=== PATIENT | female | born 1945 | race Caucasian/White ===

== ENCOUNTER 2020-12-06 11:07 | Inpatient (IN) | payer MEDICARE, MEDICAID, SELFPAY ==
--- NOTE | ~2020-12-06 | XR_ITS ---
EXAMINATION: XR ABDOMEN KUB CLINICAL INDICATION: Constipation. Abdominal pain. COMPARISON: None TECHNIQUE: AP view of the abdomen. FINDINGS: There is stool throughout the colon suggestive of constipation. There are no dilated loops of bowel to suggest obstruction. There is no evidence of free air. No calcifications are seen. There are degenerative changes of the lumbar spine and curvature to the left. There are degenerative changes at the hip joints. XR/XR KUB IMPRESSION: Constipation.
--- NOTE | 2020-12-06 11:47 | ECG_ITS ---
Test Reason : MEDCLEARANCE Blood Pressure : / mmHG Vent. Rate : 067 BPM Atrial Rate : 067 BPM P-R Int : 232 ms QRS Dur : 094 ms QT Int : 404 ms P-R-T Axes : 069 -62 048 degrees QTc Int : 426 ms Sinus rhythm with 1st degree A-V block Left anterior fascicular block RSR' or QR pattern in V1 suggests right ventricular conduction delay Abnormal ECG QRS axis has changed slightly Referred By: Kathi Diaz Electronically Signed By:NAT FISCHER MD
[2020-12-06 11:59] VITALS: BP 142/78; BP 145/76; PULSE 81; PULSE 85; RESP 18; TEMP 37.1; O2SAT 96; O2SAT 97; BMI 32.1
[2020-12-06 12:24] VITALS: BP 148/60; PULSE 65; RESP 18; TEMP 36.3; O2SAT 95
--- NOTE | 2020-12-06 12:33 | ED.PSYCH ---
HPI - Psych General Chief Complaint: Psychiatric Symptoms <MARY Martinez - Last Filed: 12/06/20 16:12> Stated Complaint: ANXIETY W/SI <MARY Martinez - Last Filed: 12/06/20 16:12> Time Seen by Provider: 12/06/20 11:46 <MARY Martinez - Last Filed: 12/06/20 16:12> Source: patient and EMS <MARY Martinez Last Filed: 12/06/20 16:12> Mode of arrival: EMS <MARY Martinez Last Filed: 12/06/20 16:12> Limitations: no limitations <MARY Martinez Last Filed: 12/06/20 16:12> History of Present Illness HPI Narrative: 75 y/o female history of schizophrenic, diabetes, chronic constipation, hyperlipidemia who [facility] with increased anxiety and obsession over her bowel movements. She ?wants to get rid of all the stuff inside of me. She does not remember the last time she had a bowel movement. She thinks that has been a week. Staff at the facility reports abnormal large bowel movement yesterday. She has been getting her normal bowel regimen. She denies any abdominal pain, nausea, vomiting, diarrhea, fever, chills, urinary symptoms. She is tearful and anxious when asked about her bowel movements and does not answer the questions. EMS reported some vague SI with no plan but patient denies on arrival. <MARY Martinez - Last Filed: 12/06/20 16:12> MD complaint: anxiety and other (obesession with bowels and constipation) <MARY Martinez - Last Filed: 12/06/20 16:12> Onset (ago): unknown <MARY Martinez - Last Filed: 12/06/20 16:12> Duration: constant <MARY Martinez Last Filed: 12/06/20 16:12> History of same: Yes <MARY Martinez Last Filed: 12/06/20 16:12> Relieving factors: none <MARY Martinez Last Filed: 12/06/20 16:12> Exacerbating factors: none <MARY Martinez - Last Filed: 12/06/20 16:12> Associated psychiatric symptoms: depression and delusions <MARY Martinez - Last Filed: 12/06/20 16:12> Associated symptoms: denies other symptoms <MARY Martinez - Last Filed: 12/06/20 16:12> Treatments prior to arrival: none <MARY Martinez - Last Filed: 12/06/20 16:12> Related Data Home Medications: Home Medications Medication Instructions Recorded Confirmed aripiprazole 30 mg tablet 1 tab PO BEDTIME 12/06/20 12/06/20 aripiprazole 5 mg tablet 0.5 tab PO DAILY PRN 12/06/20 12/06/20 ascorbic acid (vitamin C) 500 mg 500 mg PO BID 12/06/20 12/06/20 tablet (Vitamin C) atorvastatin 40 mg tablet 1 tab PO DAILY 12/06/20 12/06/20 benztropine 0.5 mg tablet 1 tab PO BID 12/06/20 12/06/20 calcium carbonate 600 mg (1,500 1 tab PO DAILY 12/06/20 12/06/20 mg)-vitamin D3 400 unit tablet (Calcium 600 + D(3)) carbidopa 25 mg-levodopa 100 mg 1 tab PO TID 12/06/20 12/06/20 tablet citalopram 10 mg tablet 10 mg PO DAILY 12/06/20 12/06/20 diltiazem HCl 360 mg capsule,24 360 mg PO DAILY 12/06/20 12/06/20 hr,extended release divalproex 500 mg tablet,delayed 1 tab PO BEDTIME 12/06/20 12/06/20 release docusate sodium 100 mg capsule 100 mg PO BID 12/06/20 12/06/20 (DOK) ferrous sulfate 325 mg (65 mg 325 mg PO DAILY 12/06/20 12/06/20 iron) tablet furosemide 20 mg tablet 20 mg PO Q OTHER DAY 12/06/20 12/06/20 furosemide 40 mg tablet 1 tab PO Q OTHER DAY 12/06/20 12/06/20 metformin 1,000 mg tablet 1 tab PO BID 12/06/20 12/06/20 polyethylene glycol 3350 18 g PO DAILY 12/06/20 12/06/20 trazodone 150 mg tablet 1 tab PO BEDTIME 12/06/20 12/06/20 <MARY Martinez - Last Filed: 12/06/20 16:12> Allergies/Adverse Reactions: Allergies Allergy/AdvReac Type Severity Reaction Status Date / Time No Known Allergies Allergy Unknown UNKNOWN Unverified 10/28/19 16:25 [NO KNOWN ALLERGIES] <MARY Martinez - Last Filed: 12/06/20 16:12> Review of Systems Review of Systems: Constitutional: No Fever, No Chills ENT/Mouth: No sore throat, No Rhinorrhea, No Swallowing Difficulty Cardiovascular: No Chest Pain, No SOB, No Orthopnea, No Edema Respiratory: No Cough, No Sputum, No Wheezing, No dyspnea Gastrointestinal: No Nausea, No Vomiting, No Diarrhea, No abdominal Pain, No Hematochezia, No Melena, +constipation Genitourinary: No Dysuria, No Urinary Frequency, No Hematuria Musculoskeletal: No joint pain, No Myalgias Skin: No Skin Lesions, No rash Neuro: No Weakness, No Numbness, No Dizziness, No Headache Psych: + Anxiety/Panic, +Depression, No SI, No HI, No AH, No VH Heme/Lymph: No Bruising, No Lymphadenopathy Endocrine: No Polyuria, No Polydipsia <MARY Martinez - Last Filed: 12/06/20 16:12> [facility] Social History Social History: Social History Advance Directives: No Advance Directives Information Provided: No <MARY Martinez - Last Filed: 12/06/20 16:12> Physical Exam Vital Signs: Vital Signs: Last Vital Signs Temp 98.7 F 12/06/20 11:59 Pulse 81 12/06/20 11:59 Resp 18 12/06/20 11:59 BP 145/76 H 12/06/20 11:59 Pulse Ox 96 12/06/20 11:59 Body Mass Index 32.1 <MARY Martinez - Last Filed: 12/06/20 16:12> Vital Signs: Last Vital Signs Temp 98.7 F 12/06/20 11:59 Pulse 81 12/06/20 11:59 Resp 18 12/06/20 11:59 BP 145/76 H 12/06/20 11:59 Pulse Ox 96 12/06/20 11:59 Body Mass Index 32.1 <MARY Strong - Last Filed: 12/06/20 17:44> Appearance: Alert elderly female sitting at the edge of the bed tearful. Oriented X2. Eyes: Pupils equal, round and reactive to light. ENT: Pharynx normal. Neck: Normal inspection. Neck supple. CVS: Normal heart rate and rhythm. Pulses normal. Respiratory: No respiratory distress. Breath sounds normal. Abdomen: Soft with mild generalized tenderness, no rebound no guarding. Normal+BS x4 Skin: Skin warm and dry. Normal skin color. Normal skin turgor. No rashes. Extremities: No lower extremity edema. Neuro: Oriented X 3. No motor deficit. No sensory deficit. Cranial nerves 2-12 intact <MARY Martinez Last Filed: 12/06/20 16:12> Course Course Course Narrative: 75-year-old female with history schizophrenia coming in from [facility] with anxiety and obsession over her bowels. She wants to ?get everything out of me .? prison staff confirmed normal good size bowel movement yesterday. She has no nausea or vomiting. No fever or chills. Will plan to check basic lab workup, UA, COVID. Will check KUB to rule out obstruction although his left less likely without nausea or vomiting and having regular BM's. Her abdomen is soft. She is getting a bowel regimen currently. <MARY Martinez - Last Filed: 12/06/20 16:12> Reevaluation(s) Reevaluation #1: Lab workup is unremarkable. KUB showing constipation. Will add lactulose and senna. At this time patient is medically cleared. Physician observation started at 4pm. Patient placed in physician observation because patient is awaiting [facility] evaluation for the possible need of inpatient psych admission. At the time observation was started patient's vital signs were stable. Patient is alert and oriented, agitated and tearful at times. Neuro exam is non-focal. CV: RRR and lungs are clear. Will continue to monitor. <MARY Martinez Last Filed: 12/06/20 16:12> MDM - Psych Lab Data Result diagrams: : 12/06/20 13:23 12/06/20 13:23 <MARY Martinez Last Filed: 12/06/20 16:12> Labs: Lab Results 12/06/20 12/06/20 12/06/20 Range/Units 13:22 13:23 13:23 WBC 10.5 (4.8-10.8) X10*3/uL RBC 4.79 (4.20-5.50) X10*6/uL Hgb 15.0 (12.0-16.0) g/dl Hct 44.8 (37-47) % MCV 93.5 (80-98) fL MCH 31.3 (27.0-33.0) pg MCHC 33.5 (31.0-35.0) g/dl RDW 11.2 (11.0-16.0) % Plt Count TNP MPV Not Reportable Immature Gran % (Auto) 0.4 (0.0-0.4) % Neut % (Auto) 77.6 H (45-73) % Lymph % (Auto) 14.7 L (20-40) % Ramsey % (Auto) 5.8 (2-11) % Eos % (Auto) 1.1 (0-4) % Baso % (Auto) 0.4 (0-2) % Lymph # (Auto) 1.5 (1.2-4.9) X10*3/uL Ramsey # (Auto) 0.6 (0.1-1.2) X10*3/uL Eos # (Auto) 0.1 (0.0-0.4) X10*3/uL Baso # (Auto) 0.0 (0.0-0.2) X10*3/uL Abs Immat Gran (auto) 0.04 H (0.00-0.03) X10*3/uL Absolute Neuts (auto) 8.1 (2.0-8.3) X10*3/uL Absolute Nucleated RBC 0.000 (0.0-0.012) X10*3/uL Nucleated RBC % (auto) 0.0 (0.0-0.2) /100WBC Smear Tech's Comments VERIFIED Sodium 135 (135-145) mmol/L Potassium 4.6 (3.3-5.1) mmol/L Chloride 95 L (96-108) mmol/L Carbon Dioxide 25 (22-29) mmol/L Anion Gap 20 (12-20) BUN 15 (9-16) mg/dL Creatinine 0.84 (0.5-1.4) mg/dL Estim Creat Clear Calc 59.2 Estimated GFR > 60 Random Glucose 179 H (60-115) mg/dL Calcium 9.7 (8.4-10.2) mg/dL Magnesium 1.9 (1.6-2.6) mg/dL Total Bilirubin 0.5 (0.0-1.0) mg/dL Direct Bilirubin 0.2 (0.0-0.5) mg/dL AST 9 (5-31) U/L ALT 6 (0-31) U/L Alkaline Phosphatase 82 (39-117) U/L Total Protein 7.7 (6.5-8.0) g/dL Albumin 4.4 (3.5-5.0) g/dL Urine Color Urine Appearance Urine pH (5.0-8.0) Ur Specific [place] (1.005-1.025) Urine Protein (NEG-TRACE) MG/DL Urine Glucose (UA) (NEG) MG/DL Urine Ketones (NEG) MG/DL Urine Blood (NEG) Urine Nitrite (NEG) Ur Leukocyte Esterase (NEG) Urine RBC (0) /HPF Urine WBC (0-4) /HPF Ur Squamous Epith Cells /LPF Urine Bacteria /LPF Urine Opiates Screen (Not Detect) Urine Fentanyl Screen (Not Detect) Ur Barbiturates Screen (Not Detect) Ur Phencyclidine Scrn (Not Detect) Ur Amphetamines Screen (Not Detect) U Benzodiazepines Scrn (Not Detect) Urine Cocaine Screen (Not Detect) U Marijuana (THC) Screen (Not Detect) Ethyl Alcohol < 10 mg/dL COVID-19 (NEGRA) (Negative) COVID-19 Clin Com 12/06/20 12/06/20 12/06/20 Range/Units 13:23 13:23 13:23 WBC (4.8-10.8) X10*3/uL RBC (4.20-5.50) X10*6/uL Hgb (12.0-16.0) g/dl Hct (37-47) % MCV (80-98) fL MCH (27.0-33.0) pg MCHC (31.0-35.0) g/dl RDW (11.0-16.0) % Plt Count MPV Immature Gran % (Auto) (0.0-0.4) % Neut % (Auto) (45-73) % Lymph % (Auto) (20-40) % Ramsey % (Auto) (2-11) % Eos % (Auto) (0-4) % Baso % (Auto) (0-2) % Lymph # (Auto) (1.2-4.9) X10*3/uL Ramsey # (Auto) (0.1-1.2) X10*3/uL Eos # (Auto) (0.0-0.4) X10*3/uL Baso # (Auto) (0.0-0.2) X10*3/uL Abs Immat Gran (auto) (0.00-0.03) X10*3/uL Absolute Neuts (auto) (2.0-8.3) X10*3/uL Absolute Nucleated RBC (0.0-0.012) X10*3/uL Nucleated RBC % (auto) (0.0-0.2) /100WBC Smear Tech's Comments Sodium (135-145) mmol/L Potassium (3.3-5.1) mmol/L Chloride (96-108) mmol/L Carbon Dioxide (22-29) mmol/L Anion Gap (12-20) BUN (9-16) mg/dL Creatinine (0.5-1.4) mg/dL Estim Creat Clear Calc Estimated GFR Random Glucose (60-115) mg/dL Calcium (8.4-10.2) mg/dL Magnesium (1.6-2.6) mg/dL Total Bilirubin (0.0-1.0) mg/dL Direct Bilirubin (0.0-0.5) mg/dL AST (5-31) U/L ALT (0-31) U/L Alkaline Phosphatase (39-117) U/L Total Protein (6.5-8.0) g/dL Albumin (3.5-5.0) g/dL Urine Color YELLOW Urine Appearance CLEAR Urine pH 6.0 (5.0-8.0) Ur Specific [place] 1.010 (1.005-1.025) Urine Protein NEG (NEG-TRACE) MG/DL Urine Glucose (UA) 100 H (NEG) MG/DL Urine Ketones 5 (NEG) MG/DL Urine Blood NEG (NEG) Urine Nitrite NEG (NEG) Ur Leukocyte Esterase 1+ H (NEG) Urine RBC 0 (0) /HPF Urine WBC 10-14 H (0-4) /HPF Ur Squamous Epith Cells 2+ /LPF Urine Bacteria 4+ /LPF Urine Opiates Screen Not Detected (Not Detect) Urine Fentanyl Screen POSITIVE H (Not Detect) Ur Barbiturates Screen Not Detected (Not Detect) Ur Phencyclidine Scrn Not Detected (Not Detect) Ur Amphetamines Screen Not Detected (Not Detect) U Benzodiazepines Scrn Not Detected (Not Detect) Urine Cocaine Screen Not Detected (Not Detect) U Marijuana (THC) Screen Not Detected (Not Detect) Ethyl Alcohol mg/dL COVID-19 (NEGRA) Negative (Negative) COVID-19 Clin Com See Note <MARY Martinez - Last Filed: 12/06/20 16:12> Lab Results 12/06/20 12/06/20 12/06/20 Range/Units 13:22 13:23 13:23 WBC 10.5 (4.8-10.8) X10*3/uL RBC 4.79 (4.20-5.50) X10*6/uL Hgb 15.0 (12.0-16.0) g/dl Hct 44.8 (37-47) % MCV 93.5 (80-98) fL MCH 31.3 (27.0-33.0) pg MCHC 33.5 (31.0-35.0) g/dl RDW 11.2 (11.0-16.0) % Plt Count TNP MPV Not Reportable Immature Gran % (Auto) 0.4 (0.0-0.4) % Neut % (Auto) 77.6 H (45-73) % Lymph % (Auto) 14.7 L (20-40) % Ramsey % (Auto) 5.8 (2-11) % Eos % (Auto) 1.1 (0-4) % Baso % (Auto) 0.4 (0-2) % Lymph # (Auto) 1.5 (1.2-4.9) X10*3/uL Ramsey # (Auto) 0.6 (0.1-1.2) X10*3/uL Eos # (Auto) 0.1 (0.0-0.4) X10*3/uL Baso # (Auto) 0.0 (0.0-0.2) X10*3/uL Abs Immat Gran (auto) 0.04 H (0.00-0.03) X10*3/uL Absolute Neuts (auto) 8.1 (2.0-8.3) X10*3/uL Absolute Nucleated RBC 0.000 (0.0-0.012) X10*3/uL Nucleated RBC % (auto) 0.0 (0.0-0.2) /100WBC Smear Tech's Comments VERIFIED Sodium 135 (135-145) mmol/L Potassium 4.6 (3.3-5.1) mmol/L Chloride 95 L (96-108) mmol/L Carbon Dioxide 25 (22-29) mmol/L Anion Gap 20 (12-20) BUN 15 (9-16) mg/dL Creatinine 0.84 (0.5-1.4) mg/dL Estim Creat Clear Calc 59.2 Estimated GFR > 60 Random Glucose 179 H (60-115) mg/dL Calcium 9.7 (8.4-10.2) mg/dL Magnesium 1.9 (1.6-2.6) mg/dL Total Bilirubin 0.5 (0.0-1.0) mg/dL Direct Bilirubin 0.2 (0.0-0.5) mg/dL AST 9 (5-31) U/L ALT 6 (0-31) U/L Alkaline Phosphatase 82 (39-117) U/L Total Protein 7.7 (6.5-8.0) g/dL Albumin 4.4 (3.5-5.0) g/dL Urine Color Urine Appearance Urine pH (5.0-8.0) Ur Specific [place] (1.005-1.025) Urine Protein (NEG-TRACE) MG/DL Urine Glucose (UA) (NEG) MG/DL Urine Ketones (NEG) MG/DL Urine Blood (NEG) Urine Nitrite (NEG) Ur Leukocyte Esterase (NEG) Urine RBC (0) /HPF Urine WBC (0-4) /HPF Ur Squamous Epith Cells /LPF Urine Bacteria /LPF Urine Opiates Screen (Not Detect) Urine Fentanyl Screen (Not Detect) Ur Barbiturates Screen (Not Detect) Ur Phencyclidine Scrn (Not Detect) Ur Amphetamines Screen (Not Detect) U Benzodiazepines Scrn (Not Detect) Urine Cocaine Screen (Not Detect) U Marijuana (THC) Screen (Not Detect) Ethyl Alcohol < 10 mg/dL COVID-19 (NEGRA) (Negative) COVID-19 Clin Com 12/06/20 12/06/20 12/06/20 Range/Units 13:23 13:23 13:23 WBC (4.8-10.8) X10*3/uL RBC (4.20-5.50) X10*6/uL Hgb (12.0-16.0) g/dl Hct (37-47) % MCV (80-98) fL MCH (27.0-33.0) pg MCHC (31.0-35.0) g/dl RDW (11.0-16.0) % Plt Count MPV Immature Gran % (Auto) (0.0-0.4) % Neut % (Auto) (45-73) % Lymph % (Auto) (20-40) % Ramsey % (Auto) (2-11) % Eos % (Auto) (0-4) % Baso % (Auto) (0-2) % Lymph # (Auto) (1.2-4.9) X10*3/uL Ramsey # (Auto) (0.1-1.2) X10*3/uL Eos # (Auto) (0.0-0.4) X10*3/uL Baso # (Auto) (0.0-0.2) X10*3/uL Abs Immat Gran (auto) (0.00-0.03) X10*3/uL Absolute Neuts (auto) (2.0-8.3) X10*3/uL Absolute Nucleated RBC (0.0-0.012) X10*3/uL Nucleated RBC % (auto) (0.0-0.2) /100WBC Smear Tech's Comments Sodium (135-145) mmol/L Potassium (3.3-5.1) mmol/L Chloride (96-108) mmol/L Carbon Dioxide (22-29) mmol/L Anion Gap (12-20) BUN (9-16) mg/dL Creatinine (0.5-1.4) mg/dL Estim Creat Clear Calc Estimated GFR Random Glucose (60-115) mg/dL Calcium (8.4-10.2) mg/dL Magnesium (1.6-2.6) mg/dL Total Bilirubin (0.0-1.0) mg/dL Direct Bilirubin (0.0-0.5) mg/dL AST (5-31) U/L ALT (0-31) U/L Alkaline Phosphatase (39-117) U/L Total Protein (6.5-8.0) g/dL Albumin (3.5-5.0) g/dL Urine Color YELLOW Urine Appearance CLEAR Urine pH 6.0 (5.0-8.0) Ur Specific [place] 1.010 (1.005-1.025) Urine Protein NEG (NEG-TRACE) MG/DL Urine Glucose (UA) 100 H (NEG) MG/DL Urine Ketones 5 (NEG) MG/DL Urine Blood NEG (NEG) Urine Nitrite NEG (NEG) Ur Leukocyte Esterase 1+ H (NEG) Urine RBC 0 (0) /HPF Urine WBC 10-14 H (0-4) /HPF Ur Squamous Epith Cells 2+ /LPF Urine Bacteria 4+ /LPF Urine Opiates Screen Not Detected (Not Detect) Urine Fentanyl Screen POSITIVE H (Not Detect) Ur Barbiturates Screen Not Detected (Not Detect) Ur Phencyclidine Scrn Not Detected (Not Detect) Ur Amphetamines Screen Not Detected (Not Detect) U Benzodiazepines Scrn Not Detected (Not Detect) Urine Cocaine Screen Not Detected (Not Detect) U Marijuana (THC) Screen Not Detected (Not Detect) Ethyl Alcohol mg/dL COVID-19 (NEGRA) Negative (Negative) COVID-19 Clin Com See Note <MARY Strong - Last Filed: 12/06/20 17:44> ECG Data Attestation: I personally reviewed and interpreted this ECG as follows: <MARY Martinez - Last Filed: 12/06/20 16:12> ECG interpretation date: 12/06/20 <MARY Martinez - Last Filed: 12/06/20 16:12> ECG interpretation time: 16:11 <MARY Martinez - Last Filed: 12/06/20 16:12> Interpretation: Normal sinus rhythm with first-degree AV block. LA interval prolonged 232 MS, normal QTC. No ST segment elevations or depressions. Left axis deviation. <MARY Martinez - Last Filed: 12/06/20 16:12> Discharge Plan Discharge Clinical Impression: Chronic schizophrenia, Acute anxiety Constipation Qualifiers: Constipation type: other constipation type Qualified Code(s): K59.09 - Other constipation <MARY Martinez - Last Filed: 12/06/20 16:12> Prescriptions: No Action citalopram 10 mg Tablet 10 mg PO DAILY RF: 0 diltiazem HCl 360 mg Capsule,Extended Release 24 Hr 360 mg PO DAILY RF: 0 polyethylene glycol 3350 18 g PO DAILY RF: 0 furosemide 40 mg tablet 1 tab PO Q OTHER DAY RF: 0 atorvastatin 40 mg tablet 1 tab PO DAILY RF: 0 benztropine 0.5 mg tablet 1 tab PO BID RF: 0 divalproex 500 mg tablet,delayed release (DR/EC) 1 tab PO BEDTIME RF: 0 ascorbic acid (vitamin C) [Vitamin C] 500 mg Tablet 500 mg PO BID RF: 0 trazodone 150 mg tablet 1 tab PO BEDTIME RF: 0 ferrous sulfate 325 mg (65 mg iron) Tablet 325 mg PO DAILY RF: 0 metformin 1,000 mg tablet 1 tab PO BID RF: 0 docusate sodium [DOK] 100 mg Capsule 100 mg PO BID RF: 0 furosemide 20 mg tablet 20 mg PO Q OTHER DAY RF: 0 carbidopa-levodopa 25-100 mg tablet 1 tab PO TID RF: 0 aripiprazole 30 mg tablet 1 tab PO BEDTIME RF: 0 aripiprazole 5 mg tablet 0.5 tab PO DAILY PRN (Reason: Anxiety) RF: 0 calcium carbonate-vitamin D3 [Calcium 600 + D(3)] 600 mg(1,500mg) -400 unit Tablet 1 tab PO DAILY RF: 0 <MARY Martinez - Last Filed: 12/06/20 16:12>
[2020-12-06 13:33] LABS: Appearance Urine CLEAR; Color Urine YELLOW; Glucose Urine UA 100 MG/DL (NEG); Leukocyte Esterase Urine 1+ (NEG); Nitrite Urine NEG (NEG); UACC Culture Trigger YES; Urine Blood NEG (NEG); Urine Ketones 5 MG/DL (NEG); Urine Protein NEG (NEG-TRACE)
[2020-12-06 13:36] LABS: Basophils Percent Auto 0.4 % (0-2); Eosinophils Absolute Auto 0.1 X10*3/uL (0.0-0.4); Eosinophils Percent Auto 1.1 % (0-4); Hematocrit 44.8 % (37-47); Imm Gran Abs Auto 0.04 X10*3/uL (0.00-0.03); Imm Gran Pct Auto 0.4 % (0.0-0.4); Lymphocytes Absolute Auto 1.5 X10*3/uL (1.2-4.9); Lymphocytes Percent Auto 14.7 % (20-40); MANUAL DIFF FLAG SCAN; Mean Corpuscular HGB Conc 33.5 g/dl (31.0-35.0); Mean Corpuscular Hemoglobin 31.3 pg (27.0-33.0); Mean Corpuscular Volume 93.5 fL (80-98); Monocytes Absolute Auto 0.6 X10*3/uL (0.1-1.2); Monocytes Percent Auto 5.8 % (2-11); Neutrophils Absolute Auto 8.1 X10*3/uL (2.0-8.3); Neutrophils Percent Auto 77.6 % (45-73); PLT CLUMP 1; Red Blood Count 4.79 X10*6/uL (4.20-5.50); Red Cell Distribution Width 11.2 % (11.0-16.0); SCAN SMEAR FLAG 1
[2020-12-06 13:43] LABS: Bacteria Urine 4+ /LPF; RBC Urine 0 /HPF (0); Squamous Epithelial Cell Urine 2+ /LPF
[2020-12-06 13:45] LABS: Ethanol < 10 mg/dL
[2020-12-06 13:48] LABS: Amphetamine Screen Urine Not Detected (Not Detect); Barbiturates, Urine Not Detected (Not Detect); Benzodiazepines Screen Urine Not Detected (Not Detect); Cannabinoid Screen Urine Not Detected (Not Detect); Cocaine Screen Urine Not Detected (Not Detect); Fentanyl, urine POSITIVE (Not Detect); Opiate Screen Urine Not Detected (Not Detect); Phencyclidine Screen Urine Not Detected (Not Detect)
[2020-12-06 13:50] LABS: Alanine Aminotransferase 6 U/L (0-31); Albumin Level 4.4 g/dL (3.5-5.0); Alkaline Phosphatase 82 U/L (39-117); Anion Gap 20 (12-20); Aspartate Amino Transferase 9 U/L (5-31); Bilirubin Direct 0.2 mg/dL (0.0-0.5); Bilirubin Total 0.5 mg/dL (0.0-1.0); Blood Urea Nitrogen 15 mg/dL (9-16); Calcium 9.7 mg/dL (8.4-10.2); Carbon Dioxide 25 mmol/L (22-29); Chloride 95 mmol/L (96-108); Creatinine Clr Calc Pharmacy 59.2; Estimated Glomerular Filt Rate > 60; Glucose Random 179 mg/dL (60-115); Magnesium 1.9 mg/dL (1.6-2.6); Potassium 4.6 mmol/L (3.3-5.1); Sodium 135 mmol/L (135-145); Total Protein 7.7 g/dL (6.5-8.0)
[2020-12-06 13:51] LABS: COVID-19 Test Negative (Negative)
[2020-12-06 14:01] LABS: SLIDE REVIEW VERIFIED; White Blood Count 10.5 X10*3/uL (4.8-10.8)
[2020-12-06] MEDS: Lactulose 20 GM/30 ML SOLUTION PO (16:53)
[2020-12-06] MEDS: ARIPiprazole 5 MG TABLET 2.5 MG PO (18:19)
[2020-12-06] MEDS: Ascorbic Acid 500 MG TABLET PO (20:27)
[2020-12-06] MEDS: metFORMIN HCl 1,000 MG TABLET 1000 MG PO (20:27)
[2020-12-06] MEDS: Divalproex Sodium 500 MG TABLET.DR PO (20:27)
[2020-12-06] MEDS: Carbidopa/Levodopa 25/100 TABLET 1 TAB PO (20:27)
[2020-12-06] MEDS: traZODone HCL 50 MG TABLET 150 MG PO (20:27)
[2020-12-06] MEDS: Benztropine Mesylate 0.5 MG TABLET PO (20:28)
[2020-12-06 20:32] LABS: Valproate 37.6 mcg/mL (50.0-100.0)
[2020-12-06] MEDS: ARIPiprazole 30 MG TABLET PO (20:54)
--- NOTE | 2020-12-06 21:16 | PC.NURSE ---
Patient is currently in bed resting quietly, compliant with HS medication, patient had positive effect from lactulose, had extra large loose bowel movement, POC 260, VSS, alert and oriented x 4, thpought process coherent, unsteady gait use walker for ambulation, will continue to monitor.
[2020-12-06 21:22] LABS: Glucose, Whole Blood 260 mg/dL (60-115)
[2020-12-06 22:40] VITALS: BP 192/84; PULSE 77; RESP 18; TEMP 36.4; O2SAT 95
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
[2020-12-07 08:35] VITALS: BP 142/60; PULSE 71
[2020-12-07] MEDS: Benztropine Mesylate 0.5 MG TABLET PO ×2 (08:35→21:00)
[2020-12-07] MEDS: dilTIAZem HCL CD 180 MG CAP.ER.24H 360 MG PO (08:35)
[2020-12-07] MEDS: Carbidopa/Levodopa 25/100 TABLET 1 TAB PO ×3 (08:35→21:00)
[2020-12-07] MEDS: Docusate Sodium 100 MG CAPSULE PO ×2 (08:35→20:57)
[2020-12-07] MEDS: metFORMIN HCl 1,000 MG TABLET 1000 MG PO ×2 (08:36→20:56)
[2020-12-07] MEDS: Escitalopram Oxalate 5 MG TABLET PO (08:36)
[2020-12-07] MEDS: Calcium + Vitamin D 250 MG TABLET PO (08:36)
[2020-12-07] MEDS: Ferrous Sulfate 324 MG TABLET.DR PO (08:36)
[2020-12-07] MEDS: Ascorbic Acid 500 MG TABLET PO ×2 (08:36→21:00)
[2020-12-07] MEDS: Furosemide 40 MG TABLET PO (10:37)
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
[2020-12-07] MEDS: traZODone HCL 50 MG TABLET 150 MG PO (20:57)
[2020-12-07] MEDS: Divalproex Sodium 500 MG TABLET.DR PO (20:57)
[2020-12-07] MEDS: ARIPiprazole 30 MG TABLET PO (21:00)
[2020-12-07] MEDS: Atorvastatin Calcium 40 MG TABLET PO (21:01)
[2020-12-07 21:18] VITALS: BP 151/68; PULSE 98; RESP 17; TEMP 36.9; O2SAT 96
[2020-12-07 22:00] VITALS: BMI 31.7
[2020-12-08 06:00] VITALS: BP 160/78; PULSE 88; RESP 16; TEMP 37; O2SAT 98
[2020-12-08] MEDS: dilTIAZem HCL CD 180 MG CAP.ER.24H 360 MG PO (09:41)
[2020-12-08] MEDS: Benztropine Mesylate 0.5 MG TABLET PO ×2 (09:41→21:00)
[2020-12-08] MEDS: Calcium + Vitamin D 250 MG TABLET PO (09:42)
[2020-12-08] MEDS: Carbidopa/Levodopa 25/100 TABLET 1 TAB PO ×3 (09:42→20:59)
[2020-12-08] MEDS: Furosemide 20 MG TABLET PO (09:42)
[2020-12-08] MEDS: metFORMIN HCl 1,000 MG TABLET 1000 MG PO ×2 (09:42→21:00)
[2020-12-08] MEDS: Ascorbic Acid 500 MG TABLET PO ×2 (09:42→21:01)
[2020-12-08] MEDS: Docusate Sodium 100 MG CAPSULE PO ×2 (09:42→21:01)
[2020-12-08] MEDS: Escitalopram Oxalate 5 MG TABLET PO (09:42)
[2020-12-08] MEDS: polyethylene glycoL 3350 17 GM POWD.PACK PO (09:42)
[2020-12-08] MEDS: Ferrous Sulfate 324 MG TABLET.DR PO (09:42)
--- NOTE | 2020-12-08 14:26 | P.PNPSI_ITS ---
Subjective Subjective Date of Service: 12/08/20 Reason For Visit: SI Subjective Notes: Conditional Voluntary Interim History: The nursing staff reports that she remains on her room most of the time she looks pleasantly confused. On interview, the patient reported that she feels much better after she was constipated and in her facility she ?tensions was not been taking care? and she got agitated. When she arrived she received bowel treatment she has 3 bowel movements and now she feels much better. She requested medications for her constipation. We will gather collateral information but it seems that she is at her baseline. Medication Compliance: Yes Side effects from medications: Yes (constipation) Attending Groups: Yes Review of Systems Acute medical concerns: No Medical Review of Systems: unchanged Mental Status Exam Mental Status Exam Patient Appearance: Well Grooomed Patient Orientation: Person and Situation Level of Consciousness: Awake Patient Behavior: Cooperative Mood Description: Constricted Affect Description: Constricted Patient Cognition Impaired: Yes Ability to Follow Directions: Good Speech Pattern: Clear Hallucinations: None Delusions: Not Present Thought Process: Linear Thought Content: positive for Linear and positive for Poverty of Content Judgement: Fair Diagnostics Vital Signs (24Hr): Vital Signs - 24 hr 12/07/20 21:18 Temperature 98.5 F Pulse Rate 98 Respiratory Rate 17 Blood Pressure 151/68 H Pulse Oximetry 96 Body Mass Index 31.7 Labs Results: 12/06/20 13:23 12/06/20 13:23 Labs: Laboratory Results - last 48 hr 12/06/20 12/06/20 13:23 21:18 POC Glucose 260 H Valproic Acid 37.6 L Imaging Radiology Impressions: ITS Impressions [facility] X-Ray 12/06/20 15:36 IMPRESSION: Constipation. Medications Medications Current Medications Acetaminophen (Acetaminophen 325 Mg Tablet) 650 mg PO Q6H PRN PRN Reason: Headache/Pain Mild Scale (1-3) Al Hydroxide/Mg Hydroxide (Magnesium Hydrox/Alum Hydrox 30 Ml Oral.Susp) 30 ml PO Q6H PRN PRN Reason: Heartburn/Nausea Aripiprazole (Aripiprazole 5 Mg Tablet) 2.5 mg PO DAILY PRN PRN Reason: Anxiety Last Admin: 12/06/20 18:19 Dose: 2.5 mg Documented by: Aripiprazole (Aripiprazole 30 Mg Tablet) 30 mg PO BEDTIME [facility] Last Admin: 12/07/20 21:00 Dose: 30 mg Documented by: Ascorbic Acid (Ascorbic Acid 500 Mg Tablet) 500 mg PO BID [facility] Last Admin: 12/08/20 09:42 Dose: 500 mg Documented by: Atorvastatin Calcium (Atorvastatin Calcium 40 Mg Tablet) 40 mg PO BEDTIME [facility] Last Admin: 12/07/20 21:01 Dose: 40 mg Documented by: Benztropine Mesylate (Benztropine Mesylate 0.5 Mg Tablet) 0.5 mg PO BID [facility] Last Admin: 12/08/20 09:41 Dose: 0.5 mg Documented by: Calcium Carbonate/Cholecalciferol (Calcium + Vitamin D 250 Mg Tablet) 250 mg PO DAILY [facility] Last Admin: 12/08/20 09:42 Dose: 250 mg Documented by: Carbidopa/Levodopa (Carbidopa/Levodopa 25/100 Tablet) 1 tab PO TID [facility] Last Admin: 12/08/20 09:42 Dose: 1 tab Documented by: Diltiazem HCl (Diltiazem Hcl Cd 180 Mg Cap.Er.24h) 360 mg PO DAILY [facility]; Protocol Last Admin: 12/08/20 09:41 Dose: 360 mg Documented by: Divalproex Sodium (Divalproex Sodium 500 Mg Tablet.) 500 mg PO BEDTIME [facility] Last Admin: 12/07/20 20:57 Dose: 500 mg Documented by: Docusate Sodium (Docusate Sodium 100 Mg Capsule) 100 mg PO BID [facility] Last Admin: 12/08/20 09:42 Dose: 100 mg Documented by: Escitalopram Oxalate (Escitalopram Oxalate 5 Mg Tablet) 5 mg PO DAILY [facility] Last Admin: 12/08/20 09:42 Dose: 5 mg Documented by: Ferrous Sulfate (Ferrous Sulfate 324 Mg Tablet.) 324 mg PO DAILY [facility] Last Admin: 12/08/20 09:42 Dose: 324 mg Documented by: Furosemide (Furosemide 40 Mg Tablet) 40 mg PO Q2D [facility]; Protocol Last Admin: 12/07/20 10:37 Dose: 40 mg Documented by: Furosemide (Furosemide 20 Mg Tablet) 20 mg PO Q2D@0900 [facility]; Protocol Last Admin: 12/08/20 09:42 Dose: 20 mg Documented by: Hydroxyzine HCl (Hydroxyzine Hcl 25 Mg Tablet) 25 mg PO BEDTIME PRN PRN Reason: Anxiety Magnesium Hydroxide (Milk Of Magnesia 30 Ml Oral.Susp) 30 ml PO DAILY PRN PRN Reason: Constipation Metformin HCl (Metformin Hcl 1,000 Mg Tablet) 1,000 mg PO BID [facility] Last Admin: 12/08/20 09:42 Dose: 1,000 mg Documented by: Polyethylene Glycol (Polyethylene Glycol 3350 17 Gm Powd.Pack) 17 gm PO DAILY [facility] Last Admin: 12/08/20 09:42 Dose: 17 gm Documented by: Trazodone HCl (Trazodone Hcl 50 Mg Tablet) 150 mg PO BEDTIME [facility] Last Admin: 12/07/20 20:57 Dose: 150 mg Documented by: Trazodone HCl (Trazodone Hcl 50 Mg Tablet) 50 mg PO BEDTIME PRN PRN Reason: Insomnia Allergies Allergies Allergy/AdvReac Type Severity Reaction Status Date / Time No Known Allergies Allergy Unknown UNKNOWN Unverified 10/28/19 16:25 [NO KNOWN ALLERGIES] Assessment & Plan Assessment & Plan (1) Chronic schizophrenia: Status: Acute Code(s): F20.9 - Schizophrenia, unspecified (2) Constipation: Qualifiers: Constipation type: other constipation type Qualified Code(s): K59.09 - Other constipation Status: Acute Code(s): K59.00 - Constipation, unspecified Assessment and Plan: The patient is an elderly female with a long history of schizophrenia who was referred to the facility after she was agitated. On interview, the patient reported that she was constipated and she reported that several times to the staff but since she felt that they were not paying attention she got agitated. Plan 1. Continue same medications and antipsychotics 2. Gather collateral information. 3. At Colace 100 mg p.o. b.i.d. and senna for constipation I spent minutes with the patient and/or on the patient floor today, greater than?50% of which was spent counseling/coordinating care. Reason for contiued inpatient stay Substantial Risk for: inability to function, rapid decompensation and med/psych decompensation
[2020-12-08 18:00] VITALS: BP 144/63; PULSE 65; RESP 17; TEMP 37.1; O2SAT 93
[2020-12-08] MEDS: traZODone HCL 50 MG TABLET 150 MG PO (20:59)
[2020-12-08] MEDS: Atorvastatin Calcium 40 MG TABLET PO (21:00)
[2020-12-08] MEDS: Divalproex Sodium 500 MG TABLET.DR PO (21:00)
[2020-12-08] MEDS: ARIPiprazole 30 MG TABLET PO (21:00)
[2020-12-08] MEDS: Sennosides 8.6 MG TABLET PO (22:07)
[2020-12-09 08:09] VITALS: BP 176/75; PULSE 66
[2020-12-09] MEDS: Docusate Sodium 100 MG CAPSULE PO ×2 (08:09→20:55)
[2020-12-09] MEDS: dilTIAZem HCL CD 180 MG CAP.ER.24H 360 MG PO (08:09)
[2020-12-09] MEDS: Calcium + Vitamin D 250 MG TABLET PO (08:10)
[2020-12-09] MEDS: Ascorbic Acid 500 MG TABLET PO ×2 (08:10→20:57)
[2020-12-09] MEDS: Benztropine Mesylate 0.5 MG TABLET PO ×2 (08:10→20:55)
[2020-12-09] MEDS: Ferrous Sulfate 324 MG TABLET.DR PO (08:10)
[2020-12-09] MEDS: Escitalopram Oxalate 5 MG TABLET PO (08:10)
[2020-12-09] MEDS: metFORMIN HCl 1,000 MG TABLET 1000 MG PO ×2 (08:10→20:56)
[2020-12-09] MEDS: Carbidopa/Levodopa 25/100 TABLET 1 TAB PO ×3 (08:10→20:56)
[2020-12-09 09:06] VITALS: BP 176/75; PULSE 66; TEMP 35.1; O2SAT 95
[2020-12-09] MEDS: Furosemide 40 MG TABLET PO (09:11)
[2020-12-09] MEDS: Acetaminophen 325 MG TABLET 650 MG PO (09:37)
--- NOTE | 2020-12-09 09:46 | PC.NURSE ---
Patient was complaining of headache around 9:46 Am. BP 149/65 and Pls :79 . Tylenol given. Will continue to monitor.
--- NOTE | 2020-12-09 17:41 | HO.PSYCHPN ---
Subjective Subjective Date of Service: 12/09/20 Reason For Visit: SI Interim History: pt states that last night she received a little brown pill for constipation and it worked very well and she would like to have that medication scheduled. MD informed pt he would investigate what medication she received last night and if it made sense would prescribe the relevant medication daily. no other questions or complaints. per staff, pt is pleasant, med-compliant, had a large BM this morning. Mental Status Exam Mental Status Exam Patient Appearance: Well Grooomed Patient Orientation: Person and Situation Level of Consciousness: Awake Patient Behavior: Cooperative Mood Description: Constricted Affect Description: Constricted Patient Cognition Impaired: Yes Ability to Follow Directions: Good Speech Pattern: Clear Hallucinations: None Delusions: Not Present Thought Process: Linear Thought Content: positive for Linear and positive for Poverty of Content Judgement: Fair Diagnostics Vital Signs (24Hr): Vital Signs - 24 hr 12/08/20 18:00 12/09/20 08:09 12/09/20 09:06 Temperature 98.7 F 95.2 F L Pulse Rate 65 66 66 Respiratory Rate 17 Blood Pressure 144/63 H 176/75 H 176/75 H Pulse Oximetry 93 95 Body Mass Index 31.7 Labs Results: 12/06/20 13:23 12/06/20 13:23 Imaging Radiology Impressions: ITS Impressions [facility] X-Ray 12/06/20 15:36 IMPRESSION: Constipation. Medications Medications Current Medications Acetaminophen (Acetaminophen 325 Mg Tablet) 650 mg PO Q6H PRN PRN Reason: Headache/Pain Mild Scale (1-3) Last Admin: 12/09/20 09:37 Dose: 650 mg Documented by: Al Hydroxide/Mg Hydroxide (Magnesium Hydrox/Alum Hydrox 30 Ml Oral.Susp) 30 ml PO Q6H PRN PRN Reason: Heartburn/Nausea Aripiprazole (Aripiprazole 5 Mg Tablet) 2.5 mg PO DAILY PRN PRN Reason: Anxiety Last Admin: 12/06/20 18:19 Dose: 2.5 mg Documented by: Aripiprazole (Aripiprazole 30 Mg Tablet) 30 mg PO BEDTIME [facility] Last Admin: 12/08/20 21:00 Dose: 30 mg Documented by: Ascorbic Acid (Ascorbic Acid 500 Mg Tablet) 500 mg PO BID [facility] Last Admin: 12/09/20 08:10 Dose: 500 mg Documented by: Atorvastatin Calcium (Atorvastatin Calcium 40 Mg Tablet) 40 mg PO BEDTIME [facility] Last Admin: 12/08/20 21:00 Dose: 40 mg Documented by: Benztropine Mesylate (Benztropine Mesylate 0.5 Mg Tablet) 0.5 mg PO BID [facility] Last Admin: 12/09/20 08:10 Dose: 0.5 mg Documented by: Calcium Carbonate/Cholecalciferol (Calcium + Vitamin D 250 Mg Tablet) 250 mg PO DAILY [facility] Last Admin: 12/09/20 08:10 Dose: 250 mg Documented by: Carbidopa/Levodopa (Carbidopa/Levodopa 25/100 Tablet) 1 tab PO TID [facility] Last Admin: 12/09/20 14:34 Dose: 1 tab Documented by: Diltiazem HCl (Diltiazem Hcl Cd 180 Mg Cap.Er.24h) 360 mg PO DAILY [facility]; Protocol Last Admin: 12/09/20 08:09 Dose: 360 mg Documented by: Divalproex Sodium (Divalproex Sodium 500 Mg Tablet.) 500 mg PO BEDTIME [facility] Last Admin: 12/08/20 21:00 Dose: 500 mg Documented by: Docusate Sodium (Docusate Sodium 100 Mg Capsule) 100 mg PO BID [facility] Last Admin: 12/09/20 08:09 Dose: 100 mg Documented by: Escitalopram Oxalate (Escitalopram Oxalate 5 Mg Tablet) 5 mg PO DAILY [facility] Last Admin: 12/09/20 08:10 Dose: 5 mg Documented by: Ferrous Sulfate (Ferrous Sulfate 324 Mg Tablet.) 324 mg PO DAILY [facility] Last Admin: 12/09/20 08:10 Dose: 324 mg Documented by: Furosemide (Furosemide 40 Mg Tablet) 40 mg PO Q2D [facility]; Protocol Last Admin: 12/09/20 09:11 Dose: 40 mg Documented by: Furosemide (Furosemide 20 Mg Tablet) 20 mg PO Q2D@0900 [facility]; Protocol Last Admin: 12/08/20 09:42 Dose: 20 mg Documented by: Hydroxyzine HCl (Hydroxyzine Hcl 25 Mg Tablet) 25 mg PO BEDTIME PRN PRN Reason: Anxiety Magnesium Hydroxide (Milk Of Magnesia 30 Ml Oral.Susp) 30 ml PO DAILY PRN PRN Reason: Constipation Metformin HCl (Metformin Hcl 1,000 Mg Tablet) 1,000 mg PO BID [facility] Last Admin: 12/09/20 08:10 Dose: 1,000 mg Documented by: Polyethylene Glycol (Polyethylene Glycol 3350 17 Gm Powd.Pack) 17 gm PO DAILY [facility] Last Admin: 12/09/20 08:19 Dose: Not Given Documented by: Senna (Sennosides 8.6 Mg Tablet) 8.6 mg PO DAILY [facility] Trazodone HCl (Trazodone Hcl 50 Mg Tablet) 150 mg PO BEDTIME [facility] Last Admin: 12/08/20 20:59 Dose: 150 mg Documented by: Trazodone HCl (Trazodone Hcl 50 Mg Tablet) 50 mg PO BEDTIME PRN PRN Reason: Insomnia Allergies Allergies Allergy/AdvReac Type Severity Reaction Status Date / Time No Known Allergies Allergy Unknown UNKNOWN Unverified 10/28/19 16:25 [NO KNOWN ALLERGIES] Assessment & Plan Assessment & Plan (1) Chronic schizophrenia: Status: Acute Code(s): F20.9 - Schizophrenia, unspecified (2) Constipation: Qualifiers: Constipation type: other constipation type Qualified Code(s): K59.09 - Other constipation Status: Acute Code(s): K59.00 - Constipation, unspecified Assessment and Plan: The patient is an elderly female with a long history of schizophrenia who was referred to the facility after she was agitated. On interview, the patient reported that she was constipated and she reported that several times to the staff but since she felt that they were not paying attention she got agitated. Plan 1. Continue same medications and antipsychotics 2. Gather collateral information. 3. At Colace 100 mg p.o. b.i.d. and senna for constipation. senna scheduled daily as of 12/09 at pt's request. I spent minutes with the patient and/or on the patient floor today, greater than?50% of which was spent counseling/coordinating care. Reason for contiued inpatient stay Substantial Risk for: harm to others, inability to function and rapid decompensation
[2020-12-09] MEDS: Divalproex Sodium 500 MG TABLET.DR PO (20:55)
[2020-12-09] MEDS: ARIPiprazole 30 MG TABLET PO (20:55)
[2020-12-09] MEDS: traZODone HCL 50 MG TABLET 150 MG PO (20:57)
[2020-12-09] MEDS: hydrOXYzine HCL 25 MG TABLET PO (20:57)
[2020-12-09] MEDS: Atorvastatin Calcium 40 MG TABLET PO (20:57)
[2020-12-09 21:31] VITALS: BP 152/78; PULSE 68; RESP 17; TEMP 36.3; O2SAT 96
[2020-12-10 06:00] VITALS: BP 164/67; PULSE 62; TEMP 35.3; O2SAT 95
[2020-12-10] MEDS: Escitalopram Oxalate 5 MG TABLET PO (08:10)
[2020-12-10] MEDS: Ferrous Sulfate 324 MG TABLET.DR PO (08:10)
[2020-12-10] MEDS: Docusate Sodium 100 MG CAPSULE PO ×2 (08:10→20:18)
[2020-12-10] MEDS: Furosemide 20 MG TABLET PO (08:10)
[2020-12-10] MEDS: Carbidopa/Levodopa 25/100 TABLET 1 TAB PO ×3 (08:10→20:17)
[2020-12-10 08:11] VITALS: BP 164/67; PULSE 62
[2020-12-10] MEDS: Sennosides 8.6 MG TABLET PO (08:11)
[2020-12-10] MEDS: Ascorbic Acid 500 MG TABLET PO ×2 (08:11→20:18)
[2020-12-10] MEDS: Calcium + Vitamin D 250 MG TABLET PO (08:11)
[2020-12-10] MEDS: metFORMIN HCl 1,000 MG TABLET 1000 MG PO ×2 (08:11→20:18)
[2020-12-10] MEDS: dilTIAZem HCL CD 180 MG CAP.ER.24H 360 MG PO (08:11)
[2020-12-10] MEDS: Benztropine Mesylate 0.5 MG TABLET PO ×2 (08:11→20:18)
[2020-12-10] MEDS: Milk of Magnesia 30 ML ORAL.SUSP PO (10:09)
--- NOTE | 2020-12-10 15:16 | HO.PSYCHPN ---
Subjective Subjective Date of Service: 12/10/20 Reason For Visit: SI Interim History: pt states she would like to talk to a back up scan coordinator about foods she might eat which would decrease constipation. she feels things are going well here for her otherwise. she mentions a constant humming sound in her ears as well, doesn't know where it is coming from. she has no other complaints or requests, other thatn this information be communicated to her treatment team. per staff, c/o constipation. had large BM yesterday. eating and sleeping well. Mental Status Exam Mental Status Exam Patient Appearance: Well Grooomed Patient Orientation: Person and Situation Level of Consciousness: Awake Patient Behavior: Cooperative Mood Description: Constricted Affect Description: Constricted Patient Cognition Impaired: Yes Ability to Follow Directions: Good Speech Pattern: Clear Hallucinations: None Delusions: Not Present Thought Process: Linear Thought Content: positive for Linear and positive for Poverty of Content Judgement: Fair Diagnostics Vital Signs (24Hr): Vital Signs - 24 hr 12/09/20 21:31 12/10/20 06:00 12/10/20 08:11 Temperature 97.4 F 95.5 F L Pulse Rate 68 62 62 Respiratory Rate 17 Blood Pressure 152/78 H 164/67 H 164/67 H Pulse Oximetry 96 95 Body Mass Index 31.7 Labs Results: 12/06/20 13:23 12/06/20 13:23 Imaging Radiology Impressions: ITS Impressions KUB X-Ray 12/06/20 15:36 IMPRESSION: Constipation. Medications Medications Current Medications Acetaminophen (Acetaminophen 325 Mg Tablet) 650 mg PO Q6H PRN PRN Reason: Headache/Pain Mild Scale (1-3) Last Admin: 12/09/20 09:37 Dose: 650 mg Documented by: Al Hydroxide/Mg Hydroxide (Magnesium Hydrox/Alum Hydrox 30 Ml Oral.Susp) 30 ml PO Q6H PRN PRN Reason: Heartburn/Nausea Aripiprazole (Aripiprazole 5 Mg Tablet) 2.5 mg PO DAILY PRN PRN Reason: Anxiety Last Admin: 12/06/20 18:19 Dose: 2.5 mg Documented by: Aripiprazole (Aripiprazole 30 Mg Tablet) 30 mg PO BEDTIME ARCELIA Last Admin: 12/09/20 20:55 Dose: 30 mg Documented by: Ascorbic Acid (Ascorbic Acid 500 Mg Tablet) 500 mg PO BID ARCELIA Last Admin: 12/10/20 08:11 Dose: 500 mg Documented by: Atorvastatin Calcium (Atorvastatin Calcium 40 Mg Tablet) 40 mg PO BEDTIME [facility] Last Admin: 12/09/20 20:57 Dose: 40 mg Documented by: Benztropine Mesylate (Benztropine Mesylate 0.5 Mg Tablet) 0.5 mg PO BID [facility] Last Admin: 12/10/20 08:11 Dose: 0.5 mg Documented by: Calcium Carbonate/Cholecalciferol (Calcium + Vitamin D 250 Mg Tablet) 250 mg PO DAILY [facility] Last Admin: 12/10/20 08:11 Dose: 250 mg Documented by: Carbidopa/Levodopa (Carbidopa/Levodopa 25/100 Tablet) 1 tab PO TID [facility] Last Admin: 12/10/20 15:01 Dose: 1 tab Documented by: Diltiazem HCl (Diltiazem Hcl Cd 180 Mg Cap.Er.24h) 360 mg PO DAILY [facility]; Protocol Last Admin: 12/10/20 08:11 Dose: 360 mg Documented by: Divalproex Sodium (Divalproex Sodium 500 Mg Tablet.) 500 mg PO BEDTIME [facility] Last Admin: 12/09/20 20:55 Dose: 500 mg Documented by: Docusate Sodium (Docusate Sodium 100 Mg Capsule) 100 mg PO BID [facility] Last Admin: 12/10/20 08:10 Dose: 100 mg Documented by: Escitalopram Oxalate (Escitalopram Oxalate 5 Mg Tablet) 5 mg PO DAILY [facility] Last Admin: 12/10/20 08:10 Dose: 5 mg Documented by: Ferrous Sulfate (Ferrous Sulfate 324 Mg Tablet.) 324 mg PO DAILY [facility] Last Admin: 12/10/20 08:10 Dose: 324 mg Documented by: Furosemide (Furosemide 40 Mg Tablet) 40 mg PO Q2D [facility]; Protocol Last Admin: 12/09/20 09:11 Dose: 40 mg Documented by: Furosemide (Furosemide 20 Mg Tablet) 20 mg PO Q2D@0900 [facility]; Protocol Last Admin: 12/10/20 08:10 Dose: 20 mg Documented by: Hydroxyzine HCl (Hydroxyzine Hcl 25 Mg Tablet) 25 mg PO BEDTIME PRN PRN Reason: Anxiety Last Admin: 12/09/20 20:57 Dose: 25 mg Documented by: Magnesium Hydroxide (Milk Of Magnesia 30 Ml Oral.Susp) 30 ml PO DAILY PRN PRN Reason: Constipation Last Admin: 12/10/20 10:09 Dose: 15 ml Documented by: Metformin HCl (Metformin Hcl 1,000 Mg Tablet) 1,000 mg PO BID [facility] Last Admin: 12/10/20 08:11 Dose: 1,000 mg Documented by: Polyethylene Glycol (Polyethylene Glycol 3350 17 Gm Powd.Pack) 17 gm PO DAILY [facility] Last Admin: 12/10/20 08:20 Dose: Not Given Documented by: Senna (Sennosides 8.6 Mg Tablet) 8.6 mg PO DAILY [facility] Last Admin: 12/10/20 08:11 Dose: 8.6 mg Documented by: Trazodone HCl (Trazodone Hcl 50 Mg Tablet) 150 mg PO BEDTIME [facility] Last Admin: 12/09/20 20:57 Dose: 150 mg Documented by: Trazodone HCl (Trazodone Hcl 50 Mg Tablet) 50 mg PO BEDTIME PRN PRN Reason: Insomnia Allergies Allergies Allergy/AdvReac Type Severity Reaction Status Date / Time No Known Allergies Allergy Unknown UNKNOWN Unverified 10/28/19 16:25 [NO KNOWN ALLERGIES] Assessment & Plan Assessment & Plan (1) Chronic schizophrenia: Status: Acute Code(s): F20.9 - Schizophrenia, unspecified (2) Constipation: Qualifiers: Constipation type: other constipation type Qualified Code(s): K59.09 - Other constipation Status: Acute Code(s): K59.00 - Constipation, unspecified Assessment and Plan: The patient is an elderly female with a long history of schizophrenia who was referred to the facility after she was agitated. On interview, the patient reported that she was constipated and she reported that several times to the staff but since she felt that they were not paying attention she got agitated. Plan 1. Continue same medications and antipsychotics 2. Gather collateral information. 3. Added Colace 100 mg p.o. b.i.d. and senna for constipation. senna scheduled daily as of 12/09 at pt's request. I spent minutes with the patient and/or on the patient floor today, greater than?50% of which was spent counseling/coordinating care. Reason for contiued inpatient stay Substantial Risk for: inability to function and rapid decompensation
[2020-12-10 18:00] VITALS: BP 159/68; PULSE 74; TEMP 30; O2SAT 94
[2020-12-10] MEDS: ARIPiprazole 30 MG TABLET PO (20:18)
[2020-12-10] MEDS: traZODone HCL 50 MG TABLET 150 MG PO (20:18)
[2020-12-10] MEDS: Divalproex Sodium 500 MG TABLET.DR PO (20:18)
[2020-12-10] MEDS: Atorvastatin Calcium 40 MG TABLET PO (20:18)
[2020-12-10 21:30] VITALS: BP 137/63; PULSE 63; RESP 18; TEMP 36.4; O2SAT 94
[2020-12-11 08:45] VITALS: BP 130/59; PULSE 85
[2020-12-11] MEDS: Escitalopram Oxalate 5 MG TABLET PO (08:45)
[2020-12-11] MEDS: dilTIAZem HCL CD 180 MG CAP.ER.24H 360 MG PO (08:45)
[2020-12-11] MEDS: Sennosides 8.6 MG TABLET PO (08:45)
[2020-12-11] MEDS: Calcium + Vitamin D 250 MG TABLET PO (08:45)
[2020-12-11] MEDS: Benztropine Mesylate 0.5 MG TABLET PO (08:45)
[2020-12-11] MEDS: Ascorbic Acid 500 MG TABLET PO (08:45)
[2020-12-11] MEDS: Docusate Sodium 100 MG CAPSULE PO (08:46)
[2020-12-11] MEDS: Carbidopa/Levodopa 25/100 TABLET 1 TAB PO (08:46)
[2020-12-11] MEDS: metFORMIN HCl 1,000 MG TABLET 1000 MG PO (08:46)
[2020-12-11] MEDS: Ferrous Sulfate 324 MG TABLET.DR PO (08:46)
[2020-12-11] MEDS: Furosemide 40 MG TABLET PO (09:29)
[2020-12-11 09:48] VITALS: BP 130/59; PULSE 85; TEMP 29.5; O2SAT 95
--- NOTE | 2020-12-11 12:04 | P.DS_ITS ---
DS: Providers Provider Date of Service: 12/11/20 Date of admission: 12/06/20 22:24 Date of discharge: 12/11/20 Primary care physician: Carlos Hansen MD Attending physician on discharge: Cordell Funes DS: Diagnosis Discharge Diagnosis (1) Chronic schizophrenia: Status: Acute (2) Constipation: Status: Acute DS: Medications Discharge Medications Home Medications: Home Medications Medication Instructions Recorded Confirmed aripiprazole 30 mg tablet 1 tab PO BEDTIME 12/06/20 12/06/20 aripiprazole 5 mg tablet 0.5 tab PO DAILY PRN 12/06/20 12/06/20 ascorbic acid (vitamin C) 500 mg 500 mg PO BID 12/06/20 12/06/20 tablet (Vitamin C) atorvastatin 40 mg tablet 1 tab PO DAILY 12/06/20 12/06/20 benztropine 0.5 mg tablet 1 tab PO BID 12/06/20 12/06/20 calcium carbonate 600 mg (1,500 1 tab PO DAILY 12/06/20 12/06/20 mg)-vitamin D3 400 unit tablet (Calcium 600 + D(3)) carbidopa 25 mg-levodopa 100 mg 1 tab PO TID 12/06/20 12/06/20 tablet citalopram 10 mg tablet 10 mg PO DAILY 12/06/20 12/06/20 diltiazem HCl 360 mg capsule,24 360 mg PO DAILY 12/06/20 12/06/20 hr,extended release divalproex 500 mg tablet,delayed 1 tab PO BEDTIME 12/06/20 12/06/20 release docusate sodium 100 mg capsule 100 mg PO BID 12/06/20 12/06/20 (DOK) ferrous sulfate 325 mg (65 mg 325 mg PO DAILY 12/06/20 12/06/20 iron) tablet furosemide 20 mg tablet 20 mg PO Q OTHER DAY 12/06/20 12/06/20 furosemide 40 mg tablet 1 tab PO Q OTHER DAY 12/06/20 12/06/20 metformin 1,000 mg tablet 1 tab PO BID 12/06/20 12/06/20 polyethylene glycol 3350 18 g PO DAILY 12/06/20 12/06/20 trazodone 150 mg tablet 1 tab PO BEDTIME 12/06/20 12/06/20 Mental Status Exam Mental Status Exam Patient Appearance: Well Grooomed Patient Orientation: Person and Situation Level of Consciousness: Awake and Appropriate Patient Behavior: Cooperative Mood Description: Calm Affect Description: Constricted Ability to Follow Directions: Good Speech Pattern: Clear Hallucinations: None Delusions: Not Present Thought Process: Intact Thought Content: positive for Circumstantial Judgement: Fair Data Data Completed and Pending Completed studies during hospitalization [Text1]: 12/06/20 12/06/20 12/06/20 13:22 13:23 13:23 WBC 10.5 RBC 4.79 Hgb 15.0 Hct 44.8 MCV 93.5 MCH 31.3 MCHC 33.5 RDW 11.2 Plt Count TNP MPV Not Reportable Immature Gran % (Auto) 0.4 Neut % (Auto) 77.6 H Lymph % (Auto) 14.7 L Blaine % (Auto) 5.8 Eos % (Auto) 1.1 Baso % (Auto) 0.4 Lymph # (Auto) 1.5 Blaine # (Auto) 0.6 Eos # (Auto) 0.1 Baso # (Auto) 0.0 Abs Immat Gran (auto) 0.04 H Absolute Neuts (auto) 8.1 Absolute Nucleated RBC 0.000 Nucleated RBC % (auto) 0.0 Smear Tech's Comments VERIFIED Sodium 135 Potassium 4.6 Chloride 95 L Carbon Dioxide 25 Anion Gap 20 BUN 15 Creatinine 0.84 Estim Creat Clear Calc 59.2 Estimated GFR > 60 POC Glucose Random Glucose 179 H Calcium 9.7 Magnesium 1.9 Total Bilirubin 0.5 Direct Bilirubin 0.2 AST 9 ALT 6 Alkaline Phosphatase 82 Total Protein 7.7 Albumin 4.4 Urine Color Urine Appearance Urine pH Ur Specific [place] Urine Protein Urine Glucose (UA) Urine Ketones Urine Blood Urine Nitrite Ur Leukocyte Esterase Urine RBC Urine WBC Ur Squamous Epith Cells Urine Bacteria Urine Opiates Screen Urine Fentanyl Screen Ur Barbiturates Screen Valproic Acid 37.6 L Ur Phencyclidine Scrn Ur Amphetamines Screen U Benzodiazepines Scrn Urine Cocaine Screen U Marijuana (THC) Screen Ethyl Alcohol < 10 COVID-19 (NEGRA) COVID-19 Clin Com 12/06/20 12/06/20 12/06/20 13:23 13:23 13:23 WBC RBC Hgb Hct MCV MCH MCHC RDW Plt Count MPV Immature Gran % (Auto) Neut % (Auto) Lymph % (Auto) Blaine % (Auto) Eos % (Auto) Baso % (Auto) Lymph # (Auto) Blaine # (Auto) Eos # (Auto) Baso # (Auto) Abs Immat Gran (auto) Absolute Neuts (auto) Absolute Nucleated RBC Nucleated RBC % (auto) Smear Tech's Comments Sodium Potassium Chloride Carbon Dioxide Anion Gap BUN Creatinine Estim Creat Clear Calc Estimated GFR POC Glucose Random Glucose Calcium Magnesium Total Bilirubin Direct Bilirubin AST ALT Alkaline Phosphatase Total Protein Albumin Urine Color YELLOW Urine Appearance CLEAR Urine pH 6.0 Ur Specific [place] 1.010 Urine Protein NEG Urine Glucose (UA) 100 H Urine Ketones 5 Urine Blood NEG Urine Nitrite NEG Ur Leukocyte Esterase 1+ H Urine RBC 0 Urine WBC 10-14 H Ur Squamous Epith Cells 2+ Urine Bacteria 4+ Urine Opiates Screen Not Detected Urine Fentanyl Screen POSITIVE H Ur Barbiturates Screen Not Detected Valproic Acid Ur Phencyclidine Scrn Not Detected Ur Amphetamines Screen Not Detected U Benzodiazepines Scrn Not Detected Urine Cocaine Screen Not Detected U Marijuana (THC) Screen Not Detected Ethyl Alcohol COVID-19 (NEGRA) Negative COVID-19 [employer] Com See Note 12/06/20 21:18 WBC RBC Hgb Hct MCV MCH MCHC RDW Plt Count MPV Immature Gran % (Auto) Neut % (Auto) Lymph % (Auto) Blaine % (Auto) Eos % (Auto) Baso % (Auto) Lymph # (Auto) Blaine # (Auto) Eos # (Auto) Baso # (Auto) Abs Immat Gran (auto) Absolute Neuts (auto) Absolute Nucleated RBC Nucleated RBC % (auto) Smear Tech's Comments Sodium Potassium Chloride Carbon Dioxide Anion Gap BUN Creatinine Estim Creat Clear Calc Estimated GFR POC Glucose 260 H Random Glucose Calcium Magnesium Total Bilirubin Direct Bilirubin AST ALT Alkaline Phosphatase Total Protein Albumin Urine Color Urine Appearance Urine pH Ur Specific [place] Urine Protein Urine Glucose (UA) Urine Ketones Urine Blood Urine Nitrite Ur Leukocyte Esterase Urine RBC Urine WBC Ur Squamous Epith Cells Urine Bacteria Urine Opiates Screen Urine Fentanyl Screen Ur Barbiturates Screen Valproic Acid Ur Phencyclidine Scrn Ur Amphetamines Screen U Benzodiazepines Scrn Urine Cocaine Screen U Marijuana (THC) Screen Ethyl Alcohol COVID-19 (NEGRA) COVID-19 [employer] Com 12/06/20 Unknown Urine clean catch - Urine parra top Urine Culture - Final Imaging Diagnostic Imaging Impressions KUB X-Ray 12/06/20 15:36 IMPRESSION: Constipation. DS: Summary Hospital Course Hospital Course: The patient was admitted from her facility says they complained that she was agitated and disorganized. On admission the patient reported that she was angry and agitated to the staff of the facility since she was constipated and ?nobody was paying attention to me?. She was assessed on the emergency room and transferred to this facility for psychiatric stabilization. Please see more details on the HPI from the admission note. The patient was continued on her regular medications. While she was in the unit the patient at that 1st night, had 3 bowel movements and she felt more relieved. The patient was at baseline, internally preoccupied but compliant, pleasant and cooperative with care. Since there were no safety concerns discharge planning was discussed. No changes on her medication management were done Time spent discussing smoking cessation with patient: 3 to 10 minutes Status at Discharge Cognitive/behavioral status at discharge: At baseline Functional status at discharge: independent ambulation Overall status at discharge: patient is back to baseline Time Spent with Patient Time attestation: Total time spent providing and/or coordinating discharge services: Time spent: Less than 30 minutes Discharge Plan Discharge Patient Disposition: er [facility] Discharge Diagnosis: Schizophrenia Referrals: Carlos Hansen MD [Primary Care Provider] - 1 Week (Patient doesn't need to set up a PCP appointment for now. She is going back to [facility]. They are already been contacted and well aware that the patient is coming back today,. The PCP of the facility going to see her in House.) Discharge Medications: Continued citalopram 10 mg Tablet 10 mg PO DAILY RF: 0 diltiazem HCl 360 mg Capsule,Extended Release 24 Hr 360 mg PO DAILY RF: 0 polyethylene glycol 3350 18 g PO DAILY RF: 0 furosemide 40 mg tablet 1 tab PO Q OTHER DAY RF: 0 atorvastatin 40 mg tablet 1 tab PO DAILY RF: 0 benztropine 0.5 mg tablet 1 tab PO BID RF: 0 divalproex 500 mg tablet,delayed release (DR/EC) 1 tab PO BEDTIME RF: 0 ascorbic acid (vitamin C) [Vitamin C] 500 mg Tablet 500 mg PO BID RF: 0 trazodone 150 mg tablet 1 tab PO BEDTIME RF: 0 ferrous sulfate 325 mg (65 mg iron) Tablet 325 mg PO DAILY RF: 0 metformin 1,000 mg tablet 1 tab PO BID RF: 0 docusate sodium [DOK] 100 mg Capsule 100 mg PO BID RF: 0 furosemide 20 mg tablet 20 mg PO Q OTHER DAY RF: 0 carbidopa-levodopa 25-100 mg tablet 1 tab PO TID RF: 0 aripiprazole 30 mg tablet 1 tab PO BEDTIME RF: 0 aripiprazole 5 mg tablet 0.5 tab PO DAILY PRN (Reason: Anxiety) RF: 0 calcium carbonate-vitamin D3 [Calcium 600 + D(3)] 600 mg(1,500mg) -400 unit Tablet 1 tab PO DAILY RF: 0 Discharge Orders: Discharge Order (Routine); Ordered 12/11/20 Ordered By: Cordell Funes Diet: advance to usual diet Activity on Discharge: As tolerated Stand Alone Forms: Patient Portal Discharge page, Community Support Care Plan Goals: Care plan goals achieved Health Concerns: Continue with PCP Plan of Treatment: Continue medication management Assessment: The patient is an elderly female with a long history of schizophrenia, institutionalized resident of a facility admitted for agitation in the context of constipation that was resolved the 1st day. Since there were no changes in her mental status discharge was discussed
== END 2020-12-11 13:20 | DRG 885 ==
LOC: HO.ED 20:50 → HO.PGERI 22:53
PROVIDERS: Internal Medicine; Physician Assistant; Admitting Provider Psychiatry & Neurology Psychiatry; Emergency Provider Emergency Medicine Emergency Medical Services; PCP Internal Medicine; Visit Provider Psychiatry & Neurology Psychiatry
DX: F20.9 Schizophrenia, unspecified (principal); R45.851 Suicidal ideations; Z20.822 Contact with and (suspected) exposure to COVID-19; E11.9 Type 2 diabetes mellitus without complications; K59.09 Other constipation; Z79.84 Long term (current) use of oral hypoglycemic drugs; Z79.899 Other long term (current) drug therapy
CPT/HCPCS: 36415; 74018; 80048; 80076; 80164; 80307; 81001; 82077; 82947; 83735; 85025; 87086; 87635; 93005; 99285

== ENCOUNTER 2021-06-06 20:16 | Emergency (ER) | payer MEDICARE, MEDICAID, SELFPAY ==
[2021-06-06 20:23] VITALS: BP 154/49; PULSE 83; RESP 15; TEMP 36.8; O2SAT 95; BMI 32.1
[2021-06-06 20:30] VITALS: O2SAT 96
--- NOTE | 2021-06-06 20:33 | ED.AMS ---
HPI - Altered Mental Status General Chief Complaint: Altered Mental Status Stated Complaint: ams Time Seen by Provider: 06/06/21 20:32 Source: EMS Mode of arrival: EMS Limitations: altered mental status History of Present Illness HPI narrative: Patient comes to emergency room from a correction. Patient has history of slurred speech, bizarre behavior, schizophrenia, all this at baseline. However, 1 hour prior to arrival, the staff reports that the patient was acting more bizarre than usual and also her speech was at baseline but it was in a different tone, therefore EMS was called. Patient has no complaints. At baseline, patient has episodes that she is awake, then goes to sleep, still wakes up and is able to answer questions. Overall, patient is at baseline. Related Data Home Medications Medication Instructions Recorded Confirmed aripiprazole 30 mg tablet 1 tab PO BEDTIME 12/06/20 12/06/20 aripiprazole 5 mg tablet 0.5 tab PO DAILY PRN 12/06/20 12/06/20 ascorbic acid (vitamin C) 500 mg 500 mg PO BID 12/06/20 12/06/20 tablet (Vitamin C) atorvastatin 40 mg tablet 1 tab PO DAILY 12/06/20 12/06/20 benztropine 0.5 mg tablet 1 tab PO BID 12/06/20 12/06/20 calcium carbonate 600 mg-vitamin 1 tab PO DAILY 12/06/20 12/06/20 D3 10 mcg (400 unit) tablet (Calcium 600 + D(3)) carbidopa 25 mg-levodopa 100 mg 1 tab PO TID 12/06/20 12/06/20 tablet citalopram 10 mg tablet 10 mg PO DAILY 12/06/20 12/06/20 diltiazem HCl 360 mg capsule,24 360 mg PO DAILY 12/06/20 12/06/20 hr,extended release divalproex 500 mg tablet,delayed 1 tab PO BEDTIME 12/06/20 12/06/20 release docusate sodium 100 mg capsule 100 mg PO BID 12/06/20 12/06/20 (DOK) ferrous sulfate 325 mg (65 mg 325 mg PO DAILY 12/06/20 12/06/20 iron) tablet furosemide 20 mg tablet 20 mg PO Q OTHER DAY 12/06/20 12/06/20 furosemide 40 mg tablet 1 tab PO Q OTHER DAY 12/06/20 12/06/20 metformin 1,000 mg tablet 1 tab PO BID 12/06/20 12/06/20 polyethylene glycol 3350 18 g PO DAILY 12/06/20 12/06/20 trazodone 150 mg tablet 1 tab PO BEDTIME 12/06/20 12/06/20 Allergies Allergy/AdvReac Type Severity Reaction Status Date / Time No Known Allergies Allergy Unknown UNKNOWN Unverified 10/28/19 16:25 [NO KNOWN ALLERGIES] Review of Systems Review of Systems: Patient has no complaints Yes Unobtainable due to mental condition [facility] Past Medical History Medical History (Updated 06/06/21 @ 22:30 by Kelsie Albarran MD) CHF (congestive heart failure) Chronic schizophrenia Diabetes mellitus type 2 in obese Hypertension Parkinsons Social History Social History Household Members: Other Household Members Other:: correction Housing: [facility] Do you presently have visiting nurse or other home services: No (correction) Alcohol intake: never Patient Tobacco Use Status: Former Tobacco user Tobacco use type: Cigarette e-Cigarette/Vaping Use: Never Used Second Hand Smoke Exposure: No Use of substances other than those prescribed or required for medical reasons: No Advance Directives: No Advance Directives Information Provided: Yes service: No Sexual orientation: Straight/Heterosexual Physical Exam ED Vital Signs: Vital Signs - 24 hr 06/06/21 20:23 06/06/21 20:30 Temperature 98.2 F Pulse Rate 83 Respiratory Rate 15 Blood Pressure 154/49 H Pulse Oximetry 95 96 BMI result Body Mass Index 32.1 Const Other: Appearance: Alert. Oriented X3. No acute distress. Somnolent, easily arousable Eyes: Pupils equal, round and reactive to light. ENT: Pharynx normal. Neck: Normal inspection. Neck supple. No lymph nodes noted. No crepitus CVS: Normal heart rate and rhythm. Pulses normal. Normal S1 and S2 Respiratory: No respiratory distress. Breath sounds normal. No Wheezing. No rales Abdomen: Soft and nontender. No rigidity. No distention. Skin: Skin warm and dry. Normal skin color. Normal skin turgor. Extremities: No lower extremity edema. No Lacerations. No Rash Neuro: Oriented X 3. No motor deficit. No sensory deficit. Moving all extremities. No slurred speech. CN 2 through 12 grossly intact, intermittently follows commands Psych: calm, cooperative Course Course Course Narrative: From what EMS told us, since the patient is at baseline at this time, behavioral santiago and physically. Patient voices no complaint. Labs and urine pending. At this time, patient is not displaying new neurological deficits or stroke-like symptoms Patient was straight cath to obtain a urine sample, I was informed by the patient's nurse that patient had an output of 1200 cc of urine. I asked them to insert a Bridges catheter, additional 500 cc were obtained. Patient was likely very uncomfortable from urinary retention. Patient's urinalysis is negative for UTI Of note, patient's urine tox came back positive for fentanyl. This is likely a false positive, patient takes several psych meds that could cause a false positive result MDM - Altered Mental Status Lab Data Result diagrams: 06/06/21 20:55 06/06/21 20:55 Labs: Lab Results 06/06/21 06/06/21 06/06/21 Range/Units 20:55 20:55 21:36 WBC 7.3 (4.8-10.8) X10*3/uL RBC 4.16 L (4.20-5.50) X10*6/uL Hgb 12.7 (12.0-16.0) g/dl Hct 38.5 (37.0-47.0) % MCV 92.5 (80.0-98.0) fL MCH 30.5 (27.0-33.0) pg MCHC 33.0 (31.0-35.0) g/dl RDW 11.2 (11.0-16.0) % Plt Count 189 (160-400) X10*3/uL MPV 12.9 H (9.4-12.3) fL Immature Gran % (Auto) 0.4 (0.0-0.4) % Neut % (Auto) 77.1 H (45-73) % Lymph % (Auto) 15.3 L (20-40) % Schleicher % (Auto) 6.5 (2-11) % Eos % (Auto) 0.6 (0-4) % Baso % (Auto) 0.1 (0-2) % Lymph # (Auto) 1.1 L (1.2-4.9) X10*3/uL Schleicher # (Auto) 0.5 (0.1-1.2) X10*3/uL Eos # (Auto) 0.0 (0.0-0.4) X10*3/uL Baso # (Auto) 0.0 (0.0-0.2) X10*3/uL Abs Immat Gran (auto) 0.03 (0.00-0.03) X10*3/uL Absolute Neuts (auto) 5.6 (2.0-8.3) x10*3/uL Absolute Nucleated RBC 0.000 (0.0-0.012) X10*3/uL Nucleated RBC % (auto) 0.0 (0.0-0.2) /100WBC Sodium 135 (135-145) mmol/L Potassium 3.9 (3.3-5.1) mmol/L Chloride 97 (96-108) mmol/L Carbon Dioxide 26 (22-29) mmol/L Anion Gap 16 (12-20) BUN 22 H (9-16) mg/dL Creatinine 0.82 (0.5-1.4) mg/dL Estim Creat Clear Calc 59.6 Estimated GFR > 60 Random Glucose 282 H (60-115) mg/dL Calcium 9.7 (8.4-10.2) mg/dL Total Bilirubin 0.3 (0.0-1.0) mg/dL Direct Bilirubin 0.2 (0.0-0.5) mg/dL AST 11 (5-31) U/L ALT < 6 (0-31) U/L Alkaline Phosphatase 105 D (39-117) U/L Total Protein 7.0 (6.5-8.0) g/dL Albumin 3.8 (3.5-5.0) g/dL Urine Color YELLOW Urine Appearance CLEAR Urine pH 6.5 (5.0-8.0) Ur Specific [place] 1.015 (1.005-1.025) Urine Protein NEG (NEG-TRACE) MG/DL Urine Glucose (UA) 500 H (NEG) MG/DL Urine Ketones 15 (NEG) MG/DL Urine Blood NEG (NEG) Urine Nitrite NEG (NEG) Ur Leukocyte Esterase NEG (NEG) Urine Opiates Screen (Not Detect) Urine Fentanyl Screen (Not Detect) Ur Barbiturates Screen (Not Detect) Ur Phencyclidine Scrn (Not Detect) Ur Amphetamines Screen (Not Detect) U Benzodiazepines Scrn (Not Detect) Urine Cocaine Screen (Not Detect) U Marijuana (THC) Screen (Not Detect) 06/06/21 Range/Units 21:36 WBC (4.8-10.8) X10*3/uL RBC (4.20-5.50) X10*6/uL Hgb (12.0-16.0) g/dl Hct (37.0-47.0) % MCV (80.0-98.0) fL MCH (27.0-33.0) pg MCHC (31.0-35.0) g/dl RDW (11.0-16.0) % Plt Count (160-400) X10*3/uL MPV (9.4-12.3) fL Immature Gran % (Auto) (0.0-0.4) % Neut % (Auto) (45-73) % Lymph % (Auto) (20-40) % Schleicher % (Auto) (2-11) % Eos % (Auto) (0-4) % Baso % (Auto) (0-2) % Lymph # (Auto) (1.2-4.9) X10*3/uL Schleicher # (Auto) (0.1-1.2) X10*3/uL Eos # (Auto) (0.0-0.4) X10*3/uL Baso # (Auto) (0.0-0.2) X10*3/uL Abs Immat Gran (auto) (0.00-0.03) X10*3/uL Absolute Neuts (auto) (2.0-8.3) x10*3/uL Absolute Nucleated RBC (0.0-0.012) X10*3/uL Nucleated RBC % (auto) (0.0-0.2) /100WBC Sodium (135-145) mmol/L Potassium (3.3-5.1) mmol/L Chloride (96-108) mmol/L Carbon Dioxide (22-29) mmol/L Anion Gap (12-20) BUN (9-16) mg/dL Creatinine (0.5-1.4) mg/dL Estim Creat Clear Calc Estimated GFR Random Glucose (60-115) mg/dL Calcium (8.4-10.2) mg/dL Total Bilirubin (0.0-1.0) mg/dL Direct Bilirubin (0.0-0.5) mg/dL AST (5-31) U/L ALT (0-31) U/L Alkaline Phosphatase (39-117) U/L Total Protein (6.5-8.0) g/dL Albumin (3.5-5.0) g/dL Urine Color Urine Appearance Urine pH (5.0-8.0) Ur Specific [place] (1.005-1.025) Urine Protein (NEG-TRACE) MG/DL Urine Glucose (UA) (NEG) MG/DL Urine Ketones (NEG) MG/DL Urine Blood (NEG) Urine Nitrite (NEG) Ur Leukocyte Esterase (NEG) Urine Opiates Screen Not Detected (Not Detect) Urine Fentanyl Screen POSITIVE H (Not Detect) Ur Barbiturates Screen Not Detected (Not Detect) Ur Phencyclidine Scrn Not Detected (Not Detect) Ur Amphetamines Screen Not Detected (Not Detect) U Benzodiazepines Scrn Not Detected (Not Detect) Urine Cocaine Screen Not Detected (Not Detect) U Marijuana (THC) Screen Not Detected (Not Detect) Discharge Plan Discharge Clinical Impression: Altered mental status, Acute urinary retention Patient Disposition: Home, Self-Care Instructions: Acute Urinary Retention in Women (ED) Additional Instructions: Please follow-up with your primary care physician tomorrow. If you have any worsening or new symptoms, please return to the emergency room or call 911 Prescriptions: No Action citalopram 10 mg Tablet 10 mg PO DAILY 0RF diltiazem HCl 360 mg Capsule,Extended Release 24 Hr 360 mg PO DAILY 0RF polyethylene glycol 3350 18 g PO DAILY 0RF furosemide 40 mg tablet 1 tab PO Q OTHER DAY 0RF atorvastatin 40 mg tablet 1 tab PO DAILY 0RF benztropine 0.5 mg tablet 1 tab PO BID 0RF divalproex 500 mg tablet,delayed release (DR/EC) 1 tab PO BEDTIME 0RF ascorbic acid (vitamin C) [Vitamin C] 500 mg Tablet 500 mg PO BID 0RF trazodone 150 mg tablet 1 tab PO BEDTIME 0RF ferrous sulfate 325 mg (65 mg iron) Tablet 325 mg PO DAILY 0RF metformin 1,000 mg tablet 1 tab PO BID 0RF docusate sodium [DOK] 100 mg Capsule 100 mg PO BID 0RF furosemide 20 mg tablet 20 mg PO Q OTHER DAY 0RF carbidopa-levodopa 25-100 mg tablet 1 tab PO TID 0RF aripiprazole 30 mg tablet 1 tab PO BEDTIME 0RF aripiprazole 5 mg tablet 0.5 tab PO DAILY PRN (Reason: Anxiety) 0RF calcium carbonate-vitamin D3 [Calcium 600 + D(3)] 600 mg(1,500mg) -400 unit Tablet 1 tab PO DAILY 0RF Referrals: Devan Lakhani MD [Physician] - 2 days
[2021-06-06 21:04] LABS: MANUAL DIFF FLAG NO
[2021-06-06 21:25] LABS: Basophils Percent Auto 0.1 % (0-2); Eosinophils Percent Auto 0.6 % (0-4); Hematocrit 38.5 % (37.0-47.0); Hemoglobin 12.7 g/dl (12.0-16.0); Imm Gran Abs Auto 0.03 X10*3/uL (0.00-0.03); Imm Gran Pct Auto 0.4 % (0.0-0.4); Lymphocytes Absolute Auto 1.1 X10*3/uL (1.2-4.9); Lymphocytes Percent Auto 15.3 % (20-40); Mean Corpuscular Hemoglobin 30.5 pg (27.0-33.0); Mean Corpuscular Volume 92.5 fL (80.0-98.0); Mean Platelet Volume 12.9 fL (9.4-12.3); Monocytes Absolute Auto 0.5 X10*3/uL (0.1-1.2); Monocytes Percent Auto 6.5 % (2-11); Neutrophils Absolute Auto 5.6 x10*3/uL (2.0-8.3); Neutrophils Percent Auto 77.1 % (45-73); Platelet Count 189 X10*3/uL (160-400); Red Blood Count 4.16 X10*6/uL (4.20-5.50); Red Cell Distribution Width 11.2 % (11.0-16.0); White Blood Count 7.3 X10*3/uL (4.8-10.8)
[2021-06-06 21:38] LABS: Alanine Aminotransferase < 6 U/L (0-31); Albumin Level 3.8 g/dL (3.5-5.0); Alkaline Phosphatase 105 U/L (39-117); Anion Gap 16 (12-20); Aspartate Amino Transferase 11 U/L (5-31); Bilirubin Direct 0.2 mg/dL (0.0-0.5); Bilirubin Total 0.3 mg/dL (0.0-1.0); Blood Urea Nitrogen 22 mg/dL (9-16); Calcium 9.7 mg/dL (8.4-10.2); Carbon Dioxide 26 mmol/L (22-29); Chloride 97 mmol/L (96-108); Creatinine Clr Calc Pharmacy 59.6; Estimated Glomerular Filt Rate > 60; Glucose Random 282 mg/dL (60-115); Potassium 3.9 mmol/L (3.3-5.1); Sodium 135 mmol/L (135-145)
[2021-06-06 21:47] LABS: Appearance Urine CLEAR; Color Urine YELLOW; Glucose Urine UA 500 MG/DL (NEG); Leukocyte Esterase Urine NEG (NEG); Nitrite Urine NEG (NEG); PH 6.5 (5.0-8.0); Specific Gravity - Urine 1.015 (1.005-1.025); Urine Blood NEG (NEG); Urine Ketones 15 MG/DL (NEG); Urine Protein NEG (NEG-TRACE)
--- NOTE | 2021-06-06 21:51 | PC.NURSE ---
Addendum entered by Carrie Noble 06/06/21 23:26: report given to EMS. pt to be transported back to the facility. report given to Denise from [facility] Original Note: Pt straight cath, tolerated it well. 1200ml of urine drained. Dr. Trejo made aware. order to place a santoro
[2021-06-06 22:04] LABS: Amphetamine Screen Urine Not Detected (Not Detect); Barbiturates, Urine Not Detected (Not Detect); Benzodiazepines Screen Urine Not Detected (Not Detect); Cannabinoid Screen Urine Not Detected (Not Detect); Cocaine Screen Urine Not Detected (Not Detect); Fentanyl, urine POSITIVE (Not Detect); Opiate Screen Urine Not Detected (Not Detect); Phencyclidine Screen Urine Not Detected (Not Detect)
--- NOTE | 2021-06-06 23:22 | PC.NURSE ---
EMS at bedside for transport.
== END 2021-06-06 23:22 | disposition home or self-care (01) ==
PROVIDERS: Emergency Provider Emergency Medicine
DX: R41.82 Altered mental status, unspecified (principal); R33.9 Retention of urine, unspecified; F20.9 Schizophrenia, unspecified; E11.9 Type 2 diabetes mellitus without complications; I11.0 Hypertensive heart disease with heart failure; I50.9 Heart failure, unspecified; G20 Parkinson's disease; Z79.899 Other long term (current) drug therapy
CPT/HCPCS: 36415; 51702; 80048; 80076; 80307; 81003; 85025; 99284

== ENCOUNTER 2021-06-09 13:23 | Inpatient (IN) | payer MEDICARE, MEDICAID, SELFPAY ==
[2021-06-09] VITALS (7 sets, daily range): BP systolic 132–146; BP diastolic 50–66; PULSE 63–68; RESP 14–18; TEMP 36.6–37.1; O2SAT 91–98; BMI 29.2
--- NOTE | ~2021-06-09 | CT_ITS ---
EXAMINATION: CT ABDOMEN AND PELVIS WITH CONTRAST CLINICAL INFORMATION: generalized ABD pain, distended ABD, vomiting COMPARISON: None. TECHNIQUE: Multidetector volumetric imaging was performed from the superior aspect of the liver through the pubic symphysis following administration of 85 mL Omnipaque 300 intravenous contrast. Sagittal and coronal reformatted images were obtained on the technologist workstation.. This CT examination was performed using dose optimization techniques as appropriate, variously including the following: *Automated exposure control *Adjustment of mA and/or kV according to patient size (this includes techniques or standardized protocols for targeted exams where dose is matched to indication/reason for exam; i.e. extremities or head) *Use of iterative reconstruction technique DLP: 659 mGy-cm FINDINGS: LUNG BASES: Linear scarring or atelectasis. Coronary artery calcification noted. LIVER, GALLBLADDER, AND BILIARY TREE: The liver is normal in size, shape, and attenuation. No focal hepatic lesion or biliary ductal dilatation is present. Gallstones within the contracted gallbladder. No pericholecystic inflammatory changes PANCREAS: Atrophic no peripancreatic inflammatory change or fluid. SPLEEN: Unremarkable. ADRENAL GLANDS: Unremarkable. KIDNEYS AND URETERS: Thin septated 5.2 cm cyst in the midpole of the right kidney difficult to see due to motion artifact but otherwise the kidneys are normal in size, shape, and attenuation. No hydronephrosis, hydroureter, or calculi seen. No perinephric stranding. BLADDER: Decompressed with Bridges catheter. GASTROINTESTINAL TRACT: Scattered colonic diverticulosis but no evidence for diverticulitis. Normal-appearing appendix in the right lower quadrant. Dilated loops of small bowel in the mid to upper abdomen. There is a relative transition to more normal caliber distal small bowel but I do not appreciate a discrete cutoff. ABDOMINAL WALL: No significant hernia is appreciated. LYMPHOVASCULAR STRUCTURES: Vascular calcification within the aorta iliac system. No bulky retroperitoneal or mesenteric adenopathy PELVIC VISCERA: Surgically absent OSSEOUS STRUCTURES: Unremarkable. CT/CT abdomen pelvis w con IMPRESSION: Fluid and gas-filled loops of proximal to mid small bowel with relatively decompressed distal most small bowel however I do not appreciate a discrete transition point. Ileus would be more favored with this appearance. Stool and air seen throughout the colon to the rectum as well. No free air. Chronic appearing changes otherwise as described. .
--- NOTE | ~2021-06-09 | XR_ITS ---
EXAMINATION: XR CHEST CLINICAL INFORMATION: Hypoxia. COMPARISON: 07/17/2009 chest radiographs. TECHNIQUE: 2 views of the chest were obtained. FINDINGS: Mild linear markings are seen at the lung bases and lingula. There are no pleural effusions. The heart and mediastinal structures are unremarkable. XR/XR chest 2V IMPRESSION: Mild bibasilar linear atelectasis versus scarring. No acute cardiopulmonary process.
--- NOTE | 2021-06-09 13:33 | ED_ITS ---
HPI - Abdominal Pain General Chief Complaint: Abdominal Pain Stated Complaint: ?bowel obstruction Time Seen by Provider: 06/09/21 13:33 Source: patient and EMS Mode of arrival: EMS Limitations: no limitations History of Present Illness HPI narrative: patient presents to the emergency department via EMS coming from his assisted living facility[facility]. report received was that patient's Bridges catheter that was previously inserted a few days ago had fallen out, but it is unclear when, and there was concern about abdominal distension. When asked, patient is unclear on when or how the Bridges catheter had come out. When asked why she is here she states that earlier today she was drinking cranberry juice and felt some pain in her throat, staff member had provided her with a straw and she continue to drink cranberry juice without any pain. She does have a vague report of an episode of vomiting sometime thereafter, with the color of the emesis being unknown. When asked whether she is experiencing abdominal pain she reports no. Related Data Home Medications Medication Instructions Recorded Confirmed aripiprazole 30 mg tablet 1 tab PO BEDTIME 12/06/20 06/09/21 aripiprazole 5 mg tablet 0.5 tab PO DAILY PRN 12/06/20 06/09/21 ascorbic acid (vitamin C) 500 mg 500 mg PO BID 12/06/20 06/09/21 tablet (Vitamin C) atorvastatin 40 mg tablet 1 tab PO DAILY 12/06/20 06/09/21 benztropine 0.5 mg tablet 1 tab PO BID 12/06/20 06/09/21 calcium carbonate 600 mg-vitamin 1 tab PO DAILY 12/06/20 06/09/21 D3 10 mcg (400 unit) tablet (Calcium 600 + D(3)) carbidopa 25 mg-levodopa 100 mg 1 tab PO TID 12/06/20 06/09/21 tablet citalopram 10 mg tablet 20 mg PO DAILY 12/06/20 06/09/21 diltiazem HCl 360 mg capsule,24 360 mg PO DAILY 12/06/20 06/09/21 hr,extended release divalproex 500 mg tablet,delayed 1 tab PO BEDTIME 12/06/20 06/09/21 release docusate sodium 100 mg capsule 100 mg PO BID 12/06/20 06/09/21 (DOK) furosemide 20 mg tablet 20 mg PO Q OTHER DAY 12/06/20 06/09/21 furosemide 40 mg tablet 1 tab PO Q OTHER DAY 12/06/20 06/09/21 metformin 1,000 mg tablet 1 tab PO BID 12/06/20 06/09/21 polyethylene glycol 3350 18 g PO DAILY PRN 12/06/20 06/09/21 trazodone 150 mg tablet 1 tab PO BEDTIME 12/06/20 06/09/21 aspirin 81 mg chewable tablet 1 tab PO DAILY 06/09/21 06/09/21 cholecalciferol (vitamin D3) 1,250 1 cap PO QWEEK 06/09/21 06/09/21 mcg (50,000 unit) capsule hydroxyzine HCl 25 mg tablet 1 tab PO TID PRN 06/09/21 06/09/21 hydroxyzine HCl 25 mg tablet 25 mg PO DAILY 06/09/21 06/09/21 magnesium oxide 400 mg (241.3 mg 400 mg PO DAILY 06/09/21 06/09/21 magnesium) tablet sitagliptin 100 mg tablet (Januvia) 1 tab PO DAILY 06/09/21 06/09/21 Allergies Allergy/AdvReac Type Severity Reaction Status Date / Time No Known Allergies Allergy Unknown UNKNOWN Unverified 10/28/19 16:25 [NO KNOWN ALLERGIES] Review of Systems Review of Systems Constitutional : No Fever, No Chills ENT/Mouth :? No sore throat, No Rhinorrhea Eyes: No Swelling, No Redness Cardiovascular : No Chest Pain, No SOB, No Edema Respiratory : No Cough, No Sputum, No Wheezing Gastrointestinal : no Nausea, Positive Vomiting, no Diarrhea, no abdominal pain, Genitourinary : No Dysuria, No Urinary Frequency, Musculoskeletal : No joint pain, No Myalgias, Skin : No Skin Lesions, No rash Neuro : No Numbness, No Dizziness, No Headache Psych : No Anxiety/Panic, No Depression Yes all other systems are reviewed and are negative and Other ( patient is a vague historian, somewhat difficult to obtain a full ROS) [facility] Past Medical History Attestation statement: The following information was validated with the patient. Source: old records reviewed Medical History (Updated 06/09/21 @ 17:40 by Amrit Laws MD) CHF (congestive heart failure) Chronic schizophrenia Diabetes mellitus type 2 in obese Hypertension Parkinsons Family History Family History (Updated 06/09/21 @ 17:39 by Amrit Laws MD) Mother HLD (hyperlipidemia) Social History Social History Household Members: Other Household Members Other:: intermediate Housing: [facility] Do you presently have visiting nurse or other home services: No (intermediate) Alcohol intake: former Patient Tobacco Use Status: Former Tobacco user Tobacco use type: Cigarette Smoked in Last 30 Days: No e-Cigarette/Vaping Use: Never Used Second Hand Smoke Exposure: No Use of substances other than those prescribed or required for medical reasons: No Advance Directives: No Advance Directives Information Provided: No service: No Sexual orientation: Straight/Heterosexual Physical Exam ED Vital Signs: Vital Signs - 24 hr 06/09/21 13:29 06/09/21 13:58 06/09/21 15:54 Temperature 98.4 F 98.8 F Pulse Rate 68 68 Respiratory Rate 14 16 Blood Pressure 138/66 146/64 H Pulse Oximetry 91 L 95 98 BMI result Body Mass Index 29.2 Vital signs have been reviewed as normal and appeared to be correct. Blood pressure normal.? Heart rate normal.? Respiration rate normal. Temperature normal.? Oxygen saturation initially 90% on room air, placed on 2 L via nasal cannula and improved to 95%.. Appearance: Alert.?Oriented to person, place and time. No acute distress.?Normal affect. Eyes: Pupils equal, round and reactive to light.? ENT: Pharynx normal.?? Neck: Normal inspection.? Neck supple.?? CVS: Heart sounds normal. Normal heart rate and rhythm.? Pulses normal.?? Respiratory: No respiratory distress.? Lung sounds clear to auscultation bilaterally?? Abdomen: Distended, Reports it hurts a little with palpation. hypoactive bowel sounds. No pulsatile mass.?? Skin: Skin warm and dry.? skin appears pale? Extremities: No lower extremity edema.? No calf ttp? Neuro: Moves all extremities spontaneously. Sensation intact bilaterally. CN II- XII intact. No focal neuro deficits. Course Course Course Narrative: patient is a 76-year-old female with a past medical history of CHF, schizophrenia, type 2 diabetes, hypertension, Parkinson's. She presents to the emergency department today from her shelter facility for concern from staff about abdominal distension and recent removal of Bridges catheter. Patient was evaluated in the emergency department 3 days ago with history of slurred speech, are behavior are and schizophrenia at baseline, but had seemed worse to staff at her assisted living facility. On exam at that time she appeared to be at baseline with no neurological deficits or stroke-like symptoms. She was straight catheterized to obtain a urine sample and had initial output of 1200 mL of urine 6, given concern for urinary retention a Bridges catheter was placed, no sign of urinary infection. On arrival she is alert and answering questions, responses seemingly appropriate, however she is a vague historian. Initial room air hypoxia at 90% which improved to 95% on 2 L. abdomen is distended, no significant tenderness to palpation however. She is afebrile and has no tachycardia. Bladder scanned which reveals 70 mL. Reevaluation(s) Reevaluation #1: COVID- 19 and influenza testing are negative. Chest x-ray reveals mild bibasilar linear atelectasis versus scarring no acute cardiopulmonary process. CMP reveals hyponatremia, 129 chloride 88, with potassium normal at 4.7 and elevated BUN, 21. Will obtain acetone to exclude DKA though low suspicion anion gap is 22 carbon dioxide 24. Patient received 1 L normal saline IV fluid and will repeat BMP afterwards. Time: 15:36 Reevaluation #2: Acetone is negative. CT of the abdomen reveals fluid and gas-filled loops of proximal to mid small bowel with relatively decompressed distal most small bowel however, no discrete transition point. Ileus may be more favored. Spoke with hospitalist Dr. Laws, for admission to medicine service and patient was accepted. I updated patient and her sister who is at bedside currently on the plan of care. Time: 16:57 MDM - Abdominal Pain Medical Records Attestation: I reviewed the patient's medical records. Lab Data Attestation: I reviewed the patient's lab results. Result diagrams: 06/09/21 14:06 06/09/21 17:51 Labs: Lab Results 06/09/21 06/09/21 06/09/21 Range/Units 13:54 13:54 14:06 WBC 8.6 (4.8-10.8) X10*3/uL RBC 4.59 (4.20-5.50) X10*6/uL Hgb 14.0 (12.0-16.0) g/dl Hct 41.3 (37.0-47.0) % MCV 90.0 (80.0-98.0) fL MCH 30.5 (27.0-33.0) pg MCHC 33.9 (31.0-35.0) g/dl RDW 11.1 (11.0-16.0) % Plt Count TNP MPV 12.2 (9.4-12.3) fL Immature Gran % (Auto) 0.3 (0.0-0.4) % Neut % (Auto) 66.8 (45-73) % Lymph % (Auto) 18.8 L (20-40) % S[place] % (Auto) 12.4 H (2-11) % Eos % (Auto) 1.5 (0-4) % Baso % (Auto) 0.2 (0-2) % Lymph # (Auto) 1.6 (1.2-4.9) X10*3/uL [place] # (Auto) 1.1 (0.1-1.2) X10*3/uL Eos # (Auto) 0.1 (0.0-0.4) X10*3/uL Baso # (Auto) 0.0 (0.0-0.2) X10*3/uL Abs Immat Gran (auto) 0.03 (0.00-0.03) X10*3/uL Absolute Neuts (auto) 5.7 (2.0-8.3) x10*3/uL Absolute Nucleated RBC 0.000 (0.0-0.012) X10*3/uL Nucleated RBC % (auto) 0.0 (0.0-0.2) /100WBC Smear Tech's Comments VERIFIED Sodium Potassium Chloride Carbon Dioxide Anion Gap BUN Creatinine Estim Creat Clear Calc Estimated GFR Random Glucose Calcium Magnesium (1.6-2.6) mg/dL Total Bilirubin AST ALT Alkaline Phosphatase Total Protein Albumin Lipase (8-78) U/L Urine Color Urine Appearance Urine pH (5.0-8.0) Ur Specific [place] (1.005-1.025) Urine Protein (NEG-TRACE) MG/DL Urine Glucose (UA) (NEG) MG/DL Urine Ketones (NEG) MG/DL Urine Blood (NEG) Urine Nitrite (NEG) Ur Leukocyte Esterase (NEG) Urine RBC (0) /HPF Urine WBC (0-4) /HPF Ur Squamous Epith Cells /LPF Urine Bacteria /LPF Acetone, Qual (Negative) COVID-19 (NEGRA) Negative (Negative) COVID-19 Clin Com SEE NOTE Influenza Type A (DESIRE) Negative (Negative) Influenza Type B (DESIRE) Negative (Negative) Influenza A & B Note See Note 06/09/21 06/09/21 06/09/21 Range/Units 14:06 14:34 14:34 WBC (4.8-10.8) X10*3/uL RBC (4.20-5.50) X10*6/uL Hgb (12.0-16.0) g/dl Hct (37.0-47.0) % MCV (80.0-98.0) fL MCH (27.0-33.0) pg MCHC (31.0-35.0) g/dl RDW (11.0-16.0) % Plt Count MPV (9.4-12.3) fL Immature Gran % (Auto) (0.0-0.4) % Neut % (Auto) (45-73) % Lymph % (Auto) (20-40) % [place] % (Auto) (2-11) % Eos % (Auto) (0-4) % Baso % (Auto) (0-2) % Lymph # (Auto) (1.2-4.9) X10*3/uL [place] # (Auto) (0.1-1.2) X10*3/uL Eos # (Auto) (0.0-0.4) X10*3/uL Baso # (Auto) (0.0-0.2) X10*3/uL Abs Immat Gran (auto) (0.00-0.03) X10*3/uL Absolute Neuts (auto) (2.0-8.3) x10*3/uL Absolute Nucleated RBC (0.0-0.012) X10*3/uL Nucleated RBC % (auto) (0.0-0.2) /100WBC Smear Tech's Comments Sodium Cancelled 129 L Potassium Cancelled 4.7 D Chloride Cancelled 88 L Carbon Dioxide Cancelled 24 Anion Gap Cancelled 22 H BUN Cancelled 21 H Creatinine Cancelled 0.84 Estim Creat Clear Calc Cancelled 55.4 Estimated GFR Cancelled > 60 Random Glucose Cancelled 255 H Calcium Cancelled 9.7 Magnesium 2.0 (1.6-2.6) mg/dL Total Bilirubin Cancelled 1.0 AST Cancelled 10 ALT Cancelled 8 Alkaline Phosphatase Cancelled 89 Total Protein Cancelled 7.2 Albumin Cancelled 3.9 Lipase 18 (8-78) U/L Urine Color Urine Appearance Urine pH (5.0-8.0) Ur Specific [place] (1.005-1.025) Urine Protein (NEG-TRACE) MG/DL Urine Glucose (UA) (NEG) MG/DL Urine Ketones (NEG) MG/DL Urine Blood (NEG) Urine Nitrite (NEG) Ur Leukocyte Esterase (NEG) Urine RBC (0) /HPF Urine WBC (0-4) /HPF Ur Squamous Epith Cells /LPF Urine Bacteria /LPF Acetone, Qual Negative (Negative) COVID-19 (NEGRA) (Negative) COVID-19 Clin Com Influenza Type A (DESIRE) (Negative) Influenza Type B (DESIRE) (Negative) Influenza A & B Note 06/09/21 Range/Units 15:47 WBC (4.8-10.8) X10*3/uL RBC (4.20-5.50) X10*6/uL Hgb (12.0-16.0) g/dl Hct (37.0-47.0) % MCV (80.0-98.0) fL MCH (27.0-33.0) pg MCHC (31.0-35.0) g/dl RDW (11.0-16.0) % Plt Count MPV (9.4-12.3) fL Immature Gran % (Auto) (0.0-0.4) % Neut % (Auto) (45-73) % Lymph % (Auto) (20-40) % [place] % (Auto) (2-11) % Eos % (Auto) (0-4) % Baso % (Auto) (0-2) % Lymph # (Auto) (1.2-4.9) X10*3/uL [place] # (Auto) (0.1-1.2) X10*3/uL Eos # (Auto) (0.0-0.4) X10*3/uL Baso # (Auto) (0.0-0.2) X10*3/uL Abs Immat Gran (auto) (0.00-0.03) X10*3/uL Absolute Neuts (auto) (2.0-8.3) x10*3/uL Absolute Nucleated RBC (0.0-0.012) X10*3/uL Nucleated RBC % (auto) (0.0-0.2) /100WBC Smear Tech's Comments Sodium Potassium Chloride Carbon Dioxide Anion Gap BUN Creatinine Estim Creat Clear Calc Estimated GFR Random Glucose Calcium Magnesium (1.6-2.6) mg/dL Total Bilirubin AST ALT Alkaline Phosphatase Total Protein Albumin Lipase (8-78) U/L Urine Color YELLOW Urine Appearance CLEAR Urine pH 5.5 (5.0-8.0) Ur Specific [place] 1.010 (1.005-1.025) Urine Protein TRACE (NEG-TRACE) MG/DL Urine Glucose (UA) 100 H (NEG) MG/DL Urine Ketones 5 (NEG) MG/DL Urine Blood 3+ H (NEG) Urine Nitrite NEG (NEG) Ur Leukocyte Esterase NEG (NEG) Urine RBC 5-9 H (0) /HPF Urine WBC 0-2 (0-4) /HPF Ur Squamous Epith Cells TRACE /LPF Urine Bacteria NONE /LPF Acetone, Qual (Negative) COVID-19 (NEGRA) (Negative) COVID-19 Clin Com Influenza Type A (DESIRE) (Negative) Influenza Type B (DESIRE) (Negative) Influenza A & B Note Imaging Data Chest x-ray: Radiologist's impression: XR/XR chest 2V IMPRESSION: Mild bibasilar linear atelectasis versus scarring. No acute cardiopulmonary process. Discharge Plan Discharge Clinical Impression: Ileus, Urinary retention, Hyponatremia Patient Disposition: Admitted As Inpatient
[2021-06-09 14:12] LABS: Basophils Percent Auto 0.2 % (0-2); Eosinophils Percent Auto 1.5 % (0-4); MANUAL DIFF FLAG SCAN; Neutrophils Percent Auto 66.8 % (45-73); PLT CLUMP 1; SCAN SMEAR FLAG 1
[2021-06-09 14:14] LABS: Eosinophils Absolute Auto 0.1 X10*3/uL (0.0-0.4); Hematocrit 41.3 % (37.0-47.0); Imm Gran Abs Auto 0.03 X10*3/uL (0.00-0.03); Imm Gran Pct Auto 0.3 % (0.0-0.4); Lymphocytes Absolute Auto 1.6 X10*3/uL (1.2-4.9); Lymphocytes Percent Auto 18.8 % (20-40); Mean Corpuscular HGB Conc 33.9 g/dl (31.0-35.0); Mean Corpuscular Hemoglobin 30.5 pg (27.0-33.0); Mean Platelet Volume 12.2 fL (9.4-12.3); Monocytes Absolute Auto 1.1 X10*3/uL (0.1-1.2); Monocytes Percent Auto 12.4 % (2-11); Neutrophils Absolute Auto 5.7 x10*3/uL (2.0-8.3); Red Blood Count 4.59 X10*6/uL (4.20-5.50); Red Cell Distribution Width 11.1 % (11.0-16.0)
[2021-06-09 14:34] LABS: SLIDE REVIEW VERIFIED; White Blood Count 8.6 X10*3/uL (4.8-10.8)
[2021-06-09] MEDS: ondansetron HCL 4 MG/2 ML VIAL IVPUSH (14:36)
[2021-06-09 14:39] LABS: COVID-19 Test Negative (Negative); IDNOW Serial# 16C4AD1C; Influenza A Negative (Negative); Influenza B2 Negative (Negative)
[2021-06-09 15:06] LABS: Alanine Aminotransferase 8 U/L (0-31); Albumin Level 3.9 g/dL (3.5-5.0); Alkaline Phosphatase 89 U/L (39-117); Anion Gap 22 (12-20); Aspartate Amino Transferase 10 U/L (5-31); Blood Urea Nitrogen 21 mg/dL (9-16); Calcium 9.7 mg/dL (8.4-10.2); Carbon Dioxide 24 mmol/L (22-29); Chloride 88 mmol/L (96-108); Creatinine Clr Calc Pharmacy 55.4; Estimated Glomerular Filt Rate > 60; Glucose Random 255 mg/dL (60-115); Lipase 18 U/L (8-78); Potassium 4.7 mmol/L (3.3-5.1); Sodium 129 mmol/L (135-145); Total Protein 7.2 g/dL (6.5-8.0)
[2021-06-09 16:02] LABS: Appearance Urine CLEAR; Color Urine YELLOW; Glucose Urine UA 100 MG/DL (NEG); Leukocyte Esterase Urine NEG (NEG); Nitrite Urine NEG (NEG); PH 5.5 (5.0-8.0); UACC Culture Trigger NO; Urine Blood 3+ (NEG); Urine Ketones 5 MG/DL (NEG); Urine Protein TRACE MG/DL (NEG-TRACE)
[2021-06-09] MEDS: iohexoL 350 MG/ML 100 ML INFUS..BTL IV (16:11)
[2021-06-09 16:13] LABS: Squamous Epithelial Cell Urine TRACE /LPF; WBC Urine 0-2 /HPF (0-4)
[2021-06-09 16:30] LABS: Acetone, serum QL Negative (Negative)
[2021-06-09] MEDS: 0.9 % Sodium Chloride 1,000 ML 999 ML IV (16:45)
--- NOTE | 2021-06-09 17:35 | P.HPHOSP_ITS ---
History of Present Illness Date of Service: 06/09/21 Chief Complaint: santoro came out, abd distension 76F from assisted living, presented to ED on 06/06/21 with urinary retention was discharged with santoro after 500cc PVR with plan for follow up with on 07/06/21. pateint was discharged home. she was sent back on day of presenteatoin as santoro had become dislodged and abdomen is distended, patient feeling bloated, does not remember last BM, denies pain or vomitting. in ED CT c/w ileus. labs significant for hyponatremia 129. santoro reinserted with significant PVR. Review of Systems Review of Systems: Constitutional: Denies fever, denies Chills Eyes: denies blurry vision ENT: denies sore throat CVS: denies chest pain Respiratory: Denies dyspnea GI: distension : denies dysuria MSK: denies neck pain Skin: denies rash Neuro: denies specific motor weakness Psych: denies suicidal ideation Endocrine: denies heat/cold intolerance Hematologic: denies easy bleeding Allergy: denies hives [facility] Medical History (Updated 06/09/21 @ 17:40 by Amrit Laws MD) CHF (congestive heart failure) Chronic schizophrenia Diabetes mellitus type 2 in obese Hypertension Parkinsons Family History (Updated 06/09/21 @ 17:39 by Amrit Laws MD) Mother HLD (hyperlipidemia) Social History Household Members: Other Household Members Other:: [facility]dc Housing: Half-Way Do you presently have visiting nurse or other home services: No (fdc) Alcohol intake: former Patient Tobacco Use Status: Former Tobacco user Tobacco use type: Cigarette Smoked in Last 30 Days: No e-Cigarette/Vaping Use: Never Used Second Hand Smoke Exposure: No Use of substances other than those prescribed or required for medical reasons: No Advance Directives: No Advance Directives Information Provided: No service: No Sexual orientation: Straight/Heterosexual Meds Allergies Allergy/AdvReac Type Severity Reaction Status Date / Time No Known Allergies Allergy Unknown UNKNOWN Unverified 10/28/19 16:25 [NO KNOWN ALLERGIES] Active Medications: Current Medications Dextrose (Dextrose 50 % 25 Gm/50 Ml Syringe) 25 gm IVPUSH Q15M PRN; Protocol PRN Reason: per Hypoglycemia Standing Ord. Glucose (Glucose Gel 15 Gm Gel..Gram.) 15 gm PO Q15M PRN; Protocol PRN Reason: per Hypoglycemia Standing Ord. Sodium Chloride (Ns) 1,000 mls @ 100 mls/hr IVCONT .Q10H [facility] Insulin Human Lispro (Insulin Lispro 100 Unit/Ml 3 Ml Vial) 0 unit SUBCUT QIDACHS [place]CELIA; Protocol Pharmacy Consult (Consult Rx Perform Med Rec) 1 each MISCELLANE ONCE PRN PRN Reason: Consult order Pharmacy Consult (Consult Rx Perform Med Rec) 1 each MISCELLANE ONCE PRN PRN Reason: Consult order Home Medications Medication Instructions Recorded Confirmed Last Taken Type aripiprazole 30 mg tablet 1 tab PO BEDTIME 12/06/20 12/06/20 12/05/20 History aripiprazole 5 mg tablet 0.5 tab PO DAILY PRN 12/06/20 12/06/20 Unknown History ascorbic acid (vitamin C) 500 mg 500 mg PO BID 12/06/20 12/06/20 12/06/20 History tablet (Vitamin C) atorvastatin 40 mg tablet 1 tab PO DAILY 12/06/20 12/06/20 12/05/20 History benztropine 0.5 mg tablet 1 tab PO BID 12/06/20 12/06/20 12/06/20 History calcium carbonate 600 mg-vitamin 1 tab PO DAILY 12/06/20 12/06/20 12/05/20 History D3 10 mcg (400 unit) tablet (Calcium 600 + D(3)) carbidopa 25 mg-levodopa 100 mg 1 tab PO TID 12/06/20 12/06/20 12/06/20 History tablet citalopram 10 mg tablet 10 mg PO DAILY 12/06/20 12/06/20 12/06/20 08:00 History diltiazem HCl 360 mg capsule,24 360 mg PO DAILY 12/06/20 12/06/20 12/06/20 08:00 History hr,extended release divalproex 500 mg tablet,delayed 1 tab PO BEDTIME 12/06/20 12/06/20 12/05/20 History release docusate sodium 100 mg capsule 100 mg PO BID 12/06/20 12/06/20 12/06/20 History (DOK) ferrous sulfate 325 mg (65 mg 325 mg PO DAILY 12/06/20 12/06/2021 History iron) tablet furosemide 20 mg tablet 20 mg PO Q OTHER DAY 12/06/20 12/06/20 Unknown History furosemide 40 mg tablet 1 tab PO Q OTHER DAY 12/06/20 12/06/20 Unknown History metformin 1,000 mg tablet 1 tab PO BID 12/06/20 12/06/20 12/06/20 History polyethylene glycol 3350 18 g PO DAILY 12/06/20 12/06/20 12/06/20 09:00 History trazodone 150 mg tablet 1 tab PO BEDTIME 12/06/20 12/06/20 12/05/20 History Physical Exam Vital Signs and Narrative: Vital Signs: Last Vital Signs Temp 98.8 F 06/09/21 15:54 Pulse 68 06/09/21 15:54 Resp 16 06/09/21 15:54 BP 146/64 H 06/09/21 15:54 Pulse Ox 98 06/09/21 15:54 BMI result Body Mass Index 29.2 General: no acute distress HEENT: atraumatic Neck: normal to visual inspection CVS: S1, S2, RRR Resp: CTA bilateral Chest: non tender GI: soft, non tender, distended, +bs : no CVA tenderness Skin: no rashes Extremities: no edema Neuro: Oriented X3, grossly intact Psych: cooperative Results Labs CBC and Chem 7: 06/09/21 14:06 06/09/21 14:34 Labs: Laboratory Results - last 24 hr 06/09/21 06/09/21 06/09/21 13:54 13:54 14:06 MCV 90.0 MCH 30.5 MCHC 33.9 RDW 11.1 Plt Count TNP MPV 12.2 Immature Gran % (Auto) 0.3 Neut % (Auto) 66.8 Lymph % (Auto) 18.8 L [place] % (Auto) 12.4 H Eos % (Auto) 1.5 Baso % (Auto) 0.2 Lymph # (Auto) 1.6 [place] # (Auto) 1.1 Eos # (Auto) 0.1 Baso # (Auto) 0.0 Abs Immat Gran (auto) 0.03 Absolute Neuts (auto) 5.7 Absolute Nucleated RBC 0.000 Nucleated RBC % (auto) 0.0 Smear Tech's Comments VERIFIED Anion Gap Estim Creat Clear Calc Estimated GFR Random Glucose Calcium Magnesium Total Bilirubin AST ALT Alkaline Phosphatase Total Protein Albumin Lipase Urine Color Urine Appearance Urine pH Ur Specific [place] Urine Protein Urine Glucose (UA) Urine Ketones Urine Blood Urine Nitrite Ur Leukocyte Esterase Urine RBC Urine WBC Ur Squamous Epith Cells Urine Bacteria Acetone, Qual COVID-19 (NEGRA) Negative COVID-19 Clin Com SEE NOTE Influenza Type A (DESIRE) Negative Influenza Type B (DESIRE) Negative Influenza A & B Note See Note 06/09/21 06/09/21 06/09/21 14:06 14:34 14:34 MCV MCH MCHC RDW Plt Count MPV Immature Gran % (Auto) Neut % (Auto) Lymph % (Auto) [place] % (Auto) Eos % (Auto) Baso % (Auto) Lymph # (Auto) [place] # (Auto) Eos # (Auto) Baso # (Auto) Abs Immat Gran (auto) Absolute Neuts (auto) Absolute Nucleated RBC Nucleated RBC % (auto) Smear Tech's Comments Anion Gap Cancelled 22 H Estim Creat Clear Calc Cancelled 55.4 Estimated GFR Cancelled > 60 Random Glucose Cancelled 255 H Calcium Cancelled 9.7 Magnesium 2.0 Total Bilirubin Cancelled 1.0 AST Cancelled 10 ALT Cancelled 8 Alkaline Phosphatase Cancelled 89 Total Protein Cancelled 7.2 Albumin Cancelled 3.9 Lipase 18 Urine Color Urine Appearance Urine pH Ur Specific [place] Urine Protein Urine Glucose (UA) Urine Ketones Urine Blood Urine Nitrite Ur Leukocyte Esterase Urine RBC Urine WBC Ur Squamous Epith Cells Urine Bacteria Acetone, Qual Negative COVID-19 (NEGRA) COVID-19 Clin Com Influenza Type A (DESIRE) Influenza Type B (DESIRE) Influenza A & B Note 06/09/21 15:47 MCV MCH MCHC RDW Plt Count MPV Immature Gran % (Auto) Neut % (Auto) Lymph % (Auto) [place] % (Auto) Eos % (Auto) Baso % (Auto) Lymph # (Auto) [place] # (Auto) Eos # (Auto) Baso # (Auto) Abs Immat Gran (auto) Absolute Neuts (auto) Absolute Nucleated RBC Nucleated RBC % (auto) Smear Tech's Comments Anion Gap Estim Creat Clear Calc Estimated GFR Random Glucose Calcium Magnesium Total Bilirubin AST ALT Alkaline Phosphatase Total Protein Albumin Lipase Urine Color YELLOW Urine Appearance CLEAR Urine pH 5.5 Ur Specific [place] 1.010 Urine Protein TRACE Urine Glucose (UA) 100 H Urine Ketones 5 Urine Blood 3+ H Urine Nitrite NEG Ur Leukocyte Esterase NEG Urine RBC 5-9 H Urine WBC 0-2 Ur Squamous Epith Cells TRACE Urine Bacteria NONE Acetone, Qual COVID-19 (NEGRA) COVID-19 Clin Com Influenza Type A (DESIRE) Influenza Type B (DESIRE) Influenza A & B Note Imaging Radiologist's Impressions: Impressions Chest X-Ray 06/09/21 14:21 IMPRESSION: Mild bibasilar linear atelectasis versus scarring. No acute cardiopulmonary process. Abdomen/Pelvis CT 06/09/21 16:14 IMPRESSION: Fluid and gas-filled loops of proximal to mid small bowel with relatively decompressed distal most small bowel however I do not appreciate a discrete transition point. Ileus would be more favored with this appearance. Stool and air seen throughout the colon to the rectum as well. No free air. Chronic appearing changes otherwise as described. . Assessment and Plan (1) Ileus: Status: Acute (2) Hyponatremia: Status: Acute Plan 76F presented with urinary retention, ileus, hyponatremia hyponatremia likely dehydratoin and lasix use ivf, hold lasix, monitor bmp ileus clear liquid diet, hold cardizem ambulate as tolerated urinary retention santoro replaced outpatient HTN holding cardizem, use other class if bp persistently high schizophrenia continue psych meds parkinsons sinemet chronic diastolic chf holding lasix, giving ivf, monitor closely DM insulin, monitor poc dvt prophylaxis - lovenox full code patient with ileus, unlikely to resolve in next 24 hours, hyponatremia requiting frequent blood tests and close monitoring, high risk paitent due to parkisons, chronic diastolic chf, DM, advanced age, therefore, likely to require atleast 2 midnights in hospital. Quality Stroke Does the patient have a stroke diagnosis?: No VTE Prior VTE?: No VTE Risk Level:: Medical - moderate - high VTE Device Contraindication: Treatment Not Indicated VTE Drug Contraindication: N/A - Med Ordered
--- NOTE | 2021-06-09 17:48 | PHA.MEDREC ---
Pharmacy Consult ? Medication Reconciliation Pharmacy has completed the medication reconciliation. Spoke with patient and caregiver at bedside. Patient took her morning medications at [facility] before coming to the ED.
[2021-06-09] MEDS: 0.9 % Sodium Chloride 1,000 ML 100 ML IVCONT (17:59)
[2021-06-09] MEDS: Enoxaparin Sodium 40 MG/0.4 ML SYRINGE SUBCUT (17:59)
[2021-06-09 18:16] LABS: Anion Gap 15 (12-20); Blood Urea Nitrogen 18 mg/dL (9-16); Calcium 8.8 mg/dL (8.4-10.2); Carbon Dioxide 28 mmol/L (22-29); Chloride 95 mmol/L (96-108); Creatinine Clr Calc Pharmacy 58.9; Estimated Glomerular Filt Rate > 60; Glucose Random 194 mg/dL (60-115); Potassium 5.2 mmol/L (3.3-5.1); Sodium 133 mmol/L (135-145)
[2021-06-09 19:08] LABS: Glucose, Whole Blood 178 mg/dL (60-115)
[2021-06-09] MEDS: Insulin Lispro 100 UNIT/ML 3 ML VIAL SUBCUT (20:00)
[2021-06-09] MEDS: Docusate Sodium 100 MG CAPSULE PO (20:44)
[2021-06-09] MEDS: Ascorbic Acid 500 MG TABLET PO (20:44)
[2021-06-09] MEDS: traZODone HCL 50 MG TABLET 150 MG PO (20:44)
[2021-06-09] MEDS: Divalproex Sodium 500 MG TABLET.DR PO (20:44)
[2021-06-09] MEDS: Carbidopa/Levodopa 25/100 TABLET 1 TAB PO (20:52)
[2021-06-09] MEDS: Benztropine Mesylate 0.5 MG TABLET PO (22:15)
[2021-06-09] MEDS: ARIPiprazole 30 MG TABLET PO (22:15)
[2021-06-09 22:43] LABS: Glucose, Whole Blood 136 mg/dL (60-115)
[2021-06-09] MEDS: 0.9 % Sodium Chloride Flush 3 ML SYRINGE IVFLUSH (23:08)
[2021-06-10] VITALS (8 sets, daily range): BP systolic 134–176; BP diastolic 47–78; PULSE 64–79; RESP 12–18; TEMP 36.6–37.3; O2SAT 92–98
[2021-06-10] MEDS: 0.9 % Sodium Chloride 1,000 ML 100 ML IVCONT ×3 (03:30→23:19)
[2021-06-10 06:59] LABS: PLT CLUMP 1
[2021-06-10 07:00] LABS: Hematocrit 35.4 % (37.0-47.0); Hemoglobin 11.9 g/dl (12.0-16.0); Mean Corpuscular HGB Conc 33.6 g/dl (31.0-35.0); Mean Corpuscular Hemoglobin 30.5 pg (27.0-33.0); Mean Corpuscular Volume 90.8 fL (80.0-98.0); Mean Platelet Volume 11.4 fL (9.4-12.3); Red Cell Distribution Width 11.2 % (11.0-16.0)
[2021-06-10 07:14] LABS: Anion Gap 13 (12-20); Blood Urea Nitrogen 15 mg/dL (9-16); Calcium 8.4 mg/dL (8.4-10.2); Carbon Dioxide 25 mmol/L (22-29); Chloride 99 mmol/L (96-108); Creatinine Clr Calc Pharmacy 65.6; Estimated Glomerular Filt Rate > 60; Glucose Fasting 162 mg/dL (60-99); Potassium 4.4 mmol/L (3.3-5.1); Sodium 133 mmol/L (135-145)
[2021-06-10 07:16] LABS: Glucose, Whole Blood 167 mg/dL (60-115)
[2021-06-10 07:16] LABS: White Blood Count 6.6 X10*3/uL (4.8-10.8)
[2021-06-10] MEDS: Insulin Lispro 100 UNIT/ML 3 ML VIAL SUBCUT ×3 (07:46→15:29)
[2021-06-10] MEDS: hydrOXYzine HCL 25 MG TABLET PO ×2 (09:37→19:48)
[2021-06-10] MEDS: Docusate Sodium 100 MG CAPSULE PO ×2 (09:37→19:49)
[2021-06-10] MEDS: Magnesium Oxide 400 MG TABLET PO (09:37)
[2021-06-10] MEDS: Aspirin 81 MG TAB.CHEW PO (09:37)
[2021-06-10] MEDS: Calcium + Vitamin D 250 MG TABLET 500 MG PO (09:37)
[2021-06-10] MEDS: Benztropine Mesylate 0.5 MG TABLET PO ×2 (09:38→19:48)
[2021-06-10] MEDS: 0.9 % Sodium Chloride Flush 3 ML SYRINGE IVFLUSH ×2 (09:38→15:28)
--- NOTE | 2021-06-10 10:30 | PC.NURSE ---
pt ate 25% of breakfast.
--- NOTE | 2021-06-10 10:30 | PC.NURSE ---
pt is sitting up in recliner chair, sister is at bedside.
[2021-06-10] MEDS: Escitalopram Oxalate 10 MG TABLET PO (10:41)
[2021-06-10] MEDS: Carbidopa/Levodopa 25/100 TABLET 1 TAB PO ×3 (10:41→19:48)
[2021-06-10] MEDS: SITagliptin Phosphate 100 MG TABLET PO (10:41)
[2021-06-10] MEDS: Ascorbic Acid 500 MG TABLET PO ×2 (10:41→19:49)
--- NOTE | 2021-06-10 11:33 | P.PNIM_ITS ---
Subjective Subjective Date of Service: 06/10/21 Interval History: cc: santoro dislodged interval history:no bm Cardiovascular Cardiovascular: Reports no additional cardiovascular complaints Respiratory Respiratory: Reports no additional respiratory complaints Physical Exam Vital Signs: Vital Signs: Last Vital Signs Temp 98.6 F 06/10/21 09:28 Pulse 76 06/10/21 09:28 Resp 16 06/10/21 09:28 BP 140/62 H 06/10/21 09:28 Pulse Ox 94 06/10/21 09:28 BMI result Body Mass Index 29.2 General: AO X 3, no acute distress Resp: CTA bilateral, no accessory muscles used CVS: S1,S2,RRR GI: soft, non tender, distended Neuro: motor grossly intact, alert Psych: appropriate affect, appropriate insight Objective Data Active Medications Acetaminophen (Acetaminophen 325 Mg Tablet) 650 mg PO Q6H PRN PRN Reason: Pain, Mild (Pain Scale 1-3) Aripiprazole (Aripiprazole 5 Mg Tablet) 2.5 mg PO DAILY PRN PRN Reason: Anxiety Aripiprazole (Aripiprazole 30 Mg Tablet) 30 mg PO BEDTIME [facility] Last Admin: 06/09/21 22:15 Dose: 30 mg Documented by: VINCENZO Ascorbic Acid (Ascorbic Acid 500 Mg Tablet) 500 mg PO BID [facility] Last Admin: 06/10/21 10:41 Dose: 500 mg Documented by: MARQUIS Aspirin (Aspirin 81 Mg Tab.Chew) 81 mg PO DAILY [facility] Last Admin: 06/10/21 09:37 Dose: 81 mg Documented by: MARQUIS Atorvastatin Calcium (Atorvastatin Calcium 40 Mg Tablet) 40 mg PO BEDTIME [facility] Benztropine Mesylate (Benztropine Mesylate 0.5 Mg Tablet) 0.5 mg PO BID [facility] Last Admin: 06/10/21 09:38 Dose: 0.5 mg Documented by: MARQUIS Calcium Carbonate/Cholecalciferol (Calcium + Vitamin D 250 Mg Tablet) 500 mg PO DAILY [facility] Last Admin: 06/10/21 09:37 Dose: 500 mg Documented by: MARQUIS Carbidopa/Levodopa (Carbidopa/Levodopa 25/100 Tablet) 1 tab PO TID [facility] Last Admin: 06/10/21 10:41 Dose: 1 tab Documented by: MARQUIS Dextrose (Dextrose 50 % 25 Gm/50 Ml Syringe) 25 gm IVPUSH Q15M PRN; Protocol PRN Reason: per Hypoglycemia Standing Ord. Divalproex Sodium (Divalproex Sodium 500 Mg Tablet.Dr) 500 mg PO BEDTIME [facility] Last Admin: 06/09/21 20:44 Dose: 500 mg Documented by: VINCENZO Docusate Sodium (Docusate Sodium 100 Mg Capsule) 100 mg PO BID [facility] Last Admin: 06/10/21 09:37 Dose: 100 mg Documented by: MARQUIS Enoxaparin Sodium (Enoxaparin Sodium 40 Mg/0.4 Ml Syringe) 40 mg SUBCUT Q24H [facility] Last Admin: 06/09/21 17:59 Dose: 40 mg Documented by: FELTON Escitalopram Oxalate (Escitalopram Oxalate 10 Mg Tablet) 10 mg PO DAILY [facility] Last Admin: 06/10/21 10:41 Dose: 10 mg Documented by: MARQUIS Glucose (Glucose Gel 15 Gm Gel..Gram.) 15 gm PO Q15M PRN; Protocol PRN Reason: per Hypoglycemia Standing Ord. Hydroxyzine HCl (Hydroxyzine Hcl 25 Mg Tablet) 25 mg PO TID PRN PRN Reason: Anxiety Hydroxyzine HCl (Hydroxyzine Hcl 25 Mg Tablet) 25 mg PO DAILY [facility] Last Admin: 06/10/21 09:37 Dose: 25 mg Documented by: MARQUIS Sodium Chloride (Ns) 1,000 mls @ 100 mls/hr IVCONT .Q10H [facility] Last Admin: 06/10/21 03:30 Dose: 100 mls/hr Documented by: VINCENZO Insulin Human Lispro (Insulin Lispro 100 Unit/Ml 3 Ml Vial) 0 unit SUBCUT QIDACHS [facility]; Protocol Last Admin: 06/10/21 07:46 Dose: 2 unit Documented by: MEL Magnesium Oxide (Magnesium Oxide 400 Mg Tablet) 400 mg PO DAILY [facility] Last Admin: 06/10/21 09:37 Dose: 400 mg Documented by: MARQUIS Pharmacy Consult (Consult Rx Perform Med Rec) 1 each MISCELLANE ONCE PRN PRN Reason: Consult order Pharmacy Consult (Consult Rx Perform Med Rec) 1 each MISCELLANE ONCE PRN PRN Reason: Consult order Polyethylene Glycol (Polyethylene Glycol 3350 17 Gm Powd.Pack) 17 gm PO DAILY PRN PRN Reason: Constipation Sitagliptin Phosphate (Sitagliptin Phosphate 100 Mg Tablet) 100 mg PO DAILY [facility] Last Admin: 06/10/21 10:41 Dose: 100 mg Documented by: MARQUIS Sodium Chloride (0.9 % Sodium Chloride Flush 3 Ml Syringe) 3 ml IVFLUSH QSHIFT [facility] Last Admin: 06/10/21 09:38 Dose: 3 ml Documented by: MARQUIS Trazodone HCl (Trazodone Hcl 50 Mg Tablet) 150 mg PO BEDTIME [facility] Last Admin: 06/09/21 20:44 Dose: 150 mg Documented by: ROSSYJ Labs CBC & Chem 7: 06/10/21 06:23 06/10/21 06:23 Labs: Laboratory Results - last 24 hr 06/09/21 06/09/21 06/09/21 13:54 13:54 14:06 MCV 90.0 MCH 30.5 MCHC 33.9 RDW 11.1 Plt Count TNP MPV 12.2 Immature Gran % (Auto) 0.3 Neut % (Auto) 66.8 Lymph % (Auto) 18.8 L [place] % (Auto) 12.4 H Eos % (Auto) 1.5 Baso % (Auto) 0.2 Lymph # (Auto) 1.6 [place] # (Auto) 1.1 Eos # (Auto) 0.1 Baso # (Auto) 0.0 Abs Immat Gran (auto) 0.03 Absolute Neuts (auto) 5.7 Absolute Nucleated RBC 0.000 Nucleated RBC % (auto) 0.0 Smear Tech's Comments VERIFIED Anion Gap Estim Creat Clear Calc Estimated GFR POC Glucose Random Glucose Fasting Glucose Calcium Magnesium Total Bilirubin AST ALT Alkaline Phosphatase Total Protein Albumin Lipase Urine Color Urine Appearance Urine pH Ur Specific [place] Urine Protein Urine Glucose (UA) Urine Ketones Urine Blood Urine Nitrite Ur Leukocyte Esterase Urine RBC Urine WBC Ur Squamous Epith Cells Urine Bacteria Acetone, Qual COVID-19 (NEGRA) Negative COVID-19 Clin Com SEE NOTE Influenza Type A (DESIRE) Negative Influenza Type B (DESIRE) Negative Influenza A & B Note See Note 06/09/21 06/09/21 06/09/21 14:06 14:34 14:34 MCV MCH MCHC RDW Plt Count MPV Immature Gran % (Auto) Neut % (Auto) Lymph % (Auto) [place] % (Auto) Eos % (Auto) Baso % (Auto) Lymph # (Auto) [place] # (Auto) Eos # (Auto) Baso # (Auto) Abs Immat Gran (auto) Absolute Neuts (auto) Absolute Nucleated RBC Nucleated RBC % (auto) Smear Tech's Comments Anion Gap Cancelled 22 H Estim Creat Clear Calc Cancelled 55.4 Estimated GFR Cancelled > 60 POC Glucose Random Glucose Cancelled 255 H Fasting Glucose Calcium Cancelled 9.7 Magnesium 2.0 Total Bilirubin Cancelled 1.0 AST Cancelled 10 ALT Cancelled 8 Alkaline Phosphatase Cancelled 89 Total Protein Cancelled 7.2 Albumin Cancelled 3.9 Lipase 18 Urine Color Urine Appearance Urine pH Ur Specific [place] Urine Protein Urine Glucose (UA) Urine Ketones Urine Blood Urine Nitrite Ur Leukocyte Esterase Urine RBC Urine WBC Ur Squamous Epith Cells Urine Bacteria Acetone, Qual Negative COVID-19 (NEGRA) COVID-19 Clin Com Influenza Type A (DESIRE) Influenza Type B (DESIRE) Influenza A & B Note 06/09/21 06/09/21 06/09/21 15:47 17:51 19:03 MCV MCH MCHC RDW Plt Count MPV Immature Gran % (Auto) Neut % (Auto) Lymph % (Auto) [place] % (Auto) Eos % (Auto) Baso % (Auto) Lymph # (Auto) [place] # (Auto) Eos # (Auto) Baso # (Auto) Abs Immat Gran (auto) Absolute Neuts (auto) Absolute Nucleated RBC Nucleated RBC % (auto) Smear Tech's Comments Anion Gap 15 Estim Creat Clear Calc 58.9 Estimated GFR > 60 POC Glucose 178 H Random Glucose 194 H Fasting Glucose Calcium 8.8 D Magnesium Total Bilirubin AST ALT Alkaline Phosphatase Total Protein Albumin Lipase Urine Color YELLOW Urine Appearance CLEAR Urine pH 5.5 Ur Specific [place] 1.010 Urine Protein TRACE Urine Glucose (UA) 100 H Urine Ketones 5 Urine Blood 3+ H Urine Nitrite NEG Ur Leukocyte Esterase NEG Urine RBC 5-9 H Urine WBC 0-2 Ur Squamous Epith Cells TRACE Urine Bacteria NONE Acetone, Qual COVID-19 (NEGRA) COVID-19 Clin Com Influenza Type A (DESIRE) Influenza Type B (DESIRE) Influenza A & B Note 06/09/21 06/10/21 06/10/21 22:39 06:23 06:23 MCV 90.8 MCH 30.5 MCHC 33.6 RDW 11.2 Plt Count TNP MPV 11.4 Immature Gran % (Auto) Neut % (Auto) Lymph % (Auto) [place] % (Auto) Eos % (Auto) Baso % (Auto) Lymph # (Auto) [place] # (Auto) Eos # (Auto) Baso # (Auto) Abs Immat Gran (auto) Absolute Neuts (auto) Absolute Nucleated RBC 0.000 Nucleated RBC % (auto) 0.0 Smear Tech's Comments Anion Gap 13 Estim Creat Clear Calc 65.6 Estimated GFR > 60 POC Glucose 136 H Random Glucose Fasting Glucose 162 H Calcium 8.4 Magnesium Total Bilirubin AST ALT Alkaline Phosphatase Total Protein Albumin Lipase Urine Color Urine Appearance Urine pH Ur Specific [place] Urine Protein Urine Glucose (UA) Urine Ketones Urine Blood Urine Nitrite Ur Leukocyte Esterase Urine RBC Urine WBC Ur Squamous Epith Cells Urine Bacteria Acetone, Qual COVID-19 (NEGRA) COVID-19 Clin Com Influenza Type A (DESIRE) Influenza Type B (DESIRE) Influenza A & B Note 06/10/21 07:10 MCV MCH MCHC RDW Plt Count MPV Immature Gran % (Auto) Neut % (Auto) Lymph % (Auto) [place] % (Auto) Eos % (Auto) Baso % (Auto) Lymph # (Auto) [place] # (Auto) Eos # (Auto) Baso # (Auto) Abs Immat Gran (auto) Absolute Neuts (auto) Absolute Nucleated RBC Nucleated RBC % (auto) Smear Tech's Comments Anion Gap Estim Creat Clear Calc Estimated GFR POC Glucose 167 H Random Glucose Fasting Glucose Calcium Magnesium Total Bilirubin AST ALT Alkaline Phosphatase Total Protein Albumin Lipase Urine Color Urine Appearance Urine pH Ur Specific [place] Urine Protein Urine Glucose (UA) Urine Ketones Urine Blood Urine Nitrite Ur Leukocyte Esterase Urine RBC Urine WBC Ur Squamous Epith Cells Urine Bacteria Acetone, Qual COVID-19 (NEGRA) COVID-19 Clin Com Influenza Type A (DESIRE) Influenza Type B (DESIRE) Influenza A & B Note Assessment and Plan (1) Chronic schizophrenia: Status: Acute Plan 76F presented with urinary retention, ileus, hyponatremia hyponatremia likely dehydratoin and lasix use improved to 133 ivf, holding lasix, monitor bmp ileus clear liquid diet, holding cardizem ambulate as tolerated urinary retention santoro replaced outpatient HTN holding cardizem, use other class if bp persistently high schizophrenia continue psych meds parkinsons sinemet chronic diastolic chf holding lasix, giving ivf, monitor closely DM insulin, monitor poc dvt prophylaxis - lovenox full code reason for continued hospitalization: awaiting reutrn of gi function, requriing ivf, close monitoring of labs Quality Stroke Does the patient have a stroke diagnosis?: No VTE Prior VTE?: No VTE Risk Level:: Medical - moderate - high VTE Device Contraindication: Treatment Not Indicated VTE Drug Contraindication: N/A - Med Ordered
--- NOTE | 2021-06-10 11:37 | PC.NURSE ---
pt sister is at bedside. pt/sister aware of plan of care.
[2021-06-10 12:40] LABS: Glucose, Whole Blood 231 mg/dL (60-115)
--- NOTE | 2021-06-10 13:23 | PC.NURSE ---
pt appears a/o x 3, pt is eating lunch up in recliner chair.
--- NOTE | 2021-06-10 14:15 | PC.NURSE ---
rn to rn report given to kisha
--- NOTE | 2021-06-10 14:36 | PC.NURSE ---
pt ate 75% of lunch, pt put btb.
[2021-06-10] MEDS: ARIPiprazole 5 MG TABLET 2.5 MG PO (15:27)
[2021-06-10 16:42] LABS: Glucose, Whole Blood 241 mg/dL (60-115)
[2021-06-10] MEDS: Enoxaparin Sodium 40 MG/0.4 ML SYRINGE SUBCUT (18:11)
[2021-06-10] MEDS: polyethylene glycoL 3350 17 GM POWD.PACK PO (18:11)
[2021-06-10] MEDS: traZODone HCL 50 MG TABLET 150 MG PO (19:47)
[2021-06-10] MEDS: Atorvastatin Calcium 40 MG TABLET PO (19:48)
[2021-06-10] MEDS: Divalproex Sodium 500 MG TABLET.DR PO (19:48)
[2021-06-10] MEDS: ARIPiprazole 30 MG TABLET PO (19:48)
[2021-06-10 20:44] LABS: Glucose, Whole Blood 111 mg/dL (60-115)
[2021-06-11 03:28] VITALS: BP 167/75; PULSE 74; RESP 14; TEMP 37.1; O2SAT 91
[2021-06-11] MEDS: hydrOXYzine HCL 25 MG TABLET PO ×2 (04:13→08:04)
[2021-06-11 06:09] LABS: PLT CLUMP 1; Red Blood Count 3.73 X10*6/uL (4.20-5.50)
[2021-06-11 06:11] LABS: Hematocrit 35.2 % (37.0-47.0); Hemoglobin 11.5 g/dl (12.0-16.0); Mean Corpuscular HGB Conc 32.7 g/dl (31.0-35.0); Mean Corpuscular Hemoglobin 30.8 pg (27.0-33.0); Mean Corpuscular Volume 94.4 fL (80.0-98.0); Mean Platelet Volume 10.6 fL (9.4-12.3); Red Cell Distribution Width 11.2 % (11.0-16.0)
[2021-06-11 06:14] LABS: White Blood Count 6.5 X10*3/uL (4.8-10.8)
[2021-06-11 06:53] LABS: Anion Gap 12 (12-20); Blood Urea Nitrogen 8 mg/dL (9-16); Calcium 8.2 mg/dL (8.4-10.2); Carbon Dioxide 26 mmol/L (22-29); Chloride 104 mmol/L (96-108); Estimated Glomerular Filt Rate > 60; Glucose Fasting 156 mg/dL (60-99); Potassium 4.5 mmol/L (3.3-5.1); Sodium 137 mmol/L (135-145)
[2021-06-11 07:08] VITALS: BP 169/74; PULSE 82; RESP 18; TEMP 36.8; O2SAT 93
[2021-06-11 07:38] LABS: Glucose, Whole Blood 151 mg/dL (60-115)
[2021-06-11] MEDS: Carbidopa/Levodopa 25/100 TABLET 1 TAB PO ×2 (08:04→15:21)
[2021-06-11] MEDS: SITagliptin Phosphate 100 MG TABLET PO (08:05)
[2021-06-11] MEDS: Escitalopram Oxalate 10 MG TABLET PO (08:05)
[2021-06-11] MEDS: Ascorbic Acid 500 MG TABLET PO (08:05)
[2021-06-11] MEDS: Docusate Sodium 100 MG CAPSULE PO (08:05)
[2021-06-11] MEDS: Calcium + Vitamin D 250 MG TABLET 500 MG PO (08:05)
[2021-06-11] MEDS: Magnesium Oxide 400 MG TABLET PO (08:05)
[2021-06-11] MEDS: Benztropine Mesylate 0.5 MG TABLET PO (08:05)
[2021-06-11] MEDS: Insulin Lispro 100 UNIT/ML 3 ML VIAL SUBCUT ×2 (08:06→12:14)
[2021-06-11] MEDS: Aspirin 81 MG TAB.CHEW PO (08:06)
[2021-06-11] MEDS: 0.9 % Sodium Chloride Flush 3 ML SYRINGE IVFLUSH (08:06)
--- NOTE | 2021-06-11 09:56 | P.CDIC_ITS ---
CDI Concurrent Query Documentation Clarification: PHYSICIAN'S DOCUMENTATION REQUEST Date of Query: 06/11/21 0956 Patient Name: Francoise Ponce Admit Date: 06/09/21 Dear Doctor, A review of the medical record indicates additional documentation may be needed. Please review below and update the documentation accordingly. Clinical Indicators: Risk Factors/Clinical Indicators/Treatments PMH - Diabetes Mellitus Type 2 in Obese POC glucose on 06/10 - 241 H Insulin Please clarify the following regarding Diabetes Mellitus (DM): Hyperglycemia * Poorly controlled * Uncontrolled * Gastroparesis * No complications of DM * Other complication ? please specify * Unable to determine Use of terms such as suspected, likely, concern for, or probable (associated with a specific diagnosis that is being evaluated, monitored, or treated as if it exists) are acceptable and can be coded in the inpatient setting, when documented at the time of discharge. Thank you, Angella Barry [facility], CDIS Extension: [phone] Please use your independent medical judgment in providing your response. THIS QUERY IS PART OF THE PERMANENT MEDICAL RECORD
[2021-06-11 11:39] LABS: Glucose, Whole Blood 201 mg/dL (60-115)
[2021-06-11 11:48] VITALS: BP 180/76; PULSE 73; RESP 20; TEMP 36.6; O2SAT 93
--- NOTE | 2021-06-11 13:52 | PM.DS ---
DS: Providers Provider Date of Service: 06/11/21 Date of admission: 06/09/21 17:33 Primary care physician: Unknown Physician DS: Diagnosis Discharge Diagnosis (1) Chronic schizophrenia: Status: Acute DS: Summary Hospital Course Hospital Course: from initial hpi Chief Complaint: santoro came out, abd distension 76F from assisted living, presented to ED on 06/06/21 with urinary retention was discharged with santoro after 500cc PVR with plan for follow up with on 07/06/21. pateint was discharged home. she was sent back on day of presenteatoin as santoro had become dislodged and abdomen is distended, patient feeling bloated, does not remember last BM, denies pain or vomitting. in ED CT c/w ileus. labs significant for hyponatremia 129. santoro reinserted with significant PVR. hospital course: Patient was admitted for urinary retention with dislodged catheter, ileus, hyponatremia. Her hyponatremia is likely dehydration and Lasix use, improved with IV fluids. For ileus her diltiazem was discontinued. She was ambulated and had successful bowel movements. For her urinary retention Santoro was replaced, patient will follow up with Urology as outpatient. For hypertension diltiazem was discontinued, will add losartan for better blood pressure control, patient should get labs in about 1 week. For schizophrenia she will continue on her aripiprazole and divalproex. For her Parkinson's she will continue Sinemet. For chronic diastolic CHF she can restart her Lasix. For her diabetes with hyperglycemia she will continue her metformin, Januvia. Patient will be discharged back to assisted living facility. Time Spent with Patient Time attestation: Total time spent providing and/or coordinating discharge services: Discharge coordination time: Greater than 30 minutes Quality: Safe Use of Opioids Does Pt have an Active Cancer Diagnosis on the Problem List?: No Quality: Stroke Does the patient have a stroke diagnosis?: No Physical Exam Vital Signs: Vital Signs: Last Vital Signs Temp 97.9 F 06/11/21 11:48 Pulse 73 06/11/21 11:48 Resp 20 06/11/21 11:48 BP 180/76 H 06/11/21 11:48 Pulse Ox 93 06/11/21 11:48 BMI result Body Mass Index 29.2 General: AO X 3, no acute distress Resp: CTA bilateral, no accessory muscles used CVS: S1,S2,RRR GI: soft, non tender, non distended Neuro: motor grossly intact, alert Psych: appropriate affect, appropriate insight DS: Data Data Completed and Pending Labs on day of discharge: Laboratory Results - last 24 hr 06/10/21 06/10/21 06/11/21 15:05 20:30 05:47 WBC 6.5 RBC 3.73 L Hgb 11.5 L Hct 35.2 L MCV 94.4 MCH 30.8 MCHC 32.7 RDW 11.2 Plt Count TNP MPV 10.6 Absolute Nucleated RBC 0.000 Nucleated RBC % (auto) 0.0 Sodium Potassium Chloride Carbon Dioxide Anion Gap BUN Creatinine Estim Creat Clear Calc Estimated GFR POC Glucose 241 H 111 Fasting Glucose Calcium 06/11/21 06/11/21 06/11/21 05:47 07:06 11:18 WBC RBC Hgb Hct MCV MCH MCHC RDW Plt Count MPV Absolute Nucleated RBC Nucleated RBC % (auto) Sodium 137 Potassium 4.5 Chloride 104 Carbon Dioxide 26 Anion Gap 12 BUN 8 L Creatinine 0.63 Estim Creat Clear Calc 74.0 Estimated GFR > 60 POC Glucose 151 H 201 H Fasting Glucose 156 H Calcium 8.2 L Discharge Plan Discharge Patient Disposition: Home, Self-Care Discharge Diagnosis: ileus Referrals: Physician,Unknown J [Primary Care Provider] - 1 Week Discharge Medications: New losartan 25 mg tablet 25 mg PO DAILY Qty: 30 0RF Continued citalopram 10 mg Tablet 20 mg PO DAILY 0RF polyethylene glycol 3350 18 g PO DAILY PRN (Reason: Constipation) 0RF furosemide 40 mg tablet 1 tab PO Q OTHER DAY 0RF atorvastatin 40 mg tablet 1 tab PO DAILY 0RF benztropine 0.5 mg tablet 1 tab PO BID 0RF divalproex 500 mg tablet,delayed release (DR/EC) 1 tab PO BEDTIME 0RF ascorbic acid (vitamin C) [Vitamin C] 500 mg Tablet 500 mg PO BID 0RF trazodone 150 mg tablet 1 tab PO BEDTIME 0RF metformin 1,000 mg tablet 1 tab PO BID 0RF docusate sodium [DOK] 100 mg Capsule 100 mg PO BID 0RF furosemide 20 mg tablet 20 mg PO Q OTHER DAY 0RF carbidopa-levodopa 25-100 mg tablet 1 tab PO TID 0RF aripiprazole 30 mg tablet 1 tab PO BEDTIME 0RF aripiprazole 5 mg tablet 0.5 tab PO DAILY PRN (Reason: Anxiety) 0RF calcium carbonate-vitamin D3 [Calcium 600 + D(3)] 600 mg(1,500mg) -400 unit Tablet 1 tab PO DAILY 0RF magnesium oxide 400 mg (241.3 mg magnesium) Tablet 400 mg PO DAILY 0RF aspirin 81 mg tablet,chewable 1 tab PO DAILY 0RF hydroxyzine HCl 25 mg tablet 1 tab PO TID PRN (Reason: Anxiety) 0RF hydroxyzine HCl 25 mg Tablet 25 mg PO DAILY 0RF Januvia 100 mg tablet 1 tab PO DAILY 0RF cholecalciferol (vitamin D3) 1,250 mcg (50,000 unit) capsule 1 cap PO QWEEK 0RF Discontinued diltiazem HCl 360 mg Capsule,Extended Release 24 Hr 360 mg PO DAILY 0RF Discharge Orders: Discharge Order (Routine); Ordered 06/11/21 Ordered By: Amrit Laws Diet: advance to usual diet Activity on Discharge: As tolerated Stand Alone Forms: Patient Portal Discharge page Care Plan Goals: avoid ileus, manage urinary retention Health Concerns: ileus, urinary retention, htn Plan of Treatment: continue santoro, follow upGU, cardizem stopped as may be contributing to ileus, losartan started instead for htn. check labs in about 1 week Assessment: see above
--- NOTE | 2021-06-11 14:59 | MHC.CM.PN ---
PT REPORTS SHE RESIDES AT [facility] AND IS INDEPENDENT WITH SELF CARE PT REPORTS SHE USES A WALKER PT REPORTS SHE DOES NOT KNOW THE NAME OF HER PCP BUT HE COVERS [facility] RESIDENTS SHE REPORTS SHE DOES NOT HAVE A HCP BUT HER SISTER, SHAHZAD, IS HER LEGAL GUARDIAN CM SPOKE TO PTS SISTER/GUARDIAN, SHAHZAD WHO CAME IN FOR PTS DC. SHE REPORTS SHE IS CONCERNED THAT THE PT WILL DC WITH A [facility] AND WILL NOT HAVE FOLLOW UP WITH UROLOGY UNTIL 07/06. CM AGREED TO CALL UROLOGY OFFICE TO DETERMINE IF SHE CAN BE SEEN SOONER. CM CALLED SHANNAN SHAYLA ([phone]) AND SPOKE TO TIA WHO REPORTED PT WAS SCHEDULED TO SEE MORGAN JOSEPH ON 07/06 AT [facility]. SHE ALSO REPORTS PTS PCP IS LESLIE CONTEH. CM INFORMED HER PT WOULD BE DISCHARGING SOON AND HER SISTER WOULD BE PROVIDING TRANSPORT
== END 2021-06-11 15:29 | disposition home or self-care (01) | DRG 641 ==
LOC: HO.ED 17:15 → HO.EDOVER 17:37 → HO.S3 06-10 13:57
PROVIDERS: Nurse Practitioner Family; Admitting Provider Internal Medicine; Emergency Provider Emergency Medicine; Visit Provider Internal Medicine
DX: E87.1 Hypo-osmolality and hyponatremia (principal); K56.7 Ileus, unspecified; I50.32 Chronic diastolic (congestive) heart failure; E86.0 Dehydration; E11.65 Type 2 diabetes mellitus with hyperglycemia; R33.9 Retention of urine, unspecified; T83.028A Displacement of other urinary catheter, initial encounter; F20.9 Schizophrenia, unspecified; G20 Parkinson's disease; Z20.822 Contact with and (suspected) exposure to COVID-19; Z87.891 Personal history of nicotine dependence; Z79.82 Long term (current) use of aspirin; Z79.84 Long term (current) use of oral hypoglycemic drugs; Z79.899 Other long term (current) drug therapy
CPT/HCPCS: 36415; 51702; 51798; 71046; 74177; 80048; 80053; 80076; 80307; 81001; 81003; 82009; 82947; 83690; 83735; 85025; 85027; 87502; 87635; 96361; 96374; 97161; 99284; 99285; C1758; J1650; J2405; Q9967

== ENCOUNTER 2021-06-14 14:20 | Inpatient (IN) | payer MEDICARE, MEDICAID, SELFPAY ==
[2021-06-14] VITALS (7 sets, daily range): BP systolic 128–165; BP diastolic 43–81; PULSE 71–104; RESP 16–20; TEMP 36.3–39.4; O2SAT 92–95; BMI 27.1
--- NOTE | ~2021-06-14 | XR_ITS ---
EXAMINATION: XR CHEST CLINICAL INFORMATION: Fall. Altered mental status. COMPARISON: 06/09/2021 TECHNIQUE: Frontal view of the chest was obtained. FINDINGS: Cardiac leads overlie the chest. The lungs are well expanded. There is no focal consolidation, edema, or effusion. Linear left basilar atelectasis noted. No pneumothorax. The cardiomediastinal silhouette is within normal limits. No acute osseous abnormality. XR/XR chest 1V IMPRESSION: Linear left basilar atelectasis. Otherwise clear lungs. No displaced fractures are seen.
--- NOTE | ~2021-06-14 | CT_ITS ---
EXAMINATION: CT ABDOMEN AND PELVIS WITHOUT CONTRAST CLINICAL INFORMATION: Fevers. Falls. COMPARISON: 06/09/2021 TECHNIQUE: Multidetector volumetric imaging was performed from the superior aspect of the liver through the pubic symphysis. Sagittal and coronal reformatted images were obtained on the technologist's workstation. This CT examination was performed using dose optimization techniques as appropriate, variously including the following: *Automated exposure control *Adjustment of mA and/or kV according to patient size (this includes techniques or standardized protocols for targeted exams where dose is matched to indication/reason for exam; i.e. extremities or head) *Use of iterative reconstruction technique DLP: 985 mGy-cm FINDINGS: LUNG BASES: Bibasilar atelectasis. Coronary artery calcifications. LIVER, GALLBLADDER, AND BILIARY TREE: The liver is normal in size, shape, and attenuation. No focal hepatic lesion or biliary ductal dilatation is present. Stones in the gallbladder lumen. No inflammatory changes. PANCREAS: Unremarkable. SPLEEN: Unremarkable. ADRENAL GLANDS: Unremarkable. KIDNEYS AND URETERS: The kidneys are normal in size, shape, and attenuation. No hydronephrosis, hydroureter, or calculi seen. Symmetric bilateral perinephric stranding. Cyst likely present at the midpole of the right kidney measuring 3.8 cm. There may be thin peripheral calcification. Motion limits the evaluation. BLADDER: Decompressed with Bridges catheter in place. GASTROINTESTINAL TRACT: The stomach is unremarkable. Normal caliber small bowel. No obstruction. No colonic wall thickening or inflammatory change. Scattered diverticulosis without diverticulitis. Normal appendix. No free air or free fluid. ABDOMINAL WALL: No significant hernia is appreciated. LYMPH NODES: Normal. VASCULAR: Normal caliber aorta with mild atherosclerotic calcification. PELVIC VISCERA: The uterus and adnexa are unremarkable. OSSEOUS STRUCTURES: No acute or suspicious osseous abnormality. Mild degenerative changes of the spine. CT/CT abdomen pelvis wo con IMPRESSION: No acute findings in the abdomen or pelvis. Motion does limit this evaluation. No acute osseous abnormality identified. Fleischner guidelines were followed.
--- NOTE | ~2021-06-14 | CT_ITS ---
EXAMINATION: CT HEAD WITHOUT CONTRAST CT CERVICAL SPINE WITHOUT CONTRAST CLINICAL INFORMATION: Fall. COMPARISON: None. TECHNIQUE: Imaging was performed from the skull base to vertex without intravenous administration of contrast. In addition, helical noncontrast CT imaging was acquired through the cervical spine and source images were reviewed along with axial reconstructions and sagittal and coronal MPRs. [This CT examination was performed using dose optimization techniques as appropriate, variously including the following: *Automated exposure control *Adjustment of mA and/or kV according to patient size (this includes techniques or standardized protocols for targeted exams where dose is matched to indication/reason for exam; i.e. extremities or head) *Use of iterative reconstruction technique] DLP: 1272 mGy-cm FINDINGS: HEAD: No intracranial mass, hemorrhage, or midline shift is visualized. There is generalized global volume loss. There is moderate prominence of the ventricles and the sulci . There is moderate hypodensity of the periventricular white matter due to chronic small vessel ischemic disease. There are vascular calcifications of the internal carotid arteries bilaterally. No extra-axial collections are identified. The paranasal sinuses and mastoid air cells are well aerated. CERVICAL SPINE: There is no evidence of acute cervical spine fracture. Vertebral bodies remain normal in height. Cervical vertebrae have normal alignment. There is multilevel degenerative spondylosis of the cervical spine with disc height narrowing and endplate spurs and facet joint arthrosis No pre- or paravertebral soft tissue abnormality is identified. Limited assessment of the lung apices is unremarkable. CT/CT cervical spine wo con IMPRESSION: 1. No acute intracranial pathology. 2. No CT evidence of acute cervical spine fracture or traumatic subluxation
--- NOTE | 2021-06-14 14:37 | ECG_ITS ---
Test Reason : SEPSIS Blood Pressure : / mmHG Vent. Rate : 078 BPM Atrial Rate : 078 BPM P-R Int : 190 ms QRS Dur : 086 ms QT Int : 372 ms P-R-T Axes : 043 -63 008 degrees QTc Int : 424 ms Normal sinus rhythm Left axis deviation Inferior infarct , age undetermined Anterior infarct (cited on or before 14-JUN-2021) Abnormal ECG When compared with ECG of 06-DEC-2020 13:41, MD interval has decreased Nonspecific T wave abnormality now evident in Inferior leads Referred By: Audrey Frazier Electronically Signed By:CHRIS LEES MD
--- NOTE | 2021-06-14 14:39 | ED.AMS ---
HPI - Altered Mental Status General Chief Complaint: Altered Mental Status Stated Complaint: URINARY RETENTION PER SNF,? UTI Time Seen by Provider: 06/14/21 14:23 Source: patient and old records reviewed Mode of arrival: EMS Limitations: altered mental status (confusion, poor historian ) History of Present Illness HPI narrative: 76 yo female hx of chronic schizophrenia, DM, dCHF, Parkinson's, HTN just DC 5/2 after treatment for ileus, hypoNa, santoro for urinary retention. Per SNF RN notes the patient has been altered x 3 days and has fallen at SNF over the past day or so. No obvious injuries. Patient is febrile and somnolent on arrival to the ED. Santoro still in place and draining. MD complaint: altered mental status, confusion and weakness Onset (ago): day(s) (3) Timing confirmed by: other (SNF notes) Severity: moderate Consistency of symptoms: getting Worse Context: other (recent santoro placement) Associated symptoms: fever, chills, loss of appetite, malaise, weakness and other (3 falls today ) Related Data Home Medications Medication Instructions Recorded Confirmed aripiprazole 30 mg tablet 1 tab PO BEDTIME 12/06/20 06/14/21 atorvastatin 40 mg tablet 1 tab PO BEDTIME 12/06/20 06/14/21 benztropine 0.5 mg tablet 1 tab PO BID 12/06/20 06/14/21 calcium carbonate 600 mg-vitamin 1 tab PO DAILY 12/06/20 06/14/21 D3 10 mcg (400 unit) tablet (Calcium 600 + D(3)) carbidopa 25 mg-levodopa 100 mg 1 tab PO DAILY@0800,1200,1600 12/06/20 06/14/21 tablet divalproex 500 mg tablet,delayed 1 tab PO BEDTIME 12/06/20 06/14/21 release docusate sodium 100 mg capsule 100 mg PO BID 12/06/20 06/14/21 (DOK) furosemide 20 mg tablet 20 mg PO Q OTHER DAY 12/06/20 06/14/21 metformin 1,000 mg tablet 1 tab PO BID 12/06/20 06/14/21 trazodone 150 mg tablet 1 tab PO BEDTIME 12/06/20 06/14/21 aspirin 81 mg chewable tablet 1 tab PO DAILY 06/09/21 06/14/21 cholecalciferol (vitamin D3) 1,250 1 cap PO QMONTH 06/09/21 06/14/21 mcg (50,000 unit) capsule hydroxyzine HCl 25 mg tablet 1 tab PO DAILY 06/09/21 06/14/21 sitagliptin 100 mg tablet (Januvia) 1 tab PO DAILY 06/09/21 06/14/21 acetaminophen 325 mg tablet 650 mg PO Q6H PRN 06/14/21 06/14/21 benzonatate 100 mg capsule 100 mg PO TID PRN 06/14/21 06/14/21 citalopram 20 mg tablet 1 tab PO DAILY 06/14/21 06/14/21 polyethylene glycol 3350 17 17 g PO DAILY 06/14/21 06/14/21 gram/dose oral powder Previous Rx's Medication Instructions Recorded losartan 25 mg tablet 25 mg PO DAILY #30 tab 06/11/21 Allergies Allergy/AdvReac Type Severity Reaction Status Date / Time No Known Allergies Allergy Unknown UNKNOWN Unverified 10/28/19 16:25 [NO KNOWN ALLERGIES] Review of Systems Review of Systems: ROS unable to be obtained due to altered mental status [facility] Past Medical History Attestation statement: The following information was validated with the patient. Source: old records reviewed Medical History (Updated 06/14/21 @ 15:53 by Audrey Frazier DO) CHF (congestive heart failure) Chronic schizophrenia Diabetes mellitus type 2 in obese Hypertension Hyponatremia Parkinsons Urinary retention Family History Family History (Updated 06/09/21 @ 17:39 by Amrit Laws MD) Mother HLD (hyperlipidemia) Social History Social History Household Members: None Household Members Other:: prison Housing: Assisted Living Facility Do you presently have visiting nurse or other home services: Yes Alcohol intake: former Patient Tobacco Use Status: Former Tobacco user Tobacco use type: Cigarette e-Cigarette/Vaping Use: Never Used Second Hand Smoke Exposure: No Advance Directives: Yes Advance Directives Information Provided: No Advance Directives on File: No service: No Current occupational status: retired Sexual orientation: Straight/Heterosexual Physical Exam ED Vital Signs: Vital Signs - 24 hr 06/14/21 14:28 06/14/21 15:12 Temperature 100.6 F H 103 F H Pulse Rate 99 Respiratory Rate 18 Blood Pressure 153/63 H Pulse Oximetry 92 BMI result Body Mass Index 27.1 Appearance: Somnolent Oriented X2 (person/place). Mild acute distress. Slow to respond and answer questions Eyes: Pupils equal, round and reactive to light. ENT: Pharynx moderate dry MM Neck: Normal inspection. Neck supple. CVS: tachycardic heart rate and rhythm. Pulses normal. Respiratory: No respiratory distress. Breath sounds normal. Abdomen: Soft and nontender. does not grimace to palpation : dark yellow urine in catheter Skin: Skin warm and dry. Normal skin color. Normal skin turgor. Extremities: 1+ pitting lower extremity edema. No calf ttp . does grimace with ranging R hip Neuro: Oriented X 2. No motor deficit. No sensory deficit. Course Course Course Narrative: signed out to Dr. Raya pending CT scan results and admission MDM - Altered Mental Status MDM Narrative Medical decision making narrative: 76 yo female hx of chronic schizophrenia, DM, dCHF, Parkinson's, HTN just DC 06/11 after treatment for ileus, hypoNa, santoro for urinary retention placed on 06/09 comes in today with fevers, AMS, falls - at this time need labs, cultures, lactic acid, tylenol, empiric Rocephin no prior urine cultures to go off and Russ Duncan was called they have no hx of UTIs either. Patient to get head/cspine CT given falls and AMS. Patient to get CT abdomen/pelvis for fall R hip pain as well. Anticipate admission Lab Data Result diagrams: 06/14/21 14:51 06/14/21 14:51 Labs: Lab Results 06/14/21 06/14/21 06/14/21 Range/Units 14:51 14:51 14:51 WBC 10.0 (4.8-10.8) X10*3/uL RBC 4.23 (4.20-5.50) X10*6/uL Hgb 12.8 (12.0-16.0) g/dl Hct 38.7 (37.0-47.0) % MCV 91.5 (80.0-98.0) fL MCH 30.3 (27.0-33.0) pg MCHC 33.1 (31.0-35.0) g/dl RDW 11.1 (11.0-16.0) % Plt Count TNP MPV Not Reportable Immature Gran % (Auto) 0.8 H (0.0-0.4) % Neut % (Auto) 86.6 H (45-73) % Lymph % (Auto) 5.4 L (20-40) % [place] % (Auto) 6.5 (2-11) % Eos % (Auto) 0.4 (0-4) % Baso % (Auto) 0.3 (0-2) % Lymph # (Auto) 0.5 L (1.2-4.9) X10*3/uL [place] # (Auto) 0.7 (0.1-1.2) X10*3/uL Eos # (Auto) 0.0 (0.0-0.4) X10*3/uL Baso # (Auto) 0.0 (0.0-0.2) X10*3/uL Abs Immat Gran (auto) 0.08 H (0.00-0.03) X10*3/uL Absolute Neuts (auto) 8.7 H (2.0-8.3) x10*3/uL Absolute Nucleated RBC 0.000 (0.0-0.012) X10*3/uL Nucleated RBC % (auto) 0.0 (0.0-0.2) /100WBC Smear Tech's Comments VERIFIED PT (9.9-13.0) SEC INR (0.9-1.1) APTT (24.1-38.0) SEC Sodium 133 L (135-145) mmol/L Potassium 4.1 (3.3-5.1) mmol/L Chloride 97 (96-108) mmol/L Carbon Dioxide 26 (22-29) mmol/L Anion Gap 14 (12-20) BUN 12 (9-16) mg/dL Creatinine 0.80 (0.5-1.4) mg/dL Estim Creat Clear Calc 64.7 Estimated GFR > 60 Random Glucose 230 H (60-115) mg/dL Lactic Acid (0.5-2.0) mmol/L Calcium 9.5 D (8.4-10.2) mg/dL Magnesium 1.6 (1.6-2.6) mg/dL Total Bilirubin 0.5 (0.0-1.0) mg/dL Direct Bilirubin 0.2 (0.0-0.5) mg/dL AST 13 (5-31) U/L ALT 19 (0-31) U/L Alkaline Phosphatase 78 (39-117) U/L Ammonia (13-55) umol/L Total Creatine Kinase 39 (26-140) U/L Troponin I High Sens (<3.5-17.0) ng/L C-Reactive Protein 6.38 H (< or = 0.50) mg/dL Total Protein 7.2 (6.5-8.0) g/dL Albumin 3.8 (3.5-5.0) g/dL Urine Color Urine Appearance Urine pH (5.0-8.0) Ur Specific Murray (1.005-1.025) Urine Protein (NEG-TRACE) MG/DL Urine Glucose (UA) (NEG) MG/DL Urine Ketones (NEG) MG/DL Urine Blood (NEG) Urine Nitrite (NEG) Ur Leukocyte Esterase (NEG) Urine RBC (0) /HPF Urine WBC (0-4) /HPF Ur Squamous Epith Cells /LPF Urine Bacteria /LPF Valproic Acid (50.0-100.0) mcg/mL COVID-19 (NEGRA) Negative (Negative) COVID-19 Clin Com See Note 06/14/21 06/14/21 06/14/21 Range/Units 14:51 14:51 14:51 WBC (4.8-10.8) X10*3/uL RBC (4.20-5.50) X10*6/uL Hgb (12.0-16.0) g/dl Hct (37.0-47.0) % MCV (80.0-98.0) fL MCH (27.0-33.0) pg MCHC (31.0-35.0) g/dl RDW (11.0-16.0) % Plt Count MPV Immature Gran % (Auto) (0.0-0.4) % Neut % (Auto) (45-73) % Lymph % (Auto) (20-40) % [place] % (Auto) (2-11) % Eos % (Auto) (0-4) % Baso % (Auto) (0-2) % Lymph # (Auto) (1.2-4.9) X10*3/uL [place] # (Auto) (0.1-1.2) X10*3/uL Eos # (Auto) (0.0-0.4) X10*3/uL Baso # (Auto) (0.0-0.2) X10*3/uL Abs Immat Gran (auto) (0.00-0.03) X10*3/uL Absolute Neuts (auto) (2.0-8.3) x10*3/uL Absolute Nucleated RBC (0.0-0.012) X10*3/uL Nucleated RBC % (auto) (0.0-0.2) /100WBC Smear Tech's Comments PT 12.8 (9.9-13.0) SEC INR 1.1 (0.9-1.1) APTT 41.0 H (24.1-38.0) SEC Sodium (135-145) mmol/L Potassium (3.3-5.1) mmol/L Chloride (96-108) mmol/L Carbon Dioxide (22-29) mmol/L Anion Gap (12-20) BUN (9-16) mg/dL Creatinine (0.5-1.4) mg/dL Estim Creat Clear Calc Estimated GFR Random Glucose (60-115) mg/dL Lactic Acid (0.5-2.0) mmol/L Calcium (8.4-10.2) mg/dL Magnesium (1.6-2.6) mg/dL Total Bilirubin (0.0-1.0) mg/dL Direct Bilirubin (0.0-0.5) mg/dL AST (5-31) U/L ALT (0-31) U/L Alkaline Phosphatase (39-117) U/L Ammonia (13-55) umol/L Total Creatine Kinase (26-140) U/L Troponin I High Sens 7.5 (<3.5-17.0) ng/L C-Reactive Protein (< or = 0.50) mg/dL Total Protein (6.5-8.0) g/dL Albumin (3.5-5.0) g/dL Urine Color Urine Appearance Urine pH (5.0-8.0) Ur Specific Murray (1.005-1.025) Urine Protein (NEG-TRACE) MG/DL Urine Glucose (UA) (NEG) MG/DL Urine Ketones (NEG) MG/DL Urine Blood (NEG) Urine Nitrite (NEG) Ur Leukocyte Esterase (NEG) Urine RBC (0) /HPF Urine WBC (0-4) /HPF Ur Squamous Epith Cells /LPF Urine Bacteria /LPF Valproic Acid 42.7 L (50.0-100.0) mcg/mL COVID-19 (NEGRA) (Negative) COVID-19 Clin Com 06/14/21 06/14/21 06/14/21 Range/Units 14:52 14:52 14:58 WBC (4.8-10.8) X10*3/uL RBC (4.20-5.50) X10*6/uL Hgb (12.0-16.0) g/dl Hct (37.0-47.0) % MCV (80.0-98.0) fL MCH (27.0-33.0) pg MCHC (31.0-35.0) g/dl RDW (11.0-16.0) % Plt Count MPV Immature Gran % (Auto) (0.0-0.4) % Neut % (Auto) (45-73) % Lymph % (Auto) (20-40) % [place] % (Auto) (2-11) % Eos % (Auto) (0-4) % Baso % (Auto) (0-2) % Lymph # (Auto) (1.2-4.9) X10*3/uL [place] # (Auto) (0.1-1.2) X10*3/uL Eos # (Auto) (0.0-0.4) X10*3/uL Baso # (Auto) (0.0-0.2) X10*3/uL Abs Immat Gran (auto) (0.00-0.03) X10*3/uL Absolute Neuts (auto) (2.0-8.3) x10*3/uL Absolute Nucleated RBC (0.0-0.012) X10*3/uL Nucleated RBC % (auto) (0.0-0.2) /100WBC Smear Tech's Comments PT (9.9-13.0) SEC INR (0.9-1.1) APTT (24.1-38.0) SEC Sodium (135-145) mmol/L Potassium (3.3-5.1) mmol/L Chloride (96-108) mmol/L Carbon Dioxide (22-29) mmol/L Anion Gap (12-20) BUN (9-16) mg/dL Creatinine (0.5-1.4) mg/dL Estim Creat Clear Calc Estimated GFR Random Glucose (60-115) mg/dL Lactic Acid 2.0 (0.5-2.0) mmol/L Calcium (8.4-10.2) mg/dL Magnesium (1.6-2.6) mg/dL Total Bilirubin (0.0-1.0) mg/dL Direct Bilirubin (0.0-0.5) mg/dL AST (5-31) U/L ALT (0-31) U/L Alkaline Phosphatase (39-117) U/L Ammonia 24 (13-55) umol/L Total Creatine Kinase (26-140) U/L Troponin I High Sens (<3.5-17.0) ng/L C-Reactive Protein (< or = 0.50) mg/dL Total Protein (6.5-8.0) g/dL Albumin (3.5-5.0) g/dL Urine Color DK YELLOW Urine Appearance CLOUDY Urine pH 6.5 (5.0-8.0) Ur Specific [place] 1.025 (1.005-1.025) Urine Protein 3+ H (NEG-TRACE) MG/DL Urine Glucose (UA) 250 H (NEG) MG/DL Urine Ketones 15 (NEG) MG/DL Urine Blood 3+ H (NEG) Urine Nitrite POS H (NEG) Ur Leukocyte Esterase NEG (NEG) Urine RBC TNTC H (0) /HPF Urine WBC 0 (0-4) /HPF Ur Squamous Epith Cells 1+ /LPF Urine Bacteria 2+ /LPF Valproic Acid (50.0-100.0) mcg/mL COVID-19 (NEGRA) (Negative) COVID-19 Clin Com ECG Data ECG #1: Attestation: I personally reviewed and interpreted this ECG as follows: ECG interpretation date: 06/14/21 ECG interpretation time: 15:06 Interpretation: Rate: 78 Rhythm: NSR Marilla: left Normal P waves. Normal YELENA. Normal QRS complex. ST T wave : normal no HONORIO qTC: normal prior studies: no acute ischemia The study has been interpreted contemporaneously by me. Discharge Plan Discharge Clinical Impression: Altered mental status, Fever, Acute UTI, CRP elevated Patient Disposition: Admitted As Inpatient
[2021-06-14] MEDS: 0.9 % Sodium Chloride 1,000 ML 999 ML IVCONT (15:01)
[2021-06-14 15:02] LABS: Basophils Percent Auto 0.3 % (0-2); Eosinophils Percent Auto 0.4 % (0-4); Hematocrit 38.7 % (37.0-47.0); Hemoglobin 12.8 g/dl (12.0-16.0); Imm Gran Abs Auto 0.08 X10*3/uL (0.00-0.03); Imm Gran Pct Auto 0.8 % (0.0-0.4); Lymphocytes Absolute Auto 0.5 X10*3/uL (1.2-4.9); Lymphocytes Percent Auto 5.4 % (20-40); MANUAL DIFF FLAG SCAN; Mean Corpuscular HGB Conc 33.1 g/dl (31.0-35.0); Mean Corpuscular Hemoglobin 30.3 pg (27.0-33.0); Mean Corpuscular Volume 91.5 fL (80.0-98.0); Monocytes Absolute Auto 0.7 X10*3/uL (0.1-1.2); Monocytes Percent Auto 6.5 % (2-11); Neutrophils Absolute Auto 8.7 x10*3/uL (2.0-8.3); Neutrophils Percent Auto 86.6 % (45-73); PLT CLUMP 1; Red Blood Count 4.23 X10*6/uL (4.20-5.50); Red Cell Distribution Width 11.1 % (11.0-16.0); SCAN SMEAR FLAG 1
[2021-06-14 15:05] LABS: INTERNATIONAL NORM RATIO 1.1 (0.9-1.1); Prothrombin Time 12.8 SEC (9.9-13.0)
[2021-06-14 15:06] LABS: Ammonia 24 umol/L (13-55)
[2021-06-14 15:07] LABS: Appearance Urine CLOUDY; Color Urine DK YELLOW; Glucose Urine UA 250 MG/DL (NEG); Leukocyte Esterase Urine NEG (NEG); Nitrite Urine POS (NEG); PH 6.5 (5.0-8.0); Specific Gravity - Urine 1.025 (1.005-1.025); UACC Culture Trigger YES; Urine Blood 3+ (NEG); Urine Ketones 15 MG/DL (NEG); Urine Protein 3+ MG/DL (NEG-TRACE)
[2021-06-14] MEDS: Acetaminophen 325 MG TABLET 650 MG PO (15:07)
[2021-06-14] MEDS: cefTRIAXone sodium 1 GM in 0.9 % Sodium Chloride 50 ML IV (15:07)
[2021-06-14 15:15] LABS: Alanine Aminotransferase 19 U/L (0-31); Albumin Level 3.8 g/dL (3.5-5.0); Alkaline Phosphatase 78 U/L (39-117); Anion Gap 14 (12-20); Aspartate Amino Transferase 13 U/L (5-31); Bilirubin Direct 0.2 mg/dL (0.0-0.5); Bilirubin Total 0.5 mg/dL (0.0-1.0); Blood Urea Nitrogen 12 mg/dL (9-16); C Reactive Protein 6.38 mg/dL (< or = 0.50); Calcium 9.5 mg/dL (8.4-10.2); Carbon Dioxide 26 mmol/L (22-29); Chloride 97 mmol/L (96-108); Creatinine Clr Calc Pharmacy 64.7; Estimated Glomerular Filt Rate > 60; Glucose Random 230 mg/dL (60-115); Magnesium 1.6 mg/dL (1.6-2.6); Potassium 4.1 mmol/L (3.3-5.1); Sodium 133 mmol/L (135-145); Total Protein 7.2 g/dL (6.5-8.0)
[2021-06-14 15:19] LABS: Valproate 42.7 mcg/mL (50.0-100.0)
[2021-06-14 15:21] LABS: Troponin-I High Sensitivity 7.5 ng/L (<3.5-17.0)
[2021-06-14 15:26] LABS: SLIDE REVIEW VERIFIED
[2021-06-14 15:35] LABS: COVID-19 Test Negative (Negative); IDNOW Serial# 16C4AD1C
[2021-06-14 15:35] LABS: Bacteria Urine 2+ /LPF; RBC Urine TNTC /HPF (0); Squamous Epithelial Cell Urine 1+ /LPF; WBC Urine 0 /HPF (0-4)
--- NOTE | 2021-06-14 15:40 | PHA.MEDREC ---
Pharmacy Consult ? Medication Reconciliation Pharmacy has completed the medication reconciliation. SNF medication list not exactly congruent with discharge medication list from 06/11/21; spoke to patient's family member at bedside who noted that what's on her facility list is what she is given. Leilani Daniels, ElianeD
--- NOTE | 2021-06-14 18:24 | PM.IMHP ---
History of Present Illness Date of Service: 06/14/21 Chief Complaint: Falls, fever A 76 years old lady with PMH of CHF, diabetes, schizophrenia, urine retention who presents to the hospital after having a fall at assisted living and found to have fever. The patient was recently discharged from the hospital on the 11 of June for urinary retention, ileus and hyponatremia as Bridges catheter was placed at time. She went back to her assisted living and reported that she had 2 falls today with no head injury. Appears mildly confused to her sisters and not her normal self. She was found to have a temperature of 103 degrees at time of presentation to the emergency with blood work suggestive of left shift with elevated neutrophil but normal WBCs. She denies any urinary symptoms but reported having cough. Denies chest pain, palpitation, nausea or vomiting, change in bowel habit. COVID tested negative. Chest x-ray showed linear atelectasis in the left base. Admitted for further evaluation and treatment. Review of Systems Review of Systems: Reporting fever, chills and generalized weakness No chest pain, palpitation No shortness of breath but having episodes of coughing No abdominal pain, nausea or vomiting No urinary symptoms No any rash or wounds [facility] Medical History (Updated 06/14/21 @ 18:34 by Sam Houston MD) CHF (congestive heart failure) Chronic schizophrenia Diabetes mellitus type 2 in obese Hypertension Hyponatremia Parkinsons Urinary retention Family History Mother HLD (hyperlipidemia) Social History Household Members: None Household Members Other:: prison Housing: Assisted Living Facility Do you presently have visiting nurse or other home services: Yes Alcohol intake: never Patient Tobacco Use Status: Former Tobacco user Tobacco use type: Cigarette e-Cigarette/Vaping Use: Never Used Second Hand Smoke Exposure: No Use of substances other than those prescribed or required for medical reasons: No Advance Directives: Yes Advance Directives Information Provided: No Advance Directives on File: No service: No Current occupational status: retired Sexual orientation: Straight/Heterosexual Meds Allergies Allergy/AdvReac Type Severity Reaction Status Date / Time No Known Allergies Allergy Unknown UNKNOWN Unverified 10/28/19 16:25 [NO KNOWN ALLERGIES] Active Medications: Current Medications Aripiprazole (Aripiprazole 30 Mg Tablet) 30 mg PO BEDTIME ARCELIA Aspirin (Aspirin 81 Mg Tab.Chew) 81 mg PO DAILY [facility] Atorvastatin Calcium (Atorvastatin Calcium 40 Mg Tablet) 40 mg PO BEDTIME ARCELIA Benzonatate (Benzonatate 100 Mg Capsule) 100 mg PO TID PRN PRN Reason: Cough Benztropine Mesylate (Benztropine Mesylate 0.5 Mg Tablet) 0.5 mg PO BID [facility] Carbidopa/Levodopa (Carbidopa/Levodopa 25/100 Tablet) 1 tab PO DAILY@0800,1200,1600 [facility]CEL[facility] Divalproex Sodium (Divalproex Sodium 500 Mg Tablet.Dr) 500 mg PO BEDTIME ARCELIA Docusate Sodium (Docusate Sodium 100 Mg Capsule) 100 mg PO BID [facility]IA Furosemide (Furosemide 20 Mg Tablet) 20 mg PO Q OTHER DAY ARCELIA; Protocol Hydroxyzine HCl (Hydroxyzine Hcl 25 Mg Tablet) 25 mg PO DAILY ARCELIA Azithromycin 500 mg/ Sodium (Chloride) 250 mls @ 125 mls/hr IV ONCE STA Stop: 06/14/21 20:12 Losartan Potassium (Losartan Potassium 25 Mg Tablet) 25 mg PO DAILY ARCELIA; Protocol Metformin HCl (Metformin Hcl 1,000 Mg Tablet) mg PO BID [facility] Pharmacy Consult (Consult Rx Perform Med Rec) 1 each MISCELLANE ONCE PRN PRN Reason: Consult order Polyethylene Glycol (Polyethylene Glycol 3350 17 Gm Powd.Pack) 17 gm PO DAILY [facility] Sitagliptin Phosphate (Sitagliptin Phosphate 100 Mg Tablet) 100 mg PO DAILY [facility] Sodium Chloride (0.9 % Sodium Chloride Flush 3 Ml Syringe) 3 ml IVFLUSH QSHIFT [facility] Trazodone HCl (Trazodone Hcl 50 Mg Tablet) 150 mg PO BEDTIME [facility] Home Medications Medication Instructions Recorded Confirmed Last Taken Type aripiprazole 30 mg tablet 1 tab PO BEDTIME 12/06/20 06/14/21 06/13/21 History atorvastatin 40 mg tablet 1 tab PO BEDTIME 12/06/20 06/14/21 06/13/21 History benztropine 0.5 mg tablet 1 tab PO BID 12/06/20 06/14/21 06/14/21 History calcium carbonate 600 mg-vitamin 1 tab PO DAILY 12/06/20 06/14/21 06/14/21 History D3 10 mcg (400 unit) tablet (Calcium 600 + D(3)) carbidopa 25 mg-levodopa 100 mg 1 tab PO DAILY@0800,1200,1600 12/06/20 06/14/21 06/14/21 History tablet divalproex 500 mg tablet,delayed 1 tab PO BEDTIME 12/06/20 06/14/21 06/13/21 History release docusate sodium 100 mg capsule 100 mg PO BID 12/06/20 06/14/21 06/14/21 History (DOK) furosemide 20 mg tablet 20 mg PO Q OTHER DAY 12/06/20 06/14/21 Unknown History metformin 1,000 mg tablet 1 tab PO BID 12/06/20 06/14/21 06/09/21 History trazodone 150 mg tablet 1 tab PO BEDTIME 12/06/20 06/14/21 06/13/21 History aspirin 81 mg chewable tablet 1 tab PO DAILY 06/09/21 06/14/21 06/14/21 History cholecalciferol (vitamin D3) 1,250 1 cap PO QMONTH 06/09/21 06/14/21 05/23/21 History mcg (50,000 unit) capsule hydroxyzine HCl 25 mg tablet 1 tab PO DAILY 06/09/21 06/14/21 06/14/21 History sitagliptin 100 mg tablet (Januvia) 1 tab PO DAILY 06/09/21 06/14/21 06/14/21 History acetaminophen 325 mg tablet 650 mg PO Q6H PRN 06/14/21 06/14/21 Unknown History benzonatate 100 mg capsule 100 mg PO TID PRN 06/14/21 06/14/21 Unknown History citalopram 20 mg tablet 1 tab PO DAILY 06/14/21 06/14/21 06/14/21 History polyethylene glycol 3350 17 17 g PO DAILY 06/14/21 06/14/21 06/14/21 History gram/dose oral powder Physical Exam Vital Signs and Narrative: Vital Signs: Last Vital Signs Temp 99.0 F 06/14/21 16:22 Pulse 73 06/14/21 16:22 Resp 20 06/14/21 16:22 BP 147/60 H 06/14/21 16:22 Pulse Ox 92 06/14/21 16:22 BMI result Body Mass Index 27.1 Const: Other: Constitutional : Alert, interactive with stimulation, does not look in distress Neck : Normal inspection, Supple Cardiovascular : RRR, no JVP, no lower extremity edema Respiratory : fair bilateral air entry, basal fine left-sided crackles, no wheezes or rhonchi Gastrointestinal: soft, lax, Normal bowel sounds, Non tender Skin : Warm, Dry Neurological : Alert & oriented to place but not time, No focal deficit, CN 2-12 within normal Results Labs CBC and Chem 7: 06/14/21 14:51 06/14/21 14:51 Labs: Laboratory Results - last 24 hr 06/14/21 06/14/21 06/14/21 14:51 14:51 14:51 MCV 91.5 MCH 30.3 MCHC 33.1 RDW 11.1 Plt Count TNP MPV Not Reportable Immature Gran % (Auto) 0.8 H Neut % (Auto) 86.6 H Lymph % (Auto) 5.4 L [place] % (Auto) 6.5 Eos % (Auto) 0.4 Baso % (Auto) 0.3 Lymph # (Auto) 0.5 L [place] # (Auto) 0.7 Eos # (Auto) 0.0 Baso # (Auto) 0.0 Abs Immat Gran (auto) 0.08 H Absolute Neuts (auto) 8.7 H Absolute Nucleated RBC 0.000 Nucleated RBC % (auto) 0.0 Smear Tech's Comments VERIFIED PT INR APTT Anion Gap 14 Estim Creat Clear Calc 64.7 Estimated GFR > 60 Random Glucose 230 H Lactic Acid Calcium 9.5 D Magnesium 1.6 Total Bilirubin 0.5 Direct Bilirubin 0.2 AST 13 ALT 19 Alkaline Phosphatase 78 Ammonia Total Creatine Kinase 39 Troponin I High Sens C-Reactive Protein 6.38 H Total Protein 7.2 Albumin 3.8 Urine Color Urine Appearance Urine pH Ur Specific [place] Urine Protein Urine Glucose (UA) Urine Ketones Urine Blood Urine Nitrite Ur Leukocyte Esterase Urine RBC Urine WBC Ur Squamous Epith Cells Urine Bacteria Valproic Acid COVID-19 (NEGRA) Negative COVID-19 Clin Com See Note 06/14/21 06/14/21 06/14/21 14:51 14:51 14:51 MCV MCH MCHC RDW Plt Count MPV Immature Gran % (Auto) Neut % (Auto) Lymph % (Auto) [place] % (Auto) Eos % (Auto) Baso % (Auto) Lymph # (Auto) [place] # (Auto) Eos # (Auto) Baso # (Auto) Abs Immat Gran (auto) Absolute Neuts (auto) Absolute Nucleated RBC Nucleated RBC % (auto) Smear Tech's Comments PT 12.8 INR 1.1 APTT 41.0 H Anion Gap Estim Creat Clear Calc Estimated GFR Random Glucose Lactic Acid Calcium Magnesium Total Bilirubin Direct Bilirubin AST ALT Alkaline Phosphatase Ammonia Total Creatine Kinase Troponin I High Sens 7.5 C-Reactive Protein Total Protein Albumin Urine Color Urine Appearance Urine pH Ur Specific [place] Urine Protein Urine Glucose (UA) Urine Ketones Urine Blood Urine Nitrite Ur Leukocyte Esterase Urine RBC Urine WBC Ur Squamous Epith Cells Urine Bacteria Valproic Acid 42.7 L COVID-19 (NEGRA) COVID-19 Really Simple 06/14/21 06/14/21 06/14/21 14:52 14:52 14:58 MCV MCH MCHC RDW Plt Count MPV Immature Gran % (Auto) Neut % (Auto) Lymph % (Auto) [place] % (Auto) Eos % (Auto) Baso % (Auto) Lymph # (Auto) [place] # (Auto) Eos # (Auto) Baso # (Auto) Abs Immat Gran (auto) Absolute Neuts (auto) Absolute Nucleated RBC Nucleated RBC % (auto) Smear Tech's Comments PT INR APTT Anion Gap Estim Creat Clear Calc Estimated GFR Random Glucose Lactic Acid 2.0 Calcium Magnesium Total Bilirubin Direct Bilirubin AST ALT Alkaline Phosphatase Ammonia 24 Total Creatine Kinase Troponin I High Sens C-Reactive Protein Total Protein Albumin Urine Color DK YELLOW Urine Appearance CLOUDY Urine pH 6.5 Ur Specific [place] 1.025 Urine Protein 3+ H Urine Glucose (UA) 250 H Urine Ketones 15 Urine Blood 3+ H Urine Nitrite POS H Ur Leukocyte Esterase NEG Urine RBC TNTC H Urine WBC 0 Ur Squamous Epith Cells 1+ Urine Bacteria 2+ Valproic Acid COVID-19 (NEGRA) COVID-19 Clin Com Imaging Radiologist's Impressions: Impressions Chest X-Ray 06/14/21 16:00 IMPRESSION: Linear left basilar atelectasis. Otherwise clear lungs. No displaced fractures are seen. Abdomen/Pelvis CT 06/14/21 16:35 IMPRESSION: No acute findings in the abdomen or pelvis. Motion does limit this evaluation. No acute osseous abnormality identified. Fleischner guidelines were followed. Cervical Spine CT 06/14/21 16:35 IMPRESSION: 1. No acute intracranial pathology. 2. No CT evidence of acute cervical spine fracture or traumatic subluxation Head CT 06/14/21 16:35 IMPRESSION: 1. No acute intracranial pathology. 2. No CT evidence of acute cervical spine fracture or traumatic subluxation Assessment and Plan (1) Fever: Qualifiers: Fever type: unspecified Qualified Code(s): R50.9 - Fever, unspecified Status: Acute (2) Pneumonia: Qualifiers: Laterality: left Lung location: lower lobe of lung Pneumonia type: due to unspecified organism Qualified Code(s): J18.9 - Pneumonia, unspecified organism Status: Acute (3) Fall: Status: Acute (4) Hyponatremia: Status: Acute Plan A 76 years old lady with PMH of CHF, diabetes, schizophrenia, urine retention who presents to the hospital after having a fall at assisted living and found to have fever. Pneumonia Not septic Could be viral or bacterial CXR showing atelectasis with associated cough and fever Viral panel, Blood culture pending Start azithromycin ceftriaxone Use oxygen as needed Falls Likely secondary to infection To do physical therapy Hyponatremia Sodium of 133 Likely result of diuretics To repeat BMP Urinary retention Bridges catheter in place Likely a result of using benztropine Monitor for now with plan to follow-up with urology by the end of the month HTN Continue losartan schizophrenia continue psych meds parkinsons sinemet chronic diastolic chf continue Lasix DM insulin monitor poc dvt prophylaxis lovenox patient will need to night of hospital stay for evaluation and treatment of pneumonia pending blood cultures and prevent further falling by doing physical therapy. Quality Stroke Does the patient have a stroke diagnosis?: No VTE Prior VTE?: No VTE Risk Level:: Medical - moderate - high VTE Device Contraindication: Treatment Not Indicated VTE Drug Contraindication: N/A - Med Ordered
[2021-06-14] MEDS: Azithromycin 500 MG in 0.9 % Sodium Chloride 250 ML 125 MG IV (18:30)
--- NOTE | 2021-06-14 18:35 | PC.NURSE ---
pt denies pain/discomfort however she continues to grimmace and moan with movement. pt awaiting incritical access hospital bed assignment
[2021-06-14] MEDS: Atorvastatin Calcium 40 MG TABLET PO (20:07)
[2021-06-14] MEDS: Furosemide 20 MG TABLET PO (20:07)
[2021-06-14] MEDS: ARIPiprazole 30 MG TABLET PO (20:07)
[2021-06-14] MEDS: Docusate Sodium 100 MG CAPSULE PO (20:07)
[2021-06-14] MEDS: Divalproex Sodium 500 MG TABLET.DR PO (20:07)
[2021-06-14] MEDS: Benztropine Mesylate 0.5 MG TABLET PO (20:07)
[2021-06-14] MEDS: traZODone HCL 50 MG TABLET 150 MG PO (20:07)
[2021-06-14] MEDS: 0.9 % Sodium Chloride Flush 3 ML SYRINGE IVFLUSH (20:09)
[2021-06-14 20:13] LABS: Glucose, Whole Blood 254 mg/dL (60-115)
[2021-06-14] MEDS: Insulin Lispro 100 UNIT/ML 3 ML VIAL SUBCUT (20:24)
[2021-06-14 21:29] LABS: Glucose, Whole Blood 222 mg/dL (60-115)
[2021-06-15] VITALS (7 sets, daily range): BP systolic 121–164; BP diastolic 58–71; PULSE 61–73; RESP 16–18; TEMP 36–38; O2SAT 91–94
[2021-06-15] MEDS: Enoxaparin Sodium 40 MG/0.4 ML SYRINGE SUBCUT (06:03)
[2021-06-15 06:22] LABS: Hemoglobin 11.9 g/dl (12.0-16.0); PLT CLUMP 1; Red Cell Distribution Width 11.2 % (11.0-16.0)
[2021-06-15 06:23] LABS: Hematocrit 35.7 % (37.0-47.0); Mean Corpuscular HGB Conc 33.3 g/dl (31.0-35.0); Mean Platelet Volume 11.3 fL (9.4-12.3); Red Blood Count 3.84 X10*6/uL (4.20-5.50)
[2021-06-15 06:24] LABS: White Blood Count 7.5 X10*3/uL (4.8-10.8)
[2021-06-15 07:05] LABS: Anion Gap 12 (12-20); Blood Urea Nitrogen 14 mg/dL (9-16); Calcium 8.5 mg/dL (8.4-10.2); Carbon Dioxide 25 mmol/L (22-29); Chloride 102 mmol/L (96-108); Creatinine Clr Calc Pharmacy 82.2; Estimated Glomerular Filt Rate > 60; Glucose Random 161 mg/dL (60-115); Potassium 3.9 mmol/L (3.3-5.1); Sodium 135 mmol/L (135-145)
[2021-06-15 07:36] LABS: Glucose, Whole Blood 130 mg/dL (60-115)
[2021-06-15] MEDS: polyethylene glycoL 3350 17 GM POWD.PACK PO (09:55)
[2021-06-15] MEDS: Losartan Potassium 25 MG TABLET PO (09:55)
[2021-06-15] MEDS: Docusate Sodium 100 MG CAPSULE PO ×2 (09:55→20:50)
[2021-06-15] MEDS: Benztropine Mesylate 0.5 MG TABLET PO ×2 (09:55→20:49)
[2021-06-15] MEDS: Acetaminophen 325 MG TABLET 650 MG PO (09:55)
[2021-06-15] MEDS: Aspirin 81 MG TAB.CHEW PO (09:55)
[2021-06-15] MEDS: SITagliptin Phosphate 100 MG TABLET PO (09:55)
[2021-06-15] MEDS: hydrOXYzine HCL 25 MG TABLET PO (09:55)
[2021-06-15] MEDS: Carbidopa/Levodopa 25/100 TABLET 1 TAB PO ×3 (09:57→16:28)
[2021-06-15] MEDS: 0.9 % Sodium Chloride Flush 3 ML SYRINGE IVFLUSH ×3 (09:57→20:50)
--- NOTE | 2021-06-15 10:14 | MHC.CM.PN ---
IMM 06/15/21, EMR REVIEWED, PT ADMITTED W/FEVER AND FALLS, CM MET W/PT AND SISTER SHAHZAD AT BEDSIDE, PT RESIDES AT [facility]. PT RECEIVES DAILY ASSISTANCE W/DRESSING/ADL'S AND SHOWERING AND 3 MEALS PROVIDED, PT USES A ROLLATER WALKER AND HAS HOME MOD'S, PT AND SISTER ARE AWARE PT IS BEING RECOMMENDED STR AT THIS TIME HOWEVER SISTER PREFERS SHE GOES HOME W/SERVICES, [employer] ON FILE, HCP REQUESTED AND SHAHZAD REPORTS SHE WILL EMAIL TO CM. D/C PLAN: HOME W/SERVICES VS STR, TRANSPORT PENDING DISPO. PCP: LESLIE GRAHAM COVID VACCINATED X3
[2021-06-15 11:05] LABS: Glucose, Whole Blood 276 mg/dL (60-115)
[2021-06-15 11:16] LABS: Adenovirus PCR Not Detected (Not Detect.); Bordetella parapertussis PCR Not Detected (Not Detect.); Bordetella pertussis PCR Not Detected (Not Detect.); Chlamydia pneumoniae PCR Not Detected (Not Detect.); Coronavirus 229E PCR Not Detected (Not Detect.); Coronavirus HKU1 PCR Not Detected (Not Detect.); Coronavirus NL63 PCR Not Detected (Not Detect.); Coronavirus OC43 PCR Not Detected (Not Detect.); Human metapneumovirus PCR Not Detected (Not Detect.); Influenza A PCR Not Detected (Not Detect.); Influenza B PCR Not Detected (Not Detect.); SARS-CoV-2 PCR Not Detected (Not Detect.)
[2021-06-15 11:17] LABS: Mycoplasma pneumoniae PCR Not Detected (Not Detect.); Parainfluenza 1 PCR Not Detected (Not Detect.); Parainfluenza 2 PCR Not Detected (Not Detect.); Parainfluenza 3 PCR Not Detected (Not Detect.); Parainfluenza 4 PCR Not Detected (Not Detect.); RSV PCR Not Detected (Not Detect.); Rhino/Enterovirus PCR Not Detected (Not Detect.)
[2021-06-15] MEDS: Insulin Lispro 100 UNIT/ML 3 ML VIAL SUBCUT ×3 (11:38→20:50)
--- NOTE | 2021-06-15 14:22 | P.PNIM_ITS ---
Subjective Subjective Date of Service: 06/15/21 Interval History: Seen and evaluated this morning Feels more comfortable with improvement in her breathing Daughter at the bedside, concerned about Bridges catheter No reported overnight events Review of Systems Reporting fever, chills and generalized weakness No chest pain, palpitation No shortness of breath but having episodes of coughing No abdominal pain, nausea or vomiting No urinary symptoms No any rash or wounds Physical Exam Vital Signs: Vital Signs: Last Vital Signs Temp 97.6 F 06/15/21 11:25 Pulse 61 06/15/21 11:25 Resp 17 06/15/21 11:25 BP 128/67 06/15/21 11:25 Pulse Ox 92 06/15/21 11:25 BMI result Body Mass Index 27.1 Const: Other: Constitutional : Alert, interactive , does not look in distress Neck : Normal inspection, Supple Cardiovascular : RRR, no JVP, no lower extremity edema Respiratory : fair bilateral air entry, basal fine left-sided crackles, no wheezes or rhonchi Gastrointestinal: soft, lax, Normal bowel sounds, Non tender Skin : Warm, Dry Neurological : Alert & oriented to place and time, No focal deficit, CN 2-12 within normal Objective Data Active Medications Acetaminophen (Acetaminophen 325 Mg Tablet) 650 mg PO Q6H PRN PRN Reason: Pain, Mild (Pain Scale 1-3) Last Admin: 06/15/21 09:55 Dose: 650 mg Documented by: MONICO Aripiprazole (Aripiprazole 30 Mg Tablet) 30 mg PO BEDTIME [facility] Last Admin: 06/14/21 20:07 Dose: 30 mg Documented by: TRENA Aspirin (Aspirin 81 Mg Tab.Chew) 81 mg PO DAILY [facility] Last Admin: 06/15/21 09:55 Dose: 81 mg Documented by: MONICO Atorvastatin Calcium (Atorvastatin Calcium 40 Mg Tablet) 40 mg PO BEDTIME [facility] Last Admin: 06/14/21 20:07 Dose: 40 mg Documented by: TRENA Benzonatate (Benzonatate 100 Mg Capsule) 100 mg PO TID PRN PRN Reason: Cough Benztropine Mesylate (Benztropine Mesylate 0.5 Mg Tablet) 0.5 mg PO BID [facility] Last Admin: 06/15/21 09:55 Dose: 0.5 mg Documented by: MONICO Carbidopa/Levodopa (Carbidopa/Levodopa 25/100 Tablet) 1 tab PO DAILY@0800,1200,1600 [facility] Last Admin: 06/15/21 11:38 Dose: 1 tab Documented by: MONICO Divalproex Sodium (Divalproex Sodium 500 Mg Tablet.Dr) 500 mg PO BEDTIME [facility] Last Admin: 06/14/21 20:07 Dose: 500 mg Documented by: TRENA Docusate Sodium (Docusate Sodium 100 Mg Capsule) 100 mg PO BID [facility] Last Admin: 06/15/21 09:55 Dose: 100 mg Documented by: MONICO Enoxaparin Sodium (Enoxaparin Sodium 40 Mg/0.4 Ml Syringe) 40 mg SUBCUT Q24H [facility] Last Admin: 06/15/21 06:03 Dose: 40 mg Documented by: TRENA Furosemide (Furosemide 20 Mg Tablet) 20 mg PO Q2D [facility]; Protocol Last Admin: 06/14/21 20:07 Dose: 20 mg Documented by: TRENA Comments: new admit Hydroxyzine HCl (Hydroxyzine Hcl 25 Mg Tablet) 25 mg PO DAILY [facility] Last Admin: 06/15/21 09:55 Dose: 25 mg Documented by: MONICO Azithromycin 500 mg/ Sodium (Chloride) 250 mls @ 125 mls/hr IV Q24H [facility] Ceftriaxone Sodium 1 gm/ (Sodium Chloride) 50 mls @ 100 mls/hr IV Q24H [facility] Insulin Human Lispro (Insulin Lispro 100 Unit/Ml 3 Ml Vial) 0 unit SUBCUT QIDACHS [facility]; Protocol Last Admin: 06/15/21 11:38 Dose: 6 unit Documented by: MONICO Losartan Potassium (Losartan Potassium 25 Mg Tablet) 25 mg PO DAILY [facility]; Protocol Last Admin: 06/15/21 09:55 Dose: 25 mg Documented by: MONICO Ondansetron HCl (Ondansetron Hcl 4 Mg/2 Ml Vial) 4 mg IVPUSH Q8H PRN PRN Reason: Nausea and Vomiting Pharmacy Consult (Consult Rx Perform Med Rec) 1 each MISCELLANE ONCE PRN PRN Reason: Consult order Polyethylene Glycol (Polyethylene Glycol 3350 17 Gm Powd.Pack) 17 gm PO DAILY [facility] Last Admin: 06/15/21 09:55 Dose: 17 gm Documented by: MONICO Sitagliptin Phosphate (Sitagliptin Phosphate 100 Mg Tablet) 100 mg PO DAILY [facility] Last Admin: 06/15/21 09:55 Dose: 100 mg Documented by: MONICO Sodium Chloride (0.9 % Sodium Chloride Flush 3 Ml Syringe) 3 ml IVFLUSH QSHIFT [facility] Last Admin: 06/15/21 09:57 Dose: 3 ml Documented by: MONICO Trazodone HCl (Trazodone Hcl 50 Mg Tablet) 150 mg PO BEDTIME [facility] Last Admin: 06/14/21 20:07 Dose: 150 mg Documented by: TRENA Labs CBC & Chem 7: 06/15/21 05:53 06/15/21 05:53 Labs: Laboratory Results - last 24 hr 06/14/21 06/14/21 06/14/21 14:51 14:51 14:51 MCV 91.5 MCH 30.3 MCHC 33.1 RDW 11.1 Plt Count TNP MPV Not Reportable Immature Gran % (Auto) 0.8 H Neut % (Auto) 86.6 H Lymph % (Auto) 5.4 L [place] % (Auto) 6.5 Eos % (Auto) 0.4 Baso % (Auto) 0.3 Lymph # (Auto) 0.5 L [place] # (Auto) 0.7 Eos # (Auto) 0.0 Baso # (Auto) 0.0 Abs Immat Gran (auto) 0.08 H Absolute Neuts (auto) 8.7 H Absolute Nucleated RBC 0.000 Nucleated RBC % (auto) 0.0 Smear Tech's Comments VERIFIED PT INR APTT Anion Gap 14 Estim Creat Clear Calc 64.7 Estimated GFR > 60 POC Glucose Random Glucose 230 H Lactic Acid Calcium 9.5 D Magnesium 1.6 Total Bilirubin 0.5 Direct Bilirubin 0.2 AST 13 ALT 19 Alkaline Phosphatase 78 Ammonia Total Creatine Kinase 39 Troponin I High Sens C-Reactive Protein 6.38 H Total Protein 7.2 Albumin 3.8 Urine Color Urine Appearance Urine pH Ur Specific [place] Urine Protein Urine Glucose (UA) Urine Ketones Urine Blood Urine Nitrite Ur Leukocyte Esterase Urine RBC Urine WBC Ur Squamous Epith Cells Urine Bacteria Valproic Acid Respiratory Panel [place] Adenovirus (Rapid PCR) B.pert (TEM-PCR) B.parapertussis DNA PCR C. pneumoniae DNA (PCR) Coronavirus OC43 (PCR) Coronavirus HKU1 (PCR) Coronavirus 229E (PCR) COVID-19 (NEGRA) Negative COVID-19 Clin Com See Note Coronavirus NL63 (PCR) Human Metapneumovir PCR Influenza A (RT-PCR) Influenza B (RT-PCR) M. pneumoniae (PCR) Parainfluenza 1 (PCR) Parainfluenza 2 (PCR) Parainfluenza 3 (PCR) Parainfluenza 4 (PCR) RSV (PCR) Entero/Rhino (PCR) SARS-CoV-2 RNA (RT-PCR) 06/14/21 06/14/21 06/14/21 14:51 14:51 14:51 MCV MCH MCHC RDW Plt Count MPV Immature Gran % (Auto) Neut % (Auto) Lymph % (Auto) [place] % (Auto) Eos % (Auto) Baso % (Auto) Lymph # (Auto) [place] # (Auto) Eos # (Auto) Baso # (Auto) Abs Immat Gran (auto) Absolute Neuts (auto) Absolute Nucleated RBC Nucleated RBC % (auto) Smear Tech's Comments PT 12.8 INR 1.1 APTT 41.0 H Anion Gap Estim Creat Clear Calc Estimated GFR POC Glucose Random Glucose Lactic Acid Calcium Magnesium Total Bilirubin Direct Bilirubin AST ALT Alkaline Phosphatase Ammonia Total Creatine Kinase Troponin I High Sens 7.5 C-Reactive Protein Total Protein Albumin Urine Color Urine Appearance Urine pH Ur Specific [place] Urine Protein Urine Glucose (UA) Urine Ketones Urine Blood Urine Nitrite Ur Leukocyte Esterase Urine RBC Urine WBC Ur Squamous Epith Cells Urine Bacteria Valproic Acid 42.7 L Respiratory Panel [place] Adenovirus (Rapid PCR) B.pert (TEM-PCR) B.parapertussis DNA PCR C. pneumoniae DNA (PCR) Coronavirus OC43 (PCR) Coronavirus HKU1 (PCR) Coronavirus 229E (PCR) COVID-19 (NEGRA) COVID-19 Clin Com Coronavirus NL63 (PCR) Human Metapneumovir PCR Influenza A (RT-PCR) Influenza B (RT-PCR) M. pneumoniae (PCR) Parainfluenza 1 (PCR) Parainfluenza 2 (PCR) Parainfluenza 3 (PCR) Parainfluenza 4 (PCR) RSV (PCR) Entero/Rhino (PCR) SARS-CoV-2 RNA (RT-PCR) 06/14/21 06/14/21 06/14/21 14:52 14:52 14:58 MCV MCH MCHC RDW Plt Count MPV Immature Gran % (Auto) Neut % (Auto) Lymph % (Auto) [place] % (Auto) Eos % (Auto) Baso % (Auto) Lymph # (Auto) [place] # (Auto) Eos # (Auto) Baso # (Auto) Abs Immat Gran (auto) Absolute Neuts (auto) Absolute Nucleated RBC Nucleated RBC % (auto) Smear Tech's Comments PT INR APTT Anion Gap Estim Creat Clear Calc Estimated GFR POC Glucose Random Glucose Lactic Acid 2.0 Calcium Magnesium Total Bilirubin Direct Bilirubin AST ALT Alkaline Phosphatase Ammonia 24 Total Creatine Kinase Troponin I High Sens C-Reactive Protein Total Protein Albumin Urine Color DK YELLOW Urine Appearance CLOUDY Urine pH 6.5 Ur Specific [place] 1.025 Urine Protein 3+ H Urine Glucose (UA) 250 H Urine Ketones 15 Urine Blood 3+ H Urine Nitrite POS H Ur Leukocyte Esterase NEG Urine RBC TNTC H Urine WBC 0 Ur Squamous Epith Cells 1+ Urine Bacteria 2+ Valproic Acid Respiratory Panel [place] Adenovirus (Rapid PCR) B.pert (TEM-PCR) B.parapertussis DNA PCR C. pneumoniae DNA (PCR) Coronavirus OC43 (PCR) Coronavirus HKU1 (PCR) Coronavirus 229E (PCR) COVID-19 (NEGRA) COVID-19 Clin Com Coronavirus NL63 (PCR) Human Metapneumovir PCR Influenza A (RT-PCR) Influenza B (RT-PCR) M. pneumoniae (PCR) Parainfluenza 1 (PCR) Parainfluenza 2 (PCR) Parainfluenza 3 (PCR) Parainfluenza 4 (PCR) RSV (PCR) Entero/Rhino (PCR) SARS-CoV-2 RNA (RT-PCR) 06/14/21 06/14/21 06/14/21 20:09 20:40 21:01 MCV MCH MCHC RDW Plt Count MPV Immature Gran % (Auto) Neut % (Auto) Lymph % (Auto) [place] % (Auto) Eos % (Auto) Baso % (Auto) Lymph # (Auto) [place] # (Auto) Eos # (Auto) Baso # (Auto) Abs Immat Gran (auto) Absolute Neuts (auto) Absolute Nucleated RBC Nucleated RBC % (auto) Smear Tech's Comments PT INR APTT Anion Gap Estim Creat Clear Calc Estimated GFR POC Glucose 254 H 222 H Random Glucose Lactic Acid Calcium Magnesium Total Bilirubin Direct Bilirubin AST ALT Alkaline Phosphatase Ammonia Total Creatine Kinase Troponin I High Sens C-Reactive Protein Total Protein Albumin Urine Color Urine Appearance Urine pH Ur Specific [place] Urine Protein Urine Glucose (UA) Urine Ketones Urine Blood Urine Nitrite Ur Leukocyte Esterase Urine RBC Urine WBC Ur Squamous Epith Cells Urine Bacteria Valproic Acid Respiratory Panel [place] See Note Adenovirus (Rapid PCR) Not Detected B.pert (TEM-PCR) Not Detected B.parapertussis DNA PCR Not Detected C. pneumoniae DNA (PCR) Not Detected Coronavirus OC43 (PCR) Not Detected Coronavirus HKU1 (PCR) Not Detected Coronavirus 229E (PCR) Not Detected COVID-19 (NEGRA) COVID-19 Clin Com Coronavirus NL63 (PCR) Not Detected Human Metapneumovir PCR Not Detected Influenza A (RT-PCR) Not Detected Influenza B (RT-PCR) Not Detected M. pneumoniae (PCR) Not Detected Parainfluenza 1 (PCR) Not Detected Parainfluenza 2 (PCR) Not Detected Parainfluenza 3 (PCR) Not Detected Parainfluenza 4 (PCR) Not Detected RSV (PCR) Not Detected Entero/Rhino (PCR) Not Detected SARS-CoV-2 RNA (RT-PCR) Not Detected 06/15/21 06/15/21 06/15/21 05:53 05:53 07:29 MCV 93.0 MCH 31.0 MCHC 33.3 RDW 11.2 Plt Count TNP MPV 11.3 Immature Gran % (Auto) Neut % (Auto) Lymph % (Auto) [place] % (Auto) Eos % (Auto) Baso % (Auto) Lymph # (Auto) [place] # (Auto) Eos # (Auto) Baso # (Auto) Abs Immat Gran (auto) Absolute Neuts (auto) Absolute Nucleated RBC 0.000 Nucleated RBC % (auto) 0.0 Smear Tech's Comments PT INR APTT Anion Gap 12 Estim Creat Clear Calc 82.2 Estimated GFR > 60 POC Glucose 130 H Random Glucose 161 H Lactic Acid Calcium 8.5 D Magnesium Total Bilirubin Direct Bilirubin AST ALT Alkaline Phosphatase Ammonia Total Creatine Kinase Troponin I High Sens C-Reactive Protein Total Protein Albumin Urine Color Urine Appearance Urine pH Ur Specific [place] Urine Protein Urine Glucose (UA) Urine Ketones Urine Blood Urine Nitrite Ur Leukocyte Esterase Urine RBC Urine WBC Ur Squamous Epith Cells Urine Bacteria Valproic Acid Respiratory Panel [place] Adenovirus (Rapid PCR) B.pert (TEM-PCR) B.parapertussis DNA PCR C. pneumoniae DNA (PCR) Coronavirus OC43 (PCR) Coronavirus HKU1 (PCR) Coronavirus 229E (PCR) COVID-19 (NEGRA) COVID-19 Clin Com Coronavirus NL63 (PCR) Human Metapneumovir PCR Influenza A (RT-PCR) Influenza B (RT-PCR) M. pneumoniae (PCR) Parainfluenza 1 (PCR) Parainfluenza 2 (PCR) Parainfluenza 3 (PCR) Parainfluenza 4 (PCR) RSV (PCR) Entero/Rhino (PCR) SARS-CoV-2 RNA (RT-PCR) 06/15/21 10:55 MCV MCH MCHC RDW Plt Count MPV Immature Gran % (Auto) Neut % (Auto) Lymph % (Auto) [place] % (Auto) Eos % (Auto) Baso % (Auto) Lymph # (Auto) [place] # (Auto) Eos # (Auto) Baso # (Auto) Abs Immat Gran (auto) Absolute Neuts (auto) Absolute Nucleated RBC Nucleated RBC % (auto) Smear Tech's Comments PT INR APTT Anion Gap Estim Creat Clear Calc Estimated GFR POC Glucose 276 H Random Glucose Lactic Acid Calcium Magnesium Total Bilirubin Direct Bilirubin AST ALT Alkaline Phosphatase Ammonia Total Creatine Kinase Troponin I High Sens C-Reactive Protein Total Protein Albumin Urine Color Urine Appearance Urine pH Ur Specific [place] Urine Protein Urine Glucose (UA) Urine Ketones Urine Blood Urine Nitrite Ur Leukocyte Esterase Urine RBC Urine WBC Ur Squamous Epith Cells Urine Bacteria Valproic Acid Respiratory Panel [place] Adenovirus (Rapid PCR) B.pert (TEM-PCR) B.parapertussis DNA PCR C. pneumoniae DNA (PCR) Coronavirus OC43 (PCR) Coronavirus HKU1 (PCR) Coronavirus 229E (PCR) COVID-19 (NEGRA) COVID-19 Clin Com Coronavirus NL63 (PCR) Human Metapneumovir PCR Influenza A (RT-PCR) Influenza B (RT-PCR) M. pneumoniae (PCR) Parainfluenza 1 (PCR) Parainfluenza 2 (PCR) Parainfluenza 3 (PCR) Parainfluenza 4 (PCR) RSV (PCR) Entero/Rhino (PCR) SARS-CoV-2 RNA (RT-PCR) Microbiology Microbiology Results: Microbiology 06/14/21 15:09 Urine Culture - Preliminary Urine Catheterized - Bridges Catheter Staphylococcus species Assessment and Plan (1) Hyponatremia: Status: Acute (2) Fall: Status: Acute (3) Pneumonia: Status: Acute Plan A 76 years old lady with PMH of CHF, diabetes, schizophrenia, urine retention who presents to the hospital after having a fall at assisted living and found to have fever. Pneumonia Not septic Seems bacterial CXR showing atelectasis with associated cough and fever Viral panel negative Blood culture pending Continue azithromycin ceftriaxone Use oxygen as needed Falls Likely secondary to infection To do physical therapy Hyponatremia Sodium improved to 135 Likely result of diuretics To repeat BMP Urinary retention Bridges catheter in place , to discontinue Likely a result of using benztropine, to cut down Monitor for now with plan to follow-up with urology by the end of the month Monitor with bladder scan HTN Continue losartan schizophrenia continue psych meds parkinsons sinemet chronic diastolic chf continue Lasix DM insulin monitor poc dvt prophylaxis lovenox patient will need hospital stay for evaluation and treatment of pneumonia pending blood cultures and prevent further falling by doing physical therapy for a safe discharge plan. Quality Stroke Does the patient have a stroke diagnosis?: No VTE Prior VTE?: No VTE Risk Level:: Medical - moderate - high VTE Device Contraindication: Treatment Not Indicated VTE Drug Contraindication: N/A - Med Ordered
[2021-06-15] MEDS: cefTRIAXone sodium 1 GM in 0.9 % Sodium Chloride 50 ML IV (16:28)
[2021-06-15 16:33] LABS: Glucose, Whole Blood 202 mg/dL (60-115)
--- NOTE | 2021-06-15 16:42 | PC.NURSE ---
FC dc'd at 1700, first DTV is at 2300
[2021-06-15] MEDS: Azithromycin 500 MG in 0.9 % Sodium Chloride 250 ML 125 MG IV (17:05)
[2021-06-15 20:21] LABS: Glucose, Whole Blood 231 mg/dL (60-115)
[2021-06-15] MEDS: ARIPiprazole 30 MG TABLET PO (20:49)
[2021-06-15] MEDS: Divalproex Sodium 500 MG TABLET.DR PO (20:49)
[2021-06-15] MEDS: Atorvastatin Calcium 40 MG TABLET PO (20:50)
[2021-06-15] MEDS: traZODone HCL 50 MG TABLET 150 MG PO (20:50)
[2021-06-16 01:21] VITALS: BP 149/70
[2021-06-16 06:08] LABS: Hematocrit 35.3 % (37.0-47.0); Mean Corpuscular Volume 92.4 fL (80.0-98.0); PLT CLUMP 1; Red Blood Count 3.82 X10*6/uL (4.20-5.50)
[2021-06-16 06:10] LABS: Hemoglobin 11.5 g/dl (12.0-16.0); Mean Corpuscular HGB Conc 32.6 g/dl (31.0-35.0); Mean Corpuscular Hemoglobin 30.1 pg (27.0-33.0); Red Cell Distribution Width 11.1 % (11.0-16.0)
[2021-06-16 06:23] LABS: Anion Gap 10 (12-20); Blood Urea Nitrogen 13 mg/dL (9-16); Calcium 8.7 mg/dL (8.4-10.2); Carbon Dioxide 29 mmol/L (22-29); Chloride 98 mmol/L (96-108); Creatinine Clr Calc Pharmacy 83.6; Estimated Glomerular Filt Rate > 60; Glucose Random 160 mg/dL (60-115); Potassium 4.1 mmol/L (3.3-5.1); Sodium 133 mmol/L (135-145)
[2021-06-16 06:26] LABS: White Blood Count 8.4 X10*3/uL (4.8-10.8)
[2021-06-16 07:17] LABS: Glucose, Whole Blood 149 mg/dL (60-115)
[2021-06-16 07:24] VITALS: BP 187/65; PULSE 68; RESP 20; TEMP 36.2; O2SAT 92
[2021-06-16] MEDS: Docusate Sodium 100 MG CAPSULE PO (08:26)
[2021-06-16] MEDS: Losartan Potassium 25 MG TABLET PO (08:26)
[2021-06-16] MEDS: 0.9 % Sodium Chloride Flush 3 ML SYRINGE IVFLUSH (08:26)
[2021-06-16] MEDS: Aspirin 81 MG TAB.CHEW PO (08:26)
[2021-06-16] MEDS: SITagliptin Phosphate 100 MG TABLET PO (08:26)
[2021-06-16] MEDS: Benztropine Mesylate 0.5 MG TABLET PO (08:26)
[2021-06-16] MEDS: hydrOXYzine HCL 25 MG TABLET PO (08:26)
[2021-06-16] MEDS: polyethylene glycoL 3350 17 GM POWD.PACK PO (08:27)
[2021-06-16] MEDS: Enoxaparin Sodium 40 MG/0.4 ML SYRINGE SUBCUT (08:27)
[2021-06-16] MEDS: Carbidopa/Levodopa 25/100 TABLET 1 TAB PO ×2 (08:28→11:42)
[2021-06-16 10:43] VITALS: PULSE 68; O2SAT 92
--- NOTE | 2021-06-16 10:46 | MHC.CM.PN ---
PT MEDICALLY CLEARED FOR D/C HOME W/[facility] FOR HOME PT, SISTER AT BEDSIDE AND WILL TRANSPORT PT HOME.
[2021-06-16 11:14] LABS: Glucose, Whole Blood 228 mg/dL (60-115)
[2021-06-16] MEDS: Insulin Lispro 100 UNIT/ML 3 ML VIAL SUBCUT (11:41)
--- NOTE | 2021-06-16 11:59 | P.DS_ITS ---
DS: Providers Provider Date of Service: 06/16/21 Date of admission: 06/14/21 18:18 Primary care physician: Carlos Hansen MD DS: Diagnosis Discharge Diagnosis (1) Hyponatremia: Status: Acute (2) Fall: Status: Acute (3) Pneumonia: Status: Acute (4) Fever: Status: Acute (5) UTI (urinary tract infection): Status: Acute DS: Summary Hospital Course Hospital Course: Admission note HPI A 76 years old lady with PMH of CHF, diabetes, schizophrenia, urine retention who presents to the hospital after having a fall at assisted living and found to have fever.? The patient was recently discharged from the hospital on the 11 of June for urinary retention, ileus and hyponatremia as Bridges catheter was placed at time.? She went back to her assisted living and reported that she had 2 falls today with no head injury.? Appears mildly confused to her sisters and not her normal self.? She was found to have a temperature of 103 degrees at time of presentation to the emergency with blood work suggestive of left shift with elevated neutrophil but normal WBCs.? She denies any urinary symptoms but repo rted having cough.? Denies chest pain, palpitation, nausea or vomiting, change in bowel habit.? COVID tested negative.? Chest x-ray showed linear atelectasis in the left base. Admitted for further evaluation and treatment. Hospital course The patient was admitted for treatment of suspected pneumonia based on chest x- ray and possible urine infection given new Bridges catheter. Started on IV antibi otics of azithromycin and ceftriaxone with good response as no recurrence of the fever. Urine cultures grew Staphylococcus Simulans while blood cultures remain negative. Patient was able to participate with physical therapy who recommended going back home with therapy at home. Concerns about her home medications of benztropine increasing risk of falls and urine retention, dose decreased while in the hospital with a trial of removing the catheter that failed and we have to place a new catheter with a plan to follow-up with urology as outpatient. Decrease benztropine to half tablet at bedtime only for now Continue doxycycline and Ceftin as prescribed As antibiotics To follow-up with urology as outpatient Continue physical therapy at home Time Spent with Patient Time attestation: Total time spent providing and/or coordinating discharge services: Discharge coordination time: Greater than 30 minutes Quality: Safe Use of Opioids Does Pt have an Active Cancer Diagnosis on the Problem List?: No Quality: Stroke Does the patient have a stroke diagnosis?: No Physical Exam Vital Signs: Vital Signs: Last Vital Signs Temp 97.1 F 06/16/21 07:24 Pulse 68 06/16/21 10:43 Resp 20 06/16/21 07:24 BP 187/65 H 06/16/21 07:24 Pulse Ox 92 06/16/21 10:43 BMI result Body Mass Index 27.1 Const: Other: Constitutional : Alert, interactive , does not look in distress Neck : Normal inspection, Supple Cardiovascular : RRR, no JVP, no lower extremity edema Respiratory : fair bilateral air entry, basal fine left-sided crackles, no wheezes or rhonchi Gastrointestinal: soft, lax, Normal bowel sounds, Non tender Skin : Warm, Dry Neurological : Alert & oriented to place and time, No focal deficit, CN 2-12 within normal DS: Data Data Completed and Pending Labs on day of discharge: Laboratory Results - last 24 hr 06/15/21 06/15/21 06/16/21 16:26 19:45 05:53 WBC 8.4 RBC 3.82 L Hgb 11.5 L Hct 35.3 L MCV 92.4 MCH 30.1 MCHC 32.6 RDW 11.1 Plt Count TNP MPV TNP Absolute Nucleated RBC 0.000 Nucleated RBC % (auto) 0.0 Sodium Potassium Chloride Carbon Dioxide Anion Gap BUN Creatinine Estim Creat Clear Calc Estimated GFR POC Glucose 202 H 231 H Random Glucose Calcium 06/16/21 06/16/21 06/16/21 05:53 07:08 11:09 WBC RBC Hgb Hct MCV MCH MCHC RDW Plt Count MPV Absolute Nucleated RBC Nucleated RBC % (auto) Sodium 133 L Potassium 4.1 Chloride 98 Carbon Dioxide 29 Anion Gap 10 L BUN 13 Creatinine 0.62 Estim Creat Clear Calc 83.6 Estimated GFR > 60 POC Glucose 149 H 228 H Random Glucose 160 H Calcium 8.7 Preliminary micro results at discharge 06/14/21 14:58 Blood Culture - Preliminary Blood - Venous No growth after 24 hours. 06/14/21 14:51 Blood Culture - Preliminary Blood - Venous No growth after 24 hours. Discharge Plan Discharge Patient Disposition: Home Health Service Discharge Diagnosis: Pneumonia Altered mentation Urine retention Referrals: Karlie Bustos [Outside] - 1 Day (HOME PHYSICAL THERAPY) Carlos Hansen MD [Primary Care Provider] - 1 Week Discharge Medications: New cefuroxime axetil 250 mg tablet 250 mg PO BID Qty: 6 0RF doxycycline monohydrate 100 mg capsule 100 mg PO BID Qty: 6 0RF Continued atorvastatin 40 mg tablet 1 tab PO BEDTIME 0RF divalproex 500 mg tablet,delayed release (DR/EC) 1 tab PO BEDTIME 0RF trazodone 150 mg tablet 1 tab PO BEDTIME 0RF metformin 1,000 mg tablet 1 tab PO BID 0RF docusate sodium [DOK] 100 mg Capsule 100 mg PO BID 0RF furosemide 20 mg tablet 20 mg PO Q OTHER DAY 0RF carbidopa-levodopa 25-100 mg tablet 1 tab PO DAILY@0800,1200,1600 0RF aripiprazole 30 mg tablet 1 tab PO BEDTIME 0RF calcium carbonate-vitamin D3 [Calcium 600 + D(3)] 600 mg(1,500mg) -400 unit Tablet 1 tab PO DAILY 0RF aspirin 81 mg tablet,chewable 1 tab PO DAILY 0RF hydroxyzine HCl 25 mg tablet 1 tab PO DAILY 0RF Januvia 100 mg tablet 1 tab PO DAILY 0RF cholecalciferol (vitamin D3) 1,250 mcg (50,000 unit) capsule 1 cap PO QMONTH 0RF losartan 25 mg tablet 25 mg PO DAILY Qty: 30 0RF citalopram 20 mg tablet 1 tab PO DAILY 0RF acetaminophen 325 mg Tablet 650 mg PO Q6H PRN (Reason: Pain) 0RF polyethylene glycol 3350 17 gram/dose Powder 17 g PO DAILY 0RF benzonatate 100 mg Capsule 100 mg PO TID PRN (Reason: Cough) Qty: 20 0RF Changed benztropine 0.5 mg tablet 0.25 mg PO BEDTIME Qty: 0 0RF Discharge Orders: Discharge Order (Routine); Ordered 06/16/21 Ordered By: Sam [place] Diet: advance to usual diet Activity on Discharge: As tolerated Stand Alone Forms: Patient Portal Discharge page Care Plan Goals: Read below Health Concerns: Read below Plan of Treatment: Read below Assessment: You were admitted to the hospital for evaluation of Fever and fall. Found to have pneumonia on chest x-ray and evidence of urine infection both treated with IV antibiotics. You were evaluated by Physical therapy for recurrent falls who recommended going home with physical therapy at home. We removed the Bridges catheter was you developed urine retention again. Benztropine dose was decreased and will need to follow-up with urology as outpatient. Decrease benztropine to half tablet at bedtime only for now Continue doxycycline and Ceftin as prescribed As antibiotics To follow-up with urology as outpatient Continue physical therapy at home
--- NOTE | 2021-06-16 11:59 | W.MHC.F2F ---
Service Date Service Date: 06/16/21 Encounter Date of encounter: 06/16/21 Reasons for Services Signs and symptoms assessed: Physical deconditioning, new Bridges catheter Reason for nursing home: medication treatment and teach disease management Reason for physical therapy: home safety and mobility and therapeutic exercises Homebound: Leaving the home is medically contraindicated at this time without the asist of a device and/or another person due th the listed conditions above and below. Reason homebound: unsteady gait / fall risk Certification: Based on the above findings, I certify that this patient is confined to the home and needs intermittent nursing home care, physical therapy and/or speech therapy, or continues to need occupational therapy. The patient is under my care, and I have initiated the establishment of the plan of care. The patient will be followed by a physician who will periodically review the plan of care.
== END 2021-06-16 13:46 | disposition home health service (06) | DRG 689 ==
LOC: HO.ED 16:33 → HO.EDOVER 18:38 → HO.S3 18:46
PROVIDERS: Emergency Medicine; Admitting Provider Student in an Organized Health Care Education/Training Program; Emergency Provider Emergency Medicine Emergency Medical Services; PCP Internal Medicine; Visit Provider Student in an Organized Health Care Education/Training Program
DX: N39.0 Urinary tract infection, site not specified (principal); J18.9 Pneumonia, unspecified organism; I50.32 Chronic diastolic (congestive) heart failure; E87.1 Hypo-osmolality and hyponatremia; E11.9 Type 2 diabetes mellitus without complications; I11.0 Hypertensive heart disease with heart failure; R33.9 Retention of urine, unspecified; G20 Parkinson's disease; Z91.81 History of falling; F20.9 Schizophrenia, unspecified; Z20.822 Contact with and (suspected) exposure to COVID-19; Z87.891 Personal history of nicotine dependence; Z79.82 Long term (current) use of aspirin; Z79.84 Long term (current) use of oral hypoglycemic drugs; Z79.899 Other long term (current) drug therapy
CPT/HCPCS: 36415; 70450; 71045; 72125; 74176; 80048; 80076; 80164; 81001; 82140; 82550; 82947; 83605; 83735; 84484; 85025; 85027; 85610; 85730; 86140; 87040; 87086; 87088; 87186; 87633; 87635; 93005; 96365; 96366; 96367; 97116; 97162; 99285; C1758; J0456; J0696; J1650

== ENCOUNTER 2021-06-19 01:55 | Emergency (ER) | payer MEDICARE, MEDICAID, SELFPAY ==
--- NOTE | 2021-06-19 01:59 | ED_ITS ---
HPI - General Adult General Stated complaint: Bridges Cath issue Time Seen by Provider: 06/19/21 01:59 Source: patient and EMS Mode of arrival: other Limitations: no limitations History of Present Illness HPI narrative: Patient comes to the emergency room from a assisted facility. Tonight, patient's Bridges catheter flat out and needs to be replaced. Patient is known to be COVID positive, has pneumonia, has a diagnosed UTI, being treated with antibiotics. Patient is not hypoxic. Patient is just here for her Bridges catheter replacement. Patient denies fever chills, no UTI symptoms. Patient is currently taking antibiotics, cefuroxime and doxycycline. Related Data Home Medications Medication Instructions Recorded Confirmed aripiprazole 30 mg tablet 1 tab PO BEDTIME 12/06/20 06/14/21 atorvastatin 40 mg tablet 1 tab PO BEDTIME 12/06/20 06/14/21 calcium carbonate 600 mg-vitamin 1 tab PO DAILY 12/06/20 06/14/21 D3 10 mcg (400 unit) tablet (Calcium 600 + D(3)) carbidopa 25 mg-levodopa 100 mg 1 tab PO DAILY@0800,1200,1600 12/06/20 06/14/21 tablet divalproex 500 mg tablet,delayed 1 tab PO BEDTIME 12/06/20 06/14/21 release docusate sodium 100 mg capsule 100 mg PO BID 12/06/20 06/14/21 (DOK) furosemide 20 mg tablet 20 mg PO Q OTHER DAY 12/06/20 06/14/21 metformin 1,000 mg tablet 1 tab PO BID 12/06/20 06/14/21 trazodone 150 mg tablet 1 tab PO BEDTIME 12/06/20 06/14/21 aspirin 81 mg chewable tablet 1 tab PO DAILY 06/09/21 06/14/21 cholecalciferol (vitamin D3) 1,250 1 cap PO QMONTH 06/09/21 06/14/21 mcg (50,000 unit) capsule hydroxyzine HCl 25 mg tablet 1 tab PO DAILY 06/09/21 06/14/21 sitagliptin 100 mg tablet (Januvia) 1 tab PO DAILY 06/09/21 06/14/21 acetaminophen 325 mg tablet 650 mg PO Q6H PRN 06/14/21 06/14/21 citalopram 20 mg tablet 1 tab PO DAILY 06/14/21 06/14/21 polyethylene glycol 3350 17 17 g PO DAILY 06/14/21 06/14/21 gram/dose oral powder Previous Rx's Medication Instructions Recorded losartan 25 mg tablet 25 mg PO DAILY #30 tab 06/11/21 benzonatate 100 mg capsule 100 mg PO TID PRN #20 cap 06/16/21 benztropine 0.5 mg tablet 0.25 mg PO BEDTIME #0 tab 06/16/21 cefuroxime axetil 250 mg tablet 250 mg PO BID #6 tab 06/16/21 doxycycline monohydrate 100 mg 100 mg PO BID #6 cap 06/16/21 capsule Allergies Allergy/AdvReac Type Severity Reaction Status Date / Time No Known Allergies Allergy Unknown UNKNOWN Unverified 10/28/19 16:25 [NO KNOWN ALLERGIES] Review of Systems Review of Systems: Constitutional : No Weight loss, No Fever, No Chills, No Night Sweats, No Fatigue, No Malaise ENT/Mouth : No Hearing loss, No Ear Pain, No Nasal Congestion, No Sinus Pain, No Hoarseness, No sore throat, No Rhinorrhea, No Swallowing Difficulty Eyes: No Eye Pain, No Swelling, No Redness, No Foreign Body, No Discharge, No Vision Changes Cardiovascular : No Chest Pain, No SOB, No Dyspnea on Exertion, No Orthopnea, No Edema, No Palpitations Respiratory : No Cough, No Sputum, No Wheezing, No Smoke Exposure, No Dyspnea Gastrointestinal : No Nausea, No Vomiting, No Diarrhea, No Constipation, No abdominal Pain, No Hematochezia, No Melena Genitourinary : Bridges catheter fell out, No Dysuria, No Urinary Frequency, No Hematuria, No Urinary Incontinence, No Urgency, No Flank Pain, No Urinary Flow Changes, No Hesitancy Musculoskeletal : No joint pain, No Myalgias, No Joint Swelling Skin : No Skin Lesions, No rash Neuro : No Weakness, No Numbness, No Paresthesias, No Loss of Consciousness, No Dizziness, No Headache Psych : No Anxiety/Panic, No Depression, No SI/HI/AH/VH, No Social Issues, Heme/Lymph: No Bruising, No Bleeding,No Lymphadenopathy Endocrine : No Polyuria, No Polydipsia, No Temperature Intolerance PMFSH Past Medical History Medical History CHF (congestive heart failure) Chronic schizophrenia Diabetes mellitus type 2 in obese Fall Hypertension Hyponatremia Parkinsons Urinary retention Family History Family History Mother HLD (hyperlipidemia) Social History Social History Household Members: None Household Members Other:: longterm Housing: Assisted Living Facility Do you presently have visiting nurse or other home services: Yes Alcohol intake: never Patient Tobacco Use Status: Former Tobacco user Tobacco use type: Cigarette e-Cigarette/Vaping Use: Never Used Second Hand Smoke Exposure: No Advance Directives Date on File: 06/14/21 service: No Current occupational status: retired and disabled Sexual orientation: Straight/Heterosexual Physical Exam ED Const Other: Appearance: Alert. Oriented X3. No acute distress. Eyes: Pupils equal, round and reactive to light. ENT: Pharynx normal. Neck: Normal inspection. Neck supple. No lymph nodes noted. No crepitus CVS: Normal heart rate and rhythm. Pulses normal. Normal S1 and S2 Respiratory: No respiratory distress. Breath sounds normal. No Wheezing. No rales Abdomen: Soft and nontender. No rigidity. No distention. Skin: Skin warm and dry. Normal skin color. Normal skin turgor. Extremities: No lower extremity edema. No Lacerations. No Rash Neuro: Oriented X 3. No motor deficit. No sensory deficit. Moving all extremities. No slurred speech. CN 2 through 12 grossly intact Psych: calm, cooperative, normal affect Course Course Course Narrative: Bridges catheter has been replaced. Patient to be returned to her longterm. Discharge Plan Discharge Clinical Impression: Dislodged Bridges catheter Patient Disposition: Home, Self-Care Instructions: Bridges Catheter Placement and Care (ED) Additional Instructions: Please follow-up with your primary care physician tomorrow. If you have any worsening or new symptoms, please return to the emergency room or call 911 Prescriptions: No Action atorvastatin 40 mg tablet 1 tab PO BEDTIME 0RF divalproex 500 mg tablet,delayed release (DR/EC) 1 tab PO BEDTIME 0RF trazodone 150 mg tablet 1 tab PO BEDTIME 0RF metformin 1,000 mg tablet 1 tab PO BID 0RF docusate sodium [DOK] 100 mg Capsule 100 mg PO BID 0RF furosemide 20 mg tablet 20 mg PO Q OTHER DAY 0RF carbidopa-levodopa 25-100 mg tablet 1 tab PO DAILY@0800,1200,1600 0RF aripiprazole 30 mg tablet 1 tab PO BEDTIME 0RF calcium carbonate-vitamin D3 [Calcium 600 + D(3)] 600 mg(1,500mg) -400 unit Tablet 1 tab PO DAILY 0RF aspirin 81 mg tablet,chewable 1 tab PO DAILY 0RF hydroxyzine HCl 25 mg tablet 1 tab PO DAILY 0RF Januvia 100 mg tablet 1 tab PO DAILY 0RF cholecalciferol (vitamin D3) 1,250 mcg (50,000 unit) capsule 1 cap PO QMONTH 0RF losartan 25 mg tablet 25 mg PO DAILY Qty: 30 0RF citalopram 20 mg tablet 1 tab PO DAILY 0RF acetaminophen 325 mg Tablet 650 mg PO Q6H PRN (Reason: Pain) 0RF polyethylene glycol 3350 17 gram/dose Powder 17 g PO DAILY 0RF cefuroxime axetil 250 mg tablet 250 mg PO BID Qty: 6 0RF doxycycline monohydrate 100 mg capsule 100 mg PO BID Qty: 6 0RF benztropine 0.5 mg tablet 0.25 mg PO BEDTIME Qty: 0 0RF benzonatate 100 mg Capsule 100 mg PO TID PRN (Reason: Cough) Qty: 20 0RF
[2021-06-19 02:04] VITALS: BP 170/82; PULSE 65; RESP 20; TEMP 37.4; O2SAT 95
[2021-06-19 02:05] VITALS: BP 160/88; PULSE 68; O2SAT 97
[2021-06-19 02:07] VITALS: BP 170/82; PULSE 65; RESP 24; TEMP 37.4; O2SAT 95; BMI 29.9
--- NOTE | 2021-06-19 02:17 | PC.NURSE ---
16 Fr Bridges catheter with temp probe placed, silicon, immediate urine drainage noted with placement clear yellow urine about 300 mL output. catheter secured with leg adhesive bandage
[2021-06-19 03:42] VITALS: BP 162/84; PULSE 62; RESP 18; TEMP 37.2; O2SAT 96
== END 2021-06-19 03:44 | disposition home or self-care (01) ==
LOC: HO.ED 02:08
PROVIDERS: Emergency Provider Emergency Medicine
DX: T83.028A Displacement of other urinary catheter, initial encounter (principal); Y73.8 Miscellaneous gastroenterology and urology devices associated with adverse incidents, not elsewhere classified; Y92.9 Unspecified place or not applicable
CPT/HCPCS: 99284

== ENCOUNTER 2021-06-25 00:52 | Emergency (ER) | payer MEDICARE, MEDICAID, SELFPAY ==
--- NOTE | ~2021-06-25 | CT_ITS ---
EXAMINATION: NONCONTRAST HEAD CT NONCONTRAST CERVICAL SPINE CT INDICATION INFORMATION: Fall COMPARISON: 06/14/2021 TECHNIQUE: Separate noncontrast CT examinations of the head and cervical spine were performed. Coronal and sagittal images were created for each examination at the technologist workstation. This CT examination was performed using dose optimization techniques as appropriate, variously including the following: *Automated exposure control *Adjustment of mA and/or kV according to patient size (this includes techniques or standardized protocols for targeted exams where dose is matched to indication/reason for exam; i.e. extremities or head) *Use of iterative reconstruction technique DLP: 1848 mGy-cm FINDINGS: Head: There is no evidence of acute intracranial hemorrhage or territorial infarction. No abnormal mass effect or midline shift is seen. [place] to white matter differentiation is well preserved. No extra-axial fluid collections are identified. No hydrocephalus. Proportional prominence of the ventricles and sulcal spaces is consistent with mild volume loss. Patchy periventricular and deep white matter hypoattenuation is consistent with mild small vessel ischemic changes. No acute osseous or soft tissue abnormality. Significant leftward nasal septal deviation. The mastoid air cells and visualized portions of the paranasal sinuses are well aerated. Cervical spine: There is anatomic alignment of the vertebral bodies and posterior elements. The atlantoaxial and atlantooccipital articulations are intact. Vertebral body heights are maintained. There is multilevel intervertebral disc space narrowing with endplate osteophyte formation and facet arthropathy. No evidence of acute fracture. No prevertebral soft tissue swelling. Visualized portions of the lung apices are unremarkable. The thyroid gland is unremarkable. CT/CT cervical spine wo con IMPRESSION: 1. No acute intracranial finding. 2. No fracture or malalignment of the cervical spine. Mild degenerative changes.
--- NOTE | ~2021-06-25 | XR_ITS ---
EXAMINATION: XR BILATERAL HIPS WITH AP PELVIS CLINICAL INFORMATION: Tenderness, fall. COMPARISON: None TECHNIQUE: AP and frog-leg lateral views of each hip and an AP view of the pelvis. FINDINGS: No fracture or dislocation. The hips are well aligned. Joint spaces are maintained. Mild degenerative changes of the hips with small osteophytes. The pelvic rim is intact. Normal bowel gas pattern. XR/XR hip BI w PEL1V IMPRESSION: No fracture or malalignment. Mild degenerative changes of the hips.
[2021-06-25 01:07] VITALS: BP 158/80; PULSE 90; O2SAT 95
[2021-06-25 01:08] VITALS: BP 129/58; PULSE 78; RESP 18; TEMP 37.2; O2SAT 94; BMI 30.7
--- NOTE | 2021-06-25 01:46 | ED.FALL ---
HPI - Fall General Chief Complaint: Fall Stated Complaint: fall Time Seen by Provider: 06/25/21 01:26 Source: patient Mode of arrival: EMS History of Present Illness HPI Narrative: 76-year-old female who arrives by EMS from the alf and states that she fell when she got up to go to the restroom. Patient states that she fell onto her bottom and did strike her head but denies any loss of consciousness. Otherwise, patient denies any fever, chills, shortness of breath, chest pain/palpitations. Related Data Home Medications Medication Instructions Recorded Confirmed aripiprazole 30 mg tablet 1 tab PO BEDTIME 12/06/20 06/14/21 atorvastatin 40 mg tablet 1 tab PO BEDTIME 12/06/20 06/14/21 calcium carbonate 600 mg-vitamin 1 tab PO DAILY 12/06/20 06/14/21 D3 10 mcg (400 unit) tablet (Calcium 600 + D(3)) carbidopa 25 mg-levodopa 100 mg 1 tab PO DAILY@0800,1200,1600 12/06/20 06/14/21 tablet divalproex 500 mg tablet,delayed 1 tab PO BEDTIME 12/06/20 06/14/21 release docusate sodium 100 mg capsule 100 mg PO BID 12/06/20 06/14/21 (DOK) furosemide 20 mg tablet 20 mg PO Q OTHER DAY 12/06/20 06/14/21 metformin 1,000 mg tablet 1 tab PO BID 12/06/20 06/14/21 trazodone 150 mg tablet 1 tab PO BEDTIME 12/06/20 06/14/21 aspirin 81 mg chewable tablet 1 tab PO DAILY 06/09/21 06/14/21 cholecalciferol (vitamin D3) 1,250 1 cap PO QMONTH 06/09/21 06/14/21 mcg (50,000 unit) capsule hydroxyzine HCl 25 mg tablet 1 tab PO DAILY 06/09/21 06/14/21 sitagliptin 100 mg tablet (Januvia) 1 tab PO DAILY 06/09/21 06/14/21 acetaminophen 325 mg tablet 650 mg PO Q6H PRN 06/14/21 06/14/21 citalopram 20 mg tablet 1 tab PO DAILY 06/14/21 06/14/21 polyethylene glycol 3350 17 17 g PO DAILY 06/14/21 06/14/21 gram/dose oral powder Previous Rx's Medication Instructions Recorded losartan 25 mg tablet 25 mg PO DAILY #30 tab 06/11/21 benzonatate 100 mg capsule 100 mg PO TID PRN #20 cap 06/16/21 benztropine 0.5 mg tablet 0.25 mg PO BEDTIME #0 tab 06/16/21 cefuroxime axetil 250 mg tablet 250 mg PO BID #6 tab 06/16/21 doxycycline monohydrate 100 mg 100 mg PO BID #6 cap 06/16/21 capsule Allergies Allergy/AdvReac Type Severity Reaction Status Date / Time No Known Allergies Allergy Unknown UNKNOWN Unverified 10/28/19 16:25 [NO KNOWN ALLERGIES] Review of Systems Review of Systems: Pertinent positives and negatives as stated HPI 10 point review of systems is otherwise negative. PMFSH Past Medical History Source: nursing notes reviewed Medical History CHF (congestive heart failure) Chronic schizophrenia Diabetes mellitus type 2 in obese Fall Hypertension Hyponatremia Parkinsons Urinary retention Family History Family History Mother HLD (hyperlipidemia) Social History Social History Household Members: None Household Members Other:: alf Housing: Assisted Living Facility Do you presently have visiting nurse or other home services: Yes Alcohol intake: never Patient Tobacco Use Status: Former Tobacco user Tobacco use type: Cigarette e-Cigarette/Vaping Use: Never Used Second Hand Smoke Exposure: No Advance Directives Date on File: 06/14/21 service: No Current occupational status: retired and disabled Sexual orientation: Straight/Heterosexual Physical Exam Vital Signs: Vital Signs: Last Vital Signs Temp 99.0 F 06/25/21 01:08 Pulse 78 06/25/21 01:08 Resp 18 06/25/21 01:08 BP 129/58 L 06/25/21 01:08 Pulse Ox 94 06/25/21 01:08 BMI result Body Mass Index 30.7 VITAL SIGNS: Reviewed. GENERAL: Well developed, well nourished, in no acute distress. HEAD: Normocephalic/atraumatic EYES: PERRLA, EOMI EARS: Ext canals without abnormality OROPHARYNX: no oral lesions noted, posterior pharynx clear LUNGS: Normal breath sounds. No adventitious sounds or accessory muscle use. SpO2<94> CARDIOVASCULAR: Regular rate and rhythm without noted murmurs, no JVD or lower extremity edema. ABDOMEN: Soft, non-tender, non-distended with bowel sounds. PELVIS: stable but mild tenderness MUSCULOSKELETAL: No tenderness, deformities, or effusions noted on gross inspection. EXTREMITIES: No cyanosis, clubbing or edema. SKIN: Inspection of the skin reveals no rashes NEUROLOGIC: Alert and oriented x 4. Strength and sensation to light touch were grossly intact x 4. Course Course Course Narrative: 76-year-old female with history and clinical presentation consistent with mechanical fall will evaluate for evidence of change in medical status in terms of infections/anemia. Review of all investigations without acute findings to better explain patient's fall other than simple mechanical fall. Patient is otherwise hemodynamically stable for discharge back to the facility. MDM - Fall Lab Data Result diagrams: 06/25/21 02:11 06/25/21 02:11 Labs: Lab Results 06/25/21 06/25/21 06/25/21 Range/Units 02:11 02:11 02:11 WBC 11.9 H (4.8-10.8) X10*3/uL RBC 4.04 L (4.20-5.50) X10*6/uL Hgb 12.2 (12.0-16.0) g/dl Hct 36.8 L (37.0-47.0) % MCV 91.1 (80.0-98.0) fL MCH 30.2 (27.0-33.0) pg MCHC 33.2 (31.0-35.0) g/dl RDW 11.0 (11.0-16.0) % Plt Count TNP MPV 10.3 (9.4-12.3) fL Immature Gran % (Auto) 1.0 H (0.0-0.4) % Neut % (Auto) 79.5 H (45-73) % Lymph % (Auto) 11.7 L (20-40) % [place] % (Auto) 6.9 (2-11) % Eos % (Auto) 0.6 (0-4) % Baso % (Auto) 0.3 (0-2) % Lymph # (Auto) 1.4 (1.2-4.9) X10*3/uL [place] # (Auto) 0.8 (0.1-1.2) X10*3/uL Eos # (Auto) 0.1 (0.0-0.4) X10*3/uL Baso # (Auto) 0.0 (0.0-0.2) X10*3/uL Abs Immat Gran (auto) 0.12 H (0.00-0.03) X10*3/uL Absolute Neuts (auto) 9.5 H (2.0-8.3) x10*3/uL Absolute Nucleated RBC 0.000 (0.0-0.012) X10*3/uL Nucleated RBC % (auto) 0.0 (0.0-0.2) /100WBC PT 12.4 (9.9-13.0) SEC INR 1.1 (0.9-1.1) Sodium 135 (135-145) mmol/L Potassium 5.0 D (3.3-5.1) mmol/L Chloride 98 (96-108) mmol/L Carbon Dioxide 29 (22-29) mmol/L Anion Gap 13 (12-20) BUN 17 H (9-16) mg/dL Creatinine 0.73 (0.5-1.4) mg/dL Estim Creat Clear Calc 70.2 Estimated GFR > 60 Random Glucose 192 H (60-115) mg/dL Calcium 9.7 D (8.4-10.2) mg/dL Total Bilirubin 0.3 (0.0-1.0) mg/dL AST 9 (5-31) U/L ALT 11 (0-31) U/L Alkaline Phosphatase 89 (39-117) U/L Total Protein 6.8 (6.5-8.0) g/dL Albumin 3.5 (3.5-5.0) g/dL Urine Color Urine Appearance Urine pH (5.0-8.0) Ur Specific [place] (1.005-1.025) Urine Protein (NEG-TRACE) MG/DL Urine Glucose (UA) (NEG) MG/DL Urine Ketones (NEG) MG/DL Urine Blood (NEG) Urine Nitrite (NEG) Ur Leukocyte Esterase (NEG) 06/25/21 Range/Units 03:57 WBC (4.8-10.8) X10*3/uL RBC (4.20-5.50) X10*6/uL Hgb (12.0-16.0) g/dl Hct (37.0-47.0) % MCV (80.0-98.0) fL MCH (27.0-33.0) pg MCHC (31.0-35.0) g/dl RDW (11.0-16.0) % Plt Count MPV (9.4-12.3) fL Immature Gran % (Auto) (0.0-0.4) % Neut % (Auto) (45-73) % Lymph % (Auto) (20-40) % [place] % (Auto) (2-11) % Eos % (Auto) (0-4) % Baso % (Auto) (0-2) % Lymph # (Auto) (1.2-4.9) X10*3/uL [place] # (Auto) (0.1-1.2) X10*3/uL Eos # (Auto) (0.0-0.4) X10*3/uL Baso # (Auto) (0.0-0.2) X10*3/uL Abs Immat Gran (auto) (0.00-0.03) X10*3/uL Absolute Neuts (auto) (2.0-8.3) x10*3/uL Absolute Nucleated RBC (0.0-0.012) X10*3/uL Nucleated RBC % (auto) (0.0-0.2) /100WBC PT (9.9-13.0) SEC INR (0.9-1.1) Sodium (135-145) mmol/L Potassium (3.3-5.1) mmol/L Chloride (96-108) mmol/L Carbon Dioxide (22-29) mmol/L Anion Gap (12-20) BUN (9-16) mg/dL Creatinine (0.5-1.4) mg/dL Estim Creat Clear Calc Estimated GFR Random Glucose (60-115) mg/dL Calcium (8.4-10.2) mg/dL Total Bilirubin (0.0-1.0) mg/dL AST (5-31) U/L ALT (0-31) U/L Alkaline Phosphatase (39-117) U/L Total Protein (6.5-8.0) g/dL Albumin (3.5-5.0) g/dL Urine Color YELLOW Urine Appearance CLEAR Urine pH 6.0 (5.0-8.0) Ur Specific [place] 1.020 (1.005-1.025) Urine Protein TRACE (NEG-TRACE) MG/DL Urine Glucose (UA) 100 H (NEG) MG/DL Urine Ketones 5 (NEG) MG/DL Urine Blood NEG (NEG) Urine Nitrite NEG (NEG) Ur Leukocyte Esterase NEG (NEG) ECG Data Attestation: I personally reviewed and interpreted this ECG as follows: Prior ECG tracings: available for review Interpretation: Sinus rhythm with first-degree AV block, HR-74, no STEMI, MS-228, QRS/QTC are within normal limits. Discharge Plan Discharge Clinical Impression: Fall Patient Disposition: er [facility] Instructions: Fall Prevention for Older Adults (ED) Additional Instructions: 1. Resume all home medications as prescribed. 2. Follow-up with primary care provider for re-evaluation. Return to the ER for acute worsening of symptoms. Prescriptions: No Action atorvastatin 40 mg tablet 1 tab PO BEDTIME 0RF divalproex 500 mg tablet,delayed release (DR/EC) 1 tab PO BEDTIME 0RF trazodone 150 mg tablet 1 tab PO BEDTIME 0RF metformin 1,000 mg tablet 1 tab PO BID 0RF docusate sodium [DOK] 100 mg Capsule 100 mg PO BID 0RF furosemide 20 mg tablet 20 mg PO Q OTHER DAY 0RF carbidopa-levodopa 25-100 mg tablet 1 tab PO DAILY@0800,1200,1600 0RF aripiprazole 30 mg tablet 1 tab PO BEDTIME 0RF calcium carbonate-vitamin D3 [Calcium 600 + D(3)] 600 mg(1,500mg) -400 unit Tablet 1 tab PO DAILY 0RF aspirin 81 mg tablet,chewable 1 tab PO DAILY 0RF hydroxyzine HCl 25 mg tablet 1 tab PO DAILY 0RF Januvia 100 mg tablet 1 tab PO DAILY 0RF cholecalciferol (vitamin D3) 1,250 mcg (50,000 unit) capsule 1 cap PO QMONTH 0RF losartan 25 mg tablet 25 mg PO DAILY Qty: 30 0RF citalopram 20 mg tablet 1 tab PO DAILY 0RF acetaminophen 325 mg Tablet 650 mg PO Q6H PRN (Reason: Pain) 0RF polyethylene glycol 3350 17 gram/dose Powder 17 g PO DAILY 0RF cefuroxime axetil 250 mg tablet 250 mg PO BID Qty: 6 0RF doxycycline monohydrate 100 mg capsule 100 mg PO BID Qty: 6 0RF benztropine 0.5 mg tablet 0.25 mg PO BEDTIME Qty: 0 0RF benzonatate 100 mg Capsule 100 mg PO TID PRN (Reason: Cough) Qty: 20 0RF
[2021-06-25 02:19] LABS: Basophils Percent Auto 0.3 % (0-2); Eosinophils Absolute Auto 0.1 X10*3/uL (0.0-0.4); Eosinophils Percent Auto 0.6 % (0-4); Mean Corpuscular Volume 91.1 fL (80.0-98.0); PLT CLUMP 1; SCAN SMEAR FLAG 1
[2021-06-25 02:21] LABS: Hematocrit 36.8 % (37.0-47.0); Hemoglobin 12.2 g/dl (12.0-16.0); Imm Gran Abs Auto 0.12 X10*3/uL (0.00-0.03); Lymphocytes Absolute Auto 1.4 X10*3/uL (1.2-4.9); Lymphocytes Percent Auto 11.7 % (20-40); Mean Corpuscular HGB Conc 33.2 g/dl (31.0-35.0); Mean Corpuscular Hemoglobin 30.2 pg (27.0-33.0); Mean Platelet Volume 10.3 fL (9.4-12.3); Monocytes Absolute Auto 0.8 X10*3/uL (0.1-1.2); Monocytes Percent Auto 6.9 % (2-11); Neutrophils Absolute Auto 9.5 x10*3/uL (2.0-8.3); Neutrophils Percent Auto 79.5 % (45-73); Red Blood Count 4.04 X10*6/uL (4.20-5.50)
[2021-06-25 02:22] LABS: MANUAL DIFF FLAG NO; White Blood Count 11.9 X10*3/uL (4.8-10.8)
[2021-06-25 02:24] LABS: INTERNATIONAL NORM RATIO 1.1 (0.9-1.1); Prothrombin Time 12.4 SEC (9.9-13.0)
[2021-06-25 02:34] LABS: Alanine Aminotransferase 11 U/L (0-31); Albumin Level 3.5 g/dL (3.5-5.0); Alkaline Phosphatase 89 U/L (39-117); Anion Gap 13 (12-20); Aspartate Amino Transferase 9 U/L (5-31); Bilirubin Total 0.3 mg/dL (0.0-1.0); Blood Urea Nitrogen 17 mg/dL (9-16); Calcium 9.7 mg/dL (8.4-10.2); Carbon Dioxide 29 mmol/L (22-29); Chloride 98 mmol/L (96-108); Creatinine Clr Calc Pharmacy 70.2; Estimated Glomerular Filt Rate > 60; Glucose Random 192 mg/dL (60-115); Sodium 135 mmol/L (135-145); Total Protein 6.8 g/dL (6.5-8.0)
--- NOTE | 2021-06-25 02:49 | ECG_ITS ---
Test Reason : syncope Blood Pressure : / mmHG Vent. Rate : 074 BPM Atrial Rate : 074 BPM P-R Int : 228 ms QRS Dur : 088 ms QT Int : 398 ms P-R-T Axes : 074 -60 008 degrees QTc Int : 441 ms Sinus rhythm with 1st degree A-V block Left axis deviation Inferior infarct (cited on or before 14-JUN-2021) Anterior infarct (cited on or before 14-JUN-2021) Abnormal ECG When compared with ECG of 14-JUN-2021 14:56, MN interval has increased Referred By: Jerrica Simeon Electronically Signed By:SHELDON PIERCE
--- NOTE | 2021-06-25 03:06 | PC.NURSE ---
bladder scan performed at bedside, pt retaining 635mL of urine. RN aware
[2021-06-25 04:04] LABS: Appearance Urine CLEAR; Color Urine YELLOW; Glucose Urine UA 100 MG/DL (NEG); Leukocyte Esterase Urine NEG (NEG); Nitrite Urine NEG (NEG); Urine Blood NEG (NEG); Urine Ketones 5 MG/DL (NEG); Urine Protein TRACE MG/DL (NEG-TRACE)
== END 2021-06-25 06:05 | disposition skilled nursing facility (03) ==
LOC: HO.ED 04:30
PROVIDERS: Emergency Provider Student in an Organized Health Care Education/Training Program
DX: S09.90XA Unspecified injury of head, initial encounter (principal); R55 Syncope and collapse; G44.309 Post-traumatic headache, unspecified, not intractable; M54.2 Cervicalgia; M25.552 Pain in left hip; M25.551 Pain in right hip; W52.XXXA Crushed, pushed or stepped on by crowd or human stampede, initial encounter; Y93.9 Activity, unspecified; Y92.9 Unspecified place or not applicable; Y99.9 Unspecified external cause status; Z79.899 Other long term (current) drug therapy
CPT/HCPCS: 36415; 70450; 72125; 73521; 80053; 81003; 85025; 85610; 93005; 99282; 99284

== ENCOUNTER → 2021-07-03 09:57 | Outpatient (BNVA) | payer MEDICARE, MEDICAID, SELFPAY | PROVIDERS: Visit Provider Urology | DX: N39.0 Urinary tract infection, site not specified (principal) | CPT/HCPCS: 51798 ==

== ENCOUNTER 2022-01-22 23:31 | Emergency (ER) | payer MEDICARE, MEDICAID, SELFPAY ==
--- NOTE | ~2022-01-22 | CT_ITS ---
EXAMINATION: CT cervical spine wo IV con, CT head/brain wo IV con INDICATION INFORMATION: Reason for Exam fall, PAIN COMPARISON: CT head and cervical spine 06/25/2021 TECHNIQUE: Separate noncontrast CT examinations of the head and cervical spine were performed. Coronal and sagittal images were created for each examination at the technologist workstation. This CT examination was performed using dose optimization techniques as appropriate, variously including the following: *Automated exposure control *Adjustment of mA and/or kV according to patient size (this includes techniques or standardized protocols for targeted exams where dose is matched to indication/reason for exam; i.e. extremities or head) *Use of iterative reconstruction technique DLP: 1226 mGy-cm FINDINGS: Head: No acute osseous or soft tissue abnormality. The mastoids are clear. Mild right maxillary sinus mucosal thickening. There is no evidence of acute intracranial hemorrhage or territorial infarction. No abnormal mass effect or midline shift is seen. [place] to white matter differentiation is well preserved. No extra-axial fluid collections are identified. No hydrocephalus. No significant volume loss. Patchy periventricular and deep white matter hypoattenuation is consistent with mild small vessel ischemic changes. Cervical spine: There is no evidence of acute cervical spine fracture. Vertebral bodies remain normal in height. Loss of the usual cervical spine lordosis. Multilevel loss of disc space height. No pre- or paravertebral soft tissue abnormality is identified. Visualized portions of the lung apices are unremarkable. There is a 1.3 cm hypodense left thyroid nodule for which no further imaging follow-up is recommended. CT/CT cervical spine wo IV con IMPRESSION: 1. No acute intracranial abnormality. 2. No cervical spine fracture or traumatic malalignment.
--- NOTE | ~2022-01-22 | XR_ITS ---
EXAMINATION: XR SHOULDER, RIGHT CLINICAL INFORMATION: Pain. COMPARISON: Chest radiograph 06/14/2021. TECHNIQUE: Three views of the right shoulder. FINDINGS: Comminuted mildly displaced fracture of the greater tuberosity of the right humerus. The AC joint is maintained. The humeral head is well-seated in the glenoid. 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 The right clavicle and visualized portions of the right sided ribs and right lung are within normal limits. There is soft tissue swelling/hematoma overlying the fracture in the right shoulder. XR/XR shoulder RT min 2V IMPRESSION: Comminuted mildly displaced fracture of the greater tuberosity of the right humerus.
[2022-01-22 23:38] VITALS: BP 142/90; PULSE 80; O2SAT 97
[2022-01-22 23:42] VITALS: BP 208/82; PULSE 72; RESP 20; TEMP 35.9; O2SAT 96; BMI 28.8
[2022-01-23] VITALS (11 sets, daily range): BP systolic 127–195; BP diastolic 42–74; PULSE 65–72; RESP 15–24; TEMP 36.6–37.3; O2SAT 93–100
--- NOTE | 2022-01-23 01:35 | ED_ITS ---
HPI - Fall General Chief Complaint: Fall Stated Complaint: arm pain Time Seen by Provider: 01/23/22 01:04 Source: patient Mode of arrival: EMS Limitations: no limitations History of Present Illness HPI Narrative: 76-year-old female who presents emergency department for evaluation of injuries from a fall. The patient lives at [facility]. She states that she got up to use the bathroom. She states that her room was dark and she reached her walker and fell. She did strike her head on the floor but did not lose consciousness. She states that she also landed on her right shoulder and developed immediate pain in her right arm. She currently denies headache, nausea or vomiting. She states she is having 10/10 pain in her right shoulder, the pain is a constant, sharp pain which is worse with movement. Patient denied being ill in any way prior to the fall. MD complaint: fall Onset (ago): hour(s) (1) Fall from: standing Fall witnessed: no Place fall occurred: other ([facility] home) Loss of consciousness: none Prolonged down time: no Symptoms prior to fall: none Context: tripped/slipped Location of injury: head Location of injury - extremities: right: shoulder Severity: severe Severity scale (1-10): 10 Quality: sharp Associated symptoms (after fall): denies Related Data Home Medications Medication Instructions Recorded Confirmed aripiprazole 30 mg tablet 1 tab PO BEDTIME 12/06/20 06/14/21 atorvastatin 40 mg tablet 1 tab PO BEDTIME 12/06/20 06/14/21 calcium carbonate 600 mg-vitamin 1 tab PO DAILY 12/06/20 06/14/21 D3 10 mcg (400 unit) tablet (Calcium 600 + D(3)) carbidopa 25 mg-levodopa 100 mg 1 tab PO DAILY@0800,1200,1600 12/06/20 06/14/21 tablet divalproex 500 mg tablet,delayed 1 tab PO BEDTIME 12/06/20 06/14/21 release docusate sodium 100 mg capsule 100 mg PO BID 12/06/20 06/14/21 (DOK) furosemide 20 mg tablet 20 mg PO Q OTHER DAY 12/06/20 06/14/21 metformin 1,000 mg tablet 1 tab PO BID 12/06/20 06/14/21 trazodone 150 mg tablet 1 tab PO BEDTIME 12/06/20 06/14/21 aspirin 81 mg chewable tablet 1 tab PO DAILY 06/09/21 06/14/21 cholecalciferol (vitamin D3) 1,250 1 cap PO QMONTH 06/09/21 06/14/21 mcg (50,000 unit) capsule hydroxyzine HCl 25 mg tablet 1 tab PO DAILY 06/09/21 06/14/21 sitagliptin phosphate 100 mg 1 tab PO DAILY 06/09/21 06/14/21 tablet (Januvia) acetaminophen 325 mg tablet 650 mg PO Q6H PRN Pain 06/14/21 06/14/21 citalopram 20 mg tablet 1 tab PO DAILY 06/14/21 06/14/21 polyethylene glycol 3350 17 17 g PO DAILY 06/14/21 06/14/21 gram/dose oral powder Previous Rx's Medication Instructions Recorded losartan 25 mg tablet 25 mg PO DAILY #30 tabs 06/11/21 benzonatate 100 mg capsule 100 mg PO TID PRN Cough #20 caps 06/16/21 benztropine 0.5 mg tablet 0.25 mg PO BEDTIME #0 tabs 06/16/21 cefuroxime axetil 250 mg tablet 250 mg PO BID #6 tabs 06/16/21 doxycycline monohydrate 100 mg 100 mg PO BID #6 caps 06/16/21 capsule Allergies Allergy/AdvReac Type Severity Reaction Status Date / Time No Known Allergies Allergy Unknown UNKNOWN Unverified 10/28/19 16:25 [NO KNOWN ALLERGIES] Review of Systems Review of Systems: Yes all other systems are reviewed and are negative [facility] Past Medical History [facility] Narrative: Social history: The patient lives in a rest home. She denies tobacco, alcohol and drug use. Medical History CHF (congestive heart failure) Chronic schizophrenia Diabetes mellitus type 2 in obese Fall Hypertension Hyponatremia Parkinsons Urinary retention Family History Family History Mother HLD (hyperlipidemia) Social History Social History Household Members: None Household Members Other:: fpc Housing: Assisted Living Facility Do you presently have visiting nurse or other home services: Yes Alcohol intake: never Patient Tobacco Use Status: Former Tobacco user Tobacco use type: Cigarette Smoked in Last 30 Days: No e-Cigarette/Vaping Use: Never Used Second Hand Smoke Exposure: No Use of substances other than those prescribed or required for medical reasons: No Advance Directives: Yes Advance Directives Information Provided: Yes Advance Directives on File: No Advance Directives Date on File: 06/14/21 service: No Current occupational status: retired and disabled Sexual orientation: Straight/Heterosexual Physical Exam Vital Signs: Vital Signs: Last Vital Signs Temp 99.1 F 01/23/22 04:50 Pulse 70 01/23/22 04:50 Resp 18 01/23/22 04:50 BP 127/42 L 01/23/22 04:50 Pulse Ox 100 01/23/22 04:50 O2 Del Method 01/23/22 04:50 O2 Flow Rate 2 01/23/22 04:50 BMI result Body Mass Index 28.8 Const: General: cooperative and no acute distress Orientation/consciousness: oriented to person and oriented to place Limitations: no limitations HEENT: Head: Yes normal to inspection, Yes normocephalic and Yes atraumatic Ears: external ears normal General nose exam: Normal external nose present Face and sinus: Yes normal facial exam Mouth: Normal oral and palatal mucosa present Throat: Yes posterior oropharynx normal Eyes: General: appearance normal, both eyes and all related structures Pupils: Equal, round and reactive pupils present Neck: Neck: Yes normal visual inspection, Yes no lymphadenopathy, Yes trachea midline and Yes supple Chest: Chest palpation & inspection: normal inspection of the chest and normal palpation of entire chest wall Resp: Effort & Inspection: normal respiratory effort and able to speak in complete sentences Auscultation: clear to auscultation bilaterally Cardio: Rate: regular rate Rhythm: regular rhythm Heart sounds: S1 normal heart sound present, S2 normal heart sound present and no murmurs GI: Inspection: Yes normal to inspection Palpation (GI): Soft to palpation, nontender and no guarding Auscultation: normal bowel sounds : General: Yes no CVA tenderness Back/Spine/Pelvis: Back: no CVA tenderness Skin: General skin exam: no rashes or lesions noted Neuro: General: oriented to person and oriented to place Cranial nerves: Yes CN's II-XII intact bilaterally and Yes Equal, round and reactive pupils present Cognition (Neuro): normal cognition Motor exam (neuro): 5/5 motor strength present throughout Extrem: Other: Tender right shoulder, limited range of motion secondary to pain, good peripheral pulses a normal sensory exam Psych: Appearance: grossly normal Speech and movement: Normal speech and movement present Affect: normal affect Attitude: cooperative Thought process: Normal thought process present Thought content: Normal thought content present Course Course Course Narrative: 76-year-old female who presents emergency department for evaluation of a fall at her rest own. Patient denied being ill in any way prior to the fall, she stated the room was dark, she was reaching her walker and fell landing on her right shoulder and striking her head. Physical examination did reveal tenderness palpation of the right shoulder otherwise was unremarkable. CT scan of the head and neck was negative. CT scan of the right shoulder revealed a 2 part fracture of the proximal humerus on my review of this film. Patient was placed in a sling. She was also treated with morphine 2 mg IV and Toradol 15 mg IV. 0739: Start physician observation: The patient did get some improvement with the above medications for her pain. The patient uses a walker to ambulate and I am not sure if she is going to be able to go back to her assisted living program with a proximal humerus fracture. Therefore I will get a physical therapy evaluation and case management evaluation. Medications Administered Discontinued Medications Generic Name Dose Route Start Last Admin Trade Name Sejal PRN Reason Stop Dose Admin Ketorolac Tromethamine 15 mg 01/23/22 01:35 01/23/22 01:45 Ketorolac Tromethamine 15 Mg/Ml Vial IVPUSH 01/23/22 01:36 15 mg ONCE STA Administration Morphine Sulfate 2 mg 01/23/22 01:35 01/23/22 01:45 Morphine Sulfate 4 Mg/Ml Cartridge IVPUSH 01/23/22 01:36 2 mg ONCE STA Administration Protocol Discharge Plan Discharge Clinical Impression: Fall Qualifiers: Encounter type: initial encounter Qualified Code(s): W19.XXXA - Unspecified fall, initial encounter Proximal humeral fracture Qualifiers: Encounter type: initial encounter Fracture type: closed Fracture alignment: nondisplaced Laterality: right Patient Disposition: Still a Patient Prescriptions: No Action atorvastatin 40 mg tablet 1 tab PO BEDTIME divalproex 500 mg tablet,delayed release (DR/EC) 1 tab PO BEDTIME trazodone 150 mg tablet 1 tab PO BEDTIME metformin 1,000 mg tablet 1 tab PO BID docusate sodium [DOK] 100 mg Capsule 100 mg PO BID furosemide 20 mg tablet 20 mg PO Q OTHER DAY carbidopa-levodopa 25-100 mg tablet 1 tab PO DAILY@0800,1200,1600 aripiprazole 30 mg tablet 1 tab PO BEDTIME calcium carbonate-vitamin D3 [Calcium 600 + D(3)] 600 mg(1,500mg) -400 unit Tablet 1 tab PO DAILY aspirin 81 mg tablet,chewable 1 tab PO DAILY hydroxyzine HCl 25 mg tablet 1 tab PO DAILY Januvia 100 mg tablet 1 tab PO DAILY cholecalciferol (vitamin D3) 1,250 mcg (50,000 unit) capsule 1 cap PO QMONTH losartan 25 mg tablet 25 mg PO DAILY Qty: 30 0RF citalopram 20 mg tablet 1 tab PO DAILY acetaminophen 325 mg Tablet 650 mg PO Q6H PRN (Reason: Pain) polyethylene glycol 3350 17 gram/dose Powder 17 g PO DAILY cefuroxime axetil 250 mg tablet 250 mg PO BID Qty: 6 0RF doxycycline monohydrate 100 mg capsule 100 mg PO BID Qty: 6 0RF benztropine 0.5 mg tablet 0.25 mg PO BEDTIME Qty: 0 0RF benzonatate 100 mg Capsule 100 mg PO TID PRN (Reason: Cough) Qty: 20 0RF
[2022-01-23] MEDS: Ketorolac Tromethamine 15 MG/ML VIAL IVPUSH (01:45)
[2022-01-23] MEDS: Morphine Sulfate 4 MG/ML CARTRIDGE 2 MG IVPUSH (01:45)
--- NOTE | 2022-01-23 01:45 | PC.NURSE ---
Addendum entered by James Duran 01/23/22 02:32: Pt has painful right shoulder, there is absence of swelling, redness and she is bale to move the arm. pt is asleep. will continue to monitor. Original Note: Pt' s is being changed to hospital gown and assisted with a shoulder sling by the techs. Pt meds has been administered. Pt's BP is elevated, provider is aware. will continue to monitor.
--- NOTE | 2022-01-23 03:25 | PC.NURSE ---
Pt's o2 drop to 82%, pt is on NC 4L. Provider was notified. Pt V/S are stable.
--- NOTE | 2022-01-23 04:03 | PC.NURSE ---
Pt's V/S are stable, O2 has increased, and pt is asleep.
--- NOTE | 2022-01-23 04:51 | PC.NURSE ---
PT's a/o x5, pt was assisted the bed flores. Pt's v/s are stable, and o2 was titrated down to 2L. will continue to monitor.
[2022-01-23] MEDS: Acetaminophen 325 MG TABLET 975 MG PO ×3 (08:29→16:25)
[2022-01-23 10:17] LABS: Influenza A PCR NEGATIVE (Negative); Influenza B PCR NEGATIVE (Negative); Resp Syncy Virus RNA Qual PCR NEGATIVE (Negative); SARS COV2 PCR INHOUSE NEGATIVE (Negative)
--- NOTE | 2022-01-23 10:31 | PHA.MEDREC ---
Pharmacy Consult ? Medication Reconciliation Pharmacy has completed the medication reconciliation.
--- NOTE | 2022-01-23 10:38 | MHC.CM.ED ---
Attempted to meet with patient in regards to discharge planning. Patient currently receiving nursing care. Patient's sister/guardian, Maci is available at bedside. Patient resides at [facility], and ambulates with a walker. Copy of guardianship verified to be on file. PCP verified. Patient received 3 Pfizer vaccines and 1 Moderna. Patient has been to [facility] in the past. Maci does not want her to return there. List of facilities in the area provided from [facility]. [facility] is 1st choice. Referral made via [facility]. Patient has a history of schizophrenia. Patient had an inpatient psych admission in November 2020. Patient will need a [facility] PASRR Level 2. T/W already submitted for Level 2. Continue to monitor for d/c needs.
[2022-01-23] MEDS: Losartan Potassium 50 MG TABLET PO (11:32)
[2022-01-23] MEDS: Carbidopa/Levodopa 25/100 TABLET 1 TAB PO ×2 (11:32→16:25)
[2022-01-23] MEDS: metFORMIN HCl 1,000 MG TABLET 1000 MG PO (11:32)
[2022-01-23] MEDS: hydrOXYzine HCL 25 MG TABLET PO (11:33)
[2022-01-23] MEDS: Docusate Sodium 100 MG CAPSULE PO (11:33)
[2022-01-23] MEDS: Escitalopram Oxalate 10 MG TABLET PO (11:33)
[2022-01-23] MEDS: Aspirin 81 MG TAB.CHEW PO (11:34)
--- NOTE | 2022-01-23 12:00 | PC.NURSE ---
call placed to sister and she will bring citalopram this afternoon
[2022-01-23] MEDS: SITagliptin Phosphate 100 MG TABLET PO (13:43)
--- NOTE | 2022-01-23 16:28 | MHC.CM.ED ---
Pt sister/guardian Maci Santoro arrived at [facility] and tells CM that she will take her sister home to her house. Maci aware that PT is recommending STR, as patient has a fx humerus and cannot use her walker. Maci states she will not sign the intent to admit form.Maci states she visited [facility] and she feels she can care for her sister at her home. States she has 30 days before she has to send her sister back to [facility]. Maci states she already obtained her sisters medications from the [facility] home. Raina JENNINGS aware and will discharge patient to sister's home.
== END 2022-01-23 16:52 | disposition home or self-care (01) ==
PROVIDERS: Nurse Practitioner Family; Emergency Provider Emergency Medicine Emergency Medical Services; PCP Internal Medicine
DX: S42.251A Displaced fracture of greater tuberosity of right humerus, initial encounter for closed fracture (principal); W18.30XA Fall on same level, unspecified, initial encounter; Z20.822 Contact with and (suspected) exposure to COVID-19; E11.9 Type 2 diabetes mellitus without complications; I11.0 Hypertensive heart disease with heart failure; I50.9 Heart failure, unspecified; G20 Parkinson's disease; R29.6 Repeated falls; Z91.81 History of falling; Z87.891 Personal history of nicotine dependence; Y93.9 Activity, unspecified; Y92.122 Bedroom in nursing home as the place of occurrence of the external cause; Y99.9 Unspecified external cause status; Z79.02 Long term (current) use of antithrombotics/antiplatelets; Z79.82 Long term (current) use of aspirin; Z79.899 Other long term (current) drug therapy
CPT/HCPCS: 0241U; 70450; 72125; 73030; 97162; 99284; 99285; J1885; J2270

== ENCOUNTER 2022-02-07 17:05 | Outpatient (REF) | payer MEDICARE, MEDICAID, SELFPAY ==
--- NOTE | ~2022-02-07 | XR_ITS ---
EXAMINATION: XR SHOULDER, RIGHT CLINICAL INFORMATION: Pain COMPARISON: Right shoulder x-rays 01/23/2022 TECHNIQUE: 2 views of the right shoulder. FINDINGS: Again demonstrated is a comminuted fracture of the proximal right humerus. There is been appreciable interval callus formation. There remains mild displacement of the fracture fragments. Humeral head demonstrates acceptable articulation with the glenoid fossa on these 2 views. There are mild to moderate degenerative changes of the acromioclavicular joint. Visualized right-sided ribs and lung parenchyma are unremarkable. XR/XR shoulder RT min 2V IMPRESSION: Healing fracture of the proximal right humerus.
== END 2022-02-07 17:06 | disposition home or self-care (01) ==
LOC: HO.HOSX 17:05
PROVIDERS: Visit Provider Physician Assistant
DX: S42.201A Unspecified fracture of upper end of right humerus, initial encounter for closed fracture (principal)
CPT/HCPCS: 73030; 99202

== ENCOUNTER 2022-03-11 17:04 | Outpatient (REF) | payer MEDICARE, MEDICAID, SELFPAY ==
--- NOTE | ~2022-03-11 | XR_ITS ---
EXAMINATION: XR SHOULDER, RIGHT CLINICAL INFORMATION: Pain. COMPARISON: Radiographs dated 02/07/2022. TECHNIQUE: AP neutral and scapular Y views of the right shoulder are submitted. FINDINGS: A healing fracture is seen of the proximal right humerus. There is good callus formation noted, and fracture lines are less evident than was seen previously. A small avulsion fragment is seen caudal to the lower articular surface of the humeral head. There is subluxation of the glenohumeral joint. No kris dislocation is seen. The acromioclavicular and coracoclavicular intervals are normal. There is mild osteoarthritic change of the acromioclavicular joint. A distal acromial undersurface osteophyte is seen. No soft tissue calcification or foreign body is seen. There is no right pneumothorax. XR/XR shoulder RT min 2V IMPRESSION: There is stable alignment of a healing fracture of the proximal right humerus. Good callus formation is noted, and fracture lines are less well appreciated than was noted previously.
== END 2022-03-11 17:05 | disposition home or self-care (01) ==
LOC: HO.HOSX 17:04
PROVIDERS: Visit Provider Physician Assistant
DX: S42.201A Unspecified fracture of upper end of right humerus, initial encounter for closed fracture (principal)
CPT/HCPCS: 73030; 99212

== ENCOUNTER 2022-04-22 16:03 | Outpatient (REF) | payer MEDICARE, MEDICAID, SELFPAY ==
--- NOTE | ~2022-04-22 | XR_ITS ---
EXAMINATION: XR SHOULDER, RIGHT CLINICAL INFORMATION: Right shoulder pain COMPARISON: 03/11/2022 TECHNIQUE: AP external rotation, Grashey, scapular Y, and axillary views of the right shoulder. FINDINGS: Redemonstration of proximal humeral surgical neck comminuted fracture with surrounding callus formation suggestive of interval healing. No dislocation. Degenerative changes of the acromioclavicular joint. Slice portions of the lung sosa are grossly unremarkable.. XR/XR shoulder RT min 2V IMPRESSION: Redemonstration of proximal humeral surgical neck comminuted fracture with surrounding callus formation suggestive of interval healing.
== END 2022-04-22 16:04 | disposition home or self-care (01) ==
LOC: HO.HOSX 16:03
PROVIDERS: Visit Provider Physician Assistant
DX: S42.201D Unspecified fracture of upper end of right humerus, subsequent encounter for fracture with routine healing (principal); X58.XXXD Exposure to other specified factors, subsequent encounter
CPT/HCPCS: 73030; 99212

== ENCOUNTER 2023-06-14 21:30 | Emergency (ER) | payer MEDICARE, MEDICAID, SELFPAY ==
[2023-06-14 21:43] VITALS: BP 150/90; PULSE 72; O2SAT 95
[2023-06-14 21:44] VITALS: BMI 26.9
[2023-06-14 21:52] VITALS: BP 168/66; PULSE 72; RESP 16; TEMP 37; O2SAT 95
--- NOTE | 2023-06-14 22:56 | ED_ITS ---
HPI - Female Genitourinary General Chief complaint: Urogenital-Female Stated complaint: pain while urinating, itchy vagina for past week Time Seen by Provider: 06/14/23 22:52 Source: patient Mode of arrival: ambulatory Limitations: no limitations History of Present Illness HPI Narrative: Patient diabetic with schizophrenia came from halfway for burning sensation and itching at the vagina which is going on for last 1 week since she had vaginal candidiasis no fever no chills no nausea no vomiting Related Data Home Medications ?Medication ?Instructions ?Recorded ?Confirmed aripiprazole 30 mg tablet 1 tab PO BEDTIME 12/06/20 01/23/22 carbidopa 25 mg-levodopa 100 mg 1 tab PO DAILY@0800,1200,1600 12/06/20 01/23/22 tablet divalproex 500 mg tablet,delayed 1 tab PO BEDTIME 12/06/20 01/23/22 release docusate sodium 100 mg capsule 100 mg PO BID 12/06/20 01/23/22 (DOK) furosemide 20 mg tablet 20 mg PO Q OTHER DAY 12/06/20 01/23/22 metformin 1,000 mg tablet 1 tab PO BID 12/06/20 01/23/22 trazodone 150 mg tablet 1 tab PO BEDTIME 12/06/20 01/23/22 aspirin 81 mg chewable tablet 1 tab PO DAILY 06/09/21 01/23/22 cholecalciferol (vitamin D3) 1,250 1 cap PO QMONTH 06/09/21 01/23/22 mcg (50,000 unit) capsule hydroxyzine HCl 25 mg tablet 1 tab PO DAILY 06/09/21 01/23/22 sitagliptin phosphate 100 mg 1 tab PO DAILY 06/09/21 01/23/22 tablet (Januvia) acetaminophen 325 mg tablet 650 mg PO Q4H PRN Pain 06/14/21 01/23/22 citalopram 20 mg tablet 1 tab PO DAILY 06/14/21 01/23/22 polyethylene glycol 3350 17 17 g PO DAILY 06/14/21 01/23/22 gram/dose oral powder losartan 25 mg tablet 50 mg PO DAILY 01/23/22 01/23/22 atorvastatin 20 mg tablet 20 mg PO DAILY 02/07/22 Previous Rx's ?Medication ?Instructions ?Recorded benztropine 0.5 mg tablet 0.25 mg (1/2 x 0.5 mg) PO BEDTIME 06/16/21 #0 tabs oxycodone 5 mg tablet 5 mg PO Q6H PRN pain #14 tabs 01/23/22 nystatin 100,000 unit/gram topical 1 appl topical BID #15 grams 06/15/23 powder Allergies Allergy/AdvReac Type Severity Reaction Status Date / Time No Known Allergies Allergy Unknown UNKNOWN Verified 06/14/23 22:04 [NO KNOWN ALLERGIES] Review of Systems Review of Systems: Yes all other systems are reviewed and are negative [facility] Past Medical History Medical History Fall Hyponatremia Urinary retention Diabetes mellitus type 2 in obese Hypertension Parkinsons CHF (congestive heart failure) Chronic schizophrenia Family History Family History Mother HLD (hyperlipidemia) Social History Social History Household Members: None Household Members Other:: halfway Housing: Assisted Living Facility Do you presently have visiting nurse or other home services: Yes Alcohol intake: never Patient Tobacco Use Status: Former Tobacco user Tobacco use type: Cigarette e-Cigarette/Vaping Use: Never Used Second Hand Smoke Exposure: No Advance Directives: Yes Advance Directives on File: Yes Advance Directives Date on File: 06/14/21 service: No Current occupational status: retired and disabled Current occupation: rt hand Sexual orientation: Straight/Heterosexual Physical Exam Vital Signs: Vital Signs: Last Vital Signs Temp 97.8 F 06/15/23 05:41 Pulse 58 06/15/23 05:41 Resp 17 06/15/23 05:41 BP 176/62 H 06/15/23 05:41 Pulse Ox 96 06/15/23 05:41 O2 Del Method Room Air 06/15/23 05:41 BMI result Body Mass Index 26.9 Appearance: Alert. Oriented X3. No acute distress. ENT: Pharynx normal. Oral Mucosa moist Neck: Normal inspection. Neck supple. CVS: Normal heart rate and rhythm. Pulses normal. Respiratory: No respiratory distress. Equal air entry bilateral, no wheezing/rales/rhonchi Abdomen: Soft and nontender. Bowel sounds are present, no mass palpable, no CVA tenderness : Slight redness vulvar area no significant discharge Skin: Skin warm and dry. Normal skin color. Normal skin turgor. Extremities: No lower extremity edema. No calf tenderness Neuro: Oriented X 3. Medications Administered Discontinued Medications Generic Name Dose Route Start Last Admin Trade Name Tundeq PRN Reason Stop Dose Admin Fluconazole 150 mg 06/15/23 01:30 06/15/23 01:35 Fluconazole 150 Mg Tablet PO 06/15/23 01:31 150 mg ONCE ONE Administration Medical Decision Making Medical Decision Making [facility] Narrative: Patient with intertrigo/vaginal candidiasis likely the cause for the pain urine is negative for UTI discharge patient to halfway patient was given Diflucan in the ER advised to apply nystatin powder Lab Data [facility] Lab Attestation statement: I reviewed the patient's lab results. Labs: Lab Results 06/15/23 Range/Units 05:01 Urine Color Yellow Urine Appearance Clear Urine pH 7.0 (5.0-9.0) Ur Specific [place] 1.025 (1.005-1.025) Urine Protein Negative (Neg-Trace) mg/dL Urine Glucose (UA) >=1000 H (Negative) mg/dL Urine Ketones Negative (Negative) mg/dL Urine Blood Negative (Negative) Urine Nitrite Negative (Negative) Ur Leukocyte Esterase Negative (Negative) Urine RBC 0-2 (0-2) /HPF Urine WBC 0-5 (0-5) /HPF Ur Squamous Epith Cells 0-2 (0-2) /HPF Urine Bacteria None Seen (None Seen) Hyaline Casts 0-2 (0-2) /LPF Discharge Plan Discharge Clinical Impression: Candidal intertrigo Patient Disposition: Xfer [facility] Transfer Details: Apply nystatin powder twice daily at the affected area patient was given Diflucan 150 mg in the ER urine is negative for UTI Instructions: Skin Yeast Infection (ED) Additional Instructions: Apply nystatin powder twice daily on the affected area Prescriptions: New nystatin 100,000 unit/gram powder 1 appl topical BID Qty: 15 0RF No Action losartan 25 mg tablet 50 mg PO DAILY oxycodone 5 mg tablet 5 mg PO Q6H PRN (Reason: pain) Qty: 14 0RF Rx Instructions: Partial Fill upon patient request. divalproex 500 mg tablet,delayed release (DR/EC) 1 tab PO BEDTIME trazodone 150 mg tablet 1 tab PO BEDTIME metformin 1,000 mg tablet 1 tab PO BID docusate sodium [DOK] 100 mg Capsule 100 mg PO BID furosemide 20 mg tablet 20 mg PO Q OTHER DAY carbidopa-levodopa 25-100 mg tablet 1 tab PO DAILY@0800,1200,1600 aripiprazole 30 mg tablet 1 tab PO BEDTIME aspirin 81 mg tablet,chewable 1 tab PO DAILY hydroxyzine HCl 25 mg tablet 1 tab PO DAILY Januvia 100 mg tablet 1 tab PO DAILY cholecalciferol (vitamin D3) 1,250 mcg (50,000 unit) capsule 1 cap PO QMONTH citalopram 20 mg tablet 1 tab PO DAILY acetaminophen 325 mg Tablet 650 mg PO Q4H PRN (Reason: Pain) polyethylene glycol 3350 17 gram/dose Powder 17 g PO DAILY benztropine 0.5 mg tablet 0.25 mg PO BEDTIME Qty: 0 0RF atorvastatin 20 mg tablet 20 mg PO DAILY Print Language: Greek
[2023-06-15] MEDS: Fluconazole 150 MG TABLET PO (01:35)
[2023-06-15 03:02] VITALS: BP 172/68; PULSE 59; RESP 17; TEMP 36.6; O2SAT 95
[2023-06-15 05:07] LABS: Appearance Urine Clear; Color Urine Yellow; Glucose Urine UA >=1000 mg/dL (Negative); Leukocyte Esterase Urine Negative (Negative); Nitrite Urine Negative (Negative); Specific Gravity - Urine 1.025 (1.005-1.025); UMIC TRIGGER UACC YES; Urine Blood Negative (Negative); Urine Ketones Negative (Negative); Urine Protein Negative (Neg-Trace)
[2023-06-15 05:09] LABS: Bacteria Urine None Seen (None Seen); Hyaline Casts Urine 0-2 /LPF (0-2); RBC Urine 0-2 /HPF (0-2); Squamous Epithelial Cell Urine 0-2 /HPF (0-2); WBC Urine 0-5 /HPF (0-5)
[2023-06-15 05:41] VITALS: BP 176/62; PULSE 58; RESP 17; TEMP 36.6; O2SAT 96
== END 2023-06-15 07:20 | disposition skilled nursing facility (03) ==
PROVIDERS: Physician Assistant Medical; Emergency Provider Internal Medicine
DX: B37.2 Candidiasis of skin and nail (principal); E11.9 Type 2 diabetes mellitus without complications; R78.5 Finding of other psychotropic drug in blood; I10 Essential (primary) hypertension; G20.A1 Parkinson's disease without dyskinesia, without mention of fluctuations
CPT/HCPCS: 81001; 99283; 99284

== ENCOUNTER 2023-08-03 14:07 | Emergency (ER) | payer MEDICARE, MEDICAID, SELFPAY ==
[2023-08-03 14:09] VITALS: BP 138/78; PULSE 88; O2SAT 94
[2023-08-03 14:28] VITALS: BP 139/57; PULSE 86; RESP 17; TEMP 36.8; O2SAT 94; BMI 28.3
--- NOTE | 2023-08-03 14:32 | PC.NURSE ---
Reports boil/ abscess to left butt cheek for past few days worsening, pain to area 7/10. No hx of this happening before. Denies fevers, cough, SOB, CP or other symptoms. Reports she tried to put heat on it and it made it worse. Alert and oriented, breathing even and unlabored, VSS. Area assessed, redness and swelling noted to area, ?abscess
--- NOTE | 2023-08-03 14:43 | ED_ITS ---
HPI - General Adult General Chief complaint: Skin/Abscess/Foreign Body Stated complaint: BOIL ON BUTTOCK FROM SNF PER EMS Time Seen by Provider: 08/03/23 14:38 Source: patient and EMS Mode of arrival: EMS Limitations: no limitations History of Present Illness ED Provider: Daniella Reed PA-C HPI narrative: Patient is a 78 year old assigned female at with a history of DM, schizophrenia, CHF, and parkinsons presenting to the emergency department today with a left buttock wound. Patient states that over the last 4 days she has had a left buttock wound that is getting worse. Patient denies any dizziness, lightheadedness, abdominal pain, nausea, vomiting, fever, chills, blurry vision, double vision, loss of vision, chest pain, difficulty breathing, shortness of breath, back pain, night sweats, pain with urination, increased urinary frequency, increased urinary urgency, blood in her urine or stool, syncope or a near syncopal episode, recent trauma or falls, bowel incontinence, bladder incontinence, or any other complaints at this time. Onset (ago): day(s) (4) Location: buttocks and left Radiation: non-radiation Severity: mild Severity scale (1-10): 3 Quality: aching and dull Pain Consistency: constant Relieving factors: none Exacerbating factors: none Associated symptoms: denies other symptoms Treatments prior to arrival: none Related Data Home Medications ?Medication ?Instructions ?Recorded ?Confirmed aripiprazole 30 mg tablet 1 tab PO BEDTIME 12/06/20 01/23/22 carbidopa 25 mg-levodopa 100 mg 1 tab PO DAILY@0800,1200,1600 12/06/20 01/23/22 tablet divalproex 500 mg tablet,delayed 1 tab PO BEDTIME 12/06/20 01/23/22 release docusate sodium 100 mg capsule 100 mg PO BID 12/06/20 01/23/22 (DOK) furosemide 20 mg tablet 20 mg PO Q OTHER DAY 12/06/20 01/23/22 metformin 1,000 mg tablet 1 tab PO BID 12/06/20 01/23/22 trazodone 150 mg tablet 1 tab PO BEDTIME 12/06/20 01/23/22 aspirin 81 mg chewable tablet 1 tab PO DAILY 06/09/21 01/23/22 cholecalciferol (vitamin D3) 1,250 1 cap PO QMONTH 06/09/21 01/23/22 mcg (50,000 unit) capsule hydroxyzine HCl 25 mg tablet 1 tab PO DAILY 06/09/21 01/23/22 sitagliptin phosphate 100 mg 1 tab PO DAILY 06/09/21 01/23/22 tablet (Januvia) acetaminophen 325 mg tablet 650 mg PO Q4H PRN Pain 06/14/21 01/23/22 citalopram 20 mg tablet 1 tab PO DAILY 06/14/21 01/23/22 polyethylene glycol 3350 17 17 g PO DAILY 06/14/21 01/23/22 gram/dose oral powder losartan 25 mg tablet 50 mg PO DAILY 01/23/22 01/23/22 atorvastatin 20 mg tablet 20 mg PO DAILY 02/07/22 Previous Rx's ?Medication ?Instructions ?Recorded benztropine 0.5 mg tablet 0.25 mg (1/2 x 0.5 mg) PO BEDTIME 06/16/21 #0 tabs oxycodone 5 mg tablet 5 mg PO Q6H PRN pain #14 tabs 01/23/22 nystatin 100,000 unit/gram topical 1 appl topical BID #15 grams 06/15/23 powder cephalexin 500 mg capsule 500 mg PO Q6H 7 days #28 caps 08/03/23 doxycycline hyclate 100 mg tablet 100 mg PO BID 7 days #14 tabs 08/03/23 Allergies Allergy/AdvReac Type Severity Reaction Status Date / Time bee pollen [bee stings] Allergy Hives Verified 08/03/23 14:29 Review of Systems 2 Constitutional: Constitutional: Reports no additional constitutional complaints, Denies chills, Denies fever(s) and Denies night sweats Eyes: Eyes: Reports no additional eye complaints, Denies blurry vision, Denies change in vision, Denies diplopia, Denies eye discharge, Denies loss of vision and Denies eye pain ENT: Denies dizziness Cardiovascular: Cardiovascular: Reports no additional cardiovascular complaints, Denies chest pain, Denies lightheadedness, Denies Loss of Consciousness and Denies dyspnea Respiratory: Respiratory: Reports no additional respiratory complaints and Denies dyspnea Gastrointestinal: Gastrointestinal: Reports no additional gastrointestinal complaints, Denies abdominal pain, Denies melena, Denies hematochezia, Denies change in bowel habits and Denies change in stool character Genitourinary: Genitourinary: Denies hematuria, Denies urinary frequency, Denies dysuria, Denies urinary incontinence, Denies urinary hesitancy and Denies urinary urgency Musculoskeletal: Musculoskeletal: Reports no additional musculoskeletal complaints, Denies numbness and Denies tingling Integumentary/Breasts: Comments: left buttock wound Neurologic: Denies dizziness, Denies loss of vision, Denies numbness and Denies tingling Psychiatric: Psychiatric: Reports no additional psychiatric complaints Endocrine: Endocrine: Reports no additional endocrine complaints Hematologic/Lymphatic: Hematologic/Lymphatic: Reports no additional hematologic/lymphatic complaints Allergic/Immunologic: Allergic/Immunologic: Reports no additional allergic/immunologic complaints PMFSH Past Medical History Attestation statement: The following information was validated with the patient. Source: old records reviewed and nursing notes reviewed Medical History Fall Hyponatremia Urinary retention Diabetes mellitus type 2 in obese Hypertension Parkinsons CHF (congestive heart failure) Chronic schizophrenia Family History Family History Mother HLD (hyperlipidemia) Social History Social History Household Members: None Household Members Other:: half-way Housing: Assisted Living Facility Do you presently have visiting nurse or other home services: Yes Alcohol intake: never Patient Tobacco Use Status: Former Tobacco user Tobacco use type: Cigarette Smoked in Last 30 Days: No e-Cigarette/Vaping Use: Never Used Second Hand Smoke Exposure: No Use of substances other than those prescribed or required for medical reasons: No Advance Directives: Yes Advance Directives on File: Yes Advance Directives Date on File: 06/14/21 service: No Current occupational status: retired and disabled Current occupation: rt hand Sexual orientation: Straight/Heterosexual Physical Exam ED Vital Signs: Vital Signs - 24 hr 08/03/23 14:28 Temperature 98.3 F Pulse Rate 86 Respiratory Rate 17 Blood Pressure 139/57 L Pulse Oximetry 94 Oxygen Delivery Method Room Air BMI result Body Mass Index 28.3 Const General: cooperative, no acute distress, alert and awake Nutritional Appearance: well nourished Orientation/consciousness: patient oriented x3 Limitations: no limitations HENMT Head: Yes normal to inspection and Yes atraumatic Ears: hearing grossly normal bilaterally and external ears normal General nose exam: Normal external nose present, no nasal discharge noted and no epistaxis Face and sinus: Yes normal facial exam, No abrasion and No laceration Mouth: Normal oral and palatal mucosa present, no drooling and no muffled voice Eyes General: appearance normal, both eyes and all related structures Periorbital: periorbital findings normal Eyelids: Yes eyelids normal Conjunctivae: conjunctivae normal Pupils: Equal, round and reactive pupils present EOM: EOMs intact bilaterally Neck Neck: Yes normal visual inspection, Yes full ROM and Yes no lymphadenopathy Chest Chest palpation & inspection: normal inspection of the chest Resp Effort & Inspection: normal respiratory effort and able to speak in complete sentences GI Inspection: Yes normal to inspection Skin Full body images: 2 1. raised, warm, indurated area with minimal fluctuance felt in the center Neuro General: patient oriented x3 and moves all extremities Cranial nerves: Yes Equal, round and reactive pupils present Cognition (Neuro): normal cognition Motor exam (neuro): 5/5 motor strength present throughout Sensory Exam: Normal double simultaneous stimulation for sensation Coordination: [id number] test normal Extrem General: Yes normal to inspection, Yes full ROM and Yes capillary refill normal Psych Appearance: grossly normal Mental Status: mental status grossly normal Affect: normal affect Attitude: cooperative Thought process: Normal thought process present Thought content: Normal thought content present Insight: Good insight present (Psych) Medications Administered Discontinued Medications Generic Name Dose Route Start Last Admin Trade Name Tundeq PRN Reason Stop Dose Admin Lidocaine HCl 10 ml 08/03/23 15:02 08/03/23 15:48 Lidocaine Hcl 1 % Mpf 5 Ml Vial SUBCUT 08/03/23 15:03 10 ml ONCE ONE Administration Procedures Abscess I/D Site: other (buttock) Side (if applicable): left Local Anesthetic: lidocaine 1% Amount of anesthesia used (mL): 4 Technique: incised with blade Sent for culture/gram staining?: No Irrigation: No Packing used?: none Medical Decision Making Medical Decision Making MDM Narrative: Patient is an 78 year old assigned female at with a history of CHF, schizophrenia, DM, and parkinsons presenting to the emergency department today with a left buttock wound. Patient's physical exam showed an area on the left buttock that was raised, indurated, warm, erythematous, and had a small area of fluctuance in the center of the wound. I explained my physical exam findings to the patient. I answered all questions asked by the patient. I performed an incision and drainage to the area on the left buttock. Unfortunately, no purulent discharge was present, just blood. I stressed the importance of the patient taking her medication as prescribed. I stressed the importance of the patient following up with her primary care provider. I stressed the importance of the patient returning to the emergency department immediately if her symptoms were to worsen or if she were to develop any dizziness, shortness of breath, difficulty breathing, chest pain, blurry vision, loss of vision, nausea, vomiting, abdominal pain, fever, chills, back pain, or any other complaints. Patient verbalized agreement and understanding with this treatment plan and discharge. Differential Diagnosis Differential Diagnoses: The differential diagnosis associated with the presentation includes Abscess Cellulitis Admission/Observation Consideration of admission/observation: Escalation of care including admission/observation considered Patient would have been admitted to the hospital had clinical presentation warranted hospital admission. Independent Historian Clinical information obtained from an independent historian. History obtained from or confirmed by: EMS (EMS provided additional history and confirmed the history provided by the patient.) Prescription Management I considered prescription management with: Antibiotic (patient prescribed antibiotics for left buttock cellulitis) Chronic Conditions Patient?s care impacted by: Diabetes Discharge Plan Discharge Clinical Impression: Cellulitis Patient Disposition: Home, Self-Care Instructions: Cellulitis (DC) Additional Instructions: Follow up with your primary care provider and a general surgeon. Return to the emergency department immediately if your symptoms worsen or if you develop any dizziness, shortness of breath, difficulty breathing, chest pain, blurry vision, loss of vision, nausea, vomiting, abdominal pain, fever, chills, back pain, or any other complaints. Prescriptions: New cephalexin 500 mg capsule 500 mg PO Q6H 7 Days Qty: 28 0RF doxycycline hyclate 100 mg tablet 100 mg PO BID 7 Days Qty: 14 0RF No Action losartan 25 mg tablet 50 mg PO DAILY oxycodone 5 mg tablet 5 mg PO Q6H PRN (Reason: pain) Qty: 14 0RF Rx Instructions: Partial Fill upon patient request. divalproex 500 mg tablet,delayed release (DR/EC) 1 tab PO BEDTIME trazodone 150 mg tablet 1 tab PO BEDTIME metformin 1,000 mg tablet 1 tab PO BID docusate sodium [DOK] 100 mg Capsule 100 mg PO BID furosemide 20 mg tablet 20 mg PO Q OTHER DAY carbidopa-levodopa 25-100 mg tablet 1 tab PO DAILY@0800,1200,1600 aripiprazole 30 mg tablet 1 tab PO BEDTIME aspirin 81 mg tablet,chewable 1 tab PO DAILY hydroxyzine HCl 25 mg tablet 1 tab PO DAILY Januvia 100 mg tablet 1 tab PO DAILY cholecalciferol (vitamin D3) 1,250 mcg (50,000 unit) capsule 1 cap PO QMONTH citalopram 20 mg tablet 1 tab PO DAILY acetaminophen 325 mg Tablet 650 mg PO Q4H PRN (Reason: Pain) polyethylene glycol 3350 17 gram/dose Powder 17 g PO DAILY benztropine 0.5 mg tablet 0.25 mg PO BEDTIME Qty: 0 0RF nystatin 100,000 unit/gram powder 1 appl topical BID Qty: 15 0RF atorvastatin 20 mg tablet 20 mg PO DAILY Referrals: [facility] [place] [Provider Group] (Call to establish and follow up with a general surgeon for your left buttock wound that made need to be incised and drained. ) [facility] [place] [facility] [place] (Call to establish and follow up with a primary care provider. If you already have a primary care provider, please follow up with them.) [facility] [place] [facility] [place] [facility] [place] [facility] [place] Group] Print Language: Czech
[2023-08-03] MEDS: Lidocaine HCl 1 % MPF 5 ML VIAL 10 ML SUBCUT (15:48)
[2023-08-03 16:08] VITALS: BP 141/58; PULSE 85; RESP 16; TEMP 37.1; O2SAT 97
[2023-08-03] MEDS: oxyCODONE HCl Immed Release 5 MG TABLET PO (16:09)
[2023-08-03] MEDS: cephALEXin 500 MG CAPSULE PO (16:09)
[2023-08-03] MEDS: Doxycycline Monohydrate 100 MG CAPSULE PO (16:09)
[2023-08-03 16:13] VITALS: BP 141/58; PULSE 85; RESP 16; TEMP 37.1; O2SAT 97
== END 2023-08-03 16:37 | disposition home or self-care (01) ==
PROVIDERS: Emergency Provider Emergency Medicine
DX: L03.317 Cellulitis of buttock (principal)
CPT/HCPCS: 10060; 99284

== ENCOUNTER 2023-08-03 22:13 | Emergency (ER) | payer MEDICARE, MEDICAID, SELFPAY ==
--- NOTE | ~2023-08-03 | XR_ITS ---
EXAMINATION: XR ELBOW, RIGHT CLINICAL INFORMATION: Injury. Pain. COMPARISON: None available. TECHNIQUE: AP, lateral, and oblique views of the right elbow. FINDINGS: The bones and soft tissues are normal. No fracture or joint effusion. Alignment is anatomic. Joint spaces are maintained. XR/XR elbow RT min 3V IMPRESSION: No significant abnormality identified.
--- NOTE | ~2023-08-03 | CT_ITS ---
EXAMINATION: CT HEAD WITHOUT CONTRAST CT CERVICAL SPINE WITHOUT CONTRAST CLINICAL INFORMATION: Fall. Head strike. COMPARISON: 01/22/2022 TECHNIQUE: Contiguous axial imaging was performed through the head and cervical spine without intravenous administration of contrast. Sagittal and coronal reformatted images also obtained. This CT examination was performed using dose optimization techniques as appropriate, variously including the following: *Automated exposure control *Adjustment of mA and/or kV according to patient size (this includes techniques or standardized protocols for targeted exams where dose is matched to indication/reason for exam; i.e. extremities or head) *Use of iterative reconstruction technique DLP: 880 mGy-cm FINDINGS: There is cerebral volume loss with prominence of the lateral and the third ventricles. The cortical sulci are widened appropriately. The fourth ventricle and basal cisterns are normally outlined. There is moderate bilateral periventricular and central white matter diminished attenuation. There is no acute territorial defect, hemorrhage or midline shift. The extra-axial spaces are unremarkable. Calvarium/scalp: Intact. Maxillofacial sinuses and mastoids: Clear as visualized. Cervical spine: There is diffuse mild cervical disc degenerative change with loss of disc space, endplate change and anterior as well as mild posterior osteophytes associated with mild diffuse facet osteoarthritic hypertrophic change without significant spinal canal or neuroforaminal narrowing. The bony structures are osteopenic. No fracture is seen. There is a 1.3 cm low-density left thyroid nodule. The visualized upper lung sosa are clear. CT/CT cervical spine wo IV con IMPRESSION: 1. No acute intracranial process seen. 2. Moderate cerebral volume loss with chronic small vessel ischemic changes. 3. There is no acute fracture, dislocation or subluxation cervical spine. There are degenerative disc changes and facet joint arthropathy throughout cervical spine.
--- NOTE | ~2023-08-03 | XR_ITS ---
EXAMINATION: XR SHOULDER, RIGHT CLINICAL INFORMATION: Pain. COMPARISON: None available. TECHNIQUE: AP and lateral views of the right shoulder. FINDINGS: The bony structures are heterogeneous/osteopenic. There is no dislocation. There is no fracture. The soft tissues are unremarkable. XR/XR shoulder RT min 2V IMPRESSION: The bony structures are heterogeneous/osteopenic. No fracture or dislocation.
[2023-08-03 22:23] VITALS: BP 113/53; BP 138/58; PULSE 85; PULSE 90; RESP 14; TEMP 37.1; O2SAT 90; O2SAT 94; BMI 27.3
--- NOTE | 2023-08-03 22:33 | ED.GENADULT ---
HPI - General Adult General Chief complaint: Fall Stated complaint: mechanical fall Time Seen by Provider: 08/03/23 22:33 Source: patient and EMS Mode of arrival: EMS Limitations: no limitations History of Present Illness ED Provider: Daniella Reed PA-C HPI narrative: Patient is an 78 year old assigned female at with a history of DM, schizophrenia, CHF, and parkinsons presenting to the emergency department today after a trip and fall. Patient states that she was walking with her walker when she tripped and fell, now has right arm and shoulder pain. Patient denies any dizziness, lightheadedness, abdominal pain, nausea, vomiting, fever, chills, blurry vision, double vision, loss of vision, chest pain, difficulty breathing, shortness of breath, back pain, night sweats, pain with urination, increased urinary frequency, increased urinary urgency, blood in her urine or stool, syncope or a near syncopal episode, bowel incontinence, bladder incontinence, or any other complaints at this time. Onset (ago): minute(s) Location: right and upper extremity Severity: mild Severity scale (1-10): 3 Relieving factors: none Exacerbating factors: none Associated symptoms: denies other symptoms Treatments prior to arrival: none Related Data Home Medications ?Medication ?Instructions ?Recorded ?Confirmed aripiprazole 30 mg tablet 1 tab PO BEDTIME 12/06/20 01/23/22 carbidopa 25 mg-levodopa 100 mg 1 tab PO DAILY@0800,1200,1600 12/06/20 01/23/22 tablet divalproex 500 mg tablet,delayed 1 tab PO BEDTIME 12/06/20 01/23/22 release docusate sodium 100 mg capsule 100 mg PO BID 12/06/20 01/23/22 (DOK) furosemide 20 mg tablet 20 mg PO Q OTHER DAY 12/06/20 01/23/22 metformin 1,000 mg tablet 1 tab PO BID 12/06/20 01/23/22 trazodone 150 mg tablet 1 tab PO BEDTIME 12/06/20 01/23/22 aspirin 81 mg chewable tablet 1 tab PO DAILY 06/09/21 01/23/22 cholecalciferol (vitamin D3) 1,250 1 cap PO QMONTH 06/09/21 01/23/22 mcg (50,000 unit) capsule hydroxyzine HCl 25 mg tablet 1 tab PO DAILY 06/09/21 01/23/22 sitagliptin phosphate 100 mg 1 tab PO DAILY 06/09/21 01/23/22 tablet (Januvia) acetaminophen 325 mg tablet 650 mg PO Q4H PRN Pain 06/14/21 01/23/22 citalopram 20 mg tablet 1 tab PO DAILY 06/14/21 01/23/22 polyethylene glycol 3350 17 17 g PO DAILY 06/14/21 01/23/22 gram/dose oral powder losartan 25 mg tablet 50 mg PO DAILY 01/23/22 01/23/22 atorvastatin 20 mg tablet 20 mg PO DAILY 02/07/22 Previous Rx's ?Medication ?Instructions ?Recorded benztropine 0.5 mg tablet 0.25 mg (1/2 x 0.5 mg) PO BEDTIME 06/16/21 #0 tabs oxycodone 5 mg tablet 5 mg PO Q6H PRN pain #14 tabs 01/23/22 nystatin 100,000 unit/gram topical 1 appl topical BID #15 grams 06/15/23 powder cephalexin 500 mg capsule 500 mg PO Q6H 7 days #28 caps 08/03/23 doxycycline hyclate 100 mg tablet 100 mg PO BID 7 days #14 tabs 08/03/23 Allergies Allergy/AdvReac Type Severity Reaction Status Date / Time bee pollen [bee stings] Allergy Hives Verified 08/03/23 22:23 Review of Systems Constitutional: Constitutional: Reports no additional constitutional complaints, Denies chills, Denies fever(s) and Denies night sweats Eyes: Eyes: Reports no additional eye complaints, Denies blurry vision, Denies change in vision, Denies diplopia, Denies eye discharge, Denies loss of vision and Denies eye pain ENT: Denies dizziness Cardiovascular: Cardiovascular: Reports no additional cardiovascular complaints, Denies chest pain, Denies lightheadedness, Denies Loss of Consciousness and Denies dyspnea Respiratory: Respiratory: Reports no additional respiratory complaints and Denies dyspnea Gastrointestinal: Gastrointestinal: Reports no additional gastrointestinal complaints, Denies abdominal pain, Denies melena, Denies hematochezia, Denies change in bowel habits and Denies change in stool character Genitourinary: Genitourinary: Denies hematuria, Denies urinary frequency, Denies dysuria, Denies urinary incontinence, Denies urinary hesitancy and Denies urinary urgency Musculoskeletal: Musculoskeletal: Reports no additional musculoskeletal complaints, Denies numbness and Denies tingling Comments: right upper extremity pain Neurologic: Denies dizziness, Denies loss of vision, Denies numbness and Denies tingling Psychiatric: Psychiatric: Reports no additional psychiatric complaints Endocrine: Endocrine: Reports no additional endocrine complaints Hematologic/Lymphatic: Hematologic/Lymphatic: Reports no additional hematologic/lymphatic complaints Allergic/Immunologic: Allergic/Immunologic: Reports no additional allergic/immunologic complaints PMFSH Past Medical History Attestation statement: The following information was validated with the patient. Source: old records reviewed and nursing notes reviewed Medical History Fall Hyponatremia Urinary retention Diabetes mellitus type 2 in obese Hypertension Parkinsons CHF (congestive heart failure) Chronic schizophrenia Family History Family History Mother HLD (hyperlipidemia) Social History Social History Household Members: None Household Members Other:: longterm Housing: Assisted Living Facility Do you presently have visiting nurse or other home services: Yes Alcohol intake: former Patient Tobacco Use Status: Former Tobacco user Tobacco use type: Cigarette Smoked in Last 30 Days: No e-Cigarette/Vaping Use: Never Used Second Hand Smoke Exposure: No Use of substances other than those prescribed or required for medical reasons: No Advance Directives: Yes Advance Directives on File: Yes Advance Directives Date on File: 06/14/21 Do you have a plan to hurt others: No Plan service: No Current occupational status: retired and disabled Current occupation: rt hand Sexual orientation: Straight/Heterosexual Physical Exam ED Vital Signs: Vital Signs - 24 hr 08/03/23 22:23 Temperature 98.7 F Pulse Rate 85 Respiratory Rate 14 Blood Pressure 113/53 L Pulse Oximetry 90 L Oxygen Delivery Method Room Air BMI result Body Mass Index 27.3 Const General: cooperative, no acute distress, alert and awake Nutritional Appearance: well nourished Orientation/consciousness: patient oriented x3 Limitations: no limitations HENMT Head: Yes normal to inspection and Yes atraumatic Ears: hearing grossly normal bilaterally and external ears normal General nose exam: Normal external nose present, no nasal discharge noted and no epistaxis Face and sinus: Yes normal facial exam, No abrasion and No laceration Mouth: Normal oral and palatal mucosa present, no drooling and no muffled voice Eyes General: appearance normal, both eyes and all related structures Periorbital: periorbital findings normal Eyelids: Yes eyelids normal Conjunctivae: conjunctivae normal Pupils: Equal, round and reactive pupils present EOM: EOMs intact bilaterally Neck Neck: Yes normal visual inspection, Yes full ROM and Yes no lymphadenopathy Chest Chest palpation & inspection: normal inspection of the chest Resp Effort & Inspection: normal respiratory effort and able to speak in complete sentences GI Inspection: Yes normal to inspection Neuro General: patient oriented x3 and moves all extremities Cranial nerves: Yes Equal, round and reactive pupils present Cognition (Neuro): normal cognition Motor exam (neuro): 5/5 motor strength present throughout Sensory Exam: Normal double simultaneous stimulation for sensation Coordination: [id number] test normal Extrem General: Yes normal to inspection, Yes full ROM and Yes capillary refill normal Psych Appearance: grossly normal Mental Status: mental status grossly normal Affect: normal affect Attitude: cooperative Thought process: Normal thought process present Thought content: Normal thought content present Insight: Good insight present (Psych) Medical Decision Making Medical Decision Making MDM Narrative: Patient is an 78 year old assigned female at with a history of CHF, DM, and parkinsons presenting to the emergency department today with left upper arm pain after a trip and fall. Patient's physical exam was unremarkable. Patient's left shoulder and elbow x-rays showed no acute process. Patient's head and c-spine CTs showed no acute process. I explained my physical exam findings as well as all test results to the patient. I answered all questions asked by the patient. I stressed the importance of the patient taking her medication as prescribed. I stressed the importance of the patient following up with her primary care provider. I stressed the importance of the patient returning to the emergency department immediately if her symptoms were to worsen or if she were to develop any dizziness, shortness of breath, difficulty breathing, chest pain, blurry vision, loss of vision, nausea, vomiting, abdominal pain, fever, chills, back pain, or any other complaints. Patient verbalized agreement and understanding with this treatment plan and discharge. Differential Diagnosis Differential Diagnoses: The differential diagnosis associated with the presentation includes Fall Upper arm injury Admission/Observation Consideration of admission/observation: Escalation of care including admission/observation considered Patient would have been admitted to the hospital had her work up had any findings where hospital admission was appropriate and her clinical presentation warranted hospital admission. Independent Interpretation I performed an independent interpretation of an: Plain X-Ray and CT Scan Interpretation: My interpretation is in agreement with the radiologist's impression of these imaging studies. EXAMINATION: XR SHOULDER, RIGHT CLINICAL INFORMATION: Pain. COMPARISON: None available. TECHNIQUE: AP and lateral views of the right shoulder. FINDINGS: The bony structures are heterogeneous/osteopenic. There is no dislocation. There is no fracture. The soft tissues are unremarkable. XR/XR shoulder RT min 2V IMPRESSION: The bony structures are heterogeneous/osteopenic. No fracture or dislocation. Dictated By: Truong Aguilar Signed By: Electronically signed by Truong Aguilar 08/04/23 0108 EXAMINATION: XR ELBOW, RIGHT CLINICAL INFORMATION: Injury. Pain. COMPARISON: None available. TECHNIQUE: AP, lateral, and oblique views of the right elbow. FINDINGS: The bones and soft tissues are normal. No fracture or joint effusion. Alignment is anatomic. Joint spaces are maintained. XR/XR elbow RT min 3V IMPRESSION: No significant abnormality identified. Dictated By: Truong Aguilar Signed By: Electronically signed by Truong Aguilar 08/04/23 0128 EXAMINATION: CT HEAD WITHOUT CONTRAST CT CERVICAL SPINE WITHOUT CONTRAST CLINICAL INFORMATION: Fall. Head strike. COMPARISON: 01/22/2022 TECHNIQUE: Contiguous axial imaging was performed through the head and cervical spine without intravenous administration of contrast. Sagittal and coronal reformatted images also obtained. This CT examination was performed using dose optimization techniques as appropriate, variously including the following: *Automated exposure control *Adjustment of mA and/or kV according to patient size (this includes techniques or standardized protocols for targeted exams where dose is matched to indication/reason for exam; i.e. extremities or head) *Use of iterative reconstruction technique DLP: 880 mGy-cm FINDINGS: There is cerebral volume loss with prominence of the lateral and the third ventricles. The cortical sulci are widened appropriately. The fourth ventricle and basal cisterns are normally outlined. There is moderate bilateral periventricular and central white matter diminished attenuation. There is no acute territorial defect, hemorrhage or midline shift. The extra-axial spaces are unremarkable. Calvarium/scalp: Intact. Maxillofacial sinuses and mastoids: Clear as visualized. Cervical spine: There is diffuse mild cervical disc degenerative change with loss of disc space, endplate change and anterior as well as mild posterior osteophytes associated with mild diffuse facet osteoarthritic hypertrophic change without significant spinal canal or neuroforaminal narrowing. The bony structures are osteopenic. No fracture is seen. There is a 1.3 cm low-density left thyroid nodule. The visualized upper lung sosa are clear. CT/CT head/brain wo IV con IMPRESSION: 1. No acute intracranial process seen. 2. Moderate cerebral volume loss with chronic small vessel ischemic changes. 3. There is no acute fracture, dislocation or subluxation cervical spine. There are degenerative disc changes and facet joint arthropathy throughout cervical spine. Dictated By: Truong Aguilar Signed By: Electronically signed by Truong Aguilar 08/04/23 0031 Radiology Impression Discussion of test interpretation with radiology: I have reviewed the radiologist's reading. Independent Historian Clinical information obtained from an independent historian. History obtained from or confirmed by: EMS (EMS provided additional history and confirmed the history provided by the patient.) Discharge Plan Discharge Clinical Impression: Fall Patient Disposition: Home, Self-Care Instructions: Fall Prevention for Older Adults (ED) Additional Instructions: Follow up with your primary care provider. Return to the emergency department immediately if your symptoms worsen or if you develop any dizziness, shortness of breath, difficulty breathing, chest pain, blurry vision, loss of vision, nausea, vomiting, abdominal pain, fever, chills, back pain, or any other complaints. Prescriptions: No Action losartan 25 mg tablet 50 mg PO DAILY oxycodone 5 mg tablet 5 mg PO Q6H PRN (Reason: pain) Qty: 14 0RF Rx Instructions: Partial Fill upon patient request. divalproex 500 mg tablet,delayed release (DR/EC) 1 tab PO BEDTIME trazodone 150 mg tablet 1 tab PO BEDTIME metformin 1,000 mg tablet 1 tab PO BID docusate sodium [DOK] 100 mg Capsule 100 mg PO BID furosemide 20 mg tablet 20 mg PO Q OTHER DAY carbidopa-levodopa 25-100 mg tablet 1 tab PO DAILY@0800,1200,1600 aripiprazole 30 mg tablet 1 tab PO BEDTIME aspirin 81 mg tablet,chewable 1 tab PO DAILY hydroxyzine HCl 25 mg tablet 1 tab PO DAILY Januvia 100 mg tablet 1 tab PO DAILY cholecalciferol (vitamin D3) 1,250 mcg (50,000 unit) capsule 1 cap PO QMONTH citalopram 20 mg tablet 1 tab PO DAILY acetaminophen 325 mg Tablet 650 mg PO Q4H PRN (Reason: Pain) polyethylene glycol 3350 17 gram/dose Powder 17 g PO DAILY benztropine 0.5 mg tablet 0.25 mg PO BEDTIME Qty: 0 0RF nystatin 100,000 unit/gram powder 1 appl topical BID Qty: 15 0RF cephalexin 500 mg capsule 500 mg PO Q6H 7 Days Qty: 28 0RF doxycycline hyclate 100 mg tablet 100 mg PO BID 7 Days Qty: 14 0RF atorvastatin 20 mg tablet 20 mg PO DAILY Referrals: [facility] [place] Family Medicine [Provider Group] (Call to establish and follow up with a primary care provider. If you already have a primary care provider, please follow up with them.) [facility] [place] [facility] [Provider Group] [facility] [Provider Group] Print Language: Gabonese
[2023-08-04 02:05] VITALS: BP 115/42; PULSE 70; RESP 20; TEMP 36.6; O2SAT 92
[2023-08-04 03:43] VITALS: BP 112/60; PULSE 89; RESP 16; TEMP 36.6; O2SAT 94
== END 2023-08-04 03:46 | disposition home or self-care (01) ==
PROVIDERS: Emergency Provider Internal Medicine
DX: M25.511 Pain in right shoulder (principal); M79.631 Pain in right forearm; Z91.81 History of falling; E11.9 Type 2 diabetes mellitus without complications; I11.0 Hypertensive heart disease with heart failure; I50.9 Heart failure, unspecified; G20.A1 Parkinson's disease without dyskinesia, without mention of fluctuations
CPT/HCPCS: 70450; 72125; 73030; 73080; 99284

== ENCOUNTER 2023-08-20 16:32 | Emergency (ER) | payer MEDICARE, MEDICAID, SELFPAY ==
--- NOTE | ~2023-08-20 | XR_ITS ---
EXAMINATION: XR KNEE, LEFT CLINICAL INFORMATION: Atraumatic pain COMPARISON: None available. TECHNIQUE: Four views of the left knee. FINDINGS: No significant joint effusion. Chronic prominent degenerative changes more so in the medial compartment with more subchondral sclerosis. Chondrocalcinosis is seen. No acute fracture or dislocation. No bony destructive lesions or periosteal reaction. XR/XR knee LT 4V IMPRESSION: Chronic prominent degenerative changes more so in the medial compartment. No acute fracture or dislocation.
[2023-08-20 16:40] VITALS: BP 176/92; PULSE 77; O2SAT 95
[2023-08-20 16:41] VITALS: BP 120/54; PULSE 75; RESP 19; TEMP 36.6; O2SAT 93; BMI 27.2
--- NOTE | 2023-08-20 16:46 | ED.EXTPRO ---
HPI - Extremity Problem General Chief complaint: Extremity Injury, Lower Stated complaint: l leg pain x 3 days, unable to walk d/t pain Time Seen by Provider: 08/20/23 16:41 Source: patient Mode of arrival: ambulatory Limitations: no limitations History of Present Illness ED Provider: william JALLOH Narrative: [facility] has [facility] Complaining of left knee pain and left leg for last 3 - 4 days feeds Shreyas horse cramps no trauma no fall no significant swelling of the leg no shortness a breath Related Data Home Medications ?Medication ?Instructions ?Recorded ?Confirmed aripiprazole 30 mg tablet 1 tab PO BEDTIME 12/06/20 01/23/22 carbidopa 25 mg-levodopa 100 mg 1 tab PO DAILY@0800,1200,1600 12/06/20 01/23/22 tablet divalproex 500 mg tablet,delayed 1 tab PO BEDTIME 12/06/20 01/23/22 release docusate sodium 100 mg capsule 100 mg PO BID 12/06/20 01/23/22 (DOK) furosemide 20 mg tablet 20 mg PO Q OTHER DAY 12/06/20 01/23/22 metformin 1,000 mg tablet 1 tab PO BID 12/06/20 01/23/22 trazodone 150 mg tablet 1 tab PO BEDTIME 12/06/20 01/23/22 aspirin 81 mg chewable tablet 1 tab PO DAILY 06/09/21 01/23/22 cholecalciferol (vitamin D3) 1,250 1 cap PO QMONTH 06/09/21 01/23/22 mcg (50,000 unit) capsule hydroxyzine HCl 25 mg tablet 1 tab PO DAILY 06/09/21 01/23/22 sitagliptin phosphate 100 mg 1 tab PO DAILY 06/09/21 01/23/22 tablet (Januvia) acetaminophen 325 mg tablet 650 mg PO Q4H PRN Pain 06/14/21 01/23/22 citalopram 20 mg tablet 1 tab PO DAILY 06/14/21 01/23/22 polyethylene glycol 3350 17 17 g PO DAILY 06/14/21 01/23/22 gram/dose oral powder losartan 25 mg tablet 50 mg PO DAILY 01/23/22 01/23/22 atorvastatin 20 mg tablet 20 mg PO DAILY 02/07/22 Previous Rx's ?Medication ?Instructions ?Recorded benztropine 0.5 mg tablet 0.25 mg (1/2 x 0.5 mg) PO BEDTIME 06/16/21 #0 tabs oxycodone 5 mg tablet 5 mg PO Q6H PRN pain #14 tabs 01/23/22 nystatin 100,000 unit/gram topical 1 appl topical BID #15 grams 06/15/23 powder cephalexin 500 mg capsule 500 mg PO Q6H 7 days #28 caps 08/03/23 doxycycline hyclate 100 mg tablet 100 mg PO BID 7 days #14 tabs 08/03/23 Allergies Allergy/AdvReac Type Severity Reaction Status Date / Time bee pollen [bee stings] Allergy Hives Verified 08/20/23 16:43 Review of Systems Review of Systems: Yes all other systems are reviewed and are negative [facility] Past Medical History Medical History Fall Hyponatremia Urinary retention Diabetes mellitus type 2 in obese Hypertension Parkinsons CHF (congestive heart failure) Chronic schizophrenia Family History Family History Mother HLD (hyperlipidemia) Social History Social History Household Members: None Household Members Other:: penitentiary Housing: Assisted Living Facility Do you presently have visiting nurse or other home services: Yes Alcohol intake: former Patient Tobacco Use Status: Former Tobacco user Tobacco use type: Cigarette e-Cigarette/Vaping Use: Never Used Second Hand Smoke Exposure: No Advance Directives: Yes Advance Directives on File: Yes Advance Directives Date on File: 06/14/21 service: No Current occupational status: retired and disabled Current occupation: rt hand Sexual orientation: Straight/Heterosexual Physical Exam Vital Signs: Vital Signs: Last Vital Signs Temp 97.8 F 08/20/23 20:38 Pulse 60 08/20/23 20:38 Resp 16 08/20/23 20:38 BP 169/67 H 08/20/23 20:38 Pulse Ox 97 08/20/23 20:38 O2 Del Method Room Air 08/20/23 20:38 BMI result Body Mass Index 27.2 Appearance: Alert. Oriented X3. No acute distress. Eyes: No pallor or icterus ENT: Pharynx normal. Oral Mucosa moist Neck: Normal inspection. Neck supple. CVS: Normal heart rate and rhythm. Pulses normal. Respiratory: No respiratory distress. Equal air entry bilateral, Abdomen: Soft and nontender. Bowel sounds are present, no mass palpable, no CVA tenderness Skin: Skin warm and dry. Normal skin color. Normal skin turgor. Extremities: No lower extremity edema. No calf tenderness left knee small amount of fusion with diffuse tenderness Neuro: Oriented X 3. No motor deficit. Medical Decision Making Medical Decision Making [facility] Narrative: Left knee x-ray negative for fracture, Zak wrap was applied Lab Data [facility] Lab Attestation statement: I reviewed the patient's lab results. 08/20/23 18:20 08/20/23 18:20 Labs: Lab Results 08/20/23 Range/Units 18:20 WBC 8.8 (4.8-10.8) X10*3/uL RBC 3.82 L (4.20-5.50) X10*6/uL Hgb 11.9 L (12.0-16.0) g/dl Hct 35.9 L (37.0-47.0) % MCV 94.0 (80.0-98.0) fL MCH 31.2 (27.0-33.0) pg MCHC 33.1 (31.0-35.0) g/dl RDW 11.9 (11.0-16.0) % Plt Count TNP MPV TNP Immature Gran % (Auto) 0.5 H (0.0-0.4) % Neut % (Auto) 65.2 (45-73) % Lymph % (Auto) 22.2 (20-40) % [place] % (Auto) 8.5 (2-11) % Eos % (Auto) 3.1 (0-4) % Baso % (Auto) 0.5 (0-2) % Lymph # (Auto) 2.0 (1.2-4.9) X10*3/uL [place] # (Auto) 0.8 (0.1-1.2) X10*3/uL Eos # (Auto) 0.3 (0.0-0.4) X10*3/uL Baso # (Auto) 0.0 (0.0-0.2) X10*3/uL Abs Immat Gran (auto) 0.04 H (0.00-0.03) X10*3/uL Absolute Neuts (auto) 5.8 (2.0-8.3) x10*3/uL Absolute Nucleated RBC 0.000 (0.0-0.012) X10*3/uL Nucleated RBC % (auto) 0.0 (0.0-0.2) /100WBC D-Dimer High Sensitivty < 150 NG/ML Sodium 141 (135-145) mmol/L Potassium 4.4 (3.3-5.1) mmol/L Chloride 105 (96-108) mmol/L Carbon Dioxide 26 (22-29) mmol/L Anion Gap 14 (12-20) BUN 27 H (9-16) mg/dL Creatinine 0.74 (0.5-1.4) mg/dL Estim Creat Clear Calc 58.9 Estimated GFR > 60 Random Glucose 147 H (60-115) mg/dL Calcium 9.4 (8.4-10.2) mg/dL Total Bilirubin 0.2 (0.0-1.0) mg/dL AST 13 (5-31) U/L ALT 6 (0-31) U/L Alkaline Phosphatase 75 (39-117) U/L Total Protein 6.7 (6.5-8.0) g/dL Albumin 3.5 (3.5-5.0) g/dL Independent Interpretation I performed an independent interpretation of an: Plain X-Ray Interpretation: negative Radiology Impression Discussion of test interpretation with radiology: I have reviewed the radiologist's reading. Discharge Plan Discharge Clinical Impression: Arthritis of knee, left Patient Disposition: Xfer SNF Transfer Details: X-ray of the left knee negative for fracture, shows severe arthritis, use Zak wrap for support Tylenol for pain Instructions: Osteoarthritis (ED) Additional Instructions: Wear Zak wrap for support Tylenol/motrin for pain Prescriptions: No Action losartan 25 mg tablet 50 mg PO DAILY oxycodone 5 mg tablet 5 mg PO Q6H PRN (Reason: pain) Qty: 14 0RF Rx Instructions: Partial Fill upon patient request. divalproex 500 mg tablet,delayed release (DR/EC) 1 tab PO BEDTIME trazodone 150 mg tablet 1 tab PO BEDTIME metformin 1,000 mg tablet 1 tab PO BID docusate sodium [DOK] 100 mg Capsule 100 mg PO BID furosemide 20 mg tablet 20 mg PO Q OTHER DAY carbidopa-levodopa 25-100 mg tablet 1 tab PO DAILY@0800,1200,1600 aripiprazole 30 mg tablet 1 tab PO BEDTIME aspirin 81 mg tablet,chewable 1 tab PO DAILY hydroxyzine HCl 25 mg tablet 1 tab PO DAILY Januvia 100 mg tablet 1 tab PO DAILY cholecalciferol (vitamin D3) 1,250 mcg (50,000 unit) capsule 1 cap PO QMONTH citalopram 20 mg tablet 1 tab PO DAILY acetaminophen 325 mg Tablet 650 mg PO Q4H PRN (Reason: Pain) polyethylene glycol 3350 17 gram/dose Powder 17 g PO DAILY benztropine 0.5 mg tablet 0.25 mg PO BEDTIME Qty: 0 0RF nystatin 100,000 unit/gram powder 1 appl topical BID Qty: 15 0RF cephalexin 500 mg capsule 500 mg PO Q6H 7 Days Qty: 28 0RF doxycycline hyclate 100 mg tablet 100 mg PO BID 7 Days Qty: 14 0RF atorvastatin 20 mg tablet 20 mg PO DAILY Interventions: ED Discharge Assessment Last Done: 08/20/23 20:38 Discharge Date/Time: 08/20/23 21:47 Print Language: Kiswahili
[2023-08-20 18:16] VITALS: BP 137/65; PULSE 65; RESP 16; TEMP 36.6; O2SAT 97
--- NOTE | 2023-08-20 18:22 | MHC.EDTECH ---
PATIENT BLOOD DRAWN AND SENT TO LAB .
[2023-08-20 18:26] LABS: MANUAL DIFF FLAG NO
[2023-08-20 18:28] LABS: Basophils Percent Auto 0.5 % (0-2); Eosinophils Absolute Auto 0.3 X10*3/uL (0.0-0.4); Eosinophils Percent Auto 3.1 % (0-4); Hematocrit 35.9 % (37.0-47.0); Hemoglobin 11.9 g/dl (12.0-16.0); Imm Gran Abs Auto 0.04 X10*3/uL (0.00-0.03); Imm Gran Pct Auto 0.5 % (0.0-0.4); Lymphocytes Percent Auto 22.2 % (20-40); Mean Corpuscular HGB Conc 33.1 g/dl (31.0-35.0); Mean Corpuscular Hemoglobin 31.2 pg (27.0-33.0); Monocytes Absolute Auto 0.8 X10*3/uL (0.1-1.2); Monocytes Percent Auto 8.5 % (2-11); Neutrophils Absolute Auto 5.8 x10*3/uL (2.0-8.3); Neutrophils Percent Auto 65.2 % (45-73); Red Blood Count 3.82 X10*6/uL (4.20-5.50); Red Cell Distribution Width 11.9 % (11.0-16.0); White Blood Count 8.8 X10*3/uL (4.8-10.8)
[2023-08-20 18:36] LABS: D Dimer High Sensitivity < 150 NG/ML
[2023-08-20 18:42] LABS: Alanine Aminotransferase 6 U/L (0-31); Albumin Level 3.5 g/dL (3.5-5.0); Alkaline Phosphatase 75 U/L (39-117); Anion Gap 14 (12-20); Aspartate Amino Transferase 13 U/L (5-31); Bilirubin Total 0.2 mg/dL (0.0-1.0); Blood Urea Nitrogen 27 mg/dL (9-16); Calcium 9.4 mg/dL (8.4-10.2); Carbon Dioxide 26 mmol/L (22-29); Chloride 105 mmol/L (96-108); Creatinine Clr Calc Pharmacy 58.9; Estimated Glomerular Filt Rate > 60; Glucose Random 147 mg/dL (60-115); Potassium 4.4 mmol/L (3.3-5.1); Sodium 141 mmol/L (135-145); Total Protein 6.7 g/dL (6.5-8.0)
[2023-08-20 19:49] VITALS: BP 187/73; PULSE 63; RESP 18; TEMP 36.9; O2SAT 96
[2023-08-20 20:28] VITALS: BP 169/67; PULSE 60; RESP 16; TEMP 36.6; O2SAT 97
[2023-08-20 20:38] VITALS: BP 169/67; PULSE 60; RESP 16; TEMP 36.6; O2SAT 97
== END 2023-08-20 21:47 | disposition skilled nursing facility (03) ==
PROVIDERS: Emergency Provider Internal Medicine
DX: M17.12 Unilateral primary osteoarthritis, left knee (principal); M25.562 Pain in left knee; M79.605 Pain in left leg; Z79.899 Other long term (current) drug therapy
CPT/HCPCS: 36415; 73564; 80053; 85025; 85379; 99283; 99284

== ENCOUNTER 2023-11-14 20:56 | Emergency (ER) | payer MEDICARE, MEDICAID, SELFPAY ==
[2023-11-14 21:06] VITALS: BP 132/64; PULSE 76; O2SAT 96
[2023-11-14 21:21] VITALS: BP 138/56; PULSE 72; RESP 16; TEMP 36.8; O2SAT 92
[2023-11-14 21:25] VITALS: BMI 28.0
--- NOTE | 2023-11-14 23:29 | ED.FEMALEGU ---
HPI - Female Genitourinary General Chief complaint: Urogenital-Female Stated complaint: ITCHINESS IN GENITAL AREA Time Seen by Provider: 11/14/23 23:23 Source: patient and EMS Mode of arrival: EMS Limitations: no limitations History of Present Illness ED Provider: Dr. Kelsie Albarran HPI Narrative: Patient comes to the emergency room via ambulance from a fpc facility. Patient states that she has been complaining of dysuria and a yeast infection in the genital area for several days. Patient states the vaginal labia are very itchy. Patient denies using antibiotics lately Related Data Home Medications ?Medication ?Instructions ?Recorded ?Confirmed aripiprazole 30 mg tablet 1 tab PO BEDTIME 12/06/20 01/23/22 carbidopa 25 mg-levodopa 100 mg 1 tab PO DAILY@0800,1200,1600 12/06/20 01/23/22 tablet divalproex 500 mg tablet,delayed 1 tab PO BEDTIME 12/06/20 01/23/22 release docusate sodium 100 mg capsule 100 mg PO BID 12/06/20 01/23/22 (DOK) furosemide 20 mg tablet 20 mg PO Q OTHER DAY 12/06/20 01/23/22 metformin 1,000 mg tablet 1 tab PO BID 12/06/20 01/23/22 trazodone 150 mg tablet 1 tab PO BEDTIME 12/06/20 01/23/22 aspirin 81 mg chewable tablet 1 tab PO DAILY 06/09/21 01/23/22 cholecalciferol (vitamin D3) 1,250 1 cap PO QMONTH 06/09/21 01/23/22 mcg (50,000 unit) capsule hydroxyzine HCl 25 mg tablet 1 tab PO DAILY 06/09/21 01/23/22 sitagliptin phosphate 100 mg 1 tab PO DAILY 06/09/21 01/23/22 tablet (Januvia) acetaminophen 325 mg tablet 650 mg PO Q4H PRN Pain 06/14/21 01/23/22 citalopram 20 mg tablet 1 tab PO DAILY 06/14/21 01/23/22 polyethylene glycol 3350 17 17 g PO DAILY 06/14/21 01/23/22 gram/dose oral powder losartan 25 mg tablet 50 mg PO DAILY 01/23/22 01/23/22 atorvastatin 20 mg tablet 20 mg PO DAILY 02/07/22 Previous Rx's ?Medication ?Instructions ?Recorded benztropine 0.5 mg tablet 0.25 mg (1/2 x 0.5 mg) PO BEDTIME 06/16/21 #0 tabs oxycodone 5 mg tablet 5 mg PO Q6H PRN pain #14 tabs 01/23/22 nystatin 100,000 unit/gram topical 1 appl topical BID #15 grams 06/15/23 powder cephalexin 500 mg capsule 500 mg PO Q6H 7 days #28 caps 08/03/23 doxycycline hyclate 100 mg tablet 100 mg PO BID 7 days #14 tabs 08/03/23 cefuroxime axetil 250 mg tablet 250 mg PO BID #13 tabs 11/15/23 miconazole nitrate 2 % topical 1 appl topical BID #28 grams 11/15/23 cream (Antifungal (miconazole)) Allergies Allergy/AdvReac Type Severity Reaction Status Date / Time bee pollen [bee stings] Allergy Hives Verified 11/14/23 21:28 Review of Systems Review of Systems: Constitutional : No Weight loss, No Fever, No Chills, No Night Sweats, No Fatigue, No Malaise ENT/Mouth : No Hearing loss, No Ear Pain, No Nasal Congestion, No Sinus Pain, No Hoarseness, No sore throat, No Rhinorrhea, No Swallowing Difficulty Eyes: No Eye Pain, No Swelling, No Redness, No Foreign Body, No Discharge, No Vision Changes Cardiovascular : No Chest Pain, No SOB, No Dyspnea on Exertion, No Orthopnea, No Edema, No Palpitations Respiratory : No Cough, No Sputum, No Wheezing, No Smoke Exposure, No Dyspnea Gastrointestinal : No Nausea, No Vomiting, No Diarrhea, No Constipation, No abdominal Pain, No Hematochezia, No Melena Genitourinary complaining of vaginal itching, complaining of Dysuria, No Urinary Frequency, No Hematuria, No Urinary Incontinence, No Urgency, No Flank Pain, No Urinary Flow Changes, No Hesitancy Musculoskeletal : No joint pain, No Myalgias, No Joint Swelling Skin : No Skin Lesions, No rash Neuro : No Weakness, No Numbness, No Paresthesias, No Loss of Consciousness, No Dizziness, No Headache Psych : No Anxiety/Panic, No Depression, No SI/HI/AH/VH, No Social Issues, Heme/Lymph: No Bruising, No Bleeding,No Lymphadenopathy Endocrine : No Polyuria, No Polydipsia, No Temperature Intolerance [facility] Past Medical History Medical History Fall Hyponatremia Urinary retention Diabetes mellitus type 2 in obese Hypertension Parkinsons CHF (congestive heart failure) Chronic schizophrenia Family History Family History Mother HLD (hyperlipidemia) Social History Social History Household Members: None Household Members Other:: penitentiary Housing: Assisted Living Facility Do you presently have visiting nurse or other home services: Yes Alcohol intake: former Patient Tobacco Use Status: Former Tobacco user Tobacco use type: Cigarette e-Cigarette/Vaping Use: Never Used Second Hand Smoke Exposure: No Advance Directives: Yes Advance Directives on File: Yes Advance Directives Date on File: 06/14/21 service: No Current occupational status: retired and disabled Current occupation: rt hand Sexual orientation: Straight/Heterosexual Physical Exam Vital Signs: Vital Signs: Last Vital Signs Temp 98.0 F 11/15/23 01:33 Pulse 71 11/15/23 01:33 Resp 18 11/15/23 01:33 BP 153/68 H 11/15/23 01:33 Pulse Ox 98 11/15/23 01:33 O2 Del Method Room Air 11/15/23 01:33 BMI result Body Mass Index 28.0 Const: Other: Appearance: Alert. Oriented X3. No acute distress. Eyes: Pupils equal, round and reactive to light. ENT: Pharynx normal. Neck: Normal inspection. Neck supple. No lymph nodes noted. No crepitus CVS: Normal heart rate and rhythm. Pulses normal. Normal S1 and S2 Respiratory: No respiratory distress. Breath sounds normal. No Wheezing. No rales Abdomen: Soft and nontender. No rigidity. No distention. : Patient has candidiasis Skin: Skin warm and dry. Normal skin color. Normal skin turgor. Extremities: No lower extremity edema. No Lacerations. No Rash Neuro: Oriented X 3. No motor deficit. No sensory deficit. Moving all extremities. No slurred speech. CN 2 through 12 grossly intact Psych: calm, cooperative, normal affect Medications Administered Discontinued Medications Generic Name Dose Route Start Last Admin Trade Name Freq PRN Reason Stop Dose Admin Fluconazole 100 mg 10/05/24 01:41 11/15/23 02:25 Fluconazole 100 Mg Tablet PO 11/15/23 01:42 100 mg ONCE ONE Administration Medical Decision Making Medical Decision Making [facility] Narrative: My interpretation of labs: Patient has a UTI. Patient being given the 1st dose of antibiotics. -also, patient was given Diflucan -patient coming from a [facility] facility, feels comfortable returning. Differential Diagnosis Differential Diagnoses: The differential diagnosis associated with the presentation includes (Vaginal candidiasis, UTI) Lab Data [facility] Lab Attestation statement: I reviewed the patient's lab results. Labs: Lab Results 11/15/23 Range/Units 03:21 Urine Color Yellow Urine Appearance Cloudy Urine pH 6.5 (5.0-9.0) Ur Specific [place] >= 1.030 H (1.005-1.025) Urine Protein Negative (Neg-Trace) mg/dL Urine Glucose (UA) >=1000 H (Negative) mg/dL Urine Ketones 15 (Negative) mg/dL Urine Blood Negative (Negative) Urine Nitrite Negative (Negative) Ur Leukocyte Esterase Moderate (2+) H (Negative) Urine RBC 0-2 (0-2) /HPF Urine WBC >50 H (0-5) /HPF Ur Squamous Epith Cells >20 (0-2) /HPF Urine Bacteria 3+ (None Seen) Hyaline Casts 0-2 (0-2) /LPF Discharge Plan Discharge Clinical Impression: Acute UTI, Candidiasis of vagina Patient Disposition: Home, Self-Care Instructions: Urinary Tract Infection in Women (ED), Yeast Infection (ED) Additional Instructions: Please follow-up with your primary care physician tomorrow. If you have any worsening or new symptoms, please return to the emergency room or call 911 Prescriptions: New miconazole nitrate [Antifungal (miconazole)] 2 % cream 1 appl topical BID Qty: 28 0RF cefuroxime axetil 250 mg tablet 250 mg PO BID Qty: 13 0RF No Action losartan 25 mg tablet 50 mg PO DAILY oxycodone 5 mg tablet 5 mg PO Q6H PRN (Reason: pain) Qty: 14 0RF Rx Instructions: Partial Fill upon patient request. divalproex 500 mg tablet,delayed release (DR/EC) 1 tab PO BEDTIME trazodone 150 mg tablet 1 tab PO BEDTIME metformin 1,000 mg tablet 1 tab PO BID docusate sodium [DOK] 100 mg Capsule 100 mg PO BID furosemide 20 mg tablet 20 mg PO Q OTHER DAY carbidopa-levodopa 25-100 mg tablet 1 tab PO DAILY@0800,1200,1600 aripiprazole 30 mg tablet 1 tab PO BEDTIME aspirin 81 mg tablet,chewable 1 tab PO DAILY hydroxyzine HCl 25 mg tablet 1 tab PO DAILY Januvia 100 mg tablet 1 tab PO DAILY cholecalciferol (vitamin D3) 1,250 mcg (50,000 unit) capsule 1 cap PO QMONTH citalopram 20 mg tablet 1 tab PO DAILY acetaminophen 325 mg Tablet 650 mg PO Q4H PRN (Reason: Pain) polyethylene glycol 3350 17 gram/dose Powder 17 g PO DAILY benztropine 0.5 mg tablet 0.25 mg PO BEDTIME Qty: 0 0RF nystatin 100,000 unit/gram powder 1 appl topical BID Qty: 15 0RF cephalexin 500 mg capsule 500 mg PO Q6H 7 Days Qty: 28 0RF doxycycline hyclate 100 mg tablet 100 mg PO BID 7 Days Qty: 14 0RF atorvastatin 20 mg tablet 20 mg PO DAILY Print Language: Ukrainian
[2023-11-15 01:33] VITALS: BP 153/68; PULSE 71; RESP 18; TEMP 36.7; O2SAT 98
[2023-11-15] MEDS: Fluconazole 100 MG TABLET PO (02:25)
[2023-11-15 03:27] LABS: Appearance Urine Cloudy; Color Urine Yellow; Glucose Urine UA >=1000 mg/dL (Negative); Leukocyte Esterase Urine Moderate (2+) (Negative); Nitrite Urine Negative (Negative); PH 6.5 (5.0-9.0); Specific Gravity - Urine >= 1.030 (1.005-1.025); UMIC TRIGGER UACC YES; Urine Blood Negative (Negative); Urine Ketones 15 mg/dL (Negative); Urine Protein Negative (Neg-Trace)
[2023-11-15 03:32] LABS: Bacteria Urine 3+ (None Seen); Hyaline Casts Urine 0-2 /LPF (0-2); RBC Urine 0-2 /HPF (0-2); Squamous Epithelial Cell Urine >20 /HPF (0-2); UACC Culture Trigger YES; WBC Urine >50 /HPF (0-5)
[2023-11-15 04:43] VITALS: BP 167/65; PULSE 67; RESP 18; TEMP 36.5; O2SAT 97
[2023-11-15] MEDS: cefuroxime axetiL 250 MG TABLET PO (05:27)
[2023-11-15 05:38] VITALS: BP 167/65; PULSE 67; RESP 18; TEMP 36.5; O2SAT 97
== END 2023-11-15 05:39 | disposition home or self-care (01) ==
PROVIDERS: Emergency Provider Emergency Medicine
DX: N39.0 Urinary tract infection, site not specified (principal); B37.31 Acute candidiasis of vulva and vagina; R30.0 Dysuria; E11.9 Type 2 diabetes mellitus without complications; I10 Essential (primary) hypertension; Z79.84 Long term (current) use of oral hypoglycemic drugs; Z79.899 Other long term (current) drug therapy
CPT/HCPCS: 81001; 87086; 99283; 99284

== ENCOUNTER 2023-11-20 03:10 | Emergency (ER) | payer MEDICARE, MEDICAID, SELFPAY ==
[2023-11-20] VITALS (9 sets, daily range): BP systolic 116–170; BP diastolic 55–80; PULSE 74–110; RESP 16–20; TEMP -17.7–37.8; O2SAT 92–99; BMI 27.7
--- NOTE | ~2023-11-20 | XR_ITS ---
EXAMINATION: XR CHEST CLINICAL INFORMATION: Fall. COMPARISON: Most recent chest Dated 06/14/2021. TECHNIQUE: Frontal view of the chest was obtained. FINDINGS: No airspace consolidation. No pleural effusion or pneumothorax. Stable cardiac mediastinal silhouette. Redemonstration of a healed proximal right humeral fracture. XR/XR chest 1V IMPRESSION: No acute cardiopulmonary findings. Electronically signed by: Darci Shin MD 11/20/2023 10:26 AM EDT
--- NOTE | ~2023-11-20 | CT_ITS ---
EXAMINATION: CT HEAD WITHOUT CONTRAST CT CERVICAL SPINE WITHOUT CONTRAST CLINICAL INFORMATION: Fall. Head strike. COMPARISON: Multiple priors, most recent CT brain and cervical spine dated 08/03/2023. TECHNIQUE: Contiguous axial imaging was performed from the skull base to vertex without intravenous administration of contrast. Contiguous axial CT images of the cervical spine were obtained without contrast. Sagittal and coronal reformats were provided and reviewed. This CT examination was performed using dose optimization techniques as appropriate, variously including the following: *Automated exposure control *Adjustment of mA and/or kV according to patient size (this includes techniques or standardized protocols for targeted exams where dose is matched to indication/reason for exam; i.e. extremities or head) *Use of iterative reconstruction technique DLP: 995 mGy-cm FINDINGS: HEAD: There is no evidence of acute intracranial hemorrhage or territorial infarction. No abnormal mass effect or midline shift is seen. Mendoza to white matter differentiation is well preserved. No extra-axial fluid collections are identified. Evidence of the ventricles and sulci as well as hypoattenuation of the periventricular white matter is unchanged. The osseous structures and soft tissues are normal. The mastoid air cells and visualized portions of the paranasal sinuses are well aerated. CERVICAL SPINE: Normal vertebral body alignment. The normal cervical lordosis is maintained. No acute fracture or subluxation. No loss of vertebral body height. Minimal multilevel loss of intervertebral disc height. Degenerative endplate changes and osteophytes. Minimal bilateral facet arthropathy. No lytic or blastic osseous lesion. Unremarkable prevertebral soft tissues. No abnormal soft tissue mass or fluid collection. Left thyroid hypodense nodule measuring 1.2 cm, unchanged with a small central calcification. Findings are unchanged when compared to the CT dated 01/23/2022. Findings are not clinically significant and no follow-up imaging is recommended. Visualized lung apices are clear. No significant central canal or neural foraminal stenosis. CT/CT cervical spine wo IV con IMPRESSION: HEAD: No acute intracranial hemorrhage or mass effect. Mild chronic microvascular ischemic disease, unchanged. CERVICAL SPINE: No acute fracture or subluxation. Mild multilevel degenerative disc disease and bilateral facet arthropathy. Electronically signed by: Darci Shin MD 11/20/2023 09:54 AM EDT
--- OUTSIDE RECORDS SUMMARY | 2023-11-20 03:52 | XMS_ITS | Continuity of Care Document ---
Author Organization [facility] Address [address] [place] [address]- Care Team Providers Care Oracle Identity Management Consultant Name Role Phone Carlos Hansen MD Primary Care Physician Encounter 12/16/22 - 01/07/23 [facility] [address] [place] [phone]- Discharge Disposition: GOALS MET Allergies, Adverse Reactions, Alerts No Known Allergies Immunizations Given and Recorded Vaccine Date Status Refusal Reason influenza virus vaccine, inactivated 12/12/22 Give n influenza virus vaccine, inactivated 11/06/22 Alexis rded influenza virus vaccine, inactivated 11/25/20 Alexis rded influenza virus vaccine, inactivated 11/21/19 Alexis rded influenza virus vaccine, inactivated 11/14/17 Alexis rded influenza virus vaccine, inactivated 11/02/16 Alexis rded influenza virus vaccine, inactivated 11/24/15 Alexis rded influenza virus vaccine, inactivated 1 03/28/05 Gi jerel SARS-CoV-2(COVID-19)mRNA-LNP vac([id number]) 12/09/22 Recorded SARS-CoV-2 (COVID-19) mRNA-1273 vaccine 06/13/21 R ecorded SARS-CoV-2 (COVID-19) mRNA BNT-162b2 vac 12/13/20 Recorded SARS-CoV-2 (COVID-19) mRNA BNT-162b2 vac 03/30/20 Recorded SARS-CoV-2 (COVID-19) mRNA BNT-162b2 vac 03/09/20 Recorded Pneumococcal Vaccine (oldterm) 2 03/28/05 Given 1Result Comment: [id number], exp-03/29/05 2Result Comment: lot -[id number], exp-07/09/06 Medications Abilify 30 mg oral tablet 1 tablet = 30 mg, By Mouth, Daily at bedtime, Maintenance, 12/10/22 10:21:00 EDT, Partial fill uponpatient request if the prescription is for a schedule II opioid drug. Start Date: 12/10/22 Status: Ordered acetaminophen 325 mg oral tablet 650 mg, 2, tablet, By Mouth, Every 4 hours, PRN, Refills 0, Maintenance, as needed for fever/pain, 12/10/22 10:22:00 EDT, Partial fill upon patient request if the prescription is for a schedule II opioid drug. Start Date: 12/10/22 Status: Ordered aspirin 81 mg oral tablet 1 tablet = 81 mg, By Mouth, Daily, Maintenance, 12/10/22 10:18:00 EDT, Tablet, Partial fill upon patient request if the prescription is for a schedule II opioid drug. Start Date: 12/10/22 Status: Ordered atorvastatin 20 mg oral tablet 1 tablet = 20 mg, By Mouth, Daily, Maintenance, 12/10/22 10:21:00 EDT, Partial fill upon patient request if the prescription is for a schedule II opioid drug. Start Date: 12/10/22 Status: Ordered benztropine 0.5 mg oral tablet 0.5 mg, 1, tablet, By Mouth, 2 times a day, Maintenance, 12/12/22 12:17:00 EDT, Partial fill upon patient request if the prescription is for a schedule II opioid drug. Start Date: 12/12/22 Status: Ordered calcium-vitamin D 600 mg-400 intl units oral tablet 1 tablet, By Mouth, Daily, Maintenance, 12/10/22 10:19:00 EDT, Partial fill upon patient request ifthe prescription is for a schedule II opioid drug. Start Date: 12/10/22 Status: Ordered citalopram 20 mg oral tablet 20 mg, 1, tablet, By Mouth, Daily, Maintenance, 12/10/22 10:19:00 EDT, Partial fill upon patient request if the prescription is for a schedule II opioid drug. Start Date: 12/10/22 Status: Ordered cyanocobalamin 1000 mcg oral tablet 1,000 mcg, 1, tablet, By Mouth, Daily, Maintenance, 12/10/22 10:20:00 EDT, Partial fill upon patient request if the prescription is for a schedule II opioid drug. Start Date: 12/10/22 Status: Ordered Depakote ER 500 mg oral tablet, extended release 1 tablet = 500 mg, By Mouth, Daily at bedtime, Maintenance, 12/10/22 10:21:00 EDT, Partial fill upon patient request if the prescription is for a schedule II opioid drug. Start Date: 12/10/22 Status: Ordered docusate sodium 100 mg oral capsule 1 capsule = 100 mg, By Mouth, 2 times a day, Maintenance, 12/10/22 10:20:00 EDT, Partial fill upon patient request if the prescription is for a schedule II opioid drug. Start Date: 12/10/22 Status: Ordered furosemide 20 mg oral tablet 20 mg, 1, tablet, By Mouth, Daily, Maintenance, 12/10/22 10:19:00 EDT, Partial fill upon patient request if the prescription is for a schedule II opioid drug. Start Date: 12/10/22 Status: Ordered losartan 100 mg oral tablet 1 tablet = 100 mg, By Mouth, Daily, Maintenance, 12/10/22 10:19:00 EDT, Partial fill upon patient request if the prescription is for a schedule II opioid drug. Start Date: 12/10/22 Status: Ordered Lubricant Eye Drops ophthalmic solution 1 drops, Eyes, Both, 4 times a day, PRN for dry eyes, up to 6 times a day, Maintenance, 12/12/22 12:28:00 EDT, Solution, Partial fill upon patient request if the prescription is for a schedule II opioid drug. Start Date: 12/12/22 Status: Ordered metFORMIN 1000 mg oral tablet 1 tablet = 1,000 mg, By Mouth, 2 times a day, Maintenance, 12/10/22 10:20:00 EDT, Partial fill uponpatient request if the prescription is for a schedule II opioid drug. Start Date: 12/10/22 Status: Ordered Milk of Magnesia 8% oral suspension 30 mL = 2.4 Gm, By Mouth, Daily, PRN for constipation, Maintenance, 12/12/22 12:26:00 EDT, Suspension, Partial fill upon patient request if the prescription is for a schedule II opioid drug. Start Date: 12/12/22 Status: Ordered Mintox 30 mL, By Mouth, Every 4 hours, PRN as needed for indigestion, Maintenance, 12/12/22 12:27:00 EDT, Partial fill upon patient request if the prescription is for a schedule II opioid drug. Start Date: 12/12/22 Status: Ordered MiraLax oral powder for reconstitution = 17 Gm, By Mouth, Daily, Maintenance, 12/10/22 10:22:00 EDT, REC Powder, Partial fill upon patientrequest if the prescription is for a schedule II opioid drug. Start Date: 12/10/22 Status: Ordered Ozempic (1 mg dose) = 1 mg, Subcutaneous Injection, Every Friday, Maintenance, 12/10/22 10:22:00 EDT, Partial fill upon patient request if the prescription is for a schedule II opioid drug. Start Date: 12/10/22 Status: Ordered Sinemet 25 mg-100 mg oral tablet 1 tablet, By Mouth, 3 times a day, 0 Refills, Maintenance, 12/10/22 10:20:00 EDT, Partial fill uponpatient request if the prescription is for a schedule II opioid drug. Start Date: 12/10/22 Status: Ordered traZODone 150 mg oral tablet 1 tablet = 150 mg, By Mouth, Daily at bedtime, Maintenance, 12/12/22 12:22:00 EDT, Tablet, Partial fill upon patient request if the prescription is for a schedule II opioid drug. Start Date: 12/12/22 Status: Ordered Tussin Expectorant 100 mg/5 mL syrup 10 mL, By Mouth, Every 4 hours, PRN Cough, Maintenance, 12/12/22 12:25:00 EDT, Partial fill upon patient request if the prescription is for a schedule II opioid drug. Start Date: 12/12/22 Status: Ordered Problem List Condition Confirmation Course Effective Dates Status H ealth Status Informant Essential hypertension Confirmed Active Depression with anxiety Confirmed Active Moderate dementia Confirmed Active Schizophrenia Confirmed Active Type 2 diabetes mellitus Confirmed Active Patient Care team information Care Team Personnel Name: Kaylee Carlin RN Position: [facility] RN Supv Member Role: Primary Care Nurse Name: Jessenia Agarwal RN Position: [facility] RN Member Role: Primary Care Nurse Name: Maira Guajardo RN Position: [facility] RN Member Role: Primary Care Nurse Name: Malu Jacinto RN Position: [facility] RN Member Role: Primary Care Nurse Name: Carlos Hansen MD Position: [facility] Non Med Staff MD Member Role: PCP Address: Address: [address] [place] [address] Care Team Related Persons Name: KALEB BARRIOS Address: [address] [place] [address] Name: BONNIE STONER Address: [address] [place] [address]
--- OUTSIDE RECORDS SUMMARY | 2023-11-20 03:52 | XMS_ITS | Continuity of Care Document ---
Author Organization [facility] Address [address] [place] [id number]- Care Team Providers Care Airframe Technical Officer Name Role Phone Carlos Hansen MD Primary Care Physician Encounter [facility] Date(s): 12/12/22 - 01/11/[address] [address]- Attending Physician: Not on Staff, Attending MD Admitting Physician: Not on Staff, Admitting MD Referring Physician: Not on Staff, Referring MD Allergies, Adverse Reactions, Alerts No Known Allergies [...] vaccine, inactivated 1 03/28/05 Gi jerel SARS-CoV-2(COVID-19)mRNA-LNP vac([id number]) 12/09/22 Recorded SARS-CoV-2 (COVID-19) mRNA-1273 vaccine 06/13/21 R ecorded SARS-CoV-2 (COVID-19) mRNA BNT-162b2 vac 12/13/20 Recorded SARS-CoV-2 (COVID-19) mRNA BNT-162b2 vac 03/30/20 Recorded SARS-CoV-2 (COVID-19) mRNA BNT-162b2 vac 03/09/20 Recorded Pneumococcal Vaccine (oldterm) 2 03/28/05 Given 1Result Comment: [id number], exp-03/29/05 2Result Comment: lot -[id number], exp-07/09/06 Medications [...] Team Personnel Name: Kaylee Carlin RN Position: [facility] RN Supv Member Role: Primary Care Nurse Name: Jessenia Agarwal RN Position: [facility] RN Member Role: Primary Care Nurse Name: Maira Guajardo RN Position: [facility] RN Member Role: Primary Care Nurse Name: Malu Jacinto RN Position: [facility] RN Member Role: Primary Care Nurse Name: Carlos Hansen MD Position: [facility] Non Med Staff MD Member Role: PCP Address: Address: [address] [place] [address] Acute [facility] [place] [address]- Care Team Related Persons Name: ALESSIOSOLANGE KALEB Address: [address] [place] [address] Name: BONNIE STONER Address: [address] [place] [address]
--- OUTSIDE RECORDS SUMMARY | 2023-11-20 03:52 | XMS_ITS | Continuity of Care Document ---
Author Organization [facility] ter Address [address] [place] [id number]- Care Team Providers Care Naturopathic Doctor Name Role Phone Jade ONEILL, Carlos Lewis Primary Care Physician [place] [facility] [place] 12/12/[address] [id number] Discharge Disposition: Discharged to Hospice-Home (routine care Attending Physician: Kirti Wells DO Admitting Physician: Valeria ONEILL, Duane Referring Physician: Not on Staff, Referring MD [...] vaccine, inactivated 1 03/28/05 Gi jerel SARS-CoV-2(COVID-19)mRNA-LNP vac([id number]) 12/09/22 Recorded SARS-CoV-2 (COVID-19) mRNA-1273 vaccine 06/13/21 R ecorded SARS-CoV-2 (COVID-19) mRNA BNT-162b2 vac 12/13/20 Recorded SARS-CoV-2 (COVID-19) mRNA BNT-162b2 vac 03/30/20 Recorded SARS-CoV-2 (COVID-19) mRNA BNT-162b2 vac 03/09/20 Recorded Pneumococcal Vaccine (oldterm) 2 03/28/05 Given 1Result Comment: [id number], exp-03/29/05 2Result Comment: lot -[id number], exp-07/09/06 Medications [...] opioid drug. Start Date: 12/10/22 Status: Ordered Acetaminophen Tablet 650 mg, Tablet, By Mouth, Every 4 hours, PRN for Pain , Mild, Temperature Greater than 100.5, Routine, 12/10/22 7:09:00 EDT Start Date: 12/10/22 Stop Date: 12/13/22 Status: Discontinued aspirin 81 mg oral tablet 1 tablet [...] Active Type 2 diabetes mellitus Confirmed Active Results Radiology Reports * Exam Date Time Procedure Performing Provider Status 10/31/23 4:[address] Abd/Pelvis W/ IV Contrast Only Jerrica Paredes; Kia (Verified) Notes: (CT Abd/Pelvis W/ IV Contrast Only) Reason For Exam: diffuse abd pain, fall;Other: RESULT: CT Abd/Pelvis W/ IV Contrast Only CT Chest W/ Contrast, CT Abd/Pelvis W/ IV Contrast Only INDICATION: Hx of Present Illness: from assisted living, fell 2 x's in past hour, unwitnessed, + weight bearing,; Reason: Trauma; Clinical Question(s): Other:; rib fx TECHNIQUE: Helical CT scan of the chest, abdomen, and pelvis with IV contrast, formatted in 3 planes. 100 cc of Omnipaque 300 was administered intravenously. This study was performed without oral contrast. Weight-based protocol was performed using automatic exposure control. CTDIvol Body: 12.00 mGy, DLP Body: 847 mGy*cm. COMPARISON: None. FINDINGS: Stitch Bonding Machine Tender view findings, lines and tubes: None. Trachea and airways: Patent without evidence of tracheal or endobronchial lesion. Family to left thyroid nodule. Lungs and pleura: Minimal dependent atelectasis. No effusion or pneumothorax. Mediastinum and bashir: No mass or hematoma. No mediastinal or hilar lymphadenopathy. No esophageal abnormality. Heart: Heart is normal in size. No pericardial effusion. Moderate coronary artery calcification. Aorta: No aortic aneurysm. Pulmonary arteries: Normal caliber. No evidence of pulmonary embolism on this study performed without angiographic technique. Chest wall soft tissues: No acute abnormality. Diaphragm: Intact. Liver: Normal in attenuation and morphology. No suspicious lesion. Gallbladder: There are multiple stones in the dependent portion of gallbladder. Bile ducts: No biliary ductal dilation. Spleen: Normal in size. Pancreas: No suspicious lesion or ductal dilatation. Adrenal glands: No nodule. Kidneys and ureters: No hydronephrosis, stone, or suspicious lesion. Bilateral renal cysts. Bladder: The bladder is distended. Reproductive organs: Unremarkable. Stomach, small bowel, and large bowel: Scattered diverticula throughout the colon. There is moderate fecal impaction within the rectosigmoid colon. Appendix: No evidence of acute appendicitis. Peritoneum and retroperitoneum: No ascites or pneumoperitoneum. No omental or mesenteric lesions. Lymph nodes: No enlarged lymph nodes. Blood vessels: No vascular calcifications or aneurysm. No evidence of venous thrombosis. Abdominal and pelvic wall soft tissues: No acute abnormality. Bones: Old healed fracture deformity of the right humerus. IMPRESSION: No traumatic injury to the chest, abdomen, or pelvis. Cholelithiasis. Moderate fecal impaction within the rectosigmoid colon. WSN: [id number] Ordering Physician: Laurel Harris Dictated By: Laurence Byers MD Dictated Date/Time: 12/10/22 7:54 am Reviewed By: Laurence Byers MD Signed By: Laurence Byers MD Signed Date/Time: 12/10/22 7:54 am Transcribed By: NANCI Transcribed Date/Time: 12/10/22 7:41 am * Exam Date Time Procedure Performing Provider Status 12/10/22 4:[address] Chest W/ Contrast Jerrica Paredes; Kia (Verified) Notes: (CT Chest W/ Contrast) Reason For Exam: Trauma RESULT: CT Chest W/ Contrast CT Chest W/ Contrast, CT Abd/Pelvis W/ IV Contrast Only INDICATION: Hx of Present Illness: from assisted living, fell 2 x's in past hour, unwitnessed, + weight bearing,; Reason: Trauma; Clinical Question(s): Other:; rib fx TECHNIQUE: Helical CT scan of the chest, abdomen, and pelvis with IV contrast, formatted in 3 planes. 100 cc of Omnipaque 300 was administered intravenously. This study was performed without oral contrast. Weight-based protocol was performed using automatic exposure control. CTDIvol Body: 12.00 mGy, DLP Body: 847 mGy*cm. COMPARISON: None. FINDINGS: Stitch Bonding Machine Tender view findings, lines and tubes: None. Trachea and airways: Patent without evidence of tracheal or endobronchial lesion. Family to left thyroid nodule. Lungs and pleura: Minimal dependent atelectasis. No effusion or pneumothorax. Mediastinum and bashir: No mass or hematoma. No mediastinal or hilar lymphadenopathy. No esophageal abnormality. Heart: Heart is normal in size. No pericardial effusion. Moderate coronary artery calcification. Aorta: No aortic aneurysm. Pulmonary arteries: Normal caliber. No evidence of pulmonary embolism on this study performed without angiographic technique. Chest wall soft tissues: No acute abnormality. Diaphragm: Intact. Liver: Normal in attenuation and morphology. No suspicious lesion. Gallbladder: There are multiple stones in the dependent portion of gallbladder. Bile ducts: No biliary ductal dilation. Spleen: Normal in size. Pancreas: No suspicious lesion or ductal dilatation. Adrenal glands: No nodule. Kidneys and ureters: No hydronephrosis, stone, or suspicious lesion. Bilateral renal cysts. Bladder: The bladder is distended. Reproductive organs: Unremarkable. Stomach, small bowel, and large bowel: Scattered diverticula throughout the colon. There is moderate fecal impaction within the rectosigmoid colon. Appendix: No evidence of acute appendicitis. Peritoneum and retroperitoneum: No ascites or pneumoperitoneum. No omental or mesenteric lesions. Lymph nodes: No enlarged lymph nodes. Blood vessels: No vascular calcifications or aneurysm. No evidence of venous thrombosis. Abdominal and pelvic wall soft tissues: No acute abnormality. Bones: Old healed fracture deformity of the right humerus. IMPRESSION: No traumatic injury to the chest, abdomen, or pelvis. Cholelithiasis. Moderate fecal impaction within the rectosigmoid colon. WSN: [id number] Ordering Physician: Laurel Harris Dictated By: Laurence Byers MD Dictated Date/Time: 12/10/22 7:54 am Reviewed By: Laurence Byers MD Signed By: Laurence Byers MD Signed Date/Time: 12/10/22 7:54 am Transcribed By: NANCI Transcribed Date/Time: 12/10/22 7:41 am * Exam Date Time Procedure Performing Provider Status 12/10/22 4:[address] Cervical Spine W/O Contrast Jerrica Chacon; Auth (Verified) Notes: (CT Cervical Spine W/O Contrast) Reason For Exam: Neck trauma, dangerous injury mechanism;Other: RESULT: CT Cervical Spine W/O Contrast CT Head/Brain W/O Contrast, CT Cervical Spine W/O Contrast Hx of Present Illness: from assisted living, fell 2 x's in past hour, unwitnessed, + weight bearing,; Reason: Trauma; Clinical Question(s): Hematoma. TECHNIQUE: Incremental CT without contrast through the head was formatted in axial and coronal planes. Spiral CT without contrast through the cervical spine was formatted in 3 planes. Weight-based protocol using automatic tube modulation was used to optimize exposure parameters. CTDIvol Body: 10.60 mGy, DLP Body: 275 mGy*cm. CTDIvol Head: 39.80 mGy, DLP Head: 672 mGy*cm. COMPARISON: None. FINDINGS: BRAIN and EXTRA-AXIAL SPACES: No parenchymal hemorrhage, midline shift or mass effect. Mendoza-white matter differentiation is well preserved. No acute infarct. Negative insular ribbon sign. Atherosclerotic vascular calcification ofthe carotid and vertebral arteries but negative hyperdense vessel sign. Mild prominence of the ventricles and sulci consistent with parenchymal volume loss. Mild low-density white matter changes. No subarachnoid hemorrhage, subdural or epidural collections. CALVARIUM, SKULL BASE AND SOFT TISSUES: No fractures or suspicious bony lesions. The paranasal sinuses and mastoid air cells are clear. Visualized orbits and globes are intact. The extracranial soft tissues are unremarkable. CERVICAL SPINE: No fracture. No acute osseous abnormalities. Mild, multilevel degenerative changes of the visualized spinal multilevel intervertebral disc space height loss. Mild anterior osteophytosis. Mild facet arthropathy. Normal alignment. No locked or perched facet. OTHER BONES: No acute abnormality. CERVICAL SOFT TISSUES AND LUNG APICES: Clear lung apices. 1.0 cm well-circumscribed hypodense lesion in the left lobe of the thyroid glandwith a peripheral punctate calcification. No dedicated imaging follow-up required. IMPRESSION: No acute intracranial abnormality. No acute fracture of the cervical spine. Results were relayed by [employer] by Dr. Brand to Laurel Harris MD on 12/10/2022 4:55 AM. I have personally reviewed the images and I agree with this report. WSN: [id number] Ordering Physician: Laurel Harris Dictated By: Say Brand MD Dictated Date/Time: 12/10/22 7:11 am Reviewed By: Ata Alamo MD Signed By: Ata Alamo MD Signed Date/Time: 12/10/22 7:16 am Transcribed By: NANCI Transcribed Date/Time: 12/10/22 7:09 am * Exam Date Time Procedure Performing Provider Status 12/10/22 4:[address] Head/Brain W/O Contrast Jerrica Paredes; Kia (Verified) Notes: (CT Head/Brain W/O Contrast) Reason For Exam: Trauma RESULT: CT Head/Brain W/O Contrast CT Head/Brain W/O Contrast, CT Cervical Spine W/O Contrast Hx of Present Illness: from assisted living, fell 2 x's in past hour, unwitnessed, + weight bearing,; Reason: Trauma; Clinical Question(s): Hematoma. TECHNIQUE: Incremental CT without contrast through the head was formatted in axial and coronal planes. Spiral CT without contrast through the cervical spine was formatted in 3 planes. Weight-based protocol using automatic tube modulation was used to optimize exposure parameters. CTDIvol Body: 10.60 mGy, DLP Body: 275 mGy*cm. CTDIvol Head: 39.80 mGy, DLP Head: 672 mGy*cm. COMPARISON: None. FINDINGS: BRAIN and EXTRA-AXIAL SPACES: No parenchymal hemorrhage, midline shift or mass effect. Mendoza-white matter differentiation is well preserved. No acute infarct. Negative insular ribbon sign. Atherosclerotic vascular calcification ofthe carotid and vertebral arteries but negative hyperdense vessel sign. Mild prominence of the ventricles and sulci consistent with parenchymal volume loss. Mild low-density white matter changes. No subarachnoid hemorrhage, subdural or epidural collections. CALVARIUM, SKULL BASE AND SOFT TISSUES: No fractures or suspicious bony lesions. The paranasal sinuses and mastoid air cells are clear. Visualized orbits and globes are intact. The extracranial soft tissues are unremarkable. CERVICAL SPINE: No fracture. No acute osseous abnormalities. Mild, multilevel degenerative changes of the visualized spinal multilevel intervertebral disc space height loss. Mild anterior osteophytosis. Mild facet arthropathy. Normal alignment. No locked or perched facet. OTHER BONES: No acute abnormality. CERVICAL SOFT TISSUES AND LUNG APICES: Clear lung apices. 1.0 cm well-circumscribed hypodense lesion in the left lobe of the thyroid glandwith a peripheral punctate calcification. No dedicated imaging follow-up required. IMPRESSION: No acute intracranial abnormality. No acute fracture of the cervical spine. Results were relayed by [facility] by Dr. Brand to Laurel Harris MD on 12/10/2022 4:55 AM. I have personally reviewed the images and I agree with this report. WSN: [id number] Ordering Physician: Laurel Harris Dictated By: Say Brand MD Dictated Date/Time: 12/10/22 7:11 am Reviewed By: Ata Alamo MD Signed By: Ata Alamo MD Signed Date/Time: 12/10/22 7:16 am Transcribed By: NANCI Transcribed Date/Time: 12/10/22 7:09 am Vital Signs Most recent to oldest [Reference Range]: 1 2 3 Height 164 cm (12/12/22 1:45 PM) 164 cm (12/12/22 11:11 AM) 164 cm (12/12/22 8:08 AM) Weight 78.7 kg (12/11/22 2:17 AM) 91 kg (12/11/22 1:43 AM) 91 kg (12/10/22 9:24 PM) Oxygen Saturation [94-100 %] 98 % (12/12/22 11:11 AM) 98 % (12/12/22 8:08 AM) 99 % (12/12/22 4:00 AM) Pulse Rate [55-90 bpm] 64 bpm (12/12/22 1:45 PM) 56 bpm (12/12/22 11:49 AM) 58 bpm (12/12/22 11:11 AM) Body Mass Index [18.5-24.99 kg/m2] 29.26 kg/m2 *H* (12/11/22:17 AM) Blood Pressure [90-138/55-84 mm Hg] 154/55mm Hg *H* (12/12/22 1:45 PM) 174/92mm Hg *H* (12/12/22 11:49 AM) 168/70mm Hg *H* (12/12/22 11:11 AM) Respiratory Rate [16-30 br/min] 17 br/min (12/12/22 2:12 PM) 18 br/min (12/12/22 11:11 AM) 18 br/min (12/12/22 8:08 AM) Temperature [96.8-100.4 DegF] 98.5 DegF (12/12/22 11:11 AM) 97.7 DegF (12/12/22 8:08 AM) 98.2 DegF (12/12/22 4:00 AM) Mode of Delivery (Oxygen) Room air (12/12/22 11:11 AM) Room air (12/12/22 8:08 AM) Room air (12/12/22 4:00 AM) Blood pressure sites Arm, right (12/12/22 1:45 PM) Arm, left (12/12/22 11:49 AM) Arm, right (12/12/22 11:11 AM) Temperature Route Oral (12/12/22 11:11 AM) Oral (12/12/22 8:08 AM) Oral (12/12/22 4:00 AM) Dry Weight 78.7 kg (12/11/22 2:17 AM) 91 kg (12/11/22 1:43 AM) 91 kg (12/10/22 9:24 PM) Weight Obtained Via Patient/family state d (12/10/22 1:50 AM) Dry Weight Obtained Via Patient/family s tated (12/10/22 1:50 AM) History and physical note * Sofia DO, Armando S: PERFORM Event Display: [facility] Authored Date: [id number] Patient: ??PONCE, SHAYE ? Age:??77 Years?Sex:??Female?:??1945?? Chief Complaint/Reason for Consultation Altered mental status and lactic acidosis History of Present Illness 77-year-old resident of a local [facility]??with a history of??dementia,??diabetes, GERD, hyperlipidemia, hypertension and schizophrenia. ??Presents to the emergency department after??suffering an unwitnessed fall x2??and noted to be confused.?? Patient is unable to provide a history.?? I attempted to call??her??HCP, Machelle Stoner??[phone], but there is no answer.?? History is per??limited information in the??EMR. ?? Patient was in her normal state and suffered??an unwitnessed fall??last night.?? Following this??she had a lot of anxiety and was afraid to walk.?? At night she was placed in bed??and??staff later found that she was on the ground. ??Again, it is unclear how she??fell.?? Staff reported that??she hasa history of??altered mental status??when she becomes very anxious, but is usually AOx4.?? She alsohas a history of urinary tract infections??which??the staff was concerned she may have another. ?? Currently,??Shaye has no acute complaints??and states I want to go home. ?Denies??any??pain. ??Denies any fevers chills or sweats. ??Denies any nausea or vomiting. ??Denies any??shortness of breath. ??Denies any dysuria.?? She does not know any of her home medications??or whether any of her medications are new. Review of Systems Pertinent positive and negatives are noted in the history of?? present illness. Otherwise, a completed review of systems was completed and is negative. Objective Vital Signs?? Temperature: 98.7 DegF (12/10/22 01:50:00) Temperature Route: Oral (12/10/22 01:50:00) Pulse Rate: 76 bpm (12/10/22 06:15:00) Respiratory Rate: 24 br/min (12/10/22 06:15:00) Systolic Blood Pressure: 135 mm Hg (12/10/22 06:15:00) Diastolic Blood Pressure: 65 mm Hg (12/10/22 06:15:00) Mean Arterial Pressure: 92 mm Hg (12/10/22 01:50:00) Pulse Pressure: 70 mm Hg (12/10/22 06:15:00) Oxygen Saturation: 96 % (12/10/22 06:15:00) Mode of Delivery (Oxygen): Room air (12/10/22 06:15:00) Early Warning Score: 9 (12/10/22 08:46:08) ? Physical Exam Constitutional: Alert. Well developed and well nourished. In no acute distress. Head: Normocephalic. Eyes: Pupils are equal, round and reactive to light. Extraocular muscles intact. No pallor or scleral icterus Ear, Nose and Throat: Mucous membranes??are BONE DRY. Trachea midline. Neck: Supple, Full range of motion.??No JVD or bruits. Respiratory:??Clear to auscultation. No wheezing or rhonchi.??No use of accessory muscles. Cardiovascular:??Rate regular. Rhythm regular. No murmurs, rubs or gallops. Gastrointestinal:??Abdomen soft, non-tender, non-distended. Normal bowel sounds. Genitourinary:??No costovertebral angle tenderness. Extremities: No lower extremity pitting edema. No cyanosis or clubbing. Neurologic:??AAOx3, Cranial nerves II-XII grossly intact. Speech normal, no facial droop Skin:??No rash.?? Musculoskeletal:??No gross deformities on inspection. Psychiatric: Normal mood and affect. Assessment/Plan Diagnoses 1. ??Fall ??(W19.XXXA) 2. ??Delirium with dementia ??(R41.0) 3. ??Lactic acidosis ??(E87.20) 4. ??Schizophrenia ??(F20.9) 5. ??Depression with anxiety ??(F41.8) 6. ??Type 2 diabetes mellitus ??(E11.9) ?? Assessment:??77-year-old resident of a local [facility] with a history of dementia, diabetes, GERD, hyperlipidemia, hypertension and schizophrenia. Presents to the emergency department after suffering an unwitnessed fall x2 and noted to be confused. Patient is unable to provide a history. I attempted to call her HCP, Machelle Stoner [phone], but there is no answer. History is per limitedinformation in the EMR. ?? Fall (W19.XXXA):??Suspect mechanical fall.??Syncope is a remote possibility and she will be monitored on telemetry. ?? Delirium with dementia (R41.0):??Unknown baseline. Seems to be doing fairly well.??I will hold??her??hydralazine.??Unclear if Cogentin is a new medication, but this could cause delirium as well. ?? Lactic acidosis (E87.20):??Oral mucosa is BONE DRY??which could be due to anticholinergics??and/or??Lasix??causing dehydration. The dehydration combined with??metformin could??be causing a type B lactic acidosis. I do not suspect sepsis as a cause for her??lactic acidosis. ?? Schizophrenia (F20.9):??Continue home medications ?? Depression with anxiety (F41.8):??Continue citalopram??and Abilify. ?? Type 2 diabetes mellitus (E11.9):??Hold metformin and Ozempic.??Give basal bolus insulin therapy. ?? VTE Prophylaxis:??Heparin ?VTE Prophylaxis Assessment:??VTE Prophylaxis Ordered ?? Code Status:??FULL ?Order Code Status:??Code Status Ordered ?? Discharge Planning:? Histories Allergies Allergies ?(Active and Proposed Allergies Only) NKA? (Severity: Unknown severity, Onset: Unknown) ? Past Medical History/Problem List Active Problems??(5) Depression with anxiety Essential hypertension Moderate dementia Schizophrenia Type 2 diabetes mellitus ? Past Surgical History No surgery history documented. ? Social History No social history documented. ? Family History No family history recorded. ? Medications Home Medications Acetaminophen (acetaminophen 325 mg oral tablet)?650?Milligram?2?tablet?By Mouth?Every 4 hours?as needed?Pain , Mild Aripiprazole (Abilify 30 mg oral tablet)?1?tab(s)?30?Milligram?By Mouth?Daily at bedtime Aspirin (aspirin 81 mg oral tablet)?1?tab(s)?81?Milligram?By Mouth?Daily Atorvastatin (atorvastatin 20 mg oral tablet)?1?tab(s)?20?Milligram?By Mouth?Daily Benztropine (Cogentin Tablet)?0.5?Milligram?By Mouth?2 times a day Calcium And Vitamin D Combination (calcium-vitamin D 600 mg-400 intl units oral tablet)?1?tab(s)?By Mouth?Daily Carbidopa-Levodopa (Sinemet 25 mg-100 mg oral tablet)?1?tab(s)?By Mouth?3 times a day Citalopram (citalopram 20 mg oral tablet)?20?Milligram?1?tablet?By Mouth?Daily Cyanocobalamin (cyanocobalamin 1000 mcg oral tablet)?1,000?Microgram?1?tablet?By Mouth?Daily Divalproex Sodium (Depakote ER 500 mg oral tablet, extended release)?1?tab(s)?500?Milligram?By Mouth?Daily at bedtime Docusate (docusate sodium 100 mg oral capsule)?1?capsule?100?Milligram?By Mouth?2times a day Furosemide (furosemide 20 mg oral tablet)?20?Milligram?1?tablet?By Mouth?Daily Guaifenesin (Tussin)?200?Milligram?By Mouth?Every 4 hours?as needed?Cough HydrOXYzine (hydrOXYzine hydrochloride 25 mg oral tablet)?1?tab(s)?25?Milligram?By Mouth?Daily Losartan (losartan 100 mg oral tablet)?1?tab(s)?100?Milligram?By Mouth?Daily Metformin (metFORMIN 1000 mg oral tablet)?1?tab(s)?1,000?Milligram?By Mouth?2 times a day Milk of Magnesia (MOM Liquid)?1,200?Milligram?By Mouth?Daily?as needed?as needed for constipation Polyethylene Glycol 3350 (MiraLax oral powder for reconstitution)?17?gram?By Mouth?Daily semaglutide (Ozempic (1 mg dose))?1?Milligram?Subcutaneous Injection?Every week Trazodone (traZODone 50 mg oral tablet)?150?Milligram?3?tablet?By Mouth?Daily at bedtime ? Results Recent Labs BLOOD COUNT & DIFF WBC 8.6 k/mm3 ()?? 12/10/2022 02:50 RBC 4.37 m/mm3 ()?? 12/10/2022 02:50 Hgb 13.1 Gm/dL ()?? 12/10/2022 02:50 Hct 40.3 % ()?? 12/10/2022 02:50 MCV 92.2 femtoliters ()?? 12/10/2022 02:50 MCH 30.0 pg ()?? 12/10/2022 02:50 MCHC 32.5 g/dL (Low)?? 12/10/2022 02:50 Platelet Count 128 k/mm3 (Low)?? 12/10/2022 02:50 RDW-SD 38.2 femtoliters ()?? 12/10/2022 02:50 MPV 11.7 femtoliters ()?? 12/10/2022 02:50 Nucleated RBC (Automated) 0.0 #/100 WBC'S ()?? 12/10/2022 02:50 Abs. NRBC 0.0 k/mm3 ()?? 12/10/2022 02:50 Abs. Neut 7.3 k/mm3 (High)?? 12/10/2022 02:50 Abs. Lymph 0.5 k/mm3 (Low)?? 12/10/2022 02:50 Abs. [place] 0.7 k/mm3 ()?? 12/10/2022 02:50 Abs. Eo 0.0 k/mm3 ()?? 12/10/2022 02:50 Abs. Baso 0.0 k/mm3 ()?? 12/10/2022 02:50 Neut % 84.9 % (High)?? 12/10/2022 02:50 Lymph % 5.8 % (Low)?? 12/10/2022 02:50 [place] % 7.9 % ()?? 12/10/2022 02:50 Eos % 0.5 % ()?? 12/10/2022 02:50 Baso % 0.3 % ()?? 12/10/2022 02:50 Imm Gran 0.6 % ()?? 12/10/2022 02:50 Abs. Imm Gran 0.1 k/mm3 ()?? 12/10/2022 02:50 ?? CARDIAC High Sensitivity Troponin (HSTnT) 16 ng/L (High)?? 12/10/2022 05:05 ?? CHEM GENERAL Sodium 136 mmol/L ()?? 12/10/2022 02:39 Potassium 4.2 mmol/L ()?? 12/10/2022 02:39 Chloride 97 mmol/L (Low)?? 12/10/2022 02:39 Bicarbonate Level 24 mmol/L ()?? 12/10/2022 02:39 Anion Gap 15 ()?? 12/10/2022 02:39 Glucose Level 232 mg/dL (High)?? 12/10/2022 02:39 Glucose, POC 220 mg/dL (High)?? 12/10/2022 08:44 Beta Hydroxybutyrate 0.06 mmol/L ()?? 12/10/2022 02:39 BUN 16 mg/dL ()?? 12/10/2022 02:39 Creatinine-Blood 0.7 mg/dL ()?? 12/10/2022 02:39 Estimated GFR Creatinine 89 ML/MIN/1.73 M2 ()?? 12/10/2022 02:39 Calcium 9.3 mg/dL ()?? 12/10/2022 02:39 Protein, Total 6.7 Gm/dL ()?? 12/10/2022 02:39 Albumin 4.0 Gm/dL ()?? 12/10/2022 02:39 AG Ratio 1.5 ()?? 12/10/2022 02:39 Alkaline Phosphatase 102 units/L ()?? 12/10/2022 02:39 Lipase 16 units/L ()?? 12/10/2022 02:39 AST (SGOT) 12 units/L ()?? 12/10/2022 02:39 ALT (SGPT) 14 units/L ()?? 12/10/2022 02:39 Bilirubin, Total 0.4 mg/dL ()?? 12/10/2022 02:39 Lactate 5.0 mmol/L (High)?? 12/10/2022 05:05 ?? HEME OTHER Hold Blue Top SPECIMEN DISCARDED AFTER 4 HOURS. ()?? 12/10/2022 02:50 ?? UA/URINALYSIS Appear/Color, Urine LIGHT YELLOW ()?? 12/10/2022 05:02 Specific [place], Urine 1.037 (High)?? 12/10/2022 05:02 pH, Urine 7.0 ()?? 12/10/2022 05:02 Albumin, Urine TRACE (Abnormal)?? 12/10/2022 05:02 Glucose, Urine 4+ (Abnormal)?? 12/10/2022 05:02 Ketones, Urine 1+ (Abnormal)?? 12/10/2022 05:02 Bilirubin, Urine NEGATIVE ()?? 12/10/2022 05:02 Hemoglobin, Urine NEGATIVE ()?? 12/10/2022 05:02 Nitrite, Urine NEGATIVE ()?? 12/10/2022 05:02 Leukocyte, Urine NEGATIVE ()?? 12/10/2022 05:02 Urobilinogen NORMAL mg/dL ()?? 12/10/2022 05:02 WBC's, Urine 1 /HPF ()?? 12/10/2022 05:02 RBC's, Urine <1 /HPF ()?? 12/10/2022 05:02 Bacteria SLIGHT HPF (Abnormal)?? 12/10/2022 05:02 Squamous Epith 1 /HPF ()?? 12/10/2022 05:02 Hold Urine Culture Testing available 48 hours from time of collection. ()?? 12/10/2022 05:02 ?? VIROLOGY Influenza A PCR NEGATIVE ()?? 12/10/2022 02:10 Influenza B PCR NEGATIVE ()?? 12/10/2022 02:10 RSV PCR NEGATIVE ()?? 12/10/2022 02:10 COVID-19 PCR Specimen Source NASAL ()?? 12/10/2022 02:10 COVID-19 PCR Result NEGATIVE ()?? 12/10/2022 02:10 ? EKG study * Event Display: EKG Authored Date: Hospital Progress note * Kaylee Carlin RN: PERFORM, SIGN, VERIFY, MODIFY, MODIFY, SIGN, SIGN, MODIFY, SIGN, MODIFY, SIGN Event Display: Progress Note Hospital Authored Date: Patient: SHAYE PONCE Age: 77 years Sex: Female : 1945 Associated Diagnoses: None Author: Kaylee Carlin RN Findings Evaluation A+Ox3,Hearing aide R ear, c/o 3/10, lower back, PRN APAP given at 13:03. denies pain/discomfort. Lung sounds clear throughout bilaterally, on room air. On tele box#5, S.B., increased BP MD Solo notified,20 mg lasix ordered, re-check BP: 154/55 HR:56, MD Solo notified.No edema. Primafit in place draining C/Y/O urine. ABD. soft, +BS4Q. R elbow * Bilateral knees scraped, S1 on Coccyx Z guard applied, repositioned Q2H. OOB w/ 1 assist walker, weak/unsteady. See CIS for complete assessment. Safety/omfort maintained, call coppola within reach, frequent rounding provided. Flu Vaccine given in R deltoid. D/C at 17:25, [facility]/ [facility]. Discharge Information Rehabilitation Discharge : Rehab Discharge Index 12/11/2022 9:06 EDT Comments on treatment indicated 77 y/o F presents to the emergency department after suffering an unwitnessed fall x2 and noted to be confused. Pt has significant difficulty with all functional mobility. Acute PT indicated for bed mobility, transfers, ambulation and balance. Rec rehab. Walker: distance < 10 Distance pt will ambulate 10' c RW Full chart review completed Yes Other findings Barriers to safe d/c home: impaired balance, fall risk, A for mobility, impaired transfers, impaired gait. Plan of care PT Gait training, Transfer training, Therapeutic exercise, Functional Activities, Neuromuscular education * Brock ANNE, Elke: VERIFY, PERFORM, SIGN Event Display: Progress Note Hospital Authored Date: Patient: SHAYE PONCE Age: 77 years Sex: Female : 1945 Associated Diagnoses: None Author: Elke Almanzar Findings Nursing Data Cardiac Data. : Cardiac Data. 12/11/2022 16:53 EDT Cardiac Rhythm Normal sinus rhythm Radial Pulse, Left Normal Radial Pulse, Right Normal Dorsalis Pedis Pulse, Left Normal Dorsalis Pedis Pulse, Right Normal media monitor Yes Cardiovascular WNL except . Gastrointestinal Data. : Gastrointestinal Data. 12/11/2022 16:53 EDT Gastrointestinal Symptoms Incontinence, stool Bowel Sounds LUQ Hyperactive Bowel Sounds RUQ Hyperactive Bowel Sounds LLQ Hyperactive Bowel Sounds RLQ Hyperactive GI WNL except . Genitourinary Data. : Genitourinary Data. 12/11/2022 16:53 EDT Genitourinary Symptoms Incontinent WNL except . Integumentary Data. : Integumentary Data. 12/11/2022 16:59 EDT Sensory Perception Slightly limited Moisture Occasionally moist Activity Walks occasionally Mobility Slightly limited Nutrition Adequate Friction and Shear Potential problem Nirav Score 17 Nursing Care Plan initiated/updated Yes . Narrative/Incidental pt. A/O x2-3. lung sounds clear. denies pain from fall. on tele box 5 in normal sinus rhythm. pt. given scheduled meds. resting comfortable. bed in locked and lowest position. comfort maintained. call coppola in reach. . * Willa Cosby: MODIFY Edil Coffey MD, Rod: PERFORM, MODIFY Edil Coffey MD, Rod: MODIFY Event Display: Progress Note Hospital Authored Date: Patient: ??SHAYE PONCE ? Age:??77 Years?Sex:??Female?:??1945?? Subjective O/N Events: No acute overnight events PRN Medications: none Patient subjective: anxious, ready to go home. She believes the fall was purely mechanical, described that she slid out of bed and did not hit her head/lose consciousness.??She denies any pain at this time. Pain: Denies Sleep: Slept OK Eat: Appetite Good ?? Interval History 12/11: - Back to baseline mental status - PT evaluation - recommending rehab, family prefers home with PT - Polypharmacy - reconciled medications with [facility]??Home, they plan to set up outpatient neurology appointment ?? Review of Systems Constitutional:??No weight loss, fever, chills, weakness or fatigue. Respiratory:??No shortness of breath, cough or sputum production reported Cardiovascular:??No chest pain, chest pressure or chest discomfort reported Gastrointestinal:??No anorexia, nausea, vomiting or diarrhea. No abdominal pain or blood in stool. Genitourinary:??denies burning micturition Neurologic:??No headache, dizziness Psychiatric:??anxiety Objective Measurements?? Height: 164 cm (12/11/22) Weight: 78.7 kg (12/11/22) Dry Weight: 78.7 kg (12/11/22) Body Mass Index:??29.26 kg/m2??High (12/11/22) ? Vital Signs?? Temperature: 98.4 DegF (12/11/22 07:52:00) Temperature Route: Oral (12/11/22 07:52:00) Pulse Rate: 66 bpm (12/11/22 07:52:00) Respiratory Rate: 16 br/min (12/11/22 07:52:00) Systolic Blood Pressure:??168 mm Hg??High (12/11/22 10:25:00) Diastolic Blood Pressure: 67 mm Hg (12/11/22 10:25:00) Blood pressure sites: Arm, left (12/11/22 07:52:00) Mean Arterial Pressure: 101 mm Hg (12/11/22 07:52:00) Pulse Pressure: 101 mm Hg (12/11/22 07:52:00) Oxygen Saturation: 97 % (12/11/22 07:52:00) Mode of Delivery (Oxygen): Room air (12/11/22 07:52:00) Early Warning Score: 3 (12/11/22 11:50:01) ? Intake/Output? 12/10 06:39 12/11 07:00 12/10 07:00 12/09 07:00 12/08 07:00 ?? 12/11 14:57 12/11 14:57 12/11 06:59 12/10 06:59 12/09 06:59 Intake ?110 ?110 ?0 ?0 ?0 Output ?400 ?0 ?400 ?0 ?0 Net Total ? -290 ?110 ? -400 ?0 ?0 ? Precautions No Precautions documented.? Physical Exam Constitutional: Alert, in no acute distress. Mental Status: Oriented to person, place, time and situation. Able to recall information about her home, rooommates, and medication history. Head: Normocephalic. Eyes: Pupils are equal, round and reactive to light. Extraocular muscles intact. Ear, Nose and Throat:?? mucous membranes moist Neck: Supple, Full range of motion. No point tenderness Respiratory: Clear to auscultation. No wheezing, rales or rhonchi. Cardiovascular: S1 S2 regular. No murmurs, rubs or gallops. Gastrointestinal: Abdomen soft, non-tender, non-distended. Normal bowel sounds. Neurologic: Cranial nerves II-XII grossly intact. No focal neurological deficits. Skin: No rashes or lesions. Musculoskeletal: No gross deformities. Globally weak - unable to sit up unassisted Psychiatric: anxious mood and full, labile??affect _ Home Medications Acetaminophen (acetaminophen 325 mg oral tablet)?650?Milligram?2?tablet?By Mouth?Every 4 hours?as needed?Pain , Mild Aripiprazole (Abilify 30 mg oral tablet)?1?tab(s)?30?Milligram?By Mouth?Daily at bedtime Aspirin (aspirin 81 mg oral tablet)?1?tab(s)?81?Milligram?By Mouth?Daily Atorvastatin (atorvastatin 20 mg oral tablet)?1?tab(s)?20?Milligram?By Mouth?Daily Benztropine (Cogentin Tablet)?0.5?Milligram?By Mouth?2 times a day Calcium And Vitamin D Combination (calcium-vitamin D 600 mg-400 intl units oral tablet)?1?tab(s)?By Mouth?Daily Carbidopa-Levodopa (Sinemet 25 mg-100 mg oral tablet)?1?tab(s)?By Mouth?3 times a day Citalopram (citalopram 20 mg oral tablet)?20?Milligram?1?tablet?By Mouth?Daily Cyanocobalamin (cyanocobalamin 1000 mcg oral tablet)?1,000?Microgram?1?tablet?By Mouth?Daily Divalproex Sodium (Depakote ER 500 mg oral tablet, extended release)?1?tab(s)?500?Milligram?By Mouth?Daily at bedtime Docusate (docusate sodium 100 mg oral capsule)?1?capsule?100?Milligram?By Mouth?2times a day Furosemide (furosemide 20 mg oral tablet)?20?Milligram?1?tablet?By Mouth?Daily Guaifenesin (Tussin)?200?Milligram?By Mouth?Every 4 hours?as needed?Cough HydrOXYzine (hydrOXYzine hydrochloride 25 mg oral tablet)?1?tab(s)?25?Milligram?By Mouth?Daily Losartan (losartan 100 mg oral tablet)?1?tab(s)?100?Milligram?By Mouth?Daily Metformin (metFORMIN 1000 mg oral tablet)?1?tab(s)?1,000?Milligram?By Mouth?2 times a day Milk of Magnesia (MOM Liquid)?1,200?Milligram?By Mouth?Daily?as needed?as needed for constipation Polyethylene Glycol 3350 (MiraLax oral powder for reconstitution)?17?gram?By Mouth?Daily semaglutide (Ozempic (1 mg dose))?1?Milligram?Subcutaneous Injection?Every week Trazodone (traZODone 50 mg oral tablet)?150?Milligram?3?tablet?By Mouth?Daily at bedtime ? Inpatient Medications Medications (23) Active SCHEDULED: (14) Aripiprazole 15 mg Tablet (Abilify 15 mg oral tablet) ??30 mg, By Mouth, Daily at bedtime Aspirin 81 mg Chew Tablet (aspirin 81 mg oral tablet, chewable) ??81 mg, By Mouth, Daily Atorvastatin 20 mg Tablet (atorvastatin 20 mg oral tablet) ??20 mg, By Mouth, Daily Benztropine 1 mg Tablet (Cogentin Tablet) ??0.5 mg, By Mouth, 2 times a day Carbidopa 25 mg / Levodopa 100 mg Tablet (Sinemet 25 mg-100 mg oral tablet) ??1 tablet, By Mouth, 3times a day Citalopram 20 mg Tablet (citalopram 20 mg oral tablet) ??20 mg, By Mouth, Daily Docusate Sodium 100 mg Capsule (docusate sodium 100 mg oral capsule) ??100 mg 1 capsule, By Mouth, 2 times a day Heparin 5000 units/mL Inj (1 mL) (Heparin Inj) ??5,000 units 1 mL, Subcutaneous Injection, 2 times a day Influenza Quad Adult High Dose (> 65yr) Fluzone 0.7mL (Influenza, Quad High Dose Vaccine (Fluzone High Dose)) ??0.7 mL, Intramuscular, Once Insulin Glargine 100 units/mL Inj (Insulin Glargine Inj) ??10 units 0.1 mL, Subcutaneous Injection,Daily at bedtime Insulin Lispro 100 units/mL Inj (3mL) (Insulin LISPRO Sliding Scale) ??2-10 units, Subcutaneous Injection, 3 times a day before meals Losartan 50 mg Tablet (losartan 50 mg oral tablet) ??100 mg, By Mouth, Daily NaCl 0.9% Flush 3ml (NaCL 0.9% Flush) ??3 mL, IV Push, Every 8 hours Trazodone 50 mg Tablet (traZODone 50 mg oral tablet) ??150 mg, By Mouth, Daily at bedtime CONTINUOUS: (1) Lactated Ringers (1000 mL) Cont IV 1,000 mL (LR 1,000 mL) ??1,000 mL, IV Infusion, 100 mL/hr PRN: (8) Acetaminophen 325 mg Tablet (Acetaminophen Tablet) ??650 mg, By Mouth, Every 4 hours Dextrose Inj Syringe (Dextrose 50% Inj Syringe (25Gm)) ??12.5 Gm, IV Push Slowly, Every 20 minutes Dextrose Inj Syringe (Dextrose 50% Inj Syringe (25Gm)) ??25 Gm, IV Push Slowly, Every 15 minutes Glucagon 1 mg Inj (Glucagon Inj) ??1 mg, Intramuscular, Once Glucose 40% Gel (15 Gm) (Glucose Gel) ??15 Gm, By Mouth, Every 20 minutes Glucose 40% Gel (15 Gm) (Glucose Gel) ??30 Gm, By Mouth, Every 20 minutes Melatonin 3 mg Tablet (Melatonin Tablet) ??3 mg, By Mouth, Daily at bedtime NaCl 0.9% Flush 3ml (NaCL 0.9% Flush) ??3 mL, IV Push, Every 8 hours ? Results Recent Labs BLOOD COUNT & DIFF WBC 5.7 k/mm3 ()?? 12/11/2022 02:41 RBC 4.17 m/mm3 (Low)?? 12/11/2022 02:41 Hgb 12.8 Gm/dL ()?? 12/11/2022 02:41 Hct 39.0 % ()?? 12/11/2022 02:41 MCV 93.5 femtoliters ()?? 12/11/2022 02:41 MCH 30.7 pg ()?? 12/11/2022 02:41 MCHC 32.8 g/dL (Low)?? 12/11/2022 02:41 Platelet Count 114 k/mm3 (Low)?? 12/11/2022 02:41 RDW-SD 38.5 femtoliters ()?? 12/11/2022 02:41 MPV 12.6 femtoliters (High)?? 12/11/2022 02:41 Nucleated RBC (Automated) 0.0 #/100 WBC'S ()?? 12/11/2022 02:41 Abs. NRBC 0.0 k/mm3 ()?? 12/11/2022 02:41 Abs. Neut 3.8 k/mm3 ()?? 12/11/2022 02:41 Abs. Lymph 1.1 k/mm3 ()?? 12/11/2022 02:41 Abs. [place] 0.7 k/mm3 ()?? 12/11/2022 02:41 Abs. Eo 0.1 k/mm3 ()?? 12/11/2022 02:41 Abs. Baso 0.0 k/mm3 ()?? 12/11/2022 02:41 Neut % 66.5 % ()?? 12/11/2022 02:41 Lymph % 18.8 % ()?? 12/11/2022 02:41 [place] % 11.8 % (High)?? 12/11/2022 02:41 Eos % 1.9 % ()?? 12/11/2022 02:41 Baso % 0.5 % ()?? 12/11/2022 02:41 Imm Gran 0.5 % ()?? 12/11/2022 02:41 Abs. Imm Gran 0.0 k/mm3 ()?? 12/11/2022 02:41 ?? CARDIAC High Sensitivity Troponin (HSTnT) 16 ng/L (High)?? 12/10/2022 05:05 ?? CHEM GENERAL Sodium 137 mmol/L ()?? 12/11/2022 02:41 Potassium 4.4 mmol/L ()?? 12/11/2022 02:41 Chloride 102 mmol/L ()?? 12/11/2022 02:41 Bicarbonate Level 22 mmol/L ()?? 12/11/2022 02:41 Anion Gap 13 ()?? 12/11/2022 02:41 Glucose Level 186 mg/dL (High)?? 12/11/2022 02:41 Glucose, POC 232 mg/dL (High)?? 12/11/2022 11:28 Hemoglobin A1C (Monitoring) 7.9 % (High)?? 12/11/2022 02:41 Beta Hydroxybutyrate 0.06 mmol/L ()?? 12/10/2022 02:39 BUN 17 mg/dL ()?? 12/11/2022 02:41 Creatinine-Blood 0.7 mg/dL ()?? 12/11/2022 02:41 Estimated GFR Creatinine 90 ML/MIN/1.73 M2 ()?? 12/11/2022 02:41 Calcium 9.1 mg/dL ()?? 12/11/2022 02:41 Phosphorus 3.2 mg/dL ()?? 12/11/2022 02:41 Magnesium 1.9 mg/dL ()?? 12/11/2022 02:41 Protein, Total 6.7 Gm/dL ()?? 12/10/2022 02:39 Albumin 4.0 Gm/dL ()?? 12/10/2022 02:39 AG Ratio 1.5 ()?? 12/10/2022 02:39 Alkaline Phosphatase 102 units/L ()?? 12/10/2022 02:39 Lipase 16 units/L ()?? 12/10/2022 02:39 AST (SGOT) 12 units/L ()?? 12/10/2022 02:39 ALT (SGPT) 14 units/L ()?? 12/10/2022 02:39 Bilirubin, Total 0.4 mg/dL ()?? 12/10/2022 02:39 Lactate 1.4 mmol/L ()?? 12/11/2022 02:41 ?? ENDOCRINE/TUMOR MARKER TSH 1.18 uIU/mL ()?? 12/11/2022 02:41 ?? HEME OTHER Hold Blue Top SPECIMEN DISCARDED AFTER 4 HOURS. ()?? 12/10/2022 02:50 ?? UA/URINALYSIS Appear/Color, Urine LIGHT YELLOW ()?? 12/10/2022 05:02 Specific [place], Urine 1.037 (High)?? 12/10/2022 05:02 pH, Urine 7.0 ()?? 12/10/2022 05:02 Albumin, Urine TRACE (Abnormal)?? 12/10/2022 05:02 Glucose, Urine 4+ (Abnormal)?? 12/10/2022 05:02 Ketones, Urine 1+ (Abnormal)?? 12/10/2022 05:02 Bilirubin, Urine NEGATIVE ()?? 12/10/2022 05:02 Hemoglobin, Urine NEGATIVE ()?? 12/10/2022 05:02 Nitrite, Urine NEGATIVE ()?? 12/10/2022 05:02 Leukocyte, Urine NEGATIVE ()?? 12/10/2022 05:02 Urobilinogen NORMAL mg/dL ()?? 12/10/2022 05:02 WBC's, Urine 1 /HPF ()?? 12/10/2022 05:02 RBC's, Urine <1 /HPF ()?? 12/10/2022 05:02 Bacteria SLIGHT HPF (Abnormal)?? 12/10/2022 05:02 Squamous Epith 1 /HPF ()?? 12/10/2022 05:02 Hold Urine Culture Testing available 48 hours from time of collection. ()?? 12/10/2022 05:02 ?? URINE OTHER Est Creatinine Clearance 57.62 mL/min ()?? 12/11/2022 02:53 ?? VIROLOGY Influenza A PCR NEGATIVE ()?? 12/10/2022 02:10 Influenza B PCR NEGATIVE ()?? 12/10/2022 02:10 RSV PCR NEGATIVE ()?? 12/10/2022 02:10 COVID-19 PCR Specimen Source NASAL ()?? 12/10/2022 02:10 COVID-19 PCR Result NEGATIVE ()?? 12/10/2022 02:10 ? Urinalysis Est Creatinine Clearance: 57.62 mL/min (02:53) ?? Microbiology ?? COVID-19, RSV, and Flu A/B, Rapid PCR?? Completed?? Source: Nasal Body Site: Nose Collected Dt/Tm: 12/10/2022 02:10 Last Updated Dt/Tm: 12/10/2022 03:51 ? Cardiology Labs High Sensitivity Troponin (HSTnT):??16 ng/L??High (12/10/22 05:05:00) High Sensitivity Troponin (HSTnT):??17 ng/L??High (12/10/22 02:39:00) ?? Assessment/Plan Diagnoses 1. ??Fall ??(W19.XXXA) 2. ??Delirium with dementia ??(R41.0) 3. ??Lactic acidosis ??(E87.20) 4. ??Schizophrenia ??(F20.9) 5. ??Depression with anxiety ??(F41.8) 6. ??Type 2 diabetes mellitus ??(E11.9) ?? Assessment:??77-year-old female with pmhx?? of HTN, HLD, diabetes type 2, schizophrenia, mood disorder, ?Parkinson's disorder/other movement disorder, and recurrent falls, who??presented from a residential care facility for 2x unwitnessed falls and altered mental status, who was wound to have dehydration and type B lactic acidosis in the ED, and was admitted for AMS. Today her lactate was improved and she was at her baseline mental status, but based on PT evaluation would benefit from short-term rehabilitation. Patient and HCP declined. Discharge pending home services, likely 12/12/22.? Fall (W19.XXXA): Polypharmacy Suspect mechanical fall.??Patient described sliding out of bed without any loss of consciousness or??dizziness. Ambulates with a walker at baseline, but said that she sometimes has problems with transitioning from chairs to bed. There is concern for polypharmacy contributing to gait instability. She is on multiple antipsychotic medications, anticholinergic medications (ACB?? = 10), and has a questionable history of Parkinson's disorder that is now in question. [facility] and PCP setting up neurology appt. Plan: - PT evaluation - Likely home with PT - Would recommend discontinuing home schedule Hydroxyzine for anxiety due to increased risk of anticholinergic toxicity - Encourage??follow up with outpatient neurology ?? Metabolic Encephalopathy:??Resolved Presented confused and??unable to give history. Today was??alert, interactive, oriented, and participating in history. Sister Maci at bedside??felt like this was her baseline. ?? Lactic acidosis (E87.20):??Resolved At presentation had dry oral mucosa and signs of dehydration potentially due to anticholinergic burden and diuretics.??The dehydration combined with??metformin could??be causing a type B lactic acidosis.?? Sepsis as a cause for her??lactic acidosis is unlikely??given no signs of systemic inflammation. Plan: - Encourage drinking to thirst and PO intake - Detail Manager patient and caregivers to contact PCP about taking metformin in cases of serious illness,poor PO intake, dehydration ?? Schizophrenia (F20.9):?? Based on conversation with family and residential home staff, it seems like this patient may have ahistory of schizoaffective disorder. Has been on Depakote for many years for mood stabilization.??Continue home medications Plan: - Continue home Abilify - Continue Depakote (will check level tomorrow AM) ?? Depression with anxiety (F41.8):?- Continue citalopram??(may consider increasing dose) - hold hydroxyzine ?? Insomnia: - Continue home Trazodone ?? Type 2 diabetes mellitus (E11.9):??Hold metformin and Ozempic.??Give basal bolus insulin therapy. ?? VTE Prophylaxis:??Heparin ?VTE Prophylaxis Assessment:??VTE Prophylaxis Ordered ?? Code Status:??FULL ?Order Code Status:??Code Status Ordered ?? Discharge Planning:??Patient and her HCP would like for her to return [facility] services ?? Note written with assistance from Willa Cosby, MS3. I saw the patient and performed all necessary elements of the visit including review of the clinical history, physical exam and medical decision making. ?? Rod Coffey MD PGY-1, Internal Medicine-Pediatrics [employer] or pager-[phone] ?? Patient was seen and discussed with attending, Dr. Wells. ? * Kirti Wells DO: PERFORM Event Display: Progress Note Hospital Authored Date: Note * Kaylee Carlin RN: PERFORM Event Display: Discharge/Transfer Note Hospital Authored Date: [id number] Nursing Discharge Note Entered On: 12/12/2022 16:44 EDT Performed On: 12/12/2022 16:44 EDT by Kaylee Carlin RN Nursing Discharge Note 2 Discharge Time : 12/12/2022 17:15 EDT Patient Accompanied Off Unit with : Responsible adult DC Instructions Provided & Signed by Pt : Unable Patient Understands D/C Instructions : Unable Verbalized Understanding of D/C Plan By : Family Patient Instructions Discharge Signed : Yes Did Pt have Specialty Bed or Wound Vac : No Kaylee Carlin RN - 12/12/2022 18:21 EDT Discharge Level of Care at Discharge : Home/[facility] Name of Receiving Short Term Gen Hosp : [facility] Discharge [facility]/Hospice/Home Care(v001) : [facility] [phone] Patient Left Unit Via : Wheelchair Kaylee Carlin RN - 12/12/2022 16:44 EDT * Kaylee Carlin RN: MODIFY Kaylee Carlin RN: MODIFY, PERFORM, MODIFY, MODIFY Event Display: Discharge/Transfer Note Hospital Authored Date: [id number] Patient: ??PONCE, SHAYE ? Age:??77 Years?Sex:??Female?:??1945?? Patient Information Discharge Location: A Primary Care Physician: Carlos Hansen MD Admit Date/Time: 12/10/22 06:39 Discharge Disposition Discharge Disposition: Home with Home Health Discharge Diagnosis Fall (W19.XXXA) Delirium with dementia (R41.0) Lactic acidosis (E87.20) Schizophrenia (F20.9) Depression with anxiety (F41.8) Type 2 diabetes mellitus (E11.9) Dehydration (E86.0) Hypertension _ Discharge Medications Acetaminophen (acetaminophen 325 mg oral tablet)?650?Milligram?2?tablet?By Mouth?Every 4 hours?as needed?as needed for fever/pain Al Hydroxide/Mg Hydroxide/Simethicone (Mintox)?30?Milliliter?By Mouth?Every 4 hours?as needed?as needed for indigestion Aripiprazole (Abilify 30 mg oral tablet)?1?tab(s)?30?Milligram?By Mouth?Daily at bedtime Aspirin (aspirin 81 mg oral tablet)?1?tab(s)?81?Milligram?By Mouth?Daily Atorvastatin (atorvastatin 20 mg oral tablet)?1?tab(s)?20?Milligram?By Mouth?Daily Benztropine (benztropine 0.5 mg oral tablet)?0.5?Milligram?1?tablet?By Mouth?2 times a day Calcium And Vitamin D Combination (calcium-vitamin D 600 mg-400 intl units oral tablet)?1?tab(s)?By Mouth?Daily Carbidopa-Levodopa (Sinemet 25 mg-100 mg oral tablet)?1?tab(s)?By Mouth?3 times a day Citalopram (citalopram 20 mg oral tablet)?20?Milligram?1?tablet?By Mouth?Daily Cyanocobalamin (cyanocobalamin 1000 mcg oral tablet)?1,000?Microgram?1?tablet?By Mouth?Daily Divalproex Sodium (Depakote ER 500 mg oral tablet, extended release)?1?tab(s)?500?Milligram?By Mouth?Daily at bedtime Docusate (docusate sodium 100 mg oral capsule)?1?capsule?100?Milligram?By Mouth?2times a day Furosemide (furosemide 20 mg oral tablet)?20?Milligram?1?tablet?By Mouth?Daily Guaifenesin (Tussin Expectorant 100 mg/5 mL syrup)?10?Milliliter?By Mouth?Every 4 hours?as needed?Cough Losartan (losartan 100 mg oral tablet)?1?tab(s)?100?Milligram?By Mouth?Daily Metformin (metFORMIN 1000 mg oral tablet)?1?tab(s)?1,000?Milligram?By Mouth?2 times a day Milk of Magnesia (Milk of Magnesia 8% oral suspension)?30?Milliliter?2.4?gram?By Mouth?Daily?as needed?for constipation Ocular Lubricant (Lubricant Eye Drops ophthalmic solution)?1?Drops?Eyes, Both?4 times aday?as needed?for dry eyes?up to 6 times a day Polyethylene Glycol 3350 (MiraLax oral powder for reconstitution)?17?gram?By Mouth?Daily semaglutide (Ozempic (1 mg dose))?1?Milligram?Subcutaneous Injection?Every Friday Trazodone (traZODone 150 mg oral tablet)?1?tab(s)?150?Milligram?By Mouth?Daily atbedtime ? Medications Started none Medications Discontinued hydroxyzine Doses Changed none Allergies Allergies ?(Active and Proposed Allergies Only) NKA? (Severity: Unknown severity, Onset: Unknown) ? PCP Follow-Up/Heads-Up admitted after concern for a fall, found to be dehydrated with lactic acidosis - resolved concern for polypharmacy, discontinued hydroxyzine due to increased risk for anticholinergic toxicity recommend follow-up on medications, consider neurology consult as well as follow-up on elevated BP Hospital Course Ms. Kelsie Ponce is [id number] female with PMHx of HTN, HLD, diabetes type 2, schizophrenia, mood disorder, Parkinson's disorder/other movement disorder, and recurrent falls, who presented from a residential care facility for 2x unwitnessed falls and altered mental status, who was wound to have dehydration and type B lactic acidosis in the ED, and was admitted for AMS. After receiving IV fluids, her lactate was improved and she was at her baseline mental status.??there is concern polypharmacy might have contributed to the baseline fall.Initial PT evaluation recommended short-term rehabilitation. Patient and HCP declined.[facility] requiring patient to transition and ambulate 16 ft independently to return with services.??PT re- evaluated and??Ms. Ponce was able to ambulate to outside of the room using a walker.? Fall (W19.XXXA): ??Polypharmacy ??Suspect mechanical fall. Patient described sliding out of bed without any loss of consciousness or dizziness. Ambulates with a walker at baseline, but said that she sometimes has problems with transitioning from chairs to bed. ??There is concern for polypharmacy contributing to gait instability. She is on multiple antipsychotic medications, anticholinergic medications (ACB = 10), and has a questionable history of Parkinson's disorder that is now in question. [facility] and PCP setting up neurology appt. ?? Recommendations:?- recommend discontinuing home schedule Hydroxyzine for anxiety due to increased risk of anticholinergic toxicity, follow-up with PCP ??- Encourage follow up with outpatient neurology ? Lactic acidosis (E87.20): Resolved Dehydration (E86.0) ??At presentation had dry oral mucosa and signs of dehydration potentially due to anticholinergic burden and diuretics. The dehydration combined with metformin could have caused a type B lactic acidosis.?? Recommendations: ??- Encourage drinking to thirst and PO intake ??- Detail Manager patient and caregivers to contact PCP about taking metformin in cases of serious illness, poor PO intake, dehydration ?? Hypertension patient noted to have some elevated BP during hospital stay Recommendations: - continue on home furosemide and losartan - recommend monitoring BP at home and follow-up with PCP if remains elevated ?? Chronic problems: - continue all other home medications with close follow up with PCP ?? Objective Assessment and Plan ? Measurements?? Height: 164 cm (12/12/22) Weight: 78.7 kg (12/11/22) Dry Weight: 78.7 kg (12/11/22) Body Mass Index:??29.26 kg/m2??High (12/11/22) ? Vital Signs?? Temperature: 98.5 DegF (12/12/22 11:11:00) Temperature Route: Oral (12/12/22 11:11:00) Pulse Rate: 64 bpm (12/12/22 13:45:00) Heart Rate Monitored: 59 bpm (12/12/22 08:27:00) Respiratory Rate: 18 br/min (12/12/22 11:11:00) Systolic Blood Pressure:??154 mm Hg??High (12/12/22 13:45:00) Diastolic Blood Pressure: 55 mm Hg (12/12/22 13:45:00) Blood pressure sites: Arm, right (12/12/22 13:45:00) Mean Arterial Pressure: 88 mm Hg (12/12/22 13:45:00) Pulse Pressure: 99 mm Hg (12/12/22 13:45:00) Oxygen Saturation: 98 % (12/12/22 11:11:00) Mode of Delivery (Oxygen): Room air (12/12/22 11:11:00) Early Warning Score: 3 (12/12/22 14:05:12) ? Intake/Output? 12/10 06:39 12/12 07:00 12/11 07:00 12/10 07:00 12/09 07:00 ?? 12/12 15:27 12/12 15:27 12/12 06:59 12/11 06:59 12/10 06:59 Intake ?490 ?380 ?110 ?0 ?0 Output ? 3525 ?975 ? 2150 ?400 ?0 Net Total ?-3035 ? -595 ?-2040 ? -400 ?0 ? . Physical Exam Constitutional: Alert, in no acute distress. Mental Status: Oriented to person, place, time and situation. Able to recall information about her home, rooommates, and medication history. Head: Normocephalic. Eyes: Pupils are equal, round and reactive to light. Extraocular muscles intact. Ear, Nose and Throat:?? mucous membranes moist Neck: Supple, Full range of motion. No point tenderness Respiratory: Clear to auscultation. No wheezing, rales or rhonchi. Cardiovascular: S1 S2 regular. No murmurs, rubs or gallops. Gastrointestinal: Abdomen soft, non-tender, non-distended. Normal bowel sounds. Neurologic: Cranial nerves II-XII grossly intact. No focal neurological deficits. Skin: No rashes or lesions. Musculoskeletal: No gross deformities. Able to ambulate with walker Psychiatric: anxious mood and full, labile??affect Pending Results Hold Lavender Tube (BB) ordered on 12/10/2022 Patient Education Titles Fall??Prevention?? Follow-Up Appointments Added Follow Up ?Time Frame ?Comments Jade ONEILL, Carlos Lewis?1 week: call to discuss follow up visit Patient Instructions You were admitted to [facility] after concern of??a fall at home and found to be dehydrated. You weregiven fluids to help hydrate you. Physical therapy recommended that you continue receiving physicaltherapy.??You were monitored to walk while admitted here and are safe to return home and continue physical therapy. ?? STOP taking: hydroxyzine, until you talk with your primary care doctor ?? CONTINUE taking: all other home medications. ?? Stand or sit up slowly. This may help you keep your balance and prevent falls. If you need to get up during the night, sit up first. Be sure you are fully awake before you stand. Use assistive devices as directed. Use a cane or walker to help you keep your balance. You may needto have grab bars put in your bathroom near the toilet or in the shower. Wear shoes that fit well and have soles that obgyn hospitalist physician. Stay active. Exercise can help strengthen muscles and improve balance. ?? Follow-up with your primary care doctor within 1 week. Please call the neurologist to?? make an appointment regarding your medications. Home Health Face to Face *Denotes mandatory sosa ?? *I certify that this patient is under my care and that I or an allowed non- physician working with me had a face to face encounter with the patient on this date:??12/12/2022 15:34 ?? *The encounter with the patient was in whole, or in part, for the following medical condition, which is the primary diagnosis(es) for home health care:??Fall (W19.XXXA) Delirium with dementia (R41.0) Lactic acidosis (E87.20) Schizophrenia (F20.9) Depression with anxiety (F41.8) Type 2 diabetes mellitus (E11.9) Dehydration (E86.0) ? *Select the indications for the discipline/s that are being arranged for this patient. Nursing (select all that apply): [_] None [x] Medication management (reconciliation, teaching)?? [x] Chronic disease management?? [_] Wound care and treatment?? [_] Home safety evaluation [_] Administer SQ/IM/IV medications?? [_] Cath care?? [_] Drain care?? [_] Trach or GT care?? Other _ Occupation Therapy (select all that apply): [_] None [_] ADL Management [_] Fall prevention training [_] Energy conservation [_] Cognitive training Other _ Physical Therapy (select all that apply): [_] None [x] Functional mobility training [x] Home exercise program to strengthen [x] Increase ROM?? [x] Falls prevention training [_] Home maintenance program for chronic disease Other _ Speech Therapy (select all that apply): [_] None [_] Swallow evaluation and training [_] Speech and language training [_] Cognitive training to process, organize, and/or recall information Other _ ? *Homebound due to (select all that apply): [x] Inability to leave home without assistance/supervision [x] Inability to ambulate without assistance [_] Pain [x] Decreased strength and endurance [x] Unsteady gait [_] Severe SOB and fatigue [_] Impaired transfers [x] Inability to negotiate stairs [_] Limited weight bearing [_] Mental status change? *Physician Signature:??Rod Coffey MD ?? *By signing this, I certify that I have personally evaluated the patient and agree with the findings and recommendations as documented above. ? Results Discharge Labs BLOOD COUNT & DIFF WBC 4.9 k/mm3 ()?? 12/12/2022 07:58 RBC 3.89 m/mm3 (Low)?? 12/12/2022 07:58 Hgb 11.7 Gm/dL ()?? 12/12/2022 07:58 Hct 36.0 % ()?? 12/12/2022 07:58 MCV 92.5 femtoliters ()?? 12/12/2022 07:58 MCH 30.1 pg ()?? 12/12/2022 07:58 MCHC 32.5 g/dL (Low)?? 12/12/2022 07:58 Platelet Count 85 k/mm3 (Low)?? 12/12/2022 07:58 RDW-SD 38.4 femtoliters ()?? 12/12/2022 07:58 MPV 11.7 femtoliters ()?? 12/12/2022 07:58 Nucleated RBC (Automated) 0.0 #/100 WBC'S ()?? 12/12/2022 07:58 Abs. NRBC 0.0 k/mm3 ()?? 12/12/2022 07:58 Abs. Neut 2.4 k/mm3 ()?? 12/12/2022 07:58 Abs. Lymph 1.5 k/mm3 ()?? 12/12/2022 07:58 Abs. [place] 0.6 k/mm3 ()?? 12/12/2022 07:58 Abs. Eo 0.4 k/mm3 ()?? 12/12/2022 07:58 Abs. Baso 0.0 k/mm3 ()?? 12/12/2022 07:58 Neut % 48.8 % ()?? 12/12/2022 07:58 Lymph % 30.7 % ()?? 12/12/2022 07:58 [place] % 11.6 % (High)?? 12/12/2022 07:58 Eos % 7.9 % (High)?? 12/12/2022 07:58 Baso % 0.6 % ()?? 12/12/2022 07:58 Platelet Estimate DECREASED ()?? 12/12/2022 07:58 Platelet Comment MANY ()?? 12/12/2022 07:58 Imm Gran 0.4 % ()?? 12/12/2022 07:58 Abs. Imm Gran 0.0 k/mm3 ()?? 12/12/2022 07:58 Citrated Platelet Count 125 k/mm3 (Low)?? 12/12/2022 11:36 ? CARDIAC High Sensitivity Troponin (HSTnT) 16 ng/L (High)?? 12/10/2022 05:05 ? CHEM GENERAL Sodium 139 mmol/L ()?? 12/12/2022 07:58 Potassium 4.6 mmol/L ()?? 12/12/2022 07:58 Chloride 104 mmol/L ()?? 12/12/2022 07:58 Bicarbonate Level 31 mmol/L (High)?? 12/12/2022 07:58 Anion Gap 4 ()?? 12/12/2022 07:58 Glucose Level 154 mg/dL (High)?? 12/12/2022 07:58 Glucose, POC 200 mg/dL (High)?? 12/12/2022 11:10 Hemoglobin A1C (Monitoring) 7.9 % (High)?? 12/11/2022 02:41 Beta Hydroxybutyrate 0.06 mmol/L ()?? 12/10/2022 02:39 BUN 16 mg/dL ()?? 12/12/2022 07:58 Creatinine-Blood 0.6 mg/dL ()?? 12/12/2022 07:58 Estimated GFR Creatinine 90 ML/MIN/1.73 M2 ()?? 12/12/2022 07:58 Calcium 9.2 mg/dL ()?? 12/12/2022 07:58 Phosphorus 3.4 mg/dL ()?? 12/12/2022 07:58 Magnesium 1.9 mg/dL ()?? 12/12/2022 07:58 Protein, Total 6.7 Gm/dL ()?? 12/10/2022 02:39 Albumin 4.0 Gm/dL ()?? 12/10/2022 02:39 AG Ratio 1.5 ()?? 12/10/2022 02:39 Alkaline Phosphatase 102 units/L ()?? 12/10/2022 02:39 Lipase 16 units/L ()?? 12/10/2022 02:39 AST (SGOT) 12 units/L ()?? 12/10/2022 02:39 ALT (SGPT) 14 units/L ()?? 12/10/2022 02:39 Bilirubin, Total 0.4 mg/dL ()?? 12/10/2022 02:39 Lactate 1.4 mmol/L ()?? 12/11/2022 02:41 ?? ENDOCRINE/TUMOR MARKER TSH 1.18 uIU/mL ()?? 12/11/2022 02:41 ? HEME OTHER Hold Blue Top SPECIMEN DISCARDED AFTER 4 HOURS. ()?? 12/10/2022 02:50 ? TOXICOLOGY/TDM Valproic Level 31.6 mg/L (Low)?? 12/12/2022 07:58 ? UA/URINALYSIS Appear/Color, Urine LIGHT YELLOW ()?? 12/10/2022 05:02 Specific [place], Urine 1.037 (High)?? 12/10/2022 05:02 pH, Urine 7.0 ()?? 12/10/2022 05:02 Albumin, Urine TRACE (Abnormal)?? 12/10/2022 05:02 Glucose, Urine 4+ (Abnormal)?? 12/10/2022 05:02 Ketones, Urine 1+ (Abnormal)?? 12/10/2022 05:02 Bilirubin, Urine NEGATIVE ()?? 12/10/2022 05:02 Hemoglobin, Urine NEGATIVE ()?? 12/10/2022 05:02 Nitrite, Urine NEGATIVE ()?? 12/10/2022 05:02 Leukocyte, Urine NEGATIVE ()?? 12/10/2022 05:02 Urobilinogen NORMAL mg/dL ()?? 12/10/2022 05:02 WBC's, Urine 1 /HPF ()?? 12/10/2022 05:02 RBC's, Urine <1 /HPF ()?? 12/10/2022 05:02 Bacteria SLIGHT HPF (Abnormal)?? 12/10/2022 05:02 Squamous Epith 1 /HPF ()?? 12/10/2022 05:02 Hold Urine Culture Testing available 48 hours from time of collection. ()?? 12/10/2022 05:02 ?? URINE OTHER Est Creatinine Clearance 67.22 mL/min ()?? 12/12/2022 09:07 ? VIROLOGY Influenza A PCR NEGATIVE ()?? 12/10/2022 02:10 Influenza B PCR NEGATIVE ()?? 12/10/2022 02:10 RSV PCR NEGATIVE ()?? 12/10/2022 02:10 COVID-19 PCR Specimen Source NASAL ()?? 12/10/2022 02:10 COVID-19 PCR Result NEGATIVE ()?? 12/10/2022 02:10 ? Microbiology ?? COVID-19, RSV, and Flu A/B, Rapid PCR?? Completed?? Source: Nasal Body Site: Nose Collected Dt/Tm: 12/10/2022 02:10 Last Updated Dt/Tm: 12/10/2022 03:51 ? Rod Coffey MD PGY-1, Internal Medicine-Pediatrics Cortext or pager-[phone] ?? Patient was seen and discussed with attending, Dr. Wells. ?? >45??minutes spent on discharge * Kirti Wells DO: PERFORM Event Display: Discharge/Transfer Note Hospital Authored Date: [id number] * Kaylee Carlin RN: PERFORM Event Display: Patient Education/Instruction Authored Date: Inpatient Adult Discharge Instructions [address] [address] Name: SHAYE PONCE : 1945 Visit: 12/10/2022 06:39:00 Current Date: 12/12/2022 16:27 Account: [id number] Inpatient Adult Discharge Instructions We would like to thank you for allowing us to assist you with your healthcare needs. The following includes patient education materials and information regarding your injury/illness. Our entire staffstrives to provide an excellent experience for our patients and their families. PLEASE ENSURE YOU FOLLOW-UP PER THE INSTRUCTIONS BELOW! ?? YOUR OPINION IS IMPORTANT TO US! Please complete the survey you may receive by mail or email. Your feedback will be used to make improvements to the healthcare experiences of our patients and their families. Surveys are administered by [employer] ?? If further treatment with your primary care physician or another doctor is recommended, it is important for you to keep the appointment. Call your primary care physician or return to the Emergency Department immediately if your condition worsens, fails to improve, or new symptoms develop. If you need to find a doctor, you can call [facility] for a referral at [phone] or toll free at [phone] or log in to [email or web address].. ?? [facility], in keeping with [facility] guidance, no longer requires face masks for staff, patientsor visitors in most situations. Similiar to time spent indoors at other locations, there is the chance that you were exposed to repiratory viruses during your time with us (such as flu or COVID-19). If you develop symptoms concerning for a viral respiratory infection, please seek testing (and treatment if indicated) from your medical provider or home test kit. ?? You can view and manage your care through the patient portal or by using a health care tiarra of your choosing. [employer] is a website that allows you to securely view your medical information including your hospital discharge summary, office visit summaries, medications and follow-up visits. You can also request appointments, renew medications, and request access to your medical information using a health care tiarra of your choosing, or just ask a question. You can enroll at [email or web address] or register during your next office visit. You have been discharged from [facility], Patient Care Unit: D6A. If you have any questions regarding these instructions after you leave, please call us and we will be happy to assist you. [facility] Your Care Team Attending Physician Kirti Wells DO Discharging Providers Lauren Pierce MD Reason for Admission Altered mental status and lactic acidosis Your Diagnosis Fall Delirium with dementia Lactic acidosis Schizophrenia Depression with anxiety Type 2 diabetes mellitus Dehydration Tests Performed Below is a partial list of the tests performed during your hospitalization. You may have had other tests and procedures not included in this list. Please discuss all test results with your provider. Basic Metabolic Panel Beta Hydroxybutyrate CBC w/ Differential Citrated Platelet Count Comprehensive Metabolic Panel COVID-19, RSV, and Flu A/B, Rapid PCR Depakote Level GLUCOSE POC Hemoglobin A1C (Monitoring) High??Sensitivity??Troponin T Hold Blue Top Tube Lactate Level Lipase Magnesium Level Phosphorus Level Troponin T, High Sensitivity TSH Urinalysis w/hold for Urine Culture CT Abd/Pelvis W/ IV Contrast Only CT Cervical Spine W/O Contrast CT Chest W/ IV Contrast CT Head/Brain W/O Contrast Primary Care Provider Carlos Hansen MD Advance Directive Health Care Proxy on File No Patient refuses to discuss Discharge Vitals Temperature: 98.5 DegF Height: 164 cm Pulse Rate: 64 bpm Weight: 78.7 kg Respiratory Rate: 17 br/min Body Mass Index:??29.26 kg/m2??High Systolic Blood Pressure:??154 mm Hg??High Body surface area: 1.89 Diastolic Blood Pressure: 55 mm Hg ?? Oxygen Saturation: 98 % ?? Studies Pending All tests and labs ordered during this hospital stay have been completed unless listed below. Please discuss all pending results with your provider listed above in these instructions. ?? Hold Lavender Tube (BB) What to do next Instructions From Your Doctor You were admitted to [facility] after concern of??a fall at home and found to be dehydrated. You weregiven fluids to help hydrate you. Physical therapy recommended that you continue receiving physicaltherapy.??You were monitored to walk while admitted here and are safe to return home and continue physical therapy. ?? STOP taking: hydroxyzine, until you talk with your primary care doctor ?? CONTINUE taking: all other home medications. ?? Stand or sit up slowly. This may help you keep your balance and prevent falls. If you need to get up during the night, sit up first. Be sure you are fully awake before you stand. Use assistive devices as directed. Use a cane or walker to help you keep your balance. You may needto have grab bars put in your bathroom near the toilet or in the shower. Wear shoes that fit well and have soles that obgyn hospitalist physician. Stay active. Exercise can help strengthen muscles and improve balance. ?? Follow-up with your primary care doctor within 1 week. Please call the neurologist to?? make an appointment regarding your medications. Discharge Orders You Need to Schedule the Following Appointments Follow Up with??Jade ONEILL, Carlos Lewis When:??Within 1 week: call to discuss follow up visit Where: [address] [facility] [place] [address]- Discharge Medications SHAYE PONCE :1945 Visit Date:12/10/2022 Medications: Please continue your medications until treatment is completed or stopped by your provider. Medications not listed below should be discontinued. Discuss any questions related to medications with your provider. What How Much When Instructions Next Dose Changed Acetaminophen (acetaminophen 325 mg oral tablet) 2 tab(s) Oral Every 4 hours as needed for as needed for fever/pain As Needed. Last Dose: 12/12/2022, 13:03 Changed Aspirin (aspirin 81 mg oral tablet) 1 tab(s) Oral Daily 12/13/2022, 09:00 AM. Changed Atorvastatin (atorvastatin 20 mg oral tablet) 1 tab(s) Oral Daily Tonight, 12/12/2022, 21:00. Changed Benztropine (benztropine 0.5 mg oral tablet) 1 tab(s) Oral Twice a day RESUME. Changed Calcium And Vitamin D Combination (calcium-vitamin D 600 mg-400 intl units oral tablet) 1 tab(s) Oral Daily RESUME. Changed Divalproex Sodium (Depakote ER 500 mg oral tablet, extended release) 1 tab(s) Oral Daily at Bedtime Tonight, 12/13/2022, 21:00. Changed Guaifenesin (Tussin Expectorant 100 mg/ 5 mL syrup) 10 Milliliter Oral Every 4 hours as needed for Cough As Needed. Changed Metformin (metFORMIN 1000 mg oral tablet) 1 tab(s) Oral Twice a day Resume. Changed Milk of Magnesia (Milk of Magnesia 8% oral suspension) 30 Milliliter Oral Daily as needed for for constipation As Needed. Changed Trazodone (traZODone 150 mg oral tablet) 1 tab(s) Oral Daily at Bedtime Resume. Changed semaglutide (Ozempic (1 mg dose)) 1 Milligram Subcutaneous Injection Every Friday Resume. Unchanged Al Hydroxide/ Mg Hydroxide/ Simethicone (Mintox) 30 Milliliter Oral Every 4 hours as needed for as needed for indigestion As Needed. Unchanged Aripiprazole (Abilify 30 mg oral tablet) 1 tab(s) Oral Daily at Bedtime Tonight, 12/13/2022, 21:00. Unchanged Carbidopa-Levodopa (Sinemet 25 mg-100 mg oral tablet) 1 tab(s) Oral 3 times a day Tonight, 12/13/2022, 21:00. Unchanged Citalopram (citalopram 20 mg oral tablet) 1 tab(s) Oral Daily 12/13/2022, 09:00 AM. Unchanged Cyanocobalamin (cyanocobalamin 1000 mcg oral tablet) 1 tab(s) Oral Daily Resume. Unchanged Docusate (docusate sodium 100 mg oral capsule) 1 capsule Oral Twice a day Tonight, 12/13/2022, 21:00. Unchanged Furosemide (furosemide 20 mg oral tablet) 1 tab(s) Oral Daily 12/13/2022, 09:00 AM. Unchanged Losartan (losartan 100 mg oral tablet) 1 tab(s) Oral Daily 12/13/2022, 09:00 AM. Unchanged Ocular Lubricant (Lubricant Eye Drops ophthalmic solution) 1 Drops Both eyes 4 times a day as needed for for dry eyes up to 6 times a day ?? Resume. Unchanged Polyethylene Glycol 3350 (MiraLax oral powder for reconstitution) 17 gram Oral Daily Resume. ?? What How Much When Comments Stop Taking Ascorbic Acid (Vitamin C 100 mg oral tablet) 1 tab(s) Oral Daily Stop Taking Enalapril (enalapril 20 mg oral tablet) 1 tab(s) Oral Daily Stop Taking HydrOXYzine (hydrOXYzine hydrochloride 25 mg oral tablet) 1 tab(s) Oral Daily Stop Taking Lorazepam (Ativan 0.5 mg oral tablet) 1 tab(s) Oral 3 times a day Stop Taking Quetiapine (Seroquel 200 mg oral tablet) 1 tab(s) Oral Daily dinner ?? Stop Taking Quetiapine (Seroquel 25 mg oral tablet) 2 tab(s) Oral Twice a day breakfast lunch ?? Test Results Below is a partial list of the most recent Laboratory test results done prior to this discharge. You may have had other tests and procedures not included in this list. Please discuss all test resultswith your provider. Est Creatinine Clearance - 67.22 mL/min (12/12/2022) Basic Metabolic Panel (12/12/2022) ???Sodium - 139 mmol/L???Potassium - 4.6 mmol/L???Chloride - 104 mmol/L???Bicarbonate Level - 31 mmol/L???Anion Gap - 4???Glucose Level - 154 mg/dL???BUN - 16 mg/dL???Creatinine-Blood - 0.6 mg/dL???Estimated GFR Creatinine - 90 ML/MIN/1.73 M2???Calcium - 9.2 mg/dL Beta Hydroxybutyrate (12/10/2022) ???Beta Hydroxybutyrate - 0.06 mmol/L CBC w/ Differential (12/12/2022) ???WBC - 4.9 k/mm3???RBC - 3.89 m/mm3???Hgb - 11.7 Gm/dL???Hct - 36.0 %???MCV - 92.5 femtoliters???MCH - 30.1 pg???MCHC - 32.5 g/dL???Platelet Count - 85 k/mm3???RDW-SD - 38.4 femtoliters???MPV - 11.7 femtoliters???Nucleated RBC (Automated) - 0.0 #/100 WBC'S???Abs. NRBC - 0.0 k/mm3???Abs. Neut - 2.4 k/mm3???Abs. Lymph - 1.5 k/mm3???Abs. Essex - 0.6 k/mm3???Abs. Eo - 0.4 k/mm3???Abs. Baso - 0.0 k/mm3???Neut % - 48.8 %???Lymph % - 30.7 %???[place] % - 11.6 %???Eos % - 7.9 %???Baso % - 0.6 %???Platelet Estimate - DECREASED???Platelet Comment - MANY???Imm Gran - 0.4 %???Abs. Imm Gran - 0.0 k/mm3 Citrated Platelet Count (12/12/2022) ???Citrated Platelet Count - 125 k/mm3 Comprehensive Metabolic Panel (12/10/2022) ???Sodium - 136 mmol/L???Potassium - 4.2 mmol/L???Chloride - 97 mmol/L???Bicarbonate Level - 24 mmol/L???Anion Gap - 15???Glucose Level - 232 mg/dL???BUN - 16 mg/dL???Creatinine-Blood - 0.7 mg/dL???Estimated GFR Creatinine - 89 ML/MIN/1.73 M2???Calcium - 9.3 mg/dL???Protein, Total - 6.7 Gm/dL???[place]bu min - 4.0 Gm/dL???AG Ratio - 1.5???Alkaline Phosphatase - 102 units/L???AST (SGOT) - 12 units/L???ALT (SGPT) - 14 units/L???Bilirubin, Total - 0.4 mg/dL COVID-19, RSV, and Flu A/B, Rapid PCR (12/10/2022) ???Influenza A PCR - NEGATIVE???Influenza B PCR - NEGATIVE???RSV PCR - NEGATIVE???COVID-19 PCR Specimen Source - NASAL???COVID-19 PCR Result - NEGATIVE Depakote Level (12/12/2022) ???Valproic Level - 31.6 mg/L GLUCOSE POC (12/12/2022) ???Glucose, POC - 200 mg/dL Hemoglobin A1C (Monitoring) (12/11/2022) ???Hemoglobin A1C (Monitoring) - 7.9 % High??Sensitivity??Troponin T (12/10/2022) ???High Sensitivity Troponin (HSTnT) - 17 ng/L Hold Blue Top Tube (12/10/2022) ???Hold Blue Top - SPECIMEN DISCARDED AFTER 4 HOURS. Lactate Level (12/11/2022) ???Lactate - 1.4 mmol/L Lipase (12/10/2022) ???Lipase - 16 units/L Magnesium Level (12/12/2022) ???Magnesium - 1.9 mg/dL Phosphorus Level (12/12/2022) ???Phosphorus - 3.4 mg/dL Troponin T, High Sensitivity (12/10/2022) ???High Sensitivity Troponin (HSTnT) - 16 ng/L TSH (12/11/2022) ???TSH - 1.18 uIU/mL Urinalysis w/hold for Urine Culture (12/10/2022) ???Appear/Color, Urine - LIGHT YELLOW???Specific [place], Urine - 1.037???pH, Urine - 7.0???Albumin, Urine - TRACE???Glucose, Urine - 4+???Ketones, Urine - 1+???Bilirubin, Urine - NEGATIVE???Hemoglobin, Urine - NEGATIVE???Nitrite, Urine - NEGATIVE???Leukocyte, Urine - NEGATIVE???Urobilinogen - NORMAL? ?WBC's, Urine - 1 /HPF? ?RBC's, Urine - <1 /HPF? ?Bacteria - SLIGHT? ?Squamous Epith - 1 /HPF???Hold Urine Culture - Testing available 48 hours from time of collection. Immunizations This Visit Given Vaccine Date influenza virus vaccine, inactivated 12/12/2022 Allergies (NKA means No Known Allergies) NKA Problems Active Problems??(5) Depression with anxiety?? Essential hypertension?? Moderate dementia?? Schizophrenia?? Type 2 diabetes mellitus?? Education Materials Below is the list of Educational Leaflet Providered with your Discharge Instructions. Dehydration (Adult)?? Fall??Prevention?? Valuables and Belongings I fully understand and agree that [facility] accepts no responsibility for all my personal property including clothing, toilet articles, radios, jewelry, dentures, hearing aids, rings, money, or any other property that is in my possession or is brought to me after admission. I understand certain valuables may be placed in a hospital safe for a short period of time. I understand that the hospital is not liable for loss or damage due to accident, fire, or other natural occurrence while said property is in the safe. I accept full responsibility for any personal property that I keep with me, and will not hold the hospital responsible in case of loss or disappearance. I acknowledge that i have been encouraged to send valuables and belongings home. ?? No Valuables/Belongings: No valuables/belongings present Review of Valuable and Belonging List: With patient Date for Pt to Sign Valuables/Belongings: 12/11/22 02:37:00 ?? Other Discharge Information ?? Wound Assessment?? Wound Assessment?? Wound Location I: Knee, left Wound Type I: Other: scrapes Wound I, Present on Admission: Yes Wound Location II: Knee, right Wound Type II: Other: scrapes Wound II, Present on Admission: Yes ? Case Management Discharge Plan?? Discharge Plan?? Discharge Agency Information?? Discharge Level of Care at Discharge: Home/[facility]/Foster Care Name of Agency #1: [facility] Discharge VNA/Hospice/Home Care: [facility] [phone] Agency [employer] #1: intake Discharge Rest Homes/Residences/Shelters: [facility] Service Categories #1: Physical Therapy, Snf ?? Service Comments #1: You will be discharged with [facility] for long-term and physical therapy services in your home. If you have any questions please call the agency directly. ?? Pulmonary Rehab Status?? Pulmonary Rehab Discharge Status?? Respiratory Rate: 17 br/min ? Common Emergency Awareness Tips IS IT A STROKE? Act FAST and Check for these signs: FACE Does the face look uneven? ARM Does one arm drift down? SPEECH Does their speech sound strange? TIME Call at any sign of stroke ?? Heart Attack Signs Chest discomfort: Most heart attacks involve discomfort in the center of the chest and lasts more than a few minutes, or goes away and comes back. It can feel like uncomfortable pressure, squeezing, fullness or pain. Discomfort in upper body: Symptoms can include pain or discomfort in one or both arms, back, neck, jaw or stomach. Shortness of breath: With or without discomfort. Other signs: Breaking out in a cold sweat, nausea, or lightheaded. Remember, MINUTES DO MATTER. If you experience any of these heart attack warning signs, call to get immediate medical attention! ?? Smoking can increase your chances of developing chronic health problems and can cause harmful effects to other family members in your house. If you smoke, you are strongly encouraged to quit. Please call [facility] at [phone] or [phone] ([phone]) or log in to [email or web address] for referrals to smoking cessation programs. ?? 238 Suicide & Crisis Lifeline is available 02/09 if you or someone you know needs to find a reason to keep living. By calling 439 you'll be connected to a skilled, trained counselor at a crisis center in your area. INPATIENT DISCHARGE INSTRUCTIONS SIGNATURE SHAYE BARR Location:[facility] Registration Date and Time:12/10/2022 06:39 EDT Primary Care Physician: Carlos Hnasen MD, Attending Physician: Kirti Wells DO, Álvaro PONCESHAYE, have received the above patient education materials/instructions and have verbalized understanding. If ambulance or transport services are being used I further acknowledge being given achoice of service. ?? If you need to contact me, please call me at this number: . Patient/Surgical Technologist Name: Patient/Surgical Technologist Signature: Relationship to Patient: Witness Name/Signature: Date: * Rod Henderson MD: PERFORM Event Display: Patient Education Leaflets Authored Date: [id number] Dehydration (Adult) ?? [id number] Dehydration (Adult) Dehydration occurs when your body loses too much fluid. This may be the result of prolonged vomiting or diarrhea, excessive sweating, or a high fever. It may also happen if you don???t drink enough fluid when you???re sick or out in the heat. Some medicines such as water pills (diuretics) can also be a cause. Symptoms include thirst, less urine than usual, and darker-colored urine. You may also feel dizzy, weak, very tired, or very drowsy. You may also have muscle aches and headache. The diet described below is usually enough to treat dehydration. In some cases, you may need medicine. Home care ??? Drink at least 12, 8-ounce glasses of fluid every day until you are no longer dehydrated. Fluid can include: o Water o [place] juice o Lemonade o Apple, grape, or cranberry juice o Clearfruit drinks o Electrolyte replacement and sports drinks o Tea o Decaffeinated coffee ??? Don't drink alcohol. ??? If you have been diagnosed with a kidney disease or heart failure, ask your doctor how much and what types of fluids you should drink to prevent dehydration. These diseases can cause fluid to build up in the body. This can be dangerous to your health. ??? If you have a fever, muscle aches, or a headache from a cold or flu, you may take acetaminophen, naproxen, or ibuprofen, unless another medicine was prescribed. Talk with your healthcare provider before using these medicines if you have chronic liver or kidney disease, or had a stomach ulcer or digestive bleeding. ?? Follow-up care Follow up with your healthcare provider as advised. ?? When to seek medical advice Call your healthcare provider right away if any of these occur: ??? Continued vomiting ??? Diarrheathat happens more than 5 times a day or mucus in diarrhea ??? Swollen belly (abdomen) or belly painthat gets worse ??? Less urine than usual or extreme thirst ??? Fever of 100.4??F (38??C) or higher, or as directed by your healthcare provider ?? Call 911 Call 911 right away if you have any of the following: ??? Weakness, dizziness, or fainting ??? Unusual drowsiness or confusion ??? Vomit or stool is red or black ?? Last Reviewed Date: 2021 ?? [id number] [employer]. All rights reserved. This information is not intended as a substitute for professional medical care. Always follow your healthcare professional's instructions. ?? * Edil Coffey MD, Rod: PERFORM Event Display: Patient Education Leaflets Authored Date: [id number] Fall??Prevention ?? [id number] Fall??Prevention Falls often take place due to slipping, tripping, or losing your balance. Millions of people fall every year and injure themselves.??Among older adults in the [place] falls are the most common cause oftraumatic brain injuries. Every 20 minutes, an older adult dies from a fall. Here are ways to reduce your risk of falling again: ??? Think about your fall. Was there anything that caused your fall that can be fixed, removed, or replaced? Make your home safe by keeping walkways clear of objects you may trip over, such as electrical cords. ??? Use nonslip pads under rugs. Don't use area rugs orsmall throw rugs. ??? Use nonslip mats in bathtubs and showers. ??? Hang grab rails by the toilet and inside and outside the shower. ??? Install handrails and lights on staircases. The handrails should be on both sides of the stairs. ??? Use night lights. ??? Don't walk in poorly lit areas. ??? Don't stand on chairs or wobbly ladders. ??? Use care when reaching overhead or looking up.??This position can cause a loss of balance. ??? Be sure your shoes fit well, are in good condition, and have non slip bottoms.? Wear shoes both inside and outside of your home. Don't go barefoot or wear slippers. ??? Be cautious when going up and down stairs, curbs, and when walking on uneven sidewalks. ??? If your balance is poor, consider using a cane or walker. Talk with your healthcare provider abouthaving a balance assessment. ??? If your fall was related to alcohol use, stop or limit alcohol intake.??Ask your provider for help if you think you may overuse alcohol and can't stop. ??? If your fall was related to use of sleeping medicines, talk with your provider about this.??You may need to reduce your dosage at bedtime if you wake up during the night to go to the bathroom.? To reducethe need for nighttime bathroom trips: o Don't drink fluids for several hours before going to bed oEmpty your bladder before going to bed o Men can keep a urinal at the bedside ??? Stay as active asyou can. Balance, flexibility, strength, and endurance all come from exercise. They all play a rolein preventing falls. Ask your provider which types of activity are right for you. Try to do some type of exercise every day. ??? Get your eyes checked once a year or more often if your vision changes??? If you have pets, know where they are before you stand up or walk so you don't trip over them. ??? Go over all your medicines with a pharmacist or other provider. This is to see if any of them could make you more likely to fall. Have this type of medicine review at least once every year. ??? Ifyour provider advises a new medicine, ask if the side effects will affect your balance. ??? Don't move quickly from one position to another. For instance, don't stand up fast from sitting. This can cause dizziness and may lead to a fall. ??? Sit down when putting on pants, socks, and shoes. This will make you less likely to lose your balance and fall. ??? Always let your provider know if you havefallen since your last visit. ??? Contact your provider right away if you're having balance problems or falling more often. Last Reviewed Date: 2021 ?? [id number] [employer]. All rights reserved. This information is not intended as a substitute for professional medical care. Always follow your healthcare professional's instructions. ?? Patient Care team information Care Team Personnel Name: Kaylee Carlin RN Position: [facility] RN Supv Member Role: Primary Care Nurse Name: Jessenia Agarwal RN Position: [facility] RN Member Role: Primary Care Nurse Name: Maira Guajardo RN Position: [facility] RN Member Role: Primary Care Nurse Name: Malu Jacinto RN Position: [facility] RN Member Role: Primary Care Nurse Name: Carlos Hansen MD Position: [facility] Non Med Staff MD Member Role: PCP Address: Address: [address] [place] [address] Name: Jet TORRES Attending Position: [facility] ED Medicine Name: Teresa Waller RN Position: [facility] ED RN W/OE and Tasks Member Role: Patient Care Provider Name: Saba Butler RN Position: [facility] ED RN W/OE and Tasks Member Role: Patient Care Provider Name: Pavan Mitchell Position: [facility] ED TA [facility] Member Role: Patient Care Provider Care Team Related Persons Name: KALEB BARRIOS Address: home [address] [place] [address] Name: BONNIE STONER Address: [address] [place] [address]
--- NOTE | 2023-11-20 07:23 | ECG_ITS ---
Test Reason : SEPSIS ALERT Blood Pressure : / mmHG Vent. Rate : 085 BPM Atrial Rate : 085 BPM P-R Int : 230 ms QRS Dur : 080 ms QT Int : 346 ms P-R-T Axes : 090 -70 044 degrees QTc Int : 411 ms Sinus rhythm with 1st degree A-V block Left axis deviation Inferior infarct (cited on or before 14-JUN-2021) Anterolateral infarct (cited on or before 14-JUN-2021) Abnormal ECG When compared with ECG of 25-JUN-2021 02:45, Questionable change in initial forces of Lateral leads Referred By: Chrissy Frazier Electronically Signed By:CHRIS LEES MD
--- NOTE | 2023-11-20 07:51 | ED.FALL ---
HPI - Fall General Chief Complaint: Fall Stated Complaint: fall Time Seen by Provider: 11/20/23 07:05 Source: patient, EMS and old records reviewed Mode of arrival: EMS Limitations: no limitations History of Present Illness ED Provider: VASILE HPI Narrative: 78 yo female with PMH of HTN, schizophrenia, parkinsons ds, UTI, hypothyroidism, NIDDM from [facility], reports she got up to the use the bathroom last night it was dark and she fell - she did hit head but no LOC was on the ground for 20 minutes. She states she didn't want to come in and has no injuries. She reports she is tired but has been doing fine and has no complaints. complaint: fall Onset (ago): minute(s) (ELECTRONICS LEAD) Fall from: standing Fall witnessed: no Place fall occurred: home Loss of consciousness: none Prolonged down time: no Symptoms prior to fall: none Context: tripped/slipped Location of injury: head Severity: mild Associated symptoms (after fall): denies Related Data Home Medications ?Medication ?Instructions ?Recorded ?Confirmed aripiprazole 30 mg tablet 1 tab PO BEDTIME 12/06/20 11/20/23 carbidopa 25 mg-levodopa 100 mg 1 tab PO DAILY@0800,1200,1600 12/06/20 11/20/23 tablet divalproex 500 mg tablet,delayed 1 tab PO BEDTIME 12/06/20 11/20/23 release docusate sodium 100 mg capsule 100 mg PO BID 12/06/20 11/20/23 (DOK) furosemide 20 mg tablet 20 mg PO DAILY 12/06/20 11/20/23 metformin 1,000 mg tablet 1 tab PO BID 12/06/20 11/20/23 trazodone 150 mg tablet 1 tab PO BEDTIME 12/06/20 11/20/23 aspirin 81 mg chewable tablet 1 tab PO DAILY 06/09/21 11/20/23 acetaminophen 325 mg tablet 650 mg PO Q4H PRN Pain 06/14/21 11/20/23 citalopram 20 mg tablet 1 tab PO DAILY 06/14/21 11/20/23 polyethylene glycol 3350 17 17 g PO DAILY PRN CONSIPATION 06/14/21 11/20/23 gram/dose oral powder atorvastatin 20 mg tablet 20 mg PO DAILY 02/07/22 11/20/23 benztropine 0.5 mg tablet 0.5 mg PO BID 11/20/23 11/20/23 calcium carbonate 600 mg-vitamin 1 tab PO DAILY 11/20/23 11/20/23 D3 5 mcg (200 unit) tablet canagliflozin 100 mg tablet 100 mg PO DAILY 11/20/23 11/20/23 (Invokana) cholecalciferol (vitamin D3) 1,250 1,250 mcg PO QMONTH 11/20/23 11/20/23 mcg (50,000 unit) capsule cyanocobalamin (vitamin B-12) 1,000 mcg PO DAILY 11/20/23 11/20/23 1,000 mcg tablet losartan 100 mg tablet 100 mg PO DAILY 11/20/23 11/20/23 semaglutide 1 mg/dose (4 mg/3 mL) 1 mg subcut WE 11/20/23 11/20/23 subcutaneous pen injector (Ozempic) Previous Rx's ?Medication ?Instructions ?Recorded nystatin 100,000 unit/gram topical 1 appl topical BID #15 grams 06/15/23 powder cefuroxime axetil 250 mg tablet 250 mg PO BID #13 tabs 11/15/23 miconazole nitrate 2 % topical 1 appl topical BID #28 grams 11/15/23 cream (Antifungal (miconazole)) Allergies Allergy/AdvReac Type Severity Reaction Status Date / Time bee pollen [bee stings] Allergy Hives Verified 11/20/23 03:29 Review of Systems Review of Systems: Constitutional : No Fever, No Chills, No Fatigue ENT/Mouth : No sore throat, No Rhinorrhea Eyes: No Eye Pain, No Swelling, No Redness Cardiovascular : No Chest Pain, No SOB, No Dyspnea on Exertion Respiratory : No Cough, No Sputum Gastrointestinal : No Nausea, No Vomiting, No Diarrhea, No abdominal Pain Genitourinary : No Dysuria, No Urinary Frequency, No Hematuria, Musculoskeletal : No joint pain, No Myalgias, No Joint Swelling Skin : No Skin Lesions, No rash Neuro : No Weakness, No Numbness, No Dizziness, no Headache Psych : No Anxiety/Panic, No Depression All other systems reviewed and are negative PMFSH Past Medical History Attestation statement: The following information was validated with the patient. Source: old records reviewed Medical History Fall Hyponatremia Urinary retention Diabetes mellitus type 2 in obese Hypertension Parkinsons CHF (congestive heart failure) Chronic schizophrenia Family History Family History Mother HLD (hyperlipidemia) Social History Social History Household Members: None Household Members Other:: alf Housing: Assisted Living Facility Do you presently have visiting nurse or other home services: Yes Alcohol intake: never Patient Tobacco Use Status: Former Tobacco user Tobacco use type: Cigarette Smoked in Last 30 Days: No e-Cigarette/Vaping Use: Never Used Second Hand Smoke Exposure: No Use of substances other than those prescribed or required for medical reasons: No Advance Directives: Yes Advance Directives on File: Yes Advance Directives Date on File: 06/14/21 service: No Current occupational status: retired and disabled Current occupation: rt hand Sexual orientation: Straight/Heterosexual Physical Exam Vital Signs: Vital Signs: Last Vital Signs Temp 98.6 F 11/20/23 11:33 Pulse 74 11/20/23 12:02 Resp 16 11/20/23 12:02 BP 131/60 11/20/23 12:02 Pulse Ox 92 11/20/23 12:02 O2 Del Method Room Air 11/20/23 12:02 BMI result Body Mass Index 27.7 Appearance: Alert. Oriented X3. No acute distress. Eyes: Pupils equal, round and reactive to light. ENT: Pharynx normal. atraumatic no saeed sign or racoon eyes Neck: Normal inspection. Neck supple. CVS: Normal heart rate and rhythm. Pulses normal. Respiratory: No respiratory distress. Breath sounds normal. Abdomen: Soft and non-tender. Skin: Skin warm and dry. Normal skin color. Normal skin turgor. Extremities: No lower extremity edema. Neuro: Oriented X 3. No motor deficit. No sensory deficit. Course Course Course Narrative: 96% on RA has mild lactic acidosis at this time no complaints no WBC count no UTI no pneumonia or COVID negative CT head and neck she is at baseline sister her wants her to go back to [facility] Reevaluation(s) Reevaluation #1: stable for DC eating and drinking lactic acid couuld be due to metformin use Medications Administered Discontinued Medications Generic Name Dose Route Start Last Admin Trade Name Freq PRN Reason Stop Dose Admin Acetaminophen 650 mg 11/20/23 07:22 11/20/23 08:07 Acetaminophen 325 Mg Tablet PO 11/20/23 07:23 650 mg ONCE ONE Administration Ceftriaxone Sodium 1 gm/ 50 mls @ 100 mls/hr 11/20/23 07:24 11/20/23 09:06 Sodium Chloride IV 11/20/23 07:53 Infused ONCE ONE Infusion Sodium Chloride 500 mls @ 500 mls/hr 11/20/23 08:10 11/20/23 09:36 Ns IV 11/20/23 09:09 Infused .Q1H ONE Infusion Medical Decision Making Medical Decision Making MDM Narrative: 78 yo female with PMH of HTN, schizophrenia, parkinsons ds, UTI, hypothyroidism, NIDDM here with c/o fall but on exam she is warm to touch will obtain basic labs, cultures, CT scans of head/neck and start on empiric ceftriaxone as temp 100 she has hx of UTI. Could be multifactorial including infectious, metabolic, traumatic injury Differential Diagnosis Differential Diagnoses: The differential diagnosis associated with the presentation includes falls, ICH, hot to touch, UTI, pneumonia, viral syndrome Admission/Observation Consideration of admission/observation: Escalation of care including admission/observation considered negatie workup sister aware of findings and temp of 100.1 wants her to go back to [facility] Lab Data [facility] Lab Attestation statement: I reviewed the patient's lab results. 11/20/23 07:46 11/20/23 07:46 Labs: Lab Results 11/20/23 11/20/23 11/20/23 Range/Units 07:46 10:39 11:03 WBC 8.2 (4.8-10.8) X10*3/uL RBC 4.66 D (4.20-5.50) X10*6/uL Hgb 14.5 D (12.0-16.0) g/dl Hct 43.1 D (37.0-47.0) % MCV 92.5 (80.0-98.0) fL MCH 31.1 (27.0-33.0) pg MCHC 33.6 (31.0-35.0) g/dl RDW 11.5 (11.0-16.0) % Plt Count TNP MPV TNP Immature Gran % (Auto) 0.4 (0.0-0.4) % Neut % (Auto) 84.4 H (45-73) % Lymph % (Auto) 8.5 L (20-40) % [place] % (Auto) 5.8 (2-11) % Eos % (Auto) 0.5 (0-4) % Baso % (Auto) 0.4 (0-2) % Lymph # (Auto) 0.7 L (1.2-4.9) X10*3/uL [place] # (Auto) 0.5 (0.1-1.2) X10*3/uL Eos # (Auto) 0.0 (0.0-0.4) X10*3/uL Baso # (Auto) 0.0 (0.0-0.2) X10*3/uL Abs Immat Gran (auto) 0.03 (0.00-0.03) X10*3/uL Absolute Neuts (auto) 6.9 (2.0-8.3) x10*3/uL Absolute Nucleated RBC 0.000 (0.0-0.012) X10*3/uL Nucleated RBC % (auto) 0.0 (0.0-0.2) /100WBC Smear Tech's Comments VERIFIED Sodium 139 (135-145) mmol/L Potassium 5.1 (3.3-5.1) mmol/L Chloride 100 (96-108) mmol/L Carbon Dioxide 30 H (22-29) mmol/L Anion Gap 14 (12-20) BUN 20 H (9-16) mg/dL Creatinine 0.80 (0.5-1.4) mg/dL Estim Creat Clear Calc 55.0 Estimated GFR > 60 Random Glucose 127 H (60-115) mg/dL Lactic Acid 2.3 H* (0.5-2.0) mmol/L Lactic Acid F/U @ 2Hr 1.3 (0.5-2.0) mmol/L Calcium 10.1 D (8.4-10.2) mg/dL Magnesium 2.0 (1.6-2.6) mg/dL Total Bilirubin 0.4 (0.0-1.0) mg/dL Direct Bilirubin 0.2 (0.0-0.5) mg/dL AST 13 (5-31) U/L ALT 9 (0-31) U/L Alkaline Phosphatase 66 (39-117) U/L Total Creatine Kinase 66 (26-140) U/L Total Protein 7.7 (6.5-8.0) g/dL Albumin 4.0 (3.5-5.0) g/dL Lipase 13 (8-78) U/L Urine Color Yellow Urine Appearance Clear Urine pH 8.0 (5.0-9.0) Ur Specific [place] 1.020 (1.005-1.025) Urine Protein Negative (Neg-Trace) mg/dL Urine Glucose (UA) >=1000 H (Negative) mg/dL Urine Ketones Negative (Negative) mg/dL Urine Blood Negative (Negative) Urine Nitrite Negative (Negative) Ur Leukocyte Esterase Negative (Negative) Urine RBC 0-2 (0-2) /HPF Urine WBC 0-5 (0-5) /HPF Ur Squamous Epith Cells 0-2 (0-2) /HPF Urine Bacteria None Seen (None Seen) Hyaline Casts 0-2 (0-2) /LPF Influenza Type A (PCR) (Negative) Influenza Type B (PCR) (Negative) RSV RNA Qual (PCR) (Negative) SARS-CoV-2 RNA (RT-PCR) (Negative) 11/20/23 Range/Units 12:01 WBC (4.8-10.8) X10*3/uL RBC (4.20-5.50) X10*6/uL Hgb (12.0-16.0) g/dl Hct (37.0-47.0) % MCV (80.0-98.0) fL MCH (27.0-33.0) pg MCHC (31.0-35.0) g/dl RDW (11.0-16.0) % Plt Count MPV Immature Gran % (Auto) (0.0-0.4) % Neut % (Auto) (45-73) % Lymph % (Auto) (20-40) % Cannon % (Auto) (2-11) % Eos % (Auto) (0-4) % Baso % (Auto) (0-2) % Lymph # (Auto) (1.2-4.9) X10*3/uL [place] # (Auto) (0.1-1.2) X10*3/uL Eos # (Auto) (0.0-0.4) X10*3/uL Baso # (Auto) (0.0-0.2) X10*3/uL Abs Immat Gran (auto) (0.00-0.03) X10*3/uL Absolute Neuts (auto) (2.0-8.3) x10*3/uL Absolute Nucleated RBC (0.0-0.012) X10*3/uL Nucleated RBC % (auto) (0.0-0.2) /100WBC Smear Tech's Comments Sodium (135-145) mmol/L Potassium (3.3-5.1) mmol/L Chloride (96-108) mmol/L Carbon Dioxide (22-29) mmol/L Anion Gap (12-20) BUN (9-16) mg/dL Creatinine (0.5-1.4) mg/dL Estim Creat Clear Calc Estimated GFR Random Glucose (60-115) mg/dL Lactic Acid (0.5-2.0) mmol/L Lactic Acid F/U @ 2Hr (0.5-2.0) mmol/L Calcium (8.4-10.2) mg/dL Magnesium (1.6-2.6) mg/dL Total Bilirubin (0.0-1.0) mg/dL Direct Bilirubin (0.0-0.5) mg/dL AST (5-31) U/L ALT (0-31) U/L Alkaline Phosphatase (39-117) U/L Total Creatine Kinase (26-140) U/L Total Protein (6.5-8.0) g/dL Albumin (3.5-5.0) g/dL Lipase (8-78) U/L Urine Color Urine Appearance Urine pH (5.0-9.0) Ur Specific [place] (1.005-1.025) Urine Protein (Neg-Trace) mg/dL Urine Glucose (UA) (Negative) mg/dL Urine Ketones (Negative) mg/dL Urine Blood (Negative) Urine Nitrite (Negative) Ur Leukocyte Esterase (Negative) Urine RBC (0-2) /HPF Urine WBC (0-5) /HPF Ur Squamous Epith Cells (0-2) /HPF Urine Bacteria (None Seen) Hyaline Casts (0-2) /LPF Influenza Type A (PCR) NEGATIVE (Negative) Influenza Type B (PCR) NEGATIVE (Negative) RSV RNA Qual (PCR) NEGATIVE (Negative) SARS-CoV-2 RNA (RT-PCR) NEGATIVE (Negative) Independent Interpretation I performed an independent interpretation of an: EKG, Plain X-Ray (no pneumonia) and CT Scan (no trauma) Interpretation: Rate: 85 Rhythm: NSR with 1st degree AVB [place]: left Normal P waves. 1st degree Normal QRS complex. ST T wave : no HONORIO sig artifiact from baseline tremors qTC:411 prior studies: no appreciable ischemia The study has been interpreted contemporaneously by me. . Radiology Impression Discussion of test interpretation with radiology: I have reviewed the radiologist's reading. Independent Historian Clinical information obtained from an independent historian. History obtained from or confirmed by: EMS External Record Review External record reviewed: Outpatient record Discharge Plan Discharge Clinical Impression: Fall, Low grade fever Patient Disposition: Home, Self-Care Instructions: Fall Prevention (ED) Additional Instructions: negative chest xray negative urine normal CT head and cervical spine labs normal , no UTI, negative for COVID and flu given dose of ceftriaxone x 1 given low grade temp but no cause for infection at this time please return for any worsening symptoms or concerns. Prescriptions: No Action divalproex 500 mg tablet,delayed release (DR/EC) 1 tab PO BEDTIME trazodone 150 mg tablet 1 tab PO BEDTIME metformin 1,000 mg tablet 1 tab PO BID docusate sodium [DOK] 100 mg Capsule 100 mg PO BID furosemide 20 mg tablet 20 mg PO DAILY carbidopa-levodopa 25-100 mg tablet 1 tab PO DAILY@0800,1200,1600 aripiprazole 30 mg tablet 1 tab PO BEDTIME aspirin 81 mg tablet,chewable 1 tab PO DAILY citalopram 20 mg tablet 1 tab PO DAILY acetaminophen 325 mg Tablet 650 mg PO Q4H PRN (Reason: Pain) polyethylene glycol 3350 17 gram/dose Powder 17 g PO DAILY PRN (Reason: CONSIPATION) nystatin 100,000 unit/gram powder 1 appl topical BID Qty: 15 0RF miconazole nitrate [Antifungal (miconazole)] 2 % cream 1 appl topical BID Qty: 28 0RF cefuroxime axetil 250 mg tablet 250 mg PO BID Qty: 13 0RF cyanocobalamin (vitamin B-12) 1,000 mcg Tablet 1,000 mcg PO DAILY calcium carbonate-vitamin D3 [Calcium + D] 600 mg-5 mcg (200 unit) Tablet 1 tab PO DAILY losartan 100 mg tablet 100 mg PO DAILY cholecalciferol (vitamin D3) 1,250 mcg (50,000 unit) Capsule 1,250 mcg PO QMONTH Invokana 100 mg tablet 100 mg PO DAILY Ozempic 1 mg/dose (4 mg/3 mL) pen injector 1 mg subcut WE benztropine 0.5 mg tablet 0.5 mg PO BID atorvastatin 20 mg tablet 20 mg PO DAILY Print Language: Solomon Islander
[2023-11-20 07:57] LABS: Basophils Percent Auto 0.4 % (0-2); Eosinophils Percent Auto 0.5 % (0-4); Hematocrit 43.1 % (37.0-47.0); Hemoglobin 14.5 g/dl (12.0-16.0); Imm Gran Abs Auto 0.03 X10*3/uL (0.00-0.03); Imm Gran Pct Auto 0.4 % (0.0-0.4); Lymphocytes Absolute Auto 0.7 X10*3/uL (1.2-4.9); Lymphocytes Percent Auto 8.5 % (20-40); MANUAL DIFF FLAG SCAN; Mean Corpuscular HGB Conc 33.6 g/dl (31.0-35.0); Mean Corpuscular Hemoglobin 31.1 pg (27.0-33.0); Mean Corpuscular Volume 92.5 fL (80.0-98.0); Monocytes Absolute Auto 0.5 X10*3/uL (0.1-1.2); Monocytes Percent Auto 5.8 % (2-11); Neutrophils Absolute Auto 6.9 x10*3/uL (2.0-8.3); Neutrophils Percent Auto 84.4 % (45-73); PLT CLUMP 1; Red Blood Count 4.66 X10*6/uL (4.20-5.50); Red Cell Distribution Width 11.5 % (11.0-16.0); SCAN SMEAR FLAG 1
[2023-11-20] MEDS: Acetaminophen 325 MG TABLET 650 MG PO (08:07)
[2023-11-20 08:09] LABS: Lactic Acid 2.3 mmol/L (0.5-2.0)
[2023-11-20 08:12] LABS: Alanine Aminotransferase 9 U/L (0-31); Alkaline Phosphatase 66 U/L (39-117); Anion Gap 14 (12-20); Aspartate Amino Transferase 13 U/L (5-31); Bilirubin Direct 0.2 mg/dL (0.0-0.5); Bilirubin Total 0.4 mg/dL (0.0-1.0); Blood Urea Nitrogen 20 mg/dL (9-16); Calcium 10.1 mg/dL (8.4-10.2); Carbon Dioxide 30 mmol/L (22-29); Chloride 100 mmol/L (96-108); Estimated Glomerular Filt Rate > 60; Glucose Random 127 mg/dL (60-115); Lipase 13 U/L (8-78); Potassium 5.1 mmol/L (3.3-5.1); Sodium 139 mmol/L (135-145); Total Protein 7.7 g/dL (6.5-8.0)
[2023-11-20 08:17] LABS: White Blood Count 8.2 X10*3/uL (4.8-10.8)
--- NOTE | 2023-11-20 08:17 | PC.NURSE ---
Care of Pt assumed at change of shift. Per report, Pt removed c collar on her won prior to being cleared by CT imaging. Pt is alert and oriented to name and day. States is 2003. Pt is a difficult stick d/t poor vascular system. 20g to RAC placed and first set of blood cultures and labs acquired. Attempting to acquire second BC sets at this time. Will hang abx as soon as BC set 2 completed, provider aware.
[2023-11-20 08:18] LABS: SLIDE REVIEW VERIFIED
[2023-11-20] MEDS: cefTRIAXone sodium 1 GM in 0.9 % Sodium Chloride 50 ML IV (08:36)
[2023-11-20] MEDS: 0.9 % Sodium Chloride 500 ML IV (08:36)
--- NOTE | 2023-11-20 09:01 | PHA.MEDREC ---
Pharmacy Consult ? Medication Reconciliation Pharmacy has completed the medication reconciliation. UTILIZED LIST FROM FACILITY
[2023-11-20 09:51] LABS: Reflex Lactate? Lactic Acid Added
[2023-11-20 10:54] LABS: ~Lactic Acid-LAB USE ONLY 1.3 mmol/L (0.5-2.0)
[2023-11-20 11:11] LABS: Appearance Urine Clear; Color Urine Yellow; Glucose Urine UA >=1000 mg/dL (Negative); Leukocyte Esterase Urine Negative (Negative); Nitrite Urine Negative (Negative); UMIC TRIGGER UACC YES; Urine Blood Negative (Negative); Urine Ketones Negative (Negative); Urine Protein Negative (Neg-Trace)
[2023-11-20 11:21] LABS: Bacteria Urine None Seen (None Seen); Hyaline Casts Urine 0-2 /LPF (0-2); RBC Urine 0-2 /HPF (0-2); Squamous Epithelial Cell Urine 0-2 /HPF (0-2); WBC Urine 0-5 /HPF (0-5)
[2023-11-20 13:24] LABS: Influenza A PCR NEGATIVE (Negative); Influenza B PCR NEGATIVE (Negative); Resp Syncy Virus RNA Qual PCR NEGATIVE (Negative); SARS COV2 PCR INHOUSE NEGATIVE (Negative)
== END 2023-11-20 14:16 | disposition home or self-care (01) ==
PROVIDERS: Emergency Provider Emergency Medicine
DX: S09.90XA Unspecified injury of head, initial encounter (principal); R51.9 Headache, unspecified; I44.0 Atrioventricular block, first degree; R94.31 Abnormal electrocardiogram [ECG] [EKG]; M54.2 Cervicalgia; E11.9 Type 2 diabetes mellitus without complications; W01.10XA Fall on same level from slipping, tripping and stumbling with subsequent striking against unspecified object, initial encounter; Y93.89 Activity, other specified; Y92.091 Bathroom in other non-institutional residence as the place of occurrence of the external cause; Y99.9 Unspecified external cause status; Z03.818 Encounter for observation for suspected exposure to other biological agents ruled out; Z79.899 Other long term (current) drug therapy; Z79.84 Long term (current) use of oral hypoglycemic drugs
CPT/HCPCS: 0241U; 36415; 70450; 71045; 72125; 80048; 80076; 81001; 82550; 83605; 83690; 83735; 85025; 87040; 93005; 96361; 96374; 99284; 99285; J0696

== ENCOUNTER → 2023-11-20 07:23 | Outpatient (BNV) | payer MEDICARE, MEDICAID, SELFPAY | PROVIDERS: Emergency Provider Emergency Medicine; Visit Provider Internal Medicine Cardiovascular Disease | DX: R94.31 Abnormal electrocardiogram [ECG] [EKG] (principal) | CPT/HCPCS: 93010 ==

== ENCOUNTER 2023-11-21 20:45 | Emergency (ER) | payer MEDICARE, MEDICAID, SELFPAY ==
--- NOTE | ~2023-11-21 | XR_ITS ---
EXAMINATION: XR FOOT, RIGHT CLINICAL INFORMATION: Pain COMPARISON: None available. TECHNIQUE: AP, lateral, and oblique views of the right foot. FINDINGS: Bones are diffusely osteopenic. No acute fractures or dislocations of the right foot. Small calcaneal spur. Diffuse soft tissue swelling. No radiopaque foreign body. Vascular calcifications present. XR/XR foot RT min 3V IMPRESSION: No acute fractures or dislocations of the right foot. Osteopenia. Soft tissue swelling. Electronically signed by: Ramiro Hunt DO 11/21/2023 11:01 PM EDT
--- NOTE | ~2023-11-21 | XR_ITS ---
EXAMINATION: XR KNEE, RIGHT CLINICAL INFORMATION: Swelling. COMPARISON: None available. TECHNIQUE: Four views of the right knee. FINDINGS: No fracture or joint effusion. Alignment is anatomic. Joint spaces are maintained. There are vascular calcifications. XR/XR knee RT 4V IMPRESSION: No fracture or dislocation. Electronically signed by: Lei Zimmerman DO 11/21/2023 11:37 PM EDT
[2023-11-21 20:55] VITALS: BP 146/82; BP 150/52; PULSE 72; RESP 18; TEMP 36.9; O2SAT 98; O2SAT 99; BMI 27.6
--- NOTE | 2023-11-21 22:39 | ED_ITS ---
HPI - Extremity Injury (Lower) General Chief Complaint: Extremity Injury, Lower Stated Complaint: leg and knee swelling Time Seen by Provider: 11/21/23 22:26 Source: patient Mode of arrival: ambulatory Limitations: no limitations History of Present Illness ED Provider: william JALLOH Narrative: Patient's history of Parkinson disease from group home comes here for the pain in right toes and right knee history of frequent falls superficial abrasion of the right knee slight warmth or redness of the right total just discharged yesterday to assisted living comes back as complaining of pain in right foot and right knee with slight warmth of the right foot patient is on cefuroxime since 11/16 for UTI labs done yesterday were normal SA done prior to my evaluation was negative for any fracture Related Data Home Medications ?Medication ?Instructions ?Recorded ?Confirmed aripiprazole 30 mg tablet 1 tab PO BEDTIME 12/06/20 11/20/23 carbidopa 25 mg-levodopa 100 mg 1 tab PO DAILY@0800,1200,1600 12/06/20 11/20/23 tablet divalproex 500 mg tablet,delayed 1 tab PO BEDTIME 12/06/20 11/20/23 release docusate sodium 100 mg capsule 100 mg PO BID 12/06/20 11/20/23 (DOK) furosemide 20 mg tablet 20 mg PO DAILY 12/06/20 11/20/23 metformin 1,000 mg tablet 1 tab PO BID 12/06/20 11/20/23 trazodone 150 mg tablet 1 tab PO BEDTIME 12/06/20 11/20/23 aspirin 81 mg chewable tablet 1 tab PO DAILY 06/09/21 11/20/23 acetaminophen 325 mg tablet 650 mg PO Q4H PRN Pain 06/14/21 11/20/23 citalopram 20 mg tablet 1 tab PO DAILY 06/14/21 11/20/23 polyethylene glycol 3350 17 17 g PO DAILY PRN CONSIPATION 06/14/21 11/20/23 gram/dose oral powder atorvastatin 20 mg tablet 20 mg PO DAILY 02/07/22 11/20/23 benztropine 0.5 mg tablet 0.5 mg PO BID 11/20/23 11/20/23 calcium carbonate 600 mg-vitamin 1 tab PO DAILY 11/20/23 11/20/23 D3 5 mcg (200 unit) tablet canagliflozin 100 mg tablet 100 mg PO DAILY 11/20/23 11/20/23 (Invokana) cholecalciferol (vitamin D3) 1,250 1,250 mcg PO QMONTH 11/20/23 11/20/23 mcg (50,000 unit) capsule cyanocobalamin (vitamin B-12) 1,000 mcg PO DAILY 11/20/23 11/20/23 1,000 mcg tablet losartan 100 mg tablet 100 mg PO DAILY 11/20/23 11/20/23 semaglutide 1 mg/dose (4 mg/3 mL) 1 mg subcut WE 11/20/23 11/20/23 subcutaneous pen injector (Ozempic) Previous Rx's ?Medication ?Instructions ?Recorded nystatin 100,000 unit/gram topical 1 appl topical BID #15 grams 06/15/23 powder cefuroxime axetil 250 mg tablet 250 mg PO BID #13 tabs 11/15/23 miconazole nitrate 2 % topical 1 appl topical BID #28 grams 11/15/23 cream (Antifungal (miconazole)) doxycycline hyclate 100 mg tablet 100 mg PO BID #20 tabs 11/21/23 Allergies Allergy/AdvReac Type Severity Reaction Status Date / Time bee pollen [bee stings] Allergy Hives Verified 11/21/23 20:58 Review of Systems Review of Systems: Yes Unobtainable due to mental status PMFSH Past Medical History Medical History Fall Hyponatremia Urinary retention Diabetes mellitus type 2 in obese Hypertension Parkinsons CHF (congestive heart failure) Chronic schizophrenia Family History Family History Mother HLD (hyperlipidemia) Social History Social History Household Members: None Household Members Other:: group home Housing: Assisted Living Facility Do you presently have visiting nurse or other home services: Yes Alcohol intake: never Patient Tobacco Use Status: Former Tobacco user Tobacco use type: Cigarette e-Cigarette/Vaping Use: Never Used Second Hand Smoke Exposure: No Advance Directives: Yes Advance Directives on File: Yes Advance Directives Date on File: 11/21/23 service: No Current occupational status: retired and disabled Current occupation: rt hand Sexual orientation: Straight/Heterosexual Physical Exam Vital Signs: Vital Signs: Last Vital Signs Temp 98.4 F 11/21/23 20:55 Pulse 72 11/21/23 20:55 Resp 18 11/21/23 20:55 BP 150/52 H 11/21/23 20:55 Pulse Ox 99 11/21/23 20:55 O2 Del Method Room Air 11/21/23 20:55 BMI result Body Mass Index 27.6 Appearance: Alert. Oriented X2. No acute distress. Eyes: PERRLA, ENT: Pharynx normal. Oral Mucosa moist Neck: Normal inspection. Neck supple. CVS: Normal heart rate and rhythm. Pulses normal. Respiratory: No respiratory distress. Equal air entry bilateral, no wheezing/rales/rhonchi Abdomen: Soft and nontender. Bowel sounds are present, no mass palpable, no CVA tenderness Skin: Skin warm and dry. Normal skin color. Normal skin turgor. Extremities: No lower extremity edema. No calf tenderness right foot slightly warm around the toes with maceration between the toes right knee with good range of movement superficial abrasion Neuro: Oriented X 2. No motor deficit. No sensory deficit.No cerebellar signs , cranial nerves II-XII intact Medical Decision Making Medical Decision Making MDM Narrative: Patient with right foot cellulitis secondary to macerated in between the toes will prescribe doxycycline cephalexin x-ray negative for fracture will check basic labs Radiology Impression Discussion of test interpretation with radiology: I have reviewed the radiologist's reading. Radiologist Impression: [address] [address] XRay Report Signed Patient: Francoise Ponce MR#: [id number] : 1945 Acct:[id number] Age/Sex: 78 / F ADM Date: 11/21/23 Loc: HO.ED Attending Dr: Ordering Physician: Evangelista Narvaez Date of Service: 11/21/23 Procedure(s): XR foot RT min 3V Accession Number(s): [id number] cc: Evangelista Narvaez; Carlos Hansen MD~ EXAMINATION: XR FOOT, RIGHT CLINICAL INFORMATION: Pain COMPARISON: None available. TECHNIQUE: AP, lateral, and oblique views of the right foot. FINDINGS: Bones are diffusely osteopenic. No acute fractures or dislocations of the right foot. Small calcaneal spur. Diffuse soft tissue swelling. No radiopaque foreign body. Vascular calcifications present. XR/XR foot RT min 3V IMPRESSION: No acute fractures or dislocations of the right foot. Osteopenia. Soft tissue swelling Discharge Plan Discharge Clinical Impression: Cellulitis Patient Disposition: [facility] Transfer Details: Mild cellulitis right foot from infection between the toes x- ray of the right knee and foot is negative Instructions: Cellulitis (ED) Additional Instructions: Continue cefuroxime will add doxycycline 100 mg twice a day for 10 days for infection in between the toes in the right foot Put the gauze between the toes to keep them and dry Prescriptions: New doxycycline hyclate 100 mg tablet 100 mg PO BID Qty: 20 0RF No Action divalproex 500 mg tablet,delayed release (DR/EC) 1 tab PO BEDTIME trazodone 150 mg tablet 1 tab PO BEDTIME metformin 1,000 mg tablet 1 tab PO BID docusate sodium [DOK] 100 mg Capsule 100 mg PO BID furosemide 20 mg tablet 20 mg PO DAILY carbidopa-levodopa 25-100 mg tablet 1 tab PO DAILY@0800,1200,1600 aripiprazole 30 mg tablet 1 tab PO BEDTIME aspirin 81 mg tablet,chewable 1 tab PO DAILY citalopram 20 mg tablet 1 tab PO DAILY acetaminophen 325 mg Tablet 650 mg PO Q4H PRN (Reason: Pain) polyethylene glycol 3350 17 gram/dose Powder 17 g PO DAILY PRN (Reason: CONSIPATION) nystatin 100,000 unit/gram powder 1 appl topical BID Qty: 15 0RF miconazole nitrate [Antifungal (miconazole)] 2 % cream 1 appl topical BID Qty: 28 0RF cefuroxime axetil 250 mg tablet 250 mg PO BID Qty: 13 0RF cyanocobalamin (vitamin B-12) 1,000 mcg Tablet 1,000 mcg PO DAILY calcium carbonate-vitamin D3 [Calcium + D] 600 mg-5 mcg (200 unit) Tablet 1 tab PO DAILY losartan 100 mg tablet 100 mg PO DAILY cholecalciferol (vitamin D3) 1,250 mcg (50,000 unit) Capsule 1,250 mcg PO QMONTH Invokana 100 mg tablet 100 mg PO DAILY Ozempic 1 mg/dose (4 mg/3 mL) pen injector 1 mg subcut WE benztropine 0.5 mg tablet 0.5 mg PO BID atorvastatin 20 mg tablet 20 mg PO DAILY Print Language: French
--- NOTE | 2023-11-21 23:51 | PC.NURSE ---
report given to Maira ALVAREZ at [facility]. awaiting ems transport.
[2023-11-21 23:52] VITALS: BP 126/50; PULSE 67; RESP 16; TEMP 36.9; O2SAT 97
[2023-11-21] MEDS: Doxycycline Monohydrate 100 MG CAPSULE PO (23:58)
[2023-11-22 02:24] VITALS: BP 153/58; PULSE 67; RESP 16; TEMP 36.6; O2SAT 97
[2023-11-22 02:44] VITALS: BP 153/58; PULSE 67; RESP 16; TEMP 36.6; O2SAT 97
== END 2023-11-22 02:45 | disposition skilled nursing facility (03) ==
PROVIDERS: Emergency Provider Internal Medicine; PCP Internal Medicine
DX: L03.115 Cellulitis of right lower limb (principal); M79.674 Pain in right toe(s); M25.561 Pain in right knee; R29.6 Repeated falls; Z91.81 History of falling
CPT/HCPCS: 73564; 73630; 99283

== ENCOUNTER 2024-03-21 02:47 | Emergency (ER) | payer MEDICARE, MEDICAID, SELFPAY ==
--- NOTE | ~2024-03-21 | CT_ITS ---
CLINICAL HISTORY: fall CT head without contrast Comparison: CT/SR - CT HEAD/BRAIN WO IV CON - 11/20/23 07:28 EDT Findings: No intra-axial mass, midline shift, hydrocephalus, or acute hemorrhage. Nonspecific white matter hypodensities are present with mild volume loss The visualized paranasal sinuses and mastoid air cells are normal. The orbits are unremarkable. No skull fracture. IMPRESSION: 1. No acute intracranial findings. This document has been electronically signed by: Soy Villalobos MD, PHD on 03/21/2024 04:23:33
--- NOTE | ~2024-03-21 | CT_ITS ---
CLINICAL HISTORY: fall CT cervical spine without contrast Comparison: CT/SR - CT CERVICAL SPINE WO IV CON - 11/20/23 07:28 EDT Findings: There is straightening of the normal cervical lordosis. Degenerative changes are moderate. The bones are osteopenic. No acute findings on limited view of the intracranial contents. No cervical fluid collections or masses. Lung apices are clear. Atherosclerotic calcifications are noted within the carotid bulbs. IMPRESSION: No acute findings. This document has been electronically signed by: Soy Villalobos MD, PHD on 03/21/2024 04:21:53
--- NOTE | ~2024-03-21 | XR_ITS ---
CLINICAL HISTORY: fall 1 view pelvis Comparison: None Findings: Bones are osteopenic. Moderate degenerative changes in the hips bilaterally Soft tissues are unremarkable. IMPRESSION: 1. No acute findings. This document has been electronically signed by: Soy Villalobos MD, PHD on 03/21/2024 04:10:45
[2024-03-21 02:52] VITALS: BP 149/55; BP 162/94; PULSE 177; PULSE 68; RESP 20; TEMP 36.9; O2SAT 97; O2SAT 98; BMI 29.2
--- NOTE | 2024-03-21 03:03 | ED_ITS ---
HPI - Fall General Chief Complaint: Fall Stated Complaint: unwit Fall, -HS, LOC, hx diabetes Time Seen by Provider: 03/21/24 03:02 Source: patient Mode of arrival: EMS Limitations: no limitations History of Present Illness ED Provider: HPI Narrative: Patient is diabetic with history of Parkinson disease walk schizophrenia walks with walker was in the bathroom trying to clean herself lost balance while at the sink and fell on her buttocks and then hit her head Related Data Home Medications ?Medication ?Instructions ?Recorded ?Confirmed aripiprazole 30 mg tablet 1 tab PO BEDTIME 12/06/20 11/20/23 carbidopa 25 mg-levodopa 100 mg 1 tab PO DAILY@0800,1200,1600 12/06/20 11/20/23 tablet divalproex 500 mg tablet,delayed 1 tab PO BEDTIME 12/06/20 11/20/23 release docusate sodium 100 mg capsule 100 mg PO BID 12/06/20 11/20/23 (DOK) furosemide 20 mg tablet 20 mg PO DAILY 12/06/20 11/20/23 metformin 1,000 mg tablet 1 tab PO BID 12/06/20 11/20/23 trazodone 150 mg tablet 1 tab PO BEDTIME 12/06/20 11/20/23 aspirin 81 mg chewable tablet 1 tab PO DAILY 06/09/21 11/20/23 acetaminophen 325 mg tablet 650 mg PO Q4H PRN Pain 06/14/21 11/20/23 citalopram 20 mg tablet 1 tab PO DAILY 06/14/21 11/20/23 polyethylene glycol 3350 17 17 g PO DAILY PRN CONSIPATION 06/14/21 11/20/23 gram/dose oral powder atorvastatin 20 mg tablet 20 mg PO DAILY 02/07/22 11/20/23 benztropine 0.5 mg tablet 0.5 mg PO BID 11/20/23 11/20/23 calcium 600 mg (as 1 tab PO DAILY 11/20/23 11/20/23 carbonate)-vitamin D3 5 mcg (200 unit) tablet canagliflozin 100 mg tablet 100 mg PO DAILY 11/20/23 11/20/23 (Invokana) cholecalciferol (vitamin D3) 1,250 1,250 mcg PO QMONTH 11/20/23 11/20/23 mcg (50,000 unit) capsule cyanocobalamin (vitamin B-12) 1,000 mcg PO DAILY 11/20/23 11/20/23 1,000 mcg tablet losartan 100 mg tablet 100 mg PO DAILY 11/20/23 11/20/23 semaglutide 1 mg/dose (4 mg/3 mL) 1 mg subcut WE 11/20/23 11/20/23 subcutaneous pen injector (Ozempic) Previous Rx's ?Medication ?Instructions ?Recorded nystatin 100,000 unit/gram topical 1 appl topical BID #15 grams 06/15/23 powder cefuroxime axetil 250 mg tablet 250 mg PO BID #13 tabs 11/15/23 miconazole nitrate 2 % topical 1 appl topical BID #28 grams 11/15/23 cream (Antifungal (miconazole)) doxycycline hyclate 100 mg tablet 100 mg PO BID #20 tabs 11/21/23 Allergies Allergy/AdvReac Type Severity Reaction Status Date / Time bee pollen [bee stings] Allergy Hives Verified 03/21/24 03:06 Review of Systems Review of Systems: Yes all other systems are reviewed and are negative [facility] Past Medical History Medical History Fall Hyponatremia Urinary retention Diabetes mellitus type 2 in obese Hypertension Parkinsons CHF (congestive heart failure) Chronic schizophrenia Family History Family History Mother HLD (hyperlipidemia) Social History Social History Household Members: None Household Members Other:: custodial Housing: Assisted Living Facility Do you presently have visiting nurse or other home services: Yes Alcohol intake: never Patient Tobacco Use Status: Former Tobacco user Tobacco use type: Cigarette Smoked in Last 30 Days: No e-Cigarette/Vaping Use: Never Used Second Hand Smoke Exposure: No Use of substances other than those prescribed or required for medical reasons: No Advance Directives: No Advance Directives Information Provided: Yes Advance Directives Date on File: 11/21/23 Do you have a plan to hurt others: No Plan service: No Current occupational status: retired and disabled Current occupation: rt hand Sexual orientation: Straight/Heterosexual Physical Exam Vital Signs: Vital Signs: Last Vital Signs Temp 98.5 F 03/21/24 02:52 Pulse 68 03/21/24 02:52 Resp 20 03/21/24 02:52 BP 149/55 H 03/21/24 02:52 Pulse Ox 98 03/21/24 02:52 O2 Del Method Room Air 03/21/24 02:52 BMI result Body Mass Index 29.2 Appearance: Alert. Oriented X3. No acute distress. Eyes: PERRLA, No Nystagmus ENT: Pharynx normal. Oral Mucosa moist atraumatic and normocephalic Neck: Normal inspection. Neck supple. No midline tenderness CVS: Normal heart rate and rhythm. Pulses normal. Respiratory: No respiratory distress. Equal air entry bilateral, no wheezing/rales/rhonchi Abdomen: Soft and nontender. Bowel sounds are present, no mass palpable, no CVA tenderness Skin: Skin warm and dry. Normal skin color. Normal skin turgor. Extremities: No lower extremity edema. No calf tenderness Neuro: Oriented X 3. No motor deficit. No sensory deficit.No cerebellar signs , cranial nerves II-XII intact Medical Decision Making Medical Decision Making [facility] Narrative: Patient is status post mechanical fall CT scan head and C-spine negative x-ray of the pelvis negative patient will be going back to custodial Lab Data [facility] Lab Attestation statement: I reviewed the patient's lab results. Labs: Lab Results 03/21/24 Range/Units 03:00 POC Glucose 119 H (60-115) mg/dL Discharge Plan Discharge Clinical Impression: Fall Patient Disposition: Xfer LTC Transfer Details: CT scan of the head and C-spine negative for acute pelvis x- rays negative for fracture care and cautions as advised Instructions: Fall Prevention for Older Adults (ED) Additional Instructions: No fracture was seen Care and cautions as advised Prescriptions: No Action divalproex 500 mg tablet,delayed release (DR/EC) 1 tab PO BEDTIME trazodone 150 mg tablet 1 tab PO BEDTIME metformin 1,000 mg tablet 1 tab PO BID docusate sodium [DOK] 100 mg Capsule 100 mg PO BID furosemide 20 mg tablet 20 mg PO DAILY carbidopa-levodopa 25-100 mg tablet 1 tab PO DAILY@0800,1200,1600 aripiprazole 30 mg tablet 1 tab PO BEDTIME aspirin 81 mg tablet,chewable 1 tab PO DAILY citalopram 20 mg tablet 1 tab PO DAILY acetaminophen 325 mg Tablet 650 mg PO Q4H PRN (Reason: Pain) polyethylene glycol 3350 17 gram/dose Powder 17 g PO DAILY PRN (Reason: CONSIPATION) nystatin 100,000 unit/gram powder 1 appl topical BID Qty: 15 0RF miconazole nitrate [Antifungal (miconazole)] 2 % cream 1 appl topical BID Qty: 28 0RF cefuroxime axetil 250 mg tablet 250 mg PO BID Qty: 13 0RF doxycycline hyclate 100 mg tablet 100 mg PO BID Qty: 20 0RF cyanocobalamin (vitamin B-12) 1,000 mcg Tablet 1,000 mcg PO DAILY calcium carbonate-vitamin D3 [Calcium + D] 600 mg-5 mcg (200 unit) Tablet 1 tab PO DAILY losartan 100 mg tablet 100 mg PO DAILY cholecalciferol (vitamin D3) 1,250 mcg (50,000 unit) Capsule 1,250 mcg PO QMONTH Invokana 100 mg tablet 100 mg PO DAILY Ozempic 1 mg/dose (4 mg/3 mL) pen injector 1 mg subcut WE benztropine 0.5 mg tablet 0.5 mg PO BID atorvastatin 20 mg tablet 20 mg PO DAILY Print Language: Qatari
[2024-03-21 03:05] LABS: Glucose, Whole Blood 119 mg/dL (60-115)
[2024-03-21 05:32] VITALS: BP 152/63; PULSE 75; RESP 16; TEMP 36.3; O2SAT 97
--- NOTE | 2024-03-21 05:52 | PC.NURSE ---
pt rang call [facility] for bed flores pt cleaned up from incontinence of stool. pt able to roll easily . repositioned on back provided with call coppola adn blanket
--- NOTE | 2024-03-21 06:14 | PC.NURSE ---
this rn called adn gave hand off report to gabriela south at [facility] assisted living prior to transport back to facility
[2024-03-21 07:19] VITALS: BP 152/63; PULSE 75; RESP 16; TEMP 36.3; O2SAT 97
== END 2024-03-21 07:20 ==
PROVIDERS: Emergency Provider Internal Medicine; PCP Internal Medicine
DX: R29.6 Repeated falls (principal); E11.9 Type 2 diabetes mellitus without complications; G20.A1 Parkinson's disease without dyskinesia, without mention of fluctuations; I11.0 Hypertensive heart disease with heart failure; I50.9 Heart failure, unspecified; Z91.81 History of falling
CPT/HCPCS: 70450; 72125; 72170; 82947; 99284

== ENCOUNTER → 2024-03-21 03:03 | Outpatient (BNV) | payer MEDICARE, MEDICAID, SELFPAY | PROVIDERS: Emergency Provider Internal Medicine; Visit Provider General Practice | DX: S09.90XA Unspecified injury of head, initial encounter (principal); M54.50 Low back pain, unspecified | CPT/HCPCS: 70450; 72125; 72170 ==